=== PATIENT | male | born 1935 | race Caucasian/White ===

== ENCOUNTER 2019-08-05 10:22 | Emergency (ER) | payer MEDICAID, SELFPAY | END 2019-08-05 13:11 | disposition home or self-care (01) | PROVIDERS: Emergency Provider Family Medicine; Family Provider Family Medicine; Visit Provider Family Medicine | DX: D64.89 Other specified anemias (principal); F03.90 Unspecified dementia, unspecified severity, without behavioral disturbance, psychotic disturbance, mood disturbance, and anxiety; Z85.038 Personal history of other malignant neoplasm of large intestine; F17.210 Nicotine dependence, cigarettes, uncomplicated; E78.5 Hyperlipidemia, unspecified; I10 Essential (primary) hypertension; J44.9 Chronic obstructive pulmonary disease, unspecified | CPT/HCPCS: 70450; 71045; 74177; 80053; 81003; 83605; 83690; 83880; 84484 ×2; 85025; 85610; 93005 ×2; 99285; Q9967 ==

== ENCOUNTER 2019-08-11 12:14 | Emergency (ER) | payer MEDICAID, SELFPAY | END 2019-08-11 15:05 | disposition admitted as inpatient to this hospital (09) | LOC: ER 09-21 09:42 | PROVIDERS: Emergency Provider Emergency Medicine; Family Provider Family Medicine; PCP Family Medicine | DX: K92.2 Gastrointestinal hemorrhage, unspecified (principal); F17.210 Nicotine dependence, cigarettes, uncomplicated; Z86.73 Personal history of transient ischemic attack (TIA), and cerebral infarction without residual deficits; Z86.19 Personal history of other infectious and parasitic diseases; I10 Essential (primary) hypertension; E03.9 Hypothyroidism, unspecified; I35.0 Nonrheumatic aortic (valve) stenosis | CPT/HCPCS: 36415; 36600; 51702; 70450; 71045; 74177; 80053; 80074; 80307; 80500; 81001; 82607; 82728; 82803; 82805; 83540; 83550; 83605; 83615; 83690; 83735; 84443; 85025; 85045; 85610; 86592; 86850; 86900; 86902; 87040; 87491; 87591; 96360; 96365; 96374; 96375; 99283; 99285; C9113; J2405; J7030; J7050; Q9967 ==

== ENCOUNTER 2019-08-11 12:14 | Inpatient (IN) | payer MEDICAID, SELFPAY ==
[2019-08-11] VITALS (31 sets, daily range): BP systolic 84–142; BP diastolic 40–81; PULSE 72–99; RESP 12–22; TEMP 35.9–37.1; O2SAT 93–100; BMI 27.1
--- NOTE | 2019-08-11 12:19 | CTR_ITS ---
PROCEDURE INFORMATION: Exam: CT Abdomen And Pelvis With Contrast Exam date and time: 08/11/2019 12:55 PM Age: 83 years old Clinical indication: Abdominal pain; Generalized TECHNIQUE: Imaging protocol: Computed tomography of the abdomen and pelvis with intravenous contrast. Total DLP: 914.3 mGy-cm Radiation optimization: All CT scans at this facility use at least one of these dose optimization techniques: automated exposure control; mA and/or kV adjustment per patient size (includes targeted exams where dose is matched to clinical indication); or iterative reconstruction. Contrast material: OMNI 300; Contrast volume: 95 ml; Contrast route: LT AC; COMPARISON: CT Abdomen/Pelvis w IV* [id number] 08/05/2019 12:10 PM FINDINGS: Lungs: There is probable atelectasis/scar in the lungs. Liver: Normal. No mass. Gallbladder and bile ducts: Normal. No calcified stones. No ductal dilation. Pancreas: Normal. No ductal dilation. Spleen: Normal. No splenomegaly. Adrenals: Normal. No mass. Kidneys and ureters: There is a 5.5 cm cyst in the superior left kidney. No renal calcification or hydronephrosis. Stomach and bowel: Colonic diverticula are present although there are no CT findings to suggest diverticulitis. No bowel obstruction or wall thickening. Appendix: The appendix is visualized and appears normal. Intraperitoneal space: Unremarkable. No free air. No significant fluid collection. Vasculature: Unremarkable. No abdominal aortic aneurysm. Lymph nodes: Unremarkable. No enlarged lymph nodes. Bladder: There is a Duval catheter in a decompressed bladder. Reproductive: Unremarkable as visualized. Bones/joints: Degenerative change is identified in the spine. There is no evidence for acute fracture or malalignment. Soft tissues: Unremarkable. CT/CT abdomen pelvis w con* [id number] IMPRESSION: There are no acute concerning abnormalities. Radiation Dose CTDIVOL = (mGy): DLP = 914.3 (mGy-cm)
--- NOTE | 2019-08-11 12:19 | CTR_ITS ---
PROCEDURE INFORMATION: Exam: CT Head Without Contrast Exam date and time: 08/11/2019 12:21 PM Age: 83 years old Clinical indication: Syncope and collapse; Additional info: AMS TECHNIQUE: Imaging protocol: Computed tomography of the head without contrast. Total DLP: 768.02 mGy-cm Radiation optimization: All CT scans at this facility use at least one of these dose optimization techniques: automated exposure control; mA and/or kV adjustment per patient size (includes targeted exams where dose is matched to clinical indication); or iterative reconstruction. COMPARISON: CT Head wo IV contrast* [id number] 08/05/2019 11:17 AM FINDINGS: Brain: Moderate white matter disease and volume loss are identified. There is no acute infarct or edema. There is prominence of the extra-axial space along the right frontal lobe. Ventricles: Normal. No ventriculomegaly. Bones/joints: Unremarkable. No acute fracture. Sinuses: Visualized sinuses are unremarkable. No fluid levels. Mastoid air cells: Visualized mastoid air cells are well aerated. Soft tissues: Unremarkable. CT/CT head wo con* [id number] IMPRESSION: There are no acute concerning abnormalities. Radiation Dose CTDIVOL = (mGy): DLP = 768.02 (mGy-cm)
--- NOTE | 2019-08-11 12:19 | XRR_ITS ---
PROCEDURE INFORMATION: Exam: XR Chest, 1 View Exam date and time: 08/11/2019 1:12 PM Age: 83 years old Clinical indication: Other: AMS TECHNIQUE: Imaging protocol: XR of the chest Views: 1 view. COMPARISON: CR Chest 1 [place] [id number] 08/05/2019 10:44 AM FINDINGS: Lungs: The lung volumes are low. No acute pneumonia or edema. Pleural space: Unremarkable. No pleural effusion. No pneumothorax. Heart/Mediastinum: Unremarkable. No cardiomegaly. Bones/joints: There is arthritic change in the bilateral glenohumeral joints. XR/XR chest 1V portable [id number] IMPRESSION: There are no acute concerning abnormalities.
--- NOTE | 2019-08-11 12:28 | PC.NURSE ---
Lab at bedside
[2019-08-11] MEDS: sodium chloride 0.9% 1,000 ML 999 ML IV (12:33)
[2019-08-11] MEDS: ondansetron 2 mg/ML SDV 2 mL 4 MG IVP (12:35)
[2019-08-11 12:41] LABS: Basophils % 0.5 %; Eosinophils # 0.3 10^3/uL (0.0-0.8); Eosinophils % 6.8 %; Lymphocytes % 24.6 %; Mean Corpuscular HGB Conc 27.7 g/dL (30.0-36.0); Mean Corpuscular Hemoglobin 20.8 pg (28.0-34.0); Mean Corpuscular Volume 75.1 fL (80-94); Monocytes # 0.4 10^3/uL (0.2-0.9); Monocytes % 10.7 %; Neutrophils # 2.4 10^3/uL (1.8-7.7); Neutrophils % 57.2 %; Nucleated Red Blood Cells % 0 %; Platelet Count 191 10^3/cmm (130-400); Red Blood Count 2.69 10^6/uL (4.1-5.3); Red Cell Distribution Width 17.1 % (12.1-15.1); White Blood Count 4.1 10^3/uL (4.0-10.0)
[2019-08-11 12:48] LABS: Hematocrit 20.2 % (42.0-52.0); Hemoglobin 5.6 g/dL (11.7-16.6)
[2019-08-11 12:50] LABS: INR 1.08 (0.8-1.2)
[2019-08-11 12:52] LABS: Albumin Level 3.4 g/dL (3.5-5.2); Alkaline Phosphatase 66 IU/L (40-130); Aspartate Amino Transferase 13 U/L (0-40); Blood Urea Nitrogen 13 mg/dL (8-23); Calcium 9.1 mg/Dl (8.8-10.2); Carbon Dioxide 22 mmol/L (22-29); Chloride 106 mmol/L (98-107); Globulin 2.6 g/dL (1.3-4.6); Glucose 119 mg/dL (74-106); Lipase 21 U/L (13-60); Magnesium 2.6 mg/dL (1.7-2.3); Sodium 137 mmol/L (136-145); Total Bilirubin 0.4 mg/dL (0.15-1.2)
[2019-08-11 12:53] LABS: Lactic Sepsis W/Reflex 2.4 mmol/L (0.5-2.2)
--- NOTE | 2019-08-11 13:01 | ED_ITS ---
Entered by Layla Grider, acting as scribe for HPI - Altered Mental Status General: Chief Complaint: Altered Mental Status Stated Complaint: HYPOTENSION Time Seen by Provider: 08/11/19 12:18 Source: patient and EMS Mode of arrival: EMS Limitations: altered mental status History of Present Illness: HPI narrative: Carlos is an 83-year-old male who comes from the local hotel with a report of confusion. No further history can be obtained. It is believed the patient stayed here in the hospital recently. MD complaint: altered mental status and confusion Onset (ago): day(s) Severity: moderate Consistency of symptoms: Getting Worse Review of Systems General: Reports: ROS unobtainable due to mental status PFSH ED PFSH: Statuses (acute, chronic, etc) shown below reflect problem list status as previously entered and may not be historically accurate Medical History (Updated 08/11/19 @ 14:49 by Malvin Barraza MD) Blindness (Acute) CVA (cerebral vascular accident) (Acute) Dementia (Acute) Hepatitis C virus infection cured after antiviral drug therapy (Acute) History of arteriovenous malformation (AVM) (Acute) History of Helicobacter pylori infection (Acute) History of hepatitis B (Acute) Hx of colonic polyps (Acute) Hypertension (Acute) Hypotension (Acute) Hypothyroidism (Acute) Severe aortic stenosis (Acute) Surgical History (Updated 08/11/19 @ 14:49 by Malvin Barraza MD) H/O hernia repair (Acute) History of colonoscopy (Acute) History of esophagogastroduodenoscopy (EGD) (Acute) Family History (Updated 08/11/19 @ 14:49 by Malvin Barraza MD) Other CAD (coronary artery disease) Denies family history of Cancer Social History (Updated 08/11/19 @ 14:50 by Malvin Barraza MD) Smoking and tobacco status: current every day smoker Alcohol intake: never Substance/Drug Use: never Caregiver/support person: No Lives independently: Yes Housing: Other Details: Lives in a hotel Marital status: Single Physical Exam Const: COMMON NORMALS: no apparent distress, no limitations, healthy appearing and well nourished EXAM LIMITATIONS: altered mental status GENERAL APPEARANCE: cooperative, well kempt and well developed ORIENTATION/CONSCIOUSNESS: Yes awake HENMT: COMMON NORMALS: normocephalic, head/scalp atraumatic, hearing grossly normal bilaterally, external ears normal, EAC's normal, external nose normal and moist oral mucous membranes HEAD & SCALP: normal to inspection, normocephalic and atraumatic FACE & SINUS: normal facial exam and face symmetric NOSE: external nose normal and nares normal EXTERNAL EAR: Yes external ears normal EXTERNAL AUDITORY CANAL: EAC's normal MOUTH: oral and palatal mucosa normal and tongue normal Eye: COMMON NORMALS: PERRL, EOMs intact bilaterally, conjunctivae normal and no scleral icterus GENERAL EYE: normal appearance of both eyes and normal light reflex CONJUNCTIVA: Yes conjunctivae normal SCLERA: sclerae normal CORNEA: Yes corneas normal PUPIL: Yes PERRL DIRECT OPHTHALMOSCOPY: Yes normal light reflex Neck/C-Spine: COMMON NORMALS: full ROM, no lymphadenopathy, supple, no meningeal signs and no JVD GENERAL: Yes normal visual inspection and Yes trachea midline CERVICAL SPINE: Yes cervical ROM normal Chest: COMMONS NORMALS: inspection of chest normal and palpation of chest normal Resp: COMMON NORMALS: normal respiratory effort, no retractions, no use of accessory muscles and clear to auscultation bilaterally EFFORT & INSPECTION: Yes able to speak in complete sentences AUSCULTATION: clear to auscultation bilaterally Cardio: COMMON NORMALS: no JVD, regular rate, regular rhythm, S1 normal heart sound, S2 normal heart sound, no gallops, no clicks, no murmurs and no rub JUGULAR VENOUS DISTENTION: no JVD RATE: regular rate RHYTHM: regular rhythm HEART SOUNDS: S1 normal and S2 normal GI: COMMON NORMALS: soft to palpation, non-tender, no hepatosplenomegaly and no masses INSPECTION: Yes normal to inspection PALPATION: Yes soft and Yes no hepatosplenomegaly : COMMON NORMALS: Yes no CVA tenderness BLADDER/KIDNEY EXAM: Yes no CVA tenderness Back/Pelvis: COMMON NORMALS: no CVA tenderness, thoracic and lumbar spine normal to inspection, no thoracic nor lumbar tenderness and thoraco-lumbar ROM normal Extremity: COMMON NORMALS: normal to inspection, full ROM, normal capillary refill, no joint enlargement, no clubbing, cyanosis or edema and no calf tenderness Neuro: COMMON NORMALS: CN's II-XII intact bilaterally, moves all extremities, no focal motor deficits and no sensory deficits noted MENINGEAL SIGNS: Yes no meningeal signs Psych: COMMON NORMALS: mental status grossly normal, thought process normal, cooperative, affect normal, speech normal and activity/motor behavior normal APPEARANCE: Yes well kempt SPEECH: Yes normal speech THOUGHT PROCESS: normal thought process Skin: COMMON NORMALS: no rashes or lesions noted, skin turgor normal, no jaundice, no petechiae and no mottling GENERAL SKIN EXAM: no rashes or lesions noted and turgor normal Urinary Catheter Management^: Duval: Cath Placed During This Visit: no Course Vital Signs: Vital signs: Vital Signs Temperature 97.5 F L 08/11/19 16:25 Pulse Rate 90 08/11/19 16:25 Respiratory Rate 18 08/11/19 16:08 Blood Pressure 92/72 08/11/19 16:25 Pulse Oximetry 98 08/11/19 16:31 MDM - Altered Mental Status MDM Narrative: Medical decision making narrative: The case was reviewed with Dr. Barraza, he will admit and consult Dr. Ramírez. Lab Data: Labs: Lab Results 08/11/19 08/11/19 08/11/19 Range/Units 11:55 12:28 12:28 WBC 4.1 (4.0-10.0) 10^3/ uL RBC 2.69 L (4.1-5.3) 10^6/u L Hgb 5.6 L* (11.7-16.6) g/dL Hct 20.2 L* (42.0-52.0) % MCV 75.1 L (80-94) fL MCH 20.8 L (28.0-34.0) pg MCHC 27.7 L (30.0-36.0) g/dL RDW 17.1 H (12.1-15.1) % Plt Count 191 (130-400) 10^3/c mm MPV 12.0 H (7.4-10.4) fL Neut % (Auto) 57.2 % Lymph % (Auto) 24.6 % [place] % (Auto) 10.7 % Eos % (Auto) 6.8 % Baso % (Auto) 0.5 % Reticulocyte % (Au to) % Neut # (Auto) 2.4 (1.8-7.7) 10^3/u L Lymph # (Auto) 1.0 (0.8-4.8) 10^3/u L [place] # (Auto) 0.4 (0.2-0.9) 10^3/u L Eos # (Auto) 0.3 (0.0-0.8) 10^3/u L Baso # (Auto) 0.0 (0.0-0.1) 10^3/u L Nucleated RBC % (a uto) 0 % Nucleated RBCs # 0.0 /100WBC PT 14.40 H (10.5-13.3) SECO NDS INR 1.08 (0.8-1.2) Specimen Type Sample Site ABG pH (7.35-7.45) ABG pCO2 (35-45) mmHg ABG pO2 (80.0-100.0) mmH g ABG HCO3 (22-26) mmol/L ABG Base Excess (-2.0-2.0) mmol/ L Chandana Test Hematocrit (42-52) % Hgb O2 Saturation (95-100) % FiO2 % Hop Grower ID Sodium 137 (136-145) mmol/L Potassium 4.0 (3.5-5.1) mmol/L Chloride 106 (98-107) mmol/L Carbon Dioxide 22 (22-29) mmol/L Anion Gap 13.0 (5-19) BUN 13 (8-23) mg/dL Creatinine 0.9 (0.7-1.2) mg/dL Glucose 119 H (74-106) mg/dL Lactic Acid (0.5-2.2) mmol/L Lactate (0.5-2.2) mmol/L Calcium 9.1 (8.8-10.2) mg/Dl Magnesium 2.6 H (1.7-2.3) mg/dL Total Bilirubin 0.4 (0.15-1.2) mg/dL AST 13 (0-40) U/L ALT 5 (0-41) U/L Alkaline Phosphata se 66 (40-130) IU/L Total Protein 6.0 L (6.6-8.7) g/dL Albumin 3.4 L (3.5-5.2) g/dL Globulin 2.6 (1.3-4.6) g/dL Lipase 21 (13-60) U/L Urine Color (Yellow) Urine Appearance (CLEAR) Urine pH (5-7) Ur Specific Gravit y (1.005-1.030) Urine Protein (Negative) Urine Glucose (UA) (Normal) Urine Ketones (Negative) Urine Occult Blood (Negative) Urine Nitrate (Negative) Urine Bilirubin (NEGATIVE) Urine Urobilinogen (Negative) mg/dL Ur Leukocyte Rosamaria ase (Negative) Urine RBC (0-2) /hpf Urine WBC (0-5) /hpf Ur Squamous Epith Cells (0-5) Urine Bacteria (NONE) Hyaline Casts Urine Mucus Salicylates < 0.3 L (3-10) mg/dL Urine Opiates Scre en (Negative) ng/mL Acetaminophen < 5.0 L (10-30) ug/mL Ur Barbiturates Sc reen (Negative) ng/mL Ur Phencyclidine S crn (Negative) ng/mL Ur Amphetamines Sc reen (Negative) ng/mL U Benzodiazepines Scrn (Negative) ng/mL Urine Cocaine Scre en (Negative) ng/mL U Marijuana (THC) Screen (Negative) ng/mL Ethyl Alcohol < 10 (0-10) mg/dL Blood Type Antibody Screen Antibody Identific ation Crossmatch 08/11/19 08/11/19 08/11/19 Range/Units 12:28 12:28 12:28 WBC (4.0-10.0) 10^3/ uL RBC (4.1-5.3) 10^6/u L Hgb (11.7-16.6) g/dL Hct (42.0-52.0) % MCV (80-94) fL MCH (28.0-34.0) pg MCHC (30.0-36.0) g/dL RDW (12.1-15.1) % Plt Count (130-400) 10^3/c mm MPV (7.4-10.4) fL Neut % (Auto) % Lymph % (Auto) % [place] % (Auto) % Eos % (Auto) % Baso % (Auto) % Reticulocyte % (Au to) 1.0800 % Neut # (Auto) (1.8-7.7) 10^3/u L Lymph # (Auto) (0.8-4.8) 10^3/u L [place] # (Auto) (0.2-0.9) 10^3/u L Eos # (Auto) (0.0-0.8) 10^3/u L Baso # (Auto) (0.0-0.1) 10^3/u L Nucleated RBC % (a uto) % Nucleated RBCs # /100WBC PT (10.5-13.3) SECO NDS INR (0.8-1.2) Specimen Type Sample Site ABG pH (7.35-7.45) ABG pCO2 (35-45) mmHg ABG pO2 (80.0-100.0) mmH g ABG HCO3 (22-26) mmol/L ABG Base Excess (-2.0-2.0) mmol/ L Chandana Test Hematocrit (42-52) % Hgb O2 Saturation (95-100) % FiO2 % Hop Grower ID Sodium (136-145) mmol/L Potassium (3.5-5.1) mmol/L Chloride (98-107) mmol/L Carbon Dioxide (22-29) mmol/L Anion Gap (5-19) BUN (8-23) mg/dL Creatinine (0.7-1.2) mg/dL Glucose (74-106) mg/dL Lactic Acid 2.4 H (0.5-2.2) mmol/L Lactate (0.5-2.2) mmol/L Calcium (8.8-10.2) mg/Dl Magnesium (1.7-2.3) mg/dL Total Bilirubin (0.15-1.2) mg/dL AST (0-40) U/L ALT (0-41) U/L Alkaline Phosphata se (40-130) IU/L Total Protein (6.6-8.7) g/dL Albumin (3.5-5.2) g/dL Globulin (1.3-4.6) g/dL Lipase (13-60) U/L Urine Color (Yellow) Urine Appearance (CLEAR) Urine pH (5-7) Ur Specific Gravit y (1.005-1.030) Urine Protein (Negative) Urine Glucose (UA) (Normal) Urine Ketones (Negative) Urine Occult Blood (Negative) Urine Nitrate (Negative) Urine Bilirubin (NEGATIVE) Urine Urobilinogen (Negative) mg/dL Ur Leukocyte Rosamaria ase (Negative) Urine RBC (0-2) /hpf Urine WBC (0-5) /hpf Ur Squamous Epith Cells (0-5) Urine Bacteria (NONE) Hyaline Casts Urine Mucus Salicylates (3-10) mg/dL Urine Opiates Scre en (Negative) ng/mL Acetaminophen (10-30) ug/mL Ur Barbiturates Sc reen (Negative) ng/mL Ur Phencyclidine S crn (Negative) ng/mL Ur Amphetamines Sc reen (Negative) ng/mL U Benzodiazepines Scrn (Negative) ng/mL Urine Cocaine Scre en (Negative) ng/mL U Marijuana (THC) Screen (Negative) ng/mL Ethyl Alcohol (0-10) mg/dL Blood Type A Positive Antibody Screen Positive Antibody Identific ation Anti-c Crossmatch See Detail 08/11/19 08/11/19 08/11/19 Range/Units 12:40 12:40 13:00 WBC (4.0-10.0) 10^3/ uL RBC (4.1-5.3) 10^6/u L Hgb (11.7-16.6) g/dL Hct (42.0-52.0) % MCV (80-94) fL MCH (28.0-34.0) pg MCHC (30.0-36.0) g/dL RDW (12.1-15.1) % Plt Count (130-400) 10^3/c mm MPV (7.4-10.4) fL Neut % (Auto) % Lymph % (Auto) % [place] % (Auto) % Eos % (Auto) % Baso % (Auto) % Reticulocyte % (Au to) % Neut # (Auto) (1.8-7.7) 10^3/u L Lymph # (Auto) (0.8-4.8) 10^3/u L [place] # (Auto) (0.2-0.9) 10^3/u L Eos # (Auto) (0.0-0.8) 10^3/u L Baso # (Auto) (0.0-0.1) 10^3/u L Nucleated RBC % (a uto) % Nucleated RBCs # /100WBC PT (10.5-13.3) SECO NDS INR (0.8-1.2) Specimen Type Arterial Sample Site Radial, right ABG pH 7.41 (7.35-7.45) ABG pCO2 35.6 (35-45) mmHg ABG pO2 68.6 L (80.0-100.0) mmH g ABG HCO3 22.7 (22-26) mmol/L ABG Base Excess -1.8 (-2.0-2.0) mmol/ L Chandana Test Pos Hematocrit 17.1 L (42-52) % Hgb O2 Saturation 90.5 L (95-100) % FiO2 21.0 % Hop Grower ID amh Sodium (136-145) mmol/L Potassium (3.5-5.1) mmol/L Chloride (98-107) mmol/L Carbon Dioxide (22-29) mmol/L Anion Gap (5-19) BUN (8-23) mg/dL Creatinine (0.7-1.2) mg/dL Glucose (74-106) mg/dL Lactic Acid (0.5-2.2) mmol/L Lactate (0.5-2.2) mmol/L Calcium (8.8-10.2) mg/Dl Magnesium (1.7-2.3) mg/dL Total Bilirubin (0.15-1.2) mg/dL AST (0-40) U/L ALT (0-41) U/L Alkaline Phosphata se (40-130) IU/L Total Protein (6.6-8.7) g/dL Albumin (3.5-5.2) g/dL Globulin (1.3-4.6) g/dL Lipase (13-60) U/L Urine Color Yellow (Yellow) Urine Appearance Clear (CLEAR) Urine pH 7 (5-7) Ur Specific Gravit y 1.010 (1.005-1.030) Urine Protein Neg (Negative) Urine Glucose (UA) Norm (Normal) Urine Ketones Negative (Negative) Urine Occult Blood Neg (Negative) Urine Nitrate Negative (Negative) Urine Bilirubin Neg (NEGATIVE) Urine Urobilinogen 1 H (Negative) mg/dL Ur Leukocyte Rosamaria ase Negative (Negative) Urine RBC 0-4 H (0-2) /hpf Urine WBC 5-10 H (0-5) /hpf Ur Squamous Epith Cells 0-4 H (0-5) Urine Bacteria 1+ H (NONE) Hyaline Casts 5-10 H Urine Mucus Trace Salicylates (3-10) mg/dL Urine Opiates Scre en Negative (Negative) ng/mL Acetaminophen (10-30) ug/mL Ur Barbiturates Sc reen Negative (Negative) ng/mL Ur Phencyclidine S crn Negative (Negative) ng/mL Ur Amphetamines Sc reen Negative (Negative) ng/mL U Benzodiazepines Scrn Negative (Negative) ng/mL Urine Cocaine Scre en Negative (Negative) ng/mL U Marijuana (THC) Screen Negative (Negative) ng/mL Ethyl Alcohol (0-10) mg/dL Blood Type Antibody Screen Antibody Identific ation Crossmatch 08/11/19 Range/Units 13:37 WBC (4.0-10.0) 10^3/ uL RBC (4.1-5.3) 10^6/u L Hgb (11.7-16.6) g/dL Hct (42.0-52.0) % MCV (80-94) fL MCH (28.0-34.0) pg MCHC (30.0-36.0) g/dL RDW (12.1-15.1) % Plt Count (130-400) 10^3/c mm MPV (7.4-10.4) fL Neut % (Auto) % Lymph % (Auto) % [place] % (Auto) % Eos % (Auto) % Baso % (Auto) % Reticulocyte % (Au to) % Neut # (Auto) (1.8-7.7) 10^3/u L Lymph # (Auto) (0.8-4.8) 10^3/u L [place] # (Auto) (0.2-0.9) 10^3/u L Eos # (Auto) (0.0-0.8) 10^3/u L Baso # (Auto) (0.0-0.1) 10^3/u L Nucleated RBC % (a uto) % Nucleated RBCs # /100WBC PT (10.5-13.3) SECO NDS INR (0.8-1.2) Specimen Type Sample Site ABG pH (7.35-7.45) ABG pCO2 (35-45) mmHg ABG pO2 (80.0-100.0) mmH g ABG HCO3 (22-26) mmol/L ABG Base Excess (-2.0-2.0) mmol/ L Chandana Test Hematocrit (42-52) % Hgb O2 Saturation (95-100) % FiO2 % Hop Grower ID Sodium (136-145) mmol/L Potassium (3.5-5.1) mmol/L Chloride (98-107) mmol/L Carbon Dioxide (22-29) mmol/L Anion Gap (5-19) BUN (8-23) mg/dL Creatinine (0.7-1.2) mg/dL Glucose (74-106) mg/dL Lactic Acid (0.5-2.2) mmol/L Lactate 1.4 (0.5-2.2) mmol/L Calcium (8.8-10.2) mg/Dl Magnesium (1.7-2.3) mg/dL Total Bilirubin (0.15-1.2) mg/dL AST (0-40) U/L ALT (0-41) U/L Alkaline Phosphata se (40-130) IU/L Total Protein (6.6-8.7) g/dL Albumin (3.5-5.2) g/dL Globulin (1.3-4.6) g/dL Lipase (13-60) U/L Urine Color (Yellow) Urine Appearance (CLEAR) Urine pH (5-7) Ur Specific Gravit y (1.005-1.030) Urine Protein (Negative) Urine Glucose (UA) (Normal) Urine Ketones (Negative) Urine Occult Blood (Negative) Urine Nitrate (Negative) Urine Bilirubin (NEGATIVE) Urine Urobilinogen (Negative) mg/dL Ur Leukocyte Rosamaria ase (Negative) Urine RBC (0-2) /hpf Urine WBC (0-5) /hpf Ur Squamous Epith Cells (0-5) Urine Bacteria (NONE) Hyaline Casts Urine Mucus Salicylates (3-10) mg/dL Urine Opiates Scre en (Negative) ng/mL Acetaminophen (10-30) ug/mL Ur Barbiturates Sc reen (Negative) ng/mL Ur Phencyclidine S crn (Negative) ng/mL Ur Amphetamines Sc reen (Negative) ng/mL U Benzodiazepines Scrn (Negative) ng/mL Urine Cocaine Scre en (Negative) ng/mL U Marijuana (THC) Screen (Negative) ng/mL Ethyl Alcohol (0-10) mg/dL Blood Type Antibody Screen Antibody Identific ation Crossmatch Imaging Data^: CXR: My impression: No acute cardiopulmonary findings. CT Head: My impression: No acute findings, see formal report. CT Abd/Pel: Radiologist's impression: [facility] [address] [place] [address] CT Scan Report Signed Patient: Carlos Leyva MR#: [id number] : 1935 Acct:[id number] Age/Sex: 83 / M ADM Date: 08/11/19 Loc: ER Attending Dr: Ordering Physician: Shadia Serra DO Date of Service: 08/11/19 Procedure(s): CT abdomen pelvis w con* [id number] Accession Number(s): [id number] cc: Shadia Serra DO PROCEDURE INFORMATION: Exam: CT Abdomen And Pelvis With Contrast Exam date and time: 08/11/2019 12:55 PM Age: 83 years old Clinical indication: Abdominal pain; Generalized TECHNIQUE: Imaging protocol: Computed tomography of the abdomen and pelvis with intravenous contrast. Total DLP: 914.3 mGy-cm Radiation optimization: All CT scans at this facility use at least one of these dose optimization techniques: automated exposure control; mA and/or kV adjustment per patient size (includes targeted exams where dose is matched to clinical indication); or iterative reconstruction. Contrast material: OMNI 300; Contrast volume: 95 ml; Contrast route: LT AC; COMPARISON: CT Abdomen/Pelvis w IV* [id number] 08/05/2019 12:10 PM FINDINGS: Lungs: There is probable atelectasis/scar in the lungs. Liver: Normal. No mass. Gallbladder and bile ducts: Normal. No calcified stones. No ductal dilation. Pancreas: Normal. No ductal dilation. Spleen: Normal. No splenomegaly. Adrenals: Normal. No mass. Kidneys and ureters: There is a 5.5 cm cyst in the superior left kidney. No renal calcification or hydronephrosis. Stomach and bowel: Colonic diverticula are present although there are no CT findings to suggest diverticulitis. No bowel obstruction or wall thickening. Appendix: The appendix is visualized and appears normal. Intraperitoneal space: Unremarkable. No free air. No significant fluid collection. Vasculature: Unremarkable. No abdominal aortic aneurysm. Lymph nodes: Unremarkable. No enlarged lymph nodes. Bladder: There is a Duval catheter in a decompressed bladder. Reproductive: Unremarkable as visualized. Bones/joints: Degenerative change is identified in the spine. There is no evidence for acute fracture or malalignment. Soft tissues: Unremarkable. CT/CT abdomen pelvis w con* [id number] IMPRESSION: There are no acute concerning abnormalities. Radiation Dose CTDIVOL = (mGy): DLP = 914.3 (mGy-cm) Dictated By: Gilberto Shirley MD 08/11/19 1356 Signed By: Gilberto Shirley MD 08/11/19 1358 Discharge Plan Discharge Patient Disposition: Admitted As Inpatient Admit Provider: Malvin Barraza Clinical Impression: Acute GI bleeding Condition: Stable Referrals: Mauricio Hull MD [Family Provider] - Discharge Date/Time: 08/11/19 15:05 Coding Level of Care Code ED Touch Up Edger for Chg Fwd Exam Problem Focused The documentation recorded by the Cheo nolen Bridget Annette, accurately reflects the service I personally performed and the decisions made by Ponce rodriguez Eli N Aug 11, 2019 12:14
[2019-08-11 13:09] LABS: Acetaminophen < 5.0 ug/mL (10-30); Alcohol Level < 10 mg/dL (0-10); Salicylate < 0.3 mg/dL (3-10)
[2019-08-11 13:10] LABS: Alanine Aminotransferase 5 U/L (0-41)
[2019-08-11 13:12] LABS: ABG PCO2 35.6 mmHg (35-45); ABG PH Result 7.41 (7.35-7.45); Arterial Blood Gas Hematocrit 17.1 % (42-52); Base Excess ABG -1.8 mmol/L (-2.0-2.0); Blood Gas Allen Test Pos; Blood Gas Operator Identificat amh; Blood Gas Sample Site Radial, right; Blood Gas Sample Type Arterial; HCO3 ABG 22.7 mmol/L (22-26); HGB O2 Sat 90.5 % (95-100); PO2 ABG 68.6 mmHg (80.0-100.0)
--- NOTE | 2019-08-11 13:12 | PC.NURSE ---
Pt to radiology
--- NOTE | 2019-08-11 13:30 | PC.NURSE ---
Pt back to room
[2019-08-11] MEDS: pantoprazole 40 MG in sodium chloride 0.9% (plus) 100 ML 20 MG IV (13:49)
[2019-08-11] MEDS: pantoprazole 40 mg SDV 80 MG IVP (13:49)
[2019-08-11] MEDS: sodium chloride 0.9% 1,000 ML 150 ML IV (13:50)
[2019-08-11 13:54] LABS: Amphetamines Screen Urine Negative (Negative); Barbiturates Screen Urine Negative (Negative); Benzodiazepines Screen Urine Negative (Negative); Cocaine Screen Urine Negative (Negative); Opiate Screen Urine Negative (Negative); PCP Screen Urine Negative (Negative); THC Screen Urine Negative (Negative)
--- NOTE | 2019-08-11 13:55 | PC.NURSE ---
Dr Barraza at bedside
[2019-08-11 13:56] LABS: Bilirubin Urine Neg (NEGATIVE); Blood Urine Neg (Negative); Glucose Urine UA Norm (Normal); Ketones Urine Negative (Negative); Leukocyte Esterase Urine Negative (Negative); Nitrate Urine Negative (Negative); Protein Urine Neg (Negative); Urine Appearance Clear (CLEAR); Urine Color Yellow (Yellow); Urobilinogen Urine 1 mg/dL (Negative); pH Urine 7 (5-7)
[2019-08-11 14:03] LABS: Mucus Urine TRACE
[2019-08-11 14:04] LABS: RBC Urine 0-4 /hpf (0-2)
[2019-08-11 14:05] LABS: Add Urine Culture? No; Bacteria Urine 1+; Squamous Epithelial Cell Urine 0-4 (0-5)
[2019-08-11 14:23] LABS: Reflex Lactate Order Y
--- NOTE | 2019-08-11 14:35 | PM.HP ---
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 Who presents to the emergency room due to complaints of black stools and syncope. Patient states that all his family have , he only has an cousins in [facility], and he is only really close to his nephew in [place]. He is disabled due to chronic back pain. He lives in a [place] in [facility] [place] [facility] that gets $700 from Social Security, he lives on his own. States that this morning the woman he was with, he is pretty vague in terms of his relationship with this female, denies her being a girlfriend or , stated that she saw him pass out so she called 911. He stated that he also passed out in the EMS. States that he has had a couple weeks history of black stools. Denies bloody stools. Denies lightheadedness. Denies dizziness. Denies history of syncopes in the past. Denies chest pain. Denies palpitations. Denies a history of CAD. Denies history of stent placement. Denies history of CABG. Does have a history of CVA. No reported facial droop, slurring of speech, focal neurologic deficits, paralysis, productive or receptive aphasia. No seizure-like events reported, no urinary or bowel incontinence, no postictal confusion. In the emergency room, heart rates were in the 80s, blood pressure was 84/40, received bolus of IV fluids, receiving blood, blood pressure and is in the 130 over 70s, heart rate 90s, no tachypnea, patient states that he is doing better, denies chest pain, denies palpitations, denies shortness of breath, denies lightheadedness, denies dizziness. During my examination patient had episodes of confusion, did not answer questions appropriately, seems quite forgetful, I did require to repeat my questioning a couple of times for him to understand. Patient denies being on blood thinners, aspirin, Eliquis, warfarin, Plavix, denies taking Aleve or naproxen. Or NSAIDs. Review of Systems Const: Denies: fever, chills, body aches or change in appetite Eyes: Denies: change in vision ENMT: Denies: nasal discharge Card: Reports: syncope; Denies: chest pain, palpitations, irregular heart rhythm or lightheadedness Resp: Denies: shortness of breath or productive cough GI: Reports: excessive passing of gas and black tarry stool; Denies: abdominal pain, nausea, vomiting, vomiting blood, coffee grounds in vomit, diarrhea, constipation, painful bowel movements or blood in stool : Denies: flank pain, difficulty urinating, painful urination, urinary frequency, urinary urgency or urinary hesitancy Musc: Denies: back pain Skin/Breast: Denies: rash Neuro: Reports: dizziness; Denies: headache, numbness in extremities, weakness in extremities or difficulty walking Endo: Denies: excessive urination Ronni/Lymph: Denies: easy bruising Medications/Allergies Home Medications Medication Instructions Recorded Confirmed Last Taken Type Unable to Assess 08/11/19 08/11/19 Unknown History Allergies Allergy/AdvReac Type Severity Reaction Status Date / Time No Known Allergies Allergy Verified 08/11/19 12:41 Additional Medication Information Additional Medication Information: Patient is unable to provide his medication list, his pharmacy is closed On his previous med list: He is on levothyroxine 100 mcg once daily -Pantoprazole 40 mg once daily Atorvastatin 40 mg once daily Docusate 100 mg twice daily Ferrous sulfate 325 mg 3 times daily Losartan 25 mg p.o. daily Terrazosin and 5 mg p.o. daily Flonase PFSH Acute PFSH: Statuses (acute, chronic, etc) shown below reflect problem list status as previously entered and may not be historically accurate Medical History (Updated 08/11/19 @ 14:49 by Malvin Barraza MD) Blindness (Acute) CVA (cerebral vascular accident) (Acute) Dementia (Acute) Hepatitis C virus infection cured after antiviral drug therapy (Acute) History of arteriovenous malformation (AVM) (Acute) History of Helicobacter pylori infection (Acute) History of hepatitis B (Acute) Hx of colonic polyps (Acute) Hypertension (Acute) Hypotension (Acute) Hypothyroidism (Acute) Severe aortic stenosis (Acute) Surgical History (Updated 08/11/19 @ 14:49 by Malvin Barraza MD) H/O hernia repair (Acute) History of colonoscopy (Acute) History of esophagogastroduodenoscopy (EGD) (Acute) Family History (Updated 08/11/19 @ 14:49 by Malvin Barraza MD) Other CAD (coronary artery disease) Denies family history of Cancer Social History (Updated 08/11/19 @ 14:50 by Malvin Barraza MD) Smoking and tobacco status: current every day smoker Alcohol intake: never Substance/Drug Use: never Caregiver/support person: No Lives independently: Yes Housing: Other Details: Lives in a hotel Marital status: Single Vitals/I&O/Wt Last Vital Signs Temp 97.7 F 08/11/19 12:18 Pulse 90 08/11/19 13:54 Resp 19 H 08/11/19 13:54 BP 110/59 08/11/19 13:54 Pulse Ox 99 08/11/19 13:54 08/10/19 08/11/19 08/11/19 22:59 06:59 14:59 Intake Total 1000 / 1000 Balance 1000 / 1000 Weight last 48 hrs Weight 90.718 kg Physical Exam Const: COMMON NORMALS: no apparent distress and oriented x3 GENERAL APPEARANCE: cooperative and comfortable NUTRITIONAL APPEARANCE: obese ORIENTATION/CONSCIOUSNESS: Yes awake, Yes oriented to person, Yes oriented to place and Yes confused HENMT: COMMON NORMALS: normocephalic Eye: COMMON NORMALS: PERRL and EOMs intact bilaterally Neck/C-Spine: COMMON NORMALS: no lymphadenopathy and no JVD Lymph: LYMPHATIC: no lymphadenopathy noted Chest: COMMONS NORMALS: inspection of chest normal Resp: COMMON NORMALS: normal respiratory effort, no retractions, no use of accessory muscles, clear to auscultation bilaterally and percussion normal Cardio: COMMON NORMALS: no JVD, S1 normal heart sound, S2 normal heart sound and no clicks HEART SOUNDS: abnormal sounds (Systolic murmur) PERIPHERAL PULSES: pulses 2+ throughout GI: COMMON NORMALS: normal to inspection, nondistended, normoactive bowel sounds, soft to palpation, non-tender, no hepatosplenomegaly, no masses and no bruits : COMMON NORMALS: Yes no CVA tenderness Extremity: COMMON NORMALS: normal to inspection, full ROM, normal capillary refill, no clubbing, cyanosis or edema and no pedal edema Neuro: COMMON NORMALS: oriented x3, moves all extremities, no focal motor deficits, no sensory deficits noted and deep tendon reflexes 2+ bilaterally Psych: COMMON NORMALS: mental status grossly normal and thought process normal (Thought process delayed, forgetful) ACTIVITY/MOTOR BEHAVIOR: Yes disorganized SPEECH: Yes delayed THOUGHT PROCESS: disorganized and confused MEMORY/COGNITION: Yes memory grossly impaired Skin: COMMON NORMALS: no rashes or lesions noted Urinary Catheter Management^: Duval: Cath Placed During This Visit: no Data Micro: Micro: Microbiology 08/11/19 12:44 Blood Culture - Pr eliminary Blood SPECIMEN [facility]ORE 08/11/19 12:28 Blood Culture - Pr eliminary Blood SPECIMEN [facility] A&P Assessment and plan (1) Acute GI bleeding: Assessment: No significant elevations of BUN, hemoglobin 5.6, was hypotensive on admission but improved with a 3 L bolus IV fluids, could be upper or lower GI source, given history of mild to moderate dysplastic colonic polyps x2, would benefit from an EGD and colonoscopy, EGD 6 months ago did show AV malformation status post cauterization -Patient does have history of iron deficiency anemia, on iron patient d -does have a history of severe aortic stenosis, possible traumatic hemolysis, this might also be playing a role Plan: -Admit to ICU -Maintain map greater than 65, bolused with LR -Maintain [address], no need for central line at this time as patient is normotensive, may need a central line if required -We will received 3 units PRBC, monitor hemoglobin thereafter every 4 hours -Continue Protonix drip -Surgery has been consulted -N.p.o., will have EGD tomorrow -Telemetry, monitor vitals -LDH, peripheral smear, iron studies pending Status: Acute Code(s): K92.2 - Gastrointestinal hemorrhage, unspecified (2) Syncope: Likely secondary to GI bleed, monitor mental status closely, monitor vitals We will do an echocardiogram to evaluate the aortic valve Status: Acute Code(s): R55 - Syncope and collapse (3) Severe aortic stenosis: Has not followed up with cardiology as outpatient Last echocardiogram on 02/03/2018 showed markedly thickened and calcified probably tricuspid aortic valve, low-flow low gradient severe aortic valve stenosis, peak velocity 3.6 ms, peak gradient 52 mmHg, mean gradient 29 mmHg, aortic valve area 0.86 cm?, dimension valves index 0.25, stroke-volume index 29.5 -We will repeat echocardiogram, possibly some component of patient's syncope could be related to aortic stenosis Status: Acute Code(s): I35.0 - Nonrheumatic aortic (valve) stenosis (4) Hypothyroidism: Check TSH, IV levothyroxine Status: Acute Code(s): E03.9 - Hypothyroidism, unspecified (5) Chronic back pain: Status: Acute Code(s): M54.9 - Dorsalgia, unspecified; G89.29 - Other chronic pain (6) Hypertension: Hold home medications Status: Acute Code(s): I10 - Essential (primary) hypertension (7) Dementia: Patient seems very forgetful, has baseline dementia, states that he is taking medication for this, but I cannot see it on his previous medication list Status: Acute Code(s): F03.90 - Unspecified dementia without behavioral disturbance Attestations Medical Necessity Statement*: Patient requires hospitalization, inpatient, greater than 2 midnights for upper GI bleed Coding Level of Care Code Acute 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
--- NOTE | 2019-08-11 15:26 | USCV_ITS ---
Carlos Leyva Age: 83 Gender: M : 1935 Exam Date: 08/11/2019 15:38 Ordering Phys: Malvin Barraza MD Technologist: Mel Doll [place] [facility] [place]: Syncope, severe aortic stenosis BP: 119 / 74 HR: 80 Rhythm: Sinus Technical Quality: Suboptimal MEASUREMENTS (Male / Female) Normal Values 2D ECHO LV Diastolic Diameter PLAX 4.2 cm 4.2 - 5.9 / 3.9 - 5.3 cm LV Systolic Diameter PLAX 3.1 cm LV Chamber Size 3.6 cm IVS Diastolic Thickness 2.0 cm 0.6 - 1.0 / 0.6 - 0.9 cm IVS Systolic Thickness 2.2 cm LVPW Diastolic Thickness 1.1 cm 0.6 - 1.0 / 0.6 - 0.9 cm LVPW Systolic Thickness 1.9 cm RV Chamber Size 2.3 cm LVOT Diameter 2.1 cm LV Ejection Fraction 2D Teich 49.7 % LV Ejection Fraction MOD 2C 62.9 % LV Ejection Fraction 2C AL 62.6 % LA Diameter 4.3 cm LA Width 3.6 cm LA Height 4.6 cm RA Width 2.7 cm RA Height 4.0 cm Aorta at Sinotubular Diameter 2.4 cm M-MODE LV Diastolic Diameter MM 4.8 cm 4.2 - 5.9 / 3.9 - 5.3 cm LV Systolic Diameter MM 3.5 cm LV Ejection Fraction MM Teich 51.3 % IVS Diastolic Thickness MM 1.1 cm 0.6 - 1.0 / 0.6 - 0.9 cm IVS Systolic Thickness MM 1.3 cm LVPW Diastolic Thickness MM 1.1 cm 0.6 - 1.0 / 0.6 - 0.9 cm LVPW Systolic Thickness MM 1.4 cm RV Diastolic Diameter MM 0.9 cm Aortic Annulus Diameter 3.2 cm LA Ao Ratio MM 1.3 MV E Point Septal Separation 0.9 cm DOPPLER AV Peak Velocity 390.0 cm/s LVOT Peak Velocity 89.0 cm/s AV Area Cont Eq vti 0.7 cm squared AV Area Cont Eq pk 0.8 cm squared MV Area PHT 3.2 cm squared Mitral E to A Ratio 0.6 MV E' Velocity 6.0 cm/s Mitral E to MV E' Ratio 11.0 Mitral E to LV E' Lateral Ratio 10.5 Mitral E to LV E' Septal Ratio 11.8 TV Peak E Velocity 60.0 cm/s Right Atrial Pressure 3.0 mmHg FINDINGS Left Ventricle Normal left ventricular cavity size. Increased left ventricular wall thickness. Normal left ventricular systolic function. Left ventricular ejection fraction is estimated at 55 %. No diagnostic regional wall motion abnormalities. Grade 1 diastolic dysfunction. Right Ventricle Normal right ventricular size and systolic function. Right Atrium Normal right atrial size. Right atrial pressure estimated at 3 mmHg. Left Atrium Upper normal left atrial size. Mitral Valve Mildly thickened mitral valve. Trace mitral valve regurgitation. Aortic Valve Aortic valve not well visualized. Markedly thickened and calcified aortic valve. Severe aortic valve stenosis, peak velocity 3.9 m/s, peak gradient 61 mmHg, mean gradient 37.9 mmHg, MANUELITO 0.68 cm squared (LVOT=2.1 cm). Dimensionless valve index of 0.23. Tricuspid Valve Tricuspid valve not well visualized. Trace tricuspid valve regurgitation. Pulmonic Valve Pulmonic valve not well visualized. Pericardium No pericardial effusion. Aorta Aorta not well visualized. CONCLUSIONS 1. Normal left ventricular cavity size. Increased left ventricular wall thickness. Normal left ventricular systolic function. Left ventricular ejection fraction is estimated at 55 %. No diagnostic regional wall motion abnormalities. Grade 1 diastolic dysfunction. 2. Normal right ventricular size and systolic function. 3. Markedly thickened and calcified aortic valve. Severe aortic valve stenosis, peak velocity 3.9 m/s, peak gradient 61 mmHg, mean gradient 37.9 mmHg, MANUELITO 0.68 cm squared (LVOT=2.1 cm). Dimensionless valve index of 0.23. 4. When compared to previous echocardiogram dated 01/06/2019, aortic valve stenosis has worsened and mean gradient across aortic valve has increased to 38 mmHg. Liliana Montalvo MD (Electronically Signed) Final Date: 12 August 2019 13:16 S
--- NOTE | 2019-08-11 15:49 | PC.NURSE ---
blind in right eye
--- NOTE | 2019-08-11 15:56 | PC.NURSE ---
left shoulder hurts. relates it to arthritis.
--- NOTE | 2019-08-11 16:28 | ECG_ITS ---
Measurements Intervals [place] Rate: 93 P: 53 CO: 200 QRS: 23 QRSD: 98 T: -4 QT: 412 QTc: 513 SINUS RHYTHM WITH OCCASIONAL VENTRICULAR PREMATURE COMPLEXES ST DEVIATION AND MODERATE T-WAVE ABNORMALITY, CONSIDER LATERAL ISCHEMIA [-0.1+ mV mV T WAVE IN I/aVL/V5/V6] Compared to ECG 08/05/2019 12:25:58 Ventricular premature complex(es) now present Possible ischemia now present T-wave abnormality still present Electronically Signed On 08-12-2019 11:24:33 REPORT DEVELOPER by Liliana Montalvo M.D. [id number]
[2019-08-11 16:29] LABS: Lactate (Lactic Acid level) 1.4 mmol/L (0.5-2.2)
--- NOTE | 2019-08-11 16:45 | PM.CONSULT ---
Providers/Reason For Consult Consulting Physican/Specialty*: Dr. Barraza Reason for Consult*: Anemia GI bleed Attending Physician: Malvin Barraza MD History of Present Illness History of Present Illness Carlos Leyva is a 83 year old male who presented to the ER today with complaints of syncope and black stools. Patient had some abdominal pain but denies any nausea or vomiting. Patient states that he had some black stools but denies any bleeding per rectum. Patient had a EGD in 2013 which showed AV malformation in the stomach which was cauterized and a colonoscopy where 3 polyps were removed. At present he denies any chest pain. Patient was noted to be hypotensive with a hemoglobin of 5.6. Review of Systems Const: Denies: fever, chills, change in weight or fatigue Eyes: Denies: change in vision ENMT: Denies: painful swallowing Card: Denies: chest pain Resp: Denies: shortness of breath GI: Denies: abdominal pain or blood in stool : Denies: painful urination Neuro: Denies: seizure-like activity Ronni/Lymph: Denies: easy bruising Meds/Allergies Home Medications and Allergies Home Medications Medication Instructions Recorded Confirmed Type atorvastatin 40 mg PO DAILY 08/11/19 History ferrous sulfate 325 mg PO TID 08/11/19 History fluticasone propionate 2 spray INTRANASAL DAILY 08/11/19 History levothyroxine 100 mcg PO DAILY 08/11/19 History losartan 25 mg PO DAILY 08/11/19 History pantoprazole [Protonix] 40 mg PO DAILY 08/11/19 History terazosin 5 mg PO DAILY 08/11/19 History Allergies Allergy/AdvReac Type Severity Reaction Status Date / Time No Known Allergies Allergy Verified 08/11/19 12:41 Current Medications Current Medications Generic Name Dose Route Start Last Admin Trade Name Freq PRN Reason Stop Dose Admin Sodium Chloride 1,000 mls @ 150 mls/hr 08/11/19 13:45 08/11/19 15:04 Sodium Chloride 0.9% IV Infused .Q6H40M KRISTYN Infusion PFSH Acute PFSH: Statuses (acute, chronic, etc) shown below reflect problem list status as previously entered and may not be historically accurate Medical History Blindness (Acute) CVA (cerebral vascular accident) (Acute) Dementia (Acute) Hepatitis C virus infection cured after antiviral drug therapy (Acute) History of arteriovenous malformation (AVM) (Acute) History of Helicobacter pylori infection (Acute) History of hepatitis B (Acute) Hx of colonic polyps (Acute) Hypertension (Acute) Hypotension (Acute) Hypothyroidism (Acute) Severe aortic stenosis (Acute) Surgical History H/O hernia repair (Acute) History of colonoscopy (Acute) History of esophagogastroduodenoscopy (EGD) (Acute) Family History Other CAD (coronary artery disease) Denies family history of Cancer Social History Smoking and tobacco status: current every day smoker Alcohol intake: never Substance/Drug Use: never Caregiver/support person: No Lives independently: Yes Housing: Other Details: Lives in a hotel Marital status: Single Vitals/I&O/Wt Last Vital Signs Temp 97.5 F L 08/11/19 16:25 Pulse 90 08/11/19 16:25 Resp 18 08/11/19 16:08 BP 92/72 08/11/19 16:25 Pulse Ox 98 08/11/19 16:31 08/11/19 08/11/19 08/11/19 06:59 14:59 22:59 Intake Total 1000 / 1185 185 / 1185 Balance 1000 / 1185 185 / 1185 Weight last 48 hrs Weight 200 lb Physical Exam Const: COMMON NORMALS: no apparent distress ORIENTATION/CONSCIOUSNESS: Yes oriented to person, Yes oriented to place and Yes oriented to time HENMT: COMMON NORMALS: normocephalic HEAD & SCALP: normocephalic Eye: GENERAL EYE: normal appearance of both eyes Resp: COMMON NORMALS: clear to auscultation bilaterally AUSCULTATION: clear to auscultation bilaterally Cardio: COMMON NORMALS: S1 normal heart sound and S2 normal heart sound HEART SOUNDS: S1 normal and S2 normal GI: COMMON NORMALS: soft to palpation PALPATION: Yes soft Neuro: SENSORIUM/ORIENTATION: Yes oriented to person, Yes oriented to place and Yes oriented to time Skin: COMMON NORMALS: no rashes or lesions noted GENERAL SKIN EXAM: no rashes or lesions noted Urinary Catheter Management^: Duval: Cath Placed During This Visit: no Data Micro: Micro: Microbiology 08/11/19 12:44 Blood Culture - Pr eliminary Blood SPECIMEN MATTY TORREZ 08/11/19 12:28 Blood Culture - Pr eliminary Blood SPECIMEN [facility] LORE A&P Assessment and plan (1) Acute GI bleedin-year-old gentleman with melena and hemoglobin of 5.6. Patient is currently hemodynamically stable Continue Protonix drip Serial hemoglobin check Plan for EGD and colonoscopy since he is due for one based on his prior colonoscopy findings Bowel prep tonight N.p.o. after midnight Procedure, risks, benefits and alternatives have been discussed with the patient who wishes to proceed with surgery. Status: Acute Code(s): K92.2 - Gastrointestinal hemorrhage, unspecified Consult Attestations Medical Necessity Statement: Anemia acute blood loss with syncope requiring continued inpatient monitoring and ICU stay Coding Level of Care Code Acute Medical Technician for [facility] Diagnoses Acute GI bleeding K92.2
[2019-08-11 17:04] LABS: Thyroid Stimulating Hormone 24.76 uIU/mL (0.27-4.20)
[2019-08-11 17:20] LABS: Hepatitis A Antibody IgM. Non-Reactive (Nonreactive); Hepatitis B Core IgM Non-Reactive (Nonreactive); Hepatitis B Surface Antigen. Non-Reactive (Nonreactive); Hepatitis C Virus Antibody Reactive (Nonreactive)
--- NOTE | 2019-08-11 17:29 | PC.NURSE ---
Pt. states he only takes a blood pressure and dementia pill. pill bottles ambulance brought from home have 08/07/19 on them
--- NOTE | 2019-08-11 17:35 | PC.NURSE ---
blind in right eye but pupils apper to be same size.
[2019-08-11 18:25] LABS: Ferritin 10 ng/mL (30-400); Iron 62 ug/dL (59-158); Lactate Dehydrogenase 195 U/L (135-225); Total Iron Binding Capacity 281 mg/dL; Unsaturated Iron Binding 219 ug/dL (112-347)
[2019-08-11 18:31] LABS: Alcohol Level < 10 mg/dL (0-10)
[2019-08-11 18:39] LABS: Vitamin B12 196 pg/mL (232-1245)
[2019-08-11] MEDS: sodium chloride 0.9% 100 ML 125 ML (19:00)
[2019-08-11 19:48] LABS: LAB Peripheral Smear Sent for Review
[2019-08-11] MEDS: magnesium citrate Btl 296 mL PO ×2 (19:52→22:10)
[2019-08-11 19:54] LABS: Anti-HIV 1 and 2 AB & P24 AG Non-Reactive (Nonreactive)
[2019-08-11] MEDS: sodium chloride 0.9% 100 ML (20:43)
[2019-08-11] MEDS: bisacodyl 5 mg Tablet 40 MG PO (22:10)
[2019-08-11] MEDS: cefTRIAXone 1,000 MG in sodium chloride 0.9% (plus) 50 ML 100 MG IV (22:11)
[2019-08-12] VITALS (17 sets, daily range): BP systolic 77–160; BP diastolic 54–94; PULSE 61–96; RESP 12–19; TEMP 36.4–37.1; O2SAT 92–100
[2019-08-12] MEDS: sodium chloride 0.9% 100 ML (00:39)
[2019-08-12] MEDS: pantoprazole 40 mg SDV IVP ×2 (05:03→16:50)
[2019-08-12] MEDS: dextrose 5%-sod chloride 0.9% 1,000 ML 75 ML IV (05:03)
[2019-08-12 05:26] LABS: Basophils # 0.1 10^3/uL (0.0-0.1); Basophils % 0.9 %; Eosinophils # 0.4 10^3/uL (0.0-0.8); Eosinophils % 7.8 %; Hematocrit 27.8 % (42.0-52.0); Hemoglobin 8.1 g/dL (11.7-16.6); Lymphocytes # 0.8 10^3/uL (0.8-4.8); Lymphocytes % 13.5 %; Mean Corpuscular HGB Conc 29.1 g/dL (30.0-36.0); Mean Corpuscular Hemoglobin 23.1 pg (28.0-34.0); Mean Corpuscular Volume 79.4 fL (80-94); Mean Platelet Volume 11.6 fL (7.4-10.4); Monocytes # 0.5 10^3/uL (0.2-0.9); Monocytes % 9.7 %; Neutrophils # 3.8 10^3/uL (1.8-7.7); Neutrophils % 67.9 %; Nucleated Red Blood Cells % 0 %; Platelet Count 195 10^3/cmm (130-400); Red Cell Distribution Width 17.9 % (12.1-15.1); White Blood Count 5.5 10^3/uL (4.0-10.0)
[2019-08-12 05:28] LABS: INR 1.14 (0.8-1.2)
[2019-08-12] MEDS: Fleet Enema 133 mL Enema 118 ML PR (06:02)
--- NOTE | 2019-08-12 07:29 | PC.NURSE ---
refused enema. notified.
--- NOTE | 2019-08-12 07:44 | PM.PN ---
Subjective Subjective: Interval history: History and physical reviewed Medications: Reviewed: Yes Vitals/I&O/Wt Last Vital Signs Temp 98.5 F 08/12/19 04:00 Pulse 61 08/12/19 04:00 Resp 14 08/12/19 04:00 BP 138/82 08/12/19 04:00 Pulse Ox 96 08/12/19 04:00 08/11/19 08/12/19 08/12/19 22:59 06:59 14:59 Intake Total 775 / 1775 950 / 2725 Output Total 1400 / 1400 Balance 775 / 1775 -450 / 1325 Weight last 48 hrs Weight 90.718 kg Physical Exam Narrative: EXAM NARRATIVE: General exam no apparent distress, but appears forgetful Cardiovascular regular rate and rhythm with a 3/6 systolic murmur heard best in the aortic area Lungs clear Abdomen slight tenderness, epigastric area, positive bowel sounds Extremities no cyanosis clubbing or edema Urinary Catheter Management^: Duval: Cath Placed During This Visit: no Data Micro: Micro: Microbiology 08/11/19 12:44 Blood Culture - Pr eliminary Blood SPECIMEN [facility] LORE 08/11/19 12:28 Blood Culture - Pr eliminary Blood SPECIMEN [facility] A&P Assessment and plan (1) Acute GI bleeding: Consistent with acute severe blood loss. Fluid resuscitated in the emergency department. Has received 3 units of packed red blood cells. Previous AGD demonstrated AV malformation, which can be seen with severe aortic stenosis. EGD and colonoscopy planned today. Hemoglobin greater than 8 following transfusion. Currently on IV Protonix.. Plan on rechecking hemoglobin at 1300 Status: Acute Code(s): K92.2 - Gastrointestinal hemorrhage, unspecified (2) Syncope: Secondary to above Status: Acute Code(s): R55 - Syncope and collapse (3) Severe aortic stenosis: Likely related to severe aortic stenosis in face of acute GI bleeding. Repeat echocardiogram pending. Status: Acute Code(s): I35.0 - Nonrheumatic aortic (valve) stenosis (4) Hypothyroidism: TSH elevated consistent with noncompliance with medication. Levothyroxine started. Status: Acute Code(s): E03.9 - Hypothyroidism, unspecified (5) Chronic back pain: Status: Acute Code(s): M54.9 - Dorsalgia, unspecified; G89.29 - Other chronic pain (6) Hypertension: Hold home medications in the face of GI bleeding Status: Acute Code(s): I10 - Essential (primary) hypertension (7) Dementia: Probable mild to moderate dementia Status: Acute Code(s): F03.90 - Unspecified dementia without behavioral disturbance Additional A&P Information Additional A&P Information: Elevated troponin, no evidence of significant delta Hepatitis C positive. Will need outpatient follow-up. Possible UTI on admission. Placed on Rocephin. 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
--- NOTE | 2019-08-12 07:46 | P.PN_ITS ---
Pre-Anesthetic Assessment Pre-Anesthetic Assessment: Height/Weight: Height 1.83 m Weight 90.718 kg Temp Pulse Resp BP Pulse Ox 98.5 F 61 14 138/82 96 08/12/19 04:00 08/12/19 04:00 08/12/19 04:00 08/12/19 04:00 08/12/19 04:00 Proposed Procedure: Operation Date: 08/12/19 08:05 Proposed Procedures p EGD(Not Applicable) - Piero Ramírez MD s Colonoscopy(Not Applicable) - Piero Ramírez MD Social: Social History: No alcohol and No tobacco Exam: Pre-Anes Outpt Exam: alert, oriented x 3, clear to auscultation bilaterally and regular rate & rhythm Airway: Submandibular: WNL Cervical ROM: WNL MP: 2 History/ROS: No significant history except as noted CV/HEM: CV/HEM: Anemia and HTN Comments: severe aortic stenosis GI: Comments: severe GI bleed, anemia, gastric AVM Metabolic: Metabolic: Thyroid Anesthetic Plan: ASA status: IV Anesthesia: Anesthesia Evaluation and General Risk of > 500 ml blood loss (7ml/kg in children): Yes, adequate IV access and fluids planned Meds/Allergies Current Medications: Current Medications Generic Name Dose Route Start Last Admin Trade Name Freq PRN Reason Stop Dose Admin Sodium Chloride 1,000 mls @ 150 m ls/hr 08/11/19 13:45 08/11/19 15:04 Sodium Chloride 0.9% IV Infused .[id number] KRISTYN Infusion Dextrose/Sodium Ch loride 1,000 mls @ 75 ml s/hr 08/11/19 15:26 08/12/19 05:03 Dextrose 5%-Sod Chloride 0.9% IV 75 mls/hr .[id number] KRISTYN Administration Ceftriaxone Sodium 1,000 mg/ 50 mls @ 100 mls/ hr 08/11/19 22:00 08/11/19 23:03 Sodium Chloride IV Infused Q24H KRISTYN Infusion Protocol Pantoprazole Sodiu m 40 mg 08/11/19 16:30 08/12/19 05:03 Protonix IVP 40 mg Q12H KRISTYN Administration Additional Medication Information: Patient is unable to provide his medication list, his pharmacy is closed On his previous med list: He is on levothyroxine 100 mcg once daily -Pantoprazole 40 mg once daily Atorvastatin 40 mg once daily Docusate 100 mg twice daily Ferrous sulfate 325 mg 3 times daily Losartan 25 mg p.o. daily Terrazosin and 5 mg p.o. daily Flonase PFSH Anesthesia PFSH: Medical History Blindness (Acute) CVA (cerebral vascular accident) (Acute) Dementia (Acute) Hepatitis C virus infection cured after antiviral drug therapy (Acute) History of arteriovenous malformation (AVM) (Acute) History of Helicobacter pylori infection (Acute) History of hepatitis B (Acute) Hx of colonic polyps (Acute) Hypertension (Acute) Hypotension (Acute) Hypothyroidism (Acute) Severe aortic stenosis (Acute) Surgical History H/O hernia repair (Acute) History of colonoscopy (Acute) History of esophagogastroduodenoscopy (EGD) (Acute) Family History Other CAD (coronary artery disease) Denies family history of Cancer Social History Smoking and tobacco status: current every day smoker Alcohol intake: never Substance/Drug Use: never Caregiver/support person: No Lives independently: Yes Housing: Other Details: Lives in a hotel Marital status: Single Data Anesthesia Labs: Other Labs: Laboratory Results - last 48 hr 08/11/19 08/11/19 08/11/19 11:55 12:28 12:28 WBC 4.1 RBC 2.69 L Hgb 5.6 L* Hct 20.2 L* MCV 75.1 L MCH 20.8 L MCHC 27.7 L RDW 17.1 H Plt Count 191 MPV 12.0 H Neut % (Auto) 57.2 Lymph % (Auto) 24.6 Robertson % (Auto) 10.7 Eos % (Auto) 6.8 Baso % (Auto) 0.5 Reticulocyte % (Au to) Neut # (Auto) 2.4 Lymph # (Auto) 1.0 Robertson # (Auto) 0.4 Eos # (Auto) 0.3 Baso # (Auto) 0.0 Nucleated RBC % (a uto) 0 Nucleated RBCs # 0.0 PT 14.40 H INR 1.08 Specimen Type Sample Site ABG pH ABG pCO2 ABG pO2 ABG HCO3 ABG Base Excess Chandana Test Hematocrit Hgb O2 Saturation FiO2 Performance Specialist ID Sodium 137 Potassium 4.0 Chloride 106 Carbon Dioxide 22 Anion Gap 13.0 BUN 13 Creatinine 0.9 Glucose 119 H Lactic Acid Lactate Calcium 9.1 Magnesium 2.6 H Iron TIBC % Saturation Unsat Iron Binding Ferritin Total Bilirubin 0.4 AST 13 ALT 5 Alkaline Phosphata se 66 Lactate Dehydrogen ase Total Protein 6.0 L Albumin 3.4 L Globulin 2.6 Lipase 21 Vitamin B12 TSH Urine Color Urine Appearance Urine pH Ur Specific Gravit y Urine Protein Urine Glucose (UA) Urine Ketones Urine Occult Blood Urine Nitrate Urine Bilirubin Urine Urobilinogen Ur Leukocyte Rosamaria ase Urine RBC Urine WBC Ur Squamous Epith Cells Urine Bacteria Hyaline Casts Urine Mucus Salicylates < 0.3 L Urine Opiates Scre en Acetaminophen < 5.0 L Ur Barbiturates Sc reen Ur Phencyclidine S crn Ur Amphetamines Sc reen U Benzodiazepines Scrn Urine Cocaine Scre en U Marijuana (THC) Screen Ethyl Alcohol < 10 Hepatitis A IgM Ab Hep Bs Antigen Hep B Core IgM Ab Hepatitis C Antibo dy HIV 1&2 Antibody Blood Type Antibody Screen Antibody Identific ation Crossmatch 08/11/19 08/11/19 08/11/19 12:28 12:28 12:28 WBC RBC Hgb Hct MCV MCH MCHC RDW Plt Count MPV Neut % (Auto) Lymph % (Auto) Robertson % (Auto) Eos % (Auto) Baso % (Auto) Reticulocyte % (Au to) 1.0800 Neut # (Auto) Lymph # (Auto) Robertson # (Auto) Eos # (Auto) Baso # (Auto) Nucleated RBC % (a uto) Nucleated RBCs # PT INR Specimen Type Sample Site ABG pH ABG pCO2 ABG pO2 ABG HCO3 ABG Base Excess Chandana Test Hematocrit Hgb O2 Saturation FiO2 Performance Specialist ID Sodium Potassium Chloride Carbon Dioxide Anion Gap BUN Creatinine Glucose Lactic Acid 2.4 H Lactate Calcium Magnesium Iron TIBC % Saturation Unsat Iron Binding Ferritin Total Bilirubin AST ALT Alkaline Phosphata se Lactate Dehydrogen ase Total Protein Albumin Globulin Lipase Vitamin B12 TSH Urine Color Urine Appearance Urine pH Ur Specific Gravit y Urine Protein Urine Glucose (UA) Urine Ketones Urine Occult Blood Urine Nitrate Urine Bilirubin Urine Urobilinogen Ur Leukocyte Rosamaria ase Urine RBC Urine WBC Ur Squamous Epith Cells Urine Bacteria Hyaline Casts Urine Mucus Salicylates Urine Opiates Scre en Acetaminophen Ur Barbiturates Sc reen Ur Phencyclidine S crn Ur Amphetamines Sc reen U Benzodiazepines Scrn Urine Cocaine Scre en U Marijuana (THC) Screen Ethyl Alcohol Hepatitis A IgM Ab Hep Bs Antigen Hep B Core IgM Ab Hepatitis C Antibo dy HIV 1&2 Antibody Blood Type A Positive Antibody Screen Positive Antibody Identific ation Anti-c Crossmatch See Detail 08/11/19 08/11/19 08/11/19 12:40 12:40 13:00 WBC RBC Hgb Hct MCV MCH MCHC RDW Plt Count MPV Neut % (Auto) Lymph % (Auto) Robertson % (Auto) Eos % (Auto) Baso % (Auto) Reticulocyte % (Au to) Neut # (Auto) Lymph # (Auto) Robertson # (Auto) Eos # (Auto) Baso # (Auto) Nucleated RBC % (a uto) Nucleated RBCs # PT INR Specimen Type Arterial Sample Site Radial, right ABG pH 7.41 ABG pCO2 35.6 ABG pO2 68.6 L ABG HCO3 22.7 ABG Base Excess -1.8 Chandana Test Pos Hematocrit 17.1 L Hgb O2 Saturation 90.5 L FiO2 21.0 Performance Specialist ID amh Sodium Potassium Chloride Carbon Dioxide Anion Gap BUN Creatinine Glucose Lactic Acid Lactate Calcium Magnesium Iron TIBC % Saturation Unsat Iron Binding Ferritin Total Bilirubin AST ALT Alkaline Phosphata se Lactate Dehydrogen ase Total Protein Albumin Globulin Lipase Vitamin B12 TSH Urine Color Yellow Urine Appearance Clear Urine pH 7 Ur Specific Gravit y 1.010 Urine Protein Neg Urine Glucose (UA) Norm Urine Ketones Negative Urine Occult Blood Neg Urine Nitrate Negative Urine Bilirubin Neg Urine Urobilinogen 1 H Ur Leukocyte Rosamaria ase Negative Urine RBC 0-4 H Urine WBC 5-10 H Ur Squamous Epith Cells 0-4 H Urine Bacteria 1+ H Hyaline Casts 5-10 H Urine Mucus Trace Salicylates Urine Opiates Scre en Negative Acetaminophen Ur Barbiturates Sc reen Negative Ur Phencyclidine S crn Negative Ur Amphetamines Sc reen Negative U Benzodiazepines Scrn Negative Urine Cocaine Scre en Negative U Marijuana (THC) Screen Negative Ethyl Alcohol Hepatitis A IgM Ab Hep Bs Antigen Hep B Core IgM Ab Hepatitis C Antibo dy HIV 1&2 Antibody Blood Type Antibody Screen Antibody Identific ation Crossmatch 01/04/20 01/04/20 01/04/20 13:37 13:37 13:37 WBC RBC Hgb Hct MCV MCH MCHC RDW Plt Count MPV Neut % (Auto) Lymph % (Auto) Robertson % (Auto) Eos % (Auto) Baso % (Auto) Reticulocyte % (Au to) Neut # (Auto) Lymph # (Auto) Robertson # (Auto) Eos # (Auto) Baso # (Auto) Nucleated RBC % (a uto) Nucleated RBCs # PT INR Specimen Type Sample Site ABG pH ABG pCO2 ABG pO2 ABG HCO3 ABG Base Excess Chandana Test Hematocrit Hgb O2 Saturation FiO2 Performance Specialist ID Sodium Potassium Chloride Carbon Dioxide Anion Gap BUN Creatinine Glucose Lactic Acid Lactate 1.4 Calcium Magnesium Iron 62 TIBC 281 % Saturation 22.0 Unsat Iron Binding 219 Ferritin 10 L Total Bilirubin AST ALT Alkaline Phosphata se Lactate Dehydrogen ase 195 Total Protein Albumin Globulin Lipase Vitamin B12 196 L TSH 24.76 H Urine Color Urine Appearance Urine pH Ur Specific Gravit y Urine Protein Urine Glucose (UA) Urine Ketones Urine Occult Blood Urine Nitrate Urine Bilirubin Urine Urobilinogen Ur Leukocyte Rosamaria ase Urine RBC Urine WBC Ur Squamous Epith Cells Urine Bacteria Hyaline Casts Urine Mucus Salicylates Urine Opiates Scre en Acetaminophen Ur Barbiturates Sc reen Ur Phencyclidine S crn Ur Amphetamines Sc reen U Benzodiazepines Scrn Urine Cocaine Scre en U Marijuana (THC) Screen Ethyl Alcohol < 10 Hepatitis A IgM Ab Hep Bs Antigen Hep B Core IgM Ab Hepatitis C Antibo dy HIV 1&2 Antibody Blood Type Antibody Screen Antibody Identific ation Crossmatch 08/11/19 08/11/19 08/12/19 13:37 13:37 04:30 WBC 5.5 RBC 3.50 L Hgb 8.1 L D Hct 27.8 L D MCV 79.4 L D MCH 23.1 L D MCHC 29.1 L D RDW 17.9 H Plt Count 195 MPV 11.6 H Neut % (Auto) 67.9 Lymph % (Auto) 13.5 Robertson % (Auto) 9.7 Eos % (Auto) 7.8 Baso % (Auto) 0.9 Reticulocyte % (Au to) Neut # (Auto) 3.8 Lymph # (Auto) 0.8 Robertson # (Auto) 0.5 Eos # (Auto) 0.4 Baso # (Auto) 0.1 Nucleated RBC % (a uto) 0 Nucleated RBCs # 0.0 PT INR Specimen Type Sample Site ABG pH ABG pCO2 ABG pO2 ABG HCO3 ABG Base Excess Chandana Test Hematocrit Hgb O2 Saturation FiO2 Performance Specialist ID Sodium Potassium Chloride Carbon Dioxide Anion Gap BUN Creatinine Glucose Lactic Acid Lactate Calcium Magnesium Iron TIBC % Saturation Unsat Iron Binding Ferritin Total Bilirubin AST ALT Alkaline Phosphata se Lactate Dehydrogen ase Total Protein Albumin Globulin Lipase Vitamin B12 TSH Urine Color Urine Appearance Urine pH Ur Specific Gravit y Urine Protein Urine Glucose (UA) Urine Ketones Urine Occult Blood Urine Nitrate Urine Bilirubin Urine Urobilinogen Ur Leukocyte Rosamaria ase Urine RBC Urine WBC Ur Squamous Epith Cells Urine Bacteria Hyaline Casts Urine Mucus Salicylates Urine Opiates Scre en Acetaminophen Ur Barbiturates Sc reen Ur Phencyclidine S crn Ur Amphetamines Sc reen U Benzodiazepines Scrn Urine Cocaine Scre en U Marijuana (THC) Screen Ethyl Alcohol Hepatitis A IgM Ab Non-reactive Hep Bs Antigen Non-reactive Hep B Core IgM Ab Non-reactive Hepatitis C Antibo dy Reactive HIV 1&2 Antibody Non-reactive Blood Type Antibody Screen Antibody Identific ation Crossmatch 08/12/19 04:30 WBC RBC Hgb Hct MCV MCH MCHC RDW Plt Count MPV Neut % (Auto) Lymph % (Auto) Robertson % (Auto) Eos % (Auto) Baso % (Auto) Reticulocyte % (Au to) Neut # (Auto) Lymph # (Auto) Robertson # (Auto) Eos # (Auto) Baso # (Auto) Nucleated RBC % (a uto) Nucleated RBCs # PT 14.90 H INR 1.14 Specimen Type Sample Site ABG pH ABG pCO2 ABG pO2 ABG HCO3 ABG Base Excess Chandana Test Hematocrit Hgb O2 Saturation FiO2 Performance Specialist ID Sodium Potassium Chloride Carbon Dioxide Anion Gap BUN Creatinine Glucose Lactic Acid Lactate Calcium Magnesium Iron TIBC % Saturation Unsat Iron Binding Ferritin Total Bilirubin AST ALT Alkaline Phosphata se Lactate Dehydrogen ase Total Protein Albumin Globulin Lipase Vitamin B12 TSH Urine Color Urine Appearance Urine pH Ur Specific Gravit y Urine Protein Urine Glucose (UA) Urine Ketones Urine Occult Blood Urine Nitrate Urine Bilirubin Urine Urobilinogen Ur Leukocyte Rosamaria ase Urine RBC Urine WBC Ur Squamous Epith Cells Urine Bacteria Hyaline Casts Urine Mucus Salicylates Urine Opiates Scre en Acetaminophen Ur Barbiturates Sc reen Ur Phencyclidine S crn Ur Amphetamines Sc reen U Benzodiazepines Scrn Urine Cocaine Scre en U Marijuana (THC) Screen Ethyl Alcohol Hepatitis A IgM Ab Hep Bs Antigen Hep B Core IgM Ab Hepatitis C Antibo dy HIV 1&2 Antibody Blood Type Antibody Screen Antibody Identific ation Crossmatch Micro: Micro: Microbiology 08/11/19 12:44 Blood Culture - Pr eliminary Blood SPECIMEN [facility] LORE 08/11/19 12:28 Blood Culture - Pr eliminary Blood SPECIMEN [facility] Cardiac Studies: No Data to Display
--- NOTE | 2019-08-12 08:10 | PC.NURSE ---
to gi lab for egd and colonoscopy
--- NOTE | 2019-08-12 08:30 | SUR.OPER ---
CAUTERIZED IN DUODENUM TO CONTROL BLEEDING.
--- NOTE | 2019-08-12 08:56 | PC.NURSE ---
POLYP SPECIMEN NOT OBTAINED.
--- NOTE | 2019-08-12 09:13 | PC.NURSE ---
back to unit
[2019-08-12] MEDS: folic acid 1 mg Tablet PO ×2 (10:44→17:02)
[2019-08-12] MEDS: levothyroxine 50 mcg Tablet PO (10:44)
[2019-08-12] MEDS: cyanocobalamin 1,000 mcg Tablet 1000 MCG PO (10:44)
[2019-08-12 11:15] LABS: Alanine Aminotransferase 6 U/L (0-41); Albumin Level 4.3 g/dL (3.5-5.2); Alkaline Phosphatase 68 IU/L (40-130); Anion Gap 14.3 (5-19); Aspartate Amino Transferase 15 U/L (0-40); Blood Urea Nitrogen 10 mg/dL (8-23); Calcium 9.7 mg/Dl (8.8-10.2); Carbon Dioxide 21 mmol/L (22-29); Chloride 110 mmol/L (98-107); Globulin 1.7 g/dL (1.3-4.6); Glucose 93 mg/dL (74-106); Magnesium 3.2 mg/dL (1.7-2.3); Phosphorus 3.4 mg/dL (2.5-4.5); Potassium 4.3 mmol/L (3.5-5.1); Sodium 141 mmol/L (136-145); Total Bilirubin 0.8 mg/dL (0.15-1.2)
[2019-08-12 13:14] LABS: Hemoglobin 8.8 g/dL (11.7-16.6)
--- NOTE | 2019-08-12 14:29 | PC.CHAP ---
Patient was busy with claudio cooley. Will do follow up.
[2019-08-12] MEDS: morphine 4 mg/mL SDV 1 mL 1 MG IV (19:35)
[2019-08-12] MEDS: cefTRIAXone 1,000 MG in sodium chloride 0.9% (plus) 50 ML 100 MG IV (21:30)
[2019-08-13] VITALS (9 sets, daily range): BP systolic 133–147; BP diastolic 72–92; PULSE 76–99; RESP 15–21; TEMP 36.6–37.2; O2SAT 95–98; BMI 25.2
[2019-08-13] MEDS: pantoprazole 40 mg SDV IVP ×2 (04:26→15:50)
[2019-08-13 05:35] LABS: Basophils % 0.3 %; Eosinophils # 0.1 10^3/uL (0.0-0.8); Eosinophils % 1.1 %; Hemoglobin 8.8 g/dL (11.7-16.6); Lymphocytes # 0.9 10^3/uL (0.8-4.8); Lymphocytes % 9.4 %; Mean Corpuscular HGB Conc 29.3 g/dL (30.0-36.0); Mean Corpuscular Hemoglobin 22.1 pg (28.0-34.0); Mean Corpuscular Volume 75.2 fL (80-94); Mean Platelet Volume 11.9 fL (7.4-10.4); Monocytes # 0.7 10^3/uL (0.2-0.9); Neutrophils # 7.3 10^3/uL (1.8-7.7); Neutrophils % 80.6 %; Nucleated Red Blood Cells % 0.2 %; Platelet Count 221 10^3/cmm (130-400); Red Blood Count 3.99 10^6/uL (4.1-5.3); Red Cell Distribution Width 18.8 % (12.1-15.1)
[2019-08-13 06:01] LABS: Alanine Aminotransferase 7 U/L (0-41); Albumin Level 3.6 g/dL (3.5-5.2); Alkaline Phosphatase 84 IU/L (40-130); Anion Gap 13.3 (5-19); Aspartate Amino Transferase 18 U/L (0-40); Blood Urea Nitrogen 8 mg/dL (8-23); Calcium 9.1 mg/Dl (8.8-10.2); Carbon Dioxide 23 mmol/L (22-29); Chloride 108 mmol/L (98-107); Globulin 3.3 g/dL (1.3-4.6); Glucose 96 mg/dL (74-106); Magnesium 2.9 mg/dL (1.7-2.3); Phosphorus 3.3 mg/dL (2.5-4.5); Potassium 3.3 mmol/L (3.5-5.1); Sodium 141 mmol/L (136-145); Total Bilirubin 0.7 mg/dL (0.15-1.2); Total Protein 6.9 g/dL (6.6-8.7)
[2019-08-13] MEDS: levothyroxine 50 mcg Tablet PO (10:28)
[2019-08-13] MEDS: folic acid 1 mg Tablet PO ×2 (10:28→17:36)
[2019-08-13] MEDS: acetaminophen 325 mg Tablet 650 MG PO (10:28)
[2019-08-13] MEDS: potassium chloride premix 40 MEQ/100 ML PREMIX 25 MEQ IV (10:29)
[2019-08-13] MEDS: cyanocobalamin 1,000 mcg Tablet 1000 MCG PO (10:45)
--- NOTE | 2019-08-13 11:55 | PC.CHAP ---
Pastoral Care Encounter/Spiritual Assessment Type of Contact [] Declined creel operator visit [] Patient/Family/Request visit [] Outpatient visit [x] Follow-up visit [] Physician referral [] Code/Alert [x] Routine visit [] Staff referral [] Actively dying [] Patient sleeping [] Family support [] [] Out of room [] Palliative care [] [] Receiving care in room [] Pre-surgical visit [] Trauma [] Long length of stay [x] ICU visit [] Other: Relational/Emotional Strength [x] Patient feels connected with others/family/visitors/staff [] Distress [] Loneliness/isolation [] Abandonment Spirituality of Patient [x] Person of Zenia [] Attends Jew of their Zenia [x] Believes in Prayer [] Reads Bible or Religion materials [] There are Spiritual issues to be addressed Pulp Making Plant Operator Interventions [x] Prayer [x] Active listening [x] Non-anxious presence [x] Spiritual/emotional support [] Crisis/trauma care [] Spiritual counseling [] Bereavement support [] Provided bereavement packet [] Provided Bible/devotional materials [] Provided toy/stuffed animal, coloring book to patient or family member [] Completed spiritual assessment [] Provided Communion [] Anointing/[place] [] Salvation [] Other: Impact on Illness or Injury [] Angry [] Fearful [x] Anxious [] Often cries [] Exhaustion [] Unable to work [] Unable to attend jain [] Unable to walk/stand [] Unable to read [] Unable to drive [] Unable to eat/drink [] Unable to sleep [] Unable to be with family [] Other: Summary the patient stated that he was hurting, said that he told the nurse and was still waiting for her to bring him somthing for pain. A pleasant gentleman. Time spent with patient 20 min.
--- NOTE | 2019-08-13 11:57 | PC.NURSE ---
RECEIVED CALL FROM CRYSTAL ROJO, LIVES WITH PT AT [facility]. SHE STATES THAT THEIR TIME IS UP & THEY ARE GETTING KICKED OUT TODAY. SHE ASKED WHAT ESTELITA WANTED DONE WITH HIS BELONGINGS. HE ASKED IF SHE COULD BRING IT HERE TO HIM. SHE REPLIED THAT SHE WAS GOING TO BE ON THE STREETS & HAVE TO STAY UP UNDER A BRIDGE WITH HER 2 DOGS. SHE THEN HUNG UP ON ME. SPOKE WITH OWEN, WOOD LAST MAKER AT [place] [phone] SHE STATES THAT SHE WILL KEEP HIS BELONGINGS AT THE OFFICE UNTIL DISCHARGE SHE ALSO STATES THAT A JAYCE BARNES FROM [employer] [facility] [employer], HAS BEEN TRYING TO FIND HIM A GROUP HOME.
[2019-08-13 14:43] LABS: Basophils % 0.4 %; Eosinophils # 0.2 10^3/uL (0.0-0.8); Eosinophils % 1.9 %; Hematocrit 28.9 % (42.0-52.0); Hemoglobin 8.5 g/dL (11.7-16.6); Lymphocytes % 9.8 %; Mean Corpuscular HGB Conc 29.4 g/dL (30.0-36.0); Mean Corpuscular Hemoglobin 23.1 pg (28.0-34.0); Mean Corpuscular Volume 78.5 fL (80-94); Mean Platelet Volume 11.6 fL (7.4-10.4); Monocytes # 0.9 10^3/uL (0.2-0.9); Monocytes % 8.4 %; Neutrophils # 8.2 10^3/uL (1.8-7.7); Nucleated Red Blood Cells % 0 %; Platelet Count 205 10^3/cmm (130-400); Red Blood Count 3.68 10^6/uL (4.1-5.3); Red Cell Distribution Width 19.1 % (12.1-15.1); White Blood Count 10.4 10^3/uL (4.0-10.0)
--- NOTE | 2019-08-13 15:43 | PC.NURSE ---
KAITLYN BARROW, DEPOSITING MACHINE OPERATOR FOR PT CAME TO GIVE HIM HIS NEW COURT DATE SEPTEMBER 10, 2019 @ 1300. BUSINESS CARD LEFT AT PT BEDSIDE.
--- NOTE | 2019-08-13 18:04 | PC.NURSE ---
BLADDER SCAN UOP POST LAI REMOVAL THIS MORNING HAS BEEN 100ML. BLADDER SCAN DONE <100 ML IN BLADDER
--- NOTE | 2019-08-13 19:38 | P.PN_ITS ---
Subjective Subjective: Interval history: This morning patient is sitting in bed, has no significant complaints, denies chest pain, denies shortness of breath, denies lightheadedness, denies dizziness, no nausea, no vomiting I had a long discussion with the patient about his GI bleed, AV malformations, in the setting of aortic severe aortic stenosis, patient is a candidate for aortic valve replacement, patient is agreeable for evaluation for aortic valve replacement. I was notified by telehealth case manager, that patient had a court date today for methamphetamine related charges, he is apparently evicted from his hotel, thus we are working on placement for him. Vitals/I&O/Wt Last Vital Signs Temp 98.8 F 08/13/19 18:00 Pulse 92 08/13/19 18:00 Resp 21 H 08/13/19 18:00 BP 137/92 08/13/19 18:00 Pulse Ox 95 08/13/19 18:00 08/13/19 08/13/19 08/13/19 06:59 14:59 22:59 Intake Total 120 / 1221.25 810 / 810 600 / 1410 Output Total 250 / 900 200 / 200 100 / 300 Balance -130 / 321.25 610 / 610 500 / 1110 Weight last 48 hrs Weight 84.368 kg Physical Exam Const: COMMON NORMALS: no apparent distress and oriented x3 GENERAL APPEARANCE: cooperative and comfortable NUTRITIONAL APPEARANCE: obese ORIENTATION/CONSCIOUSNESS: Yes awake, Yes oriented to person, Yes oriented to place and Yes confused Neck/C-Spine: COMMON NORMALS: no JVD Chest: COMMONS NORMALS: inspection of chest normal Resp: COMMON NORMALS: normal respiratory effort, no retractions, no use of accessory muscles, clear to auscultation bilaterally and percussion normal AUSCULTATION: clear to auscultation bilaterally PERCUSSION: percussion normal Cardio: COMMON NORMALS: no JVD, S1 normal heart sound, S2 normal heart sound, no clicks and peripheral pulses 2+ throughout HEART SOUNDS: S1 normal, S2 normal and abnormal sounds (Systolic murmur) PERIPHERAL PULSES: pulses 2+ throughout GI: COMMON NORMALS: normal to inspection, nondistended, normoactive bowel sounds, soft to palpation, non-tender, no hepatosplenomegaly, no masses and no bruits PALPATION: Yes soft and Yes no hepatosplenomegaly Neuro: COMMON NORMALS: oriented x3, moves all extremities, no focal motor deficits, no sensory deficits noted and deep tendon reflexes 2+ bilaterally SENSORIUM/ORIENTATION: Yes oriented to person and Yes oriented to place Urinary Catheter Management^: Duval: Cath Placed During This Visit: no A&P Assessment and plan (1) Acute GI bleeding: -Hemoglobin stable at 8.5, status post 3 units PRBC -No bloody stools -EGD showed AV malformations, consistent with severe aortic stenosis Status: Acute Code(s): K92.2 - Gastrointestinal hemorrhage, unspecified (2) Syncope: Secondary to AV malformations and GI bleed Status: Acute Code(s): R55 - Syncope and collapse (3) Severe aortic stenosis: -Repeat echocardiogram shows severe aortic stenosis, worsening -We will reach out to cardiology about planning for a aortic valve replacement Status: Acute Code(s): I35.0 - Nonrheumatic aortic (valve) stenosis (4) Hypothyroidism: Levothyroxine Status: Acute Code(s): E03.9 - Hypothyroidism, unspecified (5) Chronic back pain: Status: Acute Code(s): M54.9 - Dorsalgia, unspecified; G89.29 - Other chronic pain (6) Hypertension: Hold home medications in the face of GI bleeding Status: Acute Code(s): I10 - Essential (primary) hypertension (7) Dementia: Probable mild to moderate dementia Continue Rocephin for UTI Status: Acute Code(s): F03.90 - Unspecified dementia without behavioral disturbance Attestations Medical Necessity Statement*: Patient requires continued hospitalization, for GI bleed, severe aortic stenosis, syncope, UTI Coding Level of Care Code Acute Snap Shearer for [facility] Diagnoses Acute GI bleeding K92.2 Syncope R55 Severe aortic stenosis I35.0 Hypothyroidism E03.9 Chronic back pain M54.9; G89.29 Hypertension I10 Dementia F03.90
--- NOTE | 2019-08-13 20:13 | PC.RESP ---
no tx needed at this time
[2019-08-13] MEDS: pantoprazole DR 40 mg Tablet PO (22:17)
[2019-08-13] MEDS: cefTRIAXone 1,000 MG in sodium chloride 0.9% (plus) 50 ML 100 MG IV (22:17)
[2019-08-13] MEDS: atorvastatin 40 mg Tablet 20 MG PO (22:17)
[2019-08-13] MEDS: phenyleph-mineral oil-petrolat Oint 28 gm 1 APPLIC PR (22:18)
[2019-08-14] VITALS (10 sets, daily range): BP systolic 110–142; BP diastolic 56–78; PULSE 66–87; RESP 18–24; TEMP 36.6–37.8; O2SAT 94–97
[2019-08-14 04:44] LABS: Basophils % 0.4 %; Eosinophils # 0.2 10^3/uL (0.0-0.8); Eosinophils % 2.6 %; Hematocrit 26.5 % (42.0-52.0); Hemoglobin 7.9 g/dL (11.7-16.6); Lymphocytes # 0.9 10^3/uL (0.8-4.8); Lymphocytes % 9.9 %; Mean Corpuscular HGB Conc 29.8 g/dL (30.0-36.0); Mean Corpuscular Hemoglobin 22.7 pg (28.0-34.0); Mean Corpuscular Volume 76.1 fL (80-94); Mean Platelet Volume 12.1 fL (7.4-10.4); Monocytes # 0.9 10^3/uL (0.2-0.9); Monocytes % 10.2 %; Neutrophils # 6.9 10^3/uL (1.8-7.7); Neutrophils % 76.5 %; Nucleated Red Blood Cells % 0.3 %; Platelet Count 214 10^3/cmm (130-400); Red Blood Count 3.48 10^6/uL (4.1-5.3); Red Cell Distribution Width 19.6 % (12.1-15.1); White Blood Count 9.1 10^3/uL (4.0-10.0)
[2019-08-14 05:02] LABS: Alanine Aminotransferase < 5 U/L (0-41); Albumin Level 3.3 g/dL (3.5-5.2); Alkaline Phosphatase 69 IU/L (40-130); Anion Gap 12.7 (5-19); Aspartate Amino Transferase 20 U/L (0-40); Blood Urea Nitrogen 9 mg/dL (8-23); Calcium 9.1 mg/Dl (8.8-10.2); Carbon Dioxide 22 mmol/L (22-29); Chloride 108 mmol/L (98-107); Globulin 2.5 g/dL (1.3-4.6); Glucose 100 mg/dL (74-106); Magnesium 2.3 mg/dL (1.7-2.3); Phosphorus 2.5 mg/dL (2.5-4.5); Potassium 3.7 mmol/L (3.5-5.1); Sodium 139 mmol/L (136-145); Total Bilirubin 0.8 mg/dL (0.15-1.2); Total Protein 5.8 g/dL (6.6-8.7)
--- NOTE | 2019-08-14 07:09 | PC.NURSE ---
Patient is in a bed that doesn't have a scale
[2019-08-14] MEDS: losartan 50 mg Tablet 25 MG PO (11:36)
[2019-08-14] MEDS: levothyroxine 50 mcg Tablet PO (11:38)
[2019-08-14] MEDS: cyanocobalamin 1,000 mcg Tablet 1000 MCG PO (11:38)
[2019-08-14] MEDS: folic acid 1 mg Tablet PO ×2 (11:38→18:53)
[2019-08-14] MEDS: pantoprazole DR 40 mg Tablet PO ×2 (11:38→18:53)
[2019-08-14 12:35] LABS: Carboxyhemoglobin 3.8 %THgb (0.4-20.1); Methemoglobin 1.5 % (0.4-1.5); Total Hemoglobin 5.6 g/dL (14-18)
[2019-08-14 14:09] LABS: Hematocrit 27.1 % (42.0-52.0); Hemoglobin 7.7 g/dL (11.7-16.6)
--- NOTE | 2019-08-14 15:18 | PM.PN ---
Subjective Subjective: Interval history: This morning patient is lying in bed, has no significant complaints, no chest pain, no palpitations, no lightheadedness, no dizziness, This morning, I spoke to patient's nephew Quentin up in [facility], I advised him of the GI bleed, his need for aortic valve replacement, need for further cardiac work-up including coronary angiogram. Quentin states that if he needs it then patient should proceed, but he will speak to his uncle and see if he can see his uncle later on the week. I spoke to patient about his need for aortic valve replacement, need for further cardiac work-up including coronary angiogram, cardiac follow-up, patient agrees that he needs aortic valve replacement, is agreeable for cardiac evaluation. Understands risks and benefits, agrees to proceed. As patient does not have stable home environment, is agreeable to longterm placement. Vitals/I&O/Wt Last Vital Signs Temp 98.7 F 08/14/19 14:00 Pulse 87 08/14/19 14:00 Resp 20 H 08/14/19 14:00 BP 135/78 08/14/19 14:00 Pulse Ox 97 08/14/19 14:00 08/14/19 08/14/19 08/14/19 06:59 14:59 22:59 Intake Total 840 / 840 Balance 840 / 840 Weight last 48 hrs Weight 0 g Weight 82.582 kg Weight 84.368 kg Physical Exam Const: COMMON NORMALS: no apparent distress and oriented x3 GENERAL APPEARANCE: cooperative and comfortable NUTRITIONAL APPEARANCE: obese ORIENTATION/CONSCIOUSNESS: Yes awake, Yes oriented to person, Yes oriented to place and Yes confused Neck/C-Spine: COMMON NORMALS: no JVD Resp: COMMON NORMALS: normal respiratory effort, no retractions, no use of accessory muscles, clear to auscultation bilaterally and percussion normal AUSCULTATION: clear to auscultation bilaterally PERCUSSION: percussion normal Cardio: COMMON NORMALS: no JVD, S1 normal heart sound, S2 normal heart sound, no clicks and peripheral pulses 2+ throughout HEART SOUNDS: S1 normal, S2 normal and abnormal sounds (Systolic murmur) PERIPHERAL PULSES: pulses 2+ throughout GI: COMMON NORMALS: normal to inspection, nondistended, normoactive bowel sounds, soft to palpation, non-tender, no hepatosplenomegaly, no masses and no bruits PALPATION: Yes soft and Yes no hepatosplenomegaly Extremity: COMMON NORMALS: normal to inspection, full ROM, normal capillary refill, no clubbing, cyanosis or edema and no pedal edema Neuro: COMMON NORMALS: oriented x3 SENSORIUM/ORIENTATION: Yes oriented to person and Yes oriented to place Urinary Catheter Management^: Duval: Cath Placed During This Visit: no A&P Assessment and plan (1) Acute GI bleeding: -Hemoglobin is slightly dropping, repeat 7.7, no bloody stools, status post 3 units PRBC -EGD showed AV malformations, consistent with severe aortic stenosis -Currently hemodynamically stable, continue to monitor hemoglobin -Continue Protonix Status: Acute Code(s): K92.2 - Gastrointestinal hemorrhage, unspecified (2) Syncope: Secondary to AV malformations and GI bleed Status: Acute Code(s): R55 - Syncope and collapse (3) Severe aortic stenosis: -Repeat echocardiogram shows severe aortic stenosis, worsening -Cardiology is okay with outpatient follow-up for evaluation for a aortic valve replacement Status: Acute Code(s): I35.0 - Nonrheumatic aortic (valve) stenosis (4) Hypothyroidism: Levothyroxine Status: Acute Code(s): E03.9 - Hypothyroidism, unspecified (5) Chronic back pain: Status: Acute Code(s): M54.9 - Dorsalgia, unspecified; G89.29 - Other chronic pain (6) Hypertension: Hold home medications in the face of GI bleeding Status: Acute Code(s): I10 - Essential (primary) hypertension (7) Dementia: Probable mild to moderate dementia Continue Rocephin for UTI Status: Acute Code(s): F03.90 - Unspecified dementia without behavioral disturbance Additional A&P Information Additional A&P Information: Elevated troponin, no evidence of significant delta Hepatitis C positive. Will need outpatient follow-up. Possible UTI on admission. Placed on Rocephin. Urine culture pending Attestations Medical Necessity Statement*: Patient requires continued hospitalization due to GI bleed, awaiting placement Coding Level of Care Code Acute Predatory Hunter for [facility] Diagnoses Acute GI bleeding K92.2 Syncope R55 Severe aortic stenosis I35.0 Hypothyroidism E03.9 Chronic back pain M54.9; G89.29 Hypertension I10 Dementia F03.90
[2019-08-14] MEDS: atorvastatin 40 mg Tablet 20 MG PO (22:03)
[2019-08-14] MEDS: cefTRIAXone 1,000 MG in sodium chloride 0.9% (plus) 50 ML 100 MG IV (22:04)
[2019-08-15] VITALS (18 sets, daily range): BP systolic 115–180; BP diastolic 71–87; PULSE 68–80; RESP 16–20; TEMP 36.4–37.4; O2SAT 95–98
[2019-08-15 01:18] LABS: Basophils % 0.3 %; Eosinophils # 0.3 10^3/uL (0.0-0.8); Hematocrit 25.9 % (42.0-52.0); Hemoglobin 7.6 g/dL (11.7-16.6); Lymphocytes # 0.9 10^3/uL (0.8-4.8); Lymphocytes % 8.3 %; Mean Corpuscular HGB Conc 29.3 g/dL (30.0-36.0); Mean Corpuscular Volume 78.2 fL (80-94); Mean Platelet Volume 11.4 fL (7.4-10.4); Monocytes # 1.2 10^3/uL (0.2-0.9); Monocytes % 11.1 %; Neutrophils # 8.5 10^3/uL (1.8-7.7); Neutrophils % 76.8 %; Nucleated Red Blood Cells % 0 %; Platelet Count 197 10^3/cmm (130-400); Red Blood Count 3.31 10^6/uL (4.1-5.3); Red Cell Distribution Width 20.5 % (12.1-15.1)
[2019-08-15 01:38] LABS: Alanine Aminotransferase 6 U/L (0-41); Albumin Level 3.2 g/dL (3.5-5.2); Alkaline Phosphatase 66 IU/L (40-130); Anion Gap 12.6 (5-19); Aspartate Amino Transferase 15 U/L (0-40); Blood Urea Nitrogen 11 mg/dL (8-23); Calcium 8.9 mg/Dl (8.8-10.2); Carbon Dioxide 24 mmol/L (22-29); Chloride 110 mmol/L (98-107); Globulin 2.5 g/dL (1.3-4.6); Glucose 104 mg/dL (74-106); Potassium 3.6 mmol/L (3.5-5.1); Sodium 143 mmol/L (136-145); Total Bilirubin 0.8 mg/dL (0.15-1.2); Total Protein 5.7 g/dL (6.6-8.7)
--- NOTE | 2019-08-15 05:02 | PC.NURSE ---
BLOOD VITALS COMPLETE: 08/15/19 @[id number]
[2019-08-15 08:36] LABS: Oxygen Device ROOM AIR
[2019-08-15] MEDS: losartan 50 mg Tablet 25 MG PO (09:59)
[2019-08-15] MEDS: folic acid 1 mg Tablet PO ×2 (10:00→19:03)
[2019-08-15] MEDS: levothyroxine 50 mcg Tablet PO (10:00)
[2019-08-15] MEDS: cyanocobalamin 1,000 mcg Tablet 1000 MCG PO (10:00)
[2019-08-15] MEDS: pantoprazole 40 mg SDV IVP (12:56)
--- NOTE | 2019-08-15 13:44 | PM.PN ---
Subjective Subjective: Interval history: This morning, patient has no significant complaints, he is hemoglobin has dropped to 7.6, did have a bloody stool, no lightheadedness, no dizziness, no chest pain, no shortness of breath, no syncopal episodes Vitals/I&O/Wt Last Vital Signs Temp 97.9 F 08/15/19 10:00 Pulse 75 08/15/19 10:00 Resp 16 08/15/19 10:00 BP 144/81 08/15/19 10:00 Pulse Ox 97 08/15/19 10:00 08/14/19 08/15/19 08/15/19 22:59 06:59 14:59 Intake Total 360 / 1200 350 / 1550 Output Total 375 / 375 Balance -15 / 825 350 / 1175 Weight last 48 hrs Weight 82.735 kg Weight 84.005 kg Weight 0 g Weight 82.582 kg Physical Exam Const: COMMON NORMALS: no apparent distress and oriented x3 GENERAL APPEARANCE: cooperative and comfortable NUTRITIONAL APPEARANCE: obese ORIENTATION/CONSCIOUSNESS: Yes awake, Yes oriented to person, Yes oriented to place and Yes confused Eye: COMMON NORMALS: PERRL and EOMs intact bilaterally PUPIL: Yes PERRL Neck/C-Spine: COMMON NORMALS: no JVD Lymph: LYMPHATIC: no lymphadenopathy noted Chest: COMMONS NORMALS: inspection of chest normal Resp: COMMON NORMALS: normal respiratory effort, no retractions, no use of accessory muscles, clear to auscultation bilaterally and percussion normal AUSCULTATION: clear to auscultation bilaterally PERCUSSION: percussion normal Cardio: COMMON NORMALS: no JVD, S1 normal heart sound, S2 normal heart sound, no clicks and peripheral pulses 2+ throughout HEART SOUNDS: S1 normal, S2 normal and abnormal sounds (Systolic murmur) PERIPHERAL PULSES: pulses 2+ throughout GI: COMMON NORMALS: normal to inspection, nondistended, normoactive bowel sounds, soft to palpation, non-tender, no hepatosplenomegaly, no masses and no bruits PALPATION: Yes soft and Yes no hepatosplenomegaly Neuro: COMMON NORMALS: oriented x3, moves all extremities, no focal motor deficits, no sensory deficits noted and deep tendon reflexes 2+ bilaterally SENSORIUM/ORIENTATION: Yes oriented to person and Yes oriented to place Psych: COMMON NORMALS: mental status grossly normal and thought process normal (Thought process delayed, forgetful) THOUGHT PROCESS: normal thought process (Thought process delayed, forgetful), disorganized and confused Urinary Catheter Management^: Duval: Cath Placed During This Visit: no A&P Assessment and plan (1) Acute GI bleeding: -Hemoglobin is slightly dropping, repeat 7.6, bloody stool, status post 3 units PRBC -EGD showed AV malformations, consistent with severe aortic stenosis -Currently hemodynamically stable, will transfuse 1 unit -Continue Protonix Status: Acute Code(s): K92.2 - Gastrointestinal hemorrhage, unspecified (2) Syncope: Secondary to AV malformations and GI bleed Status: Acute Code(s): R55 - Syncope and collapse (3) Severe aortic stenosis: -Repeat echocardiogram shows severe aortic stenosis, worsening -Cardiology is okay with outpatient follow-up for evaluation for a aortic valve replacement Status: Acute Code(s): I35.0 - Nonrheumatic aortic (valve) stenosis (4) Hypothyroidism: Levothyroxine Status: Acute Code(s): E03.9 - Hypothyroidism, unspecified (5) Chronic back pain: Status: Acute Code(s): M54.9 - Dorsalgia, unspecified; G89.29 - Other chronic pain (6) Hypertension: Hold home medications in the face of GI bleeding Status: Acute Code(s): I10 - Essential (primary) hypertension (7) Dementia: Probable mild to moderate dementia Continue Rocephin for UTI Status: Acute Code(s): F03.90 - Unspecified dementia without behavioral disturbance Additional A&P Information Additional A&P Information: Elevated troponin, no evidence of significant delta Hepatitis C positive. Will need outpatient follow-up. Possible UTI on admission. Placed on Rocephin. Urine culture pending -Awaiting usp placement Attestations Medical Necessity Statement*: Continue hospitalization for GI bleed Coding Level of Care Code Acute Vice President Industrial Relations for [facility] Fwd Diagnoses Acute GI bleeding K92.2 Syncope R55 Severe aortic stenosis I35.0 Hypothyroidism E03.9 Chronic back pain M54.9; G89.29 Hypertension I10 Dementia F03.90
[2019-08-15 18:52] LABS: Hematocrit 31.1 % (42.0-52.0); Hemoglobin 9.3 g/dL (11.7-16.6)
[2019-08-15] MEDS: sucralfate 1 gm Tablet PO (19:03)
[2019-08-15] MEDS: atorvastatin 40 mg Tablet 20 MG PO (22:14)
[2019-08-15] MEDS: cefTRIAXone 1,000 MG in sodium chloride 0.9% (plus) 50 ML 100 MG IV (22:15)
[2019-08-16] VITALS (7 sets, daily range): BP systolic 145–196; BP diastolic 78–109; PULSE 66–86; RESP 18–20; TEMP 36.5–36.9; O2SAT 95–98
[2019-08-16] MEDS: pantoprazole 40 mg SDV IVP ×2 (01:25→15:24)
[2019-08-16 01:47] LABS: Hematocrit 30.5 % (42.0-52.0); Hemoglobin 9.3 g/dL (11.7-16.6)
[2019-08-16 04:58] LABS: Basophils % 0.6 %; Eosinophils # 0.4 10^3/uL (0.0-0.8); Eosinophils % 6.5 %; Hematocrit 31.2 % (42.0-52.0); Hemoglobin 9.3 g/dL (11.7-16.6); Lymphocytes # 0.7 10^3/uL (0.8-4.8); Lymphocytes % 10.8 %; Mean Corpuscular HGB Conc 29.8 g/dL (30.0-36.0); Mean Corpuscular Hemoglobin 23.4 pg (28.0-34.0); Mean Corpuscular Volume 78.4 fL (80-94); Mean Platelet Volume 11.8 fL (7.4-10.4); Monocytes # 0.6 10^3/uL (0.2-0.9); Monocytes % 9.3 %; Neutrophils # 4.8 10^3/uL (1.8-7.7); Neutrophils % 72.5 %; Nucleated Red Blood Cells % 0 %; Platelet Count 184 10^3/cmm (130-400); Red Blood Count 3.98 10^6/uL (4.1-5.3); Red Cell Distribution Width 19.9 % (12.1-15.1); White Blood Count 6.6 10^3/uL (4.0-10.0)
[2019-08-16 05:27] LABS: Alanine Aminotransferase 6 U/L (0-41); Albumin Level 3.5 g/dL (3.5-5.2); Alkaline Phosphatase 63 IU/L (40-130); Anion Gap 14.2 (5-19); Aspartate Amino Transferase 14 U/L (0-40); Blood Urea Nitrogen 8 mg/dL (8-23); Calcium 8.7 mg/Dl (8.8-10.2); Carbon Dioxide 21 mmol/L (22-29); Chloride 109 mmol/L (98-107); Globulin 2.2 g/dL (1.3-4.6); Glucose 95 mg/dL (74-106); Potassium 3.2 mmol/L (3.5-5.1); Sodium 141 mmol/L (136-145); Total Bilirubin 0.7 mg/dL (0.15-1.2); Total Protein 5.7 g/dL (6.6-8.7)
[2019-08-16] MEDS: sucralfate 1 gm Tablet PO ×2 (06:02→17:15)
[2019-08-16] MEDS: cyanocobalamin 1,000 mcg Tablet 1000 MCG PO (08:52)
[2019-08-16] MEDS: losartan 50 mg Tablet 25 MG PO (08:52)
[2019-08-16] MEDS: folic acid 1 mg Tablet PO ×2 (08:52→17:15)
[2019-08-16] MEDS: levothyroxine 50 mcg Tablet PO (08:53)
--- NOTE | 2019-08-16 10:48 | P.DS_ITS ---
Discharge Providers Date of Admission: 08/11/19 14:31 Date of Discharge: 08/16/19 Attending Provider at Admission: Malvin Barraza MD Attending Provider at Discharge: Malvin Barraza MD Diagnoses at Discharge Discharge Diagnosis (1) Acute GI bleeding: Status: Acute (2) Syncope: Status: Acute (3) Severe aortic stenosis: Status: Acute (4) Hypothyroidism: Status: Acute (5) Chronic back pain: Status: Acute (6) Hypertension: Status: Acute (7) Dementia: Status: Acute Reason for Visit Reason for Visit: Reason For Visit: HYPOTENSION Brief History: syncope Hospital Course Hospital Course: Carlos Leyva is a 83 year old male with a past medical history of upper GI bleed secondary to AV malformations, hepatitis C status post treatment, history of dysplastic colonic polyp seen on colonoscopy in 2013, hypertension, CVA, hyperlipidemia, hypothyroidism, severe aortic stenosis, iron deficiency anemia, severe peripheral vascular disease, chronic smoker, 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 Who presents to the emergency room due to complaints of black stools and syncope. Discharge Summary: In the emergency room patient was hypotensive with a hemoglobin of 5.6, was admitted for hemorrhagic GI bleed, patient was admitted into the ICU, surgery was consulted, received IV fluids, IV Protonix, bowel rest, received 3 units of PRBC, patient had an EGD which showed multiple AV malformation in the duodenum status post cauterization by Dr. Ramírez. He also had a colonoscopy, a 1.5 cm pedunculated polyp was removed, biopsy showed fecal material and mucin, no colonic mucosa identified. Patient did clinically well, was transferred to ICU, remained normotensive, however his hemoglobin started to gradually decline, received 1 unit PRBC on 08/15/2019, his hemoglobin improved to 9.3, denied bloody or black stools, lightheadedness, dizziness. Patient was discharged to the retirement, with instructions to recheck hemoglobin on a daily basis for the next week, transfusions as needed, with a follow-up with Dr. Ramírez in 1 to 2-week. Patient will also be discharged on Protonix, 1 more day of IV Venofer, folic acid, vitamin B12. Patient syncope was likely MAC multifactorial related to GI bleed and severe aortic stenosis. Patient's repeat echocardiogram showed an ejection fraction of 55%, Severe aortic valve stenosis, peak velocity 3.9 m/s, peak gradient 61mmHg, mean gradient 37.9 mmHg, MANUELITO 0.68 cm squared (LVOT=2.1 cm). Dimensionless valve index of 0.23; and when compared to previous echocardiogram dated 01/06/2019 aortic valve stenosis has worsened and mean gradient across aortic valve has increased to 38 mmHg. Patient was seen back in January, he failed to follow-up with cardiology for consideration of aortic valve replacement. Given patient's syncope, AV malformations, patient is a candidate for aortic valve replacement. I did speak to cardiology briefly about the case, they recommended close outpatient follow-up for work-up for aortic valve replacement. Patient was advised he will need to follow-up with cardiology in 1 to 2 weeks for possibly a coronary angiogram and evaluation for aortic valve replacement, patient is agreeable, I also spoke to patient's nephew Quentin, who is also agreeable to further work-up. It was advised that if he were to have lightheadedness, dizziness, syncope, come back to the emergency room. During patients admission he had episodes of confusion, many times I had to repeat questions and statements for him to understand, he would also see become forgetful, forgetting conversations that we have had a day ago, he displays short-term memory loss, although his long-term memory remains intact, his nephew's Quentin's told me that he has some degree of dementia that has been progressing over the last year. Patient also has a history of hepatitis C, he tells me he has been treated for it, his hepatitis C antibody of course is positive, hepatitis C RNA is pending. Physical Exam Const: COMMON NORMALS: no apparent distress and oriented x3 GENERAL APPEARANCE: cooperative and comfortable NUTRITIONAL APPEARANCE: obese ORIENTATION/CONSCIOUSNESS: Yes awake, Yes oriented to person and Yes oriented to place Neck/C-Spine: COMMON NORMALS: no JVD Resp: COMMON NORMALS: normal respiratory effort, no retractions, no use of accessory muscles, clear to auscultation bilaterally and percussion normal AUSCULTATION: clear to auscultation bilaterally PERCUSSION: percussion normal Cardio: COMMON NORMALS: no JVD, S1 normal heart sound, S2 normal heart sound, no clicks and peripheral pulses 2+ throughout HEART SOUNDS: S1 normal, S2 normal and abnormal sounds (Systolic murmur) PERIPHERAL PULSES: pulses 2+ throughout GI: COMMON NORMALS: normal to inspection, nondistended, normoactive bowel sounds, soft to palpation, non-tender, no hepatosplenomegaly, no masses and no bruits PALPATION: Yes soft and Yes no hepatosplenomegaly Neuro: COMMON NORMALS: oriented x3 SENSORIUM/ORIENTATION: Yes oriented to person and Yes oriented to place Psych: COMMON NORMALS: mental status grossly normal and thought process normal (Thought process delayed, forgetful) THOUGHT PROCESS: normal thought process (Thought process delayed, forgetful) Urinary Catheter Management^: Duval: Cath Placed During This Visit: no Discharge Data Data Completed and Pending: Completed Studies During Hospitalization Category Date Time Status CT abdomen pelvis w con* [id number] Urge nt Cat Scan 08/11/19 12:[address] head wo con* [id number] Urgent Cat Scan 08/11/19 12:19 Completed XR chest 1V danial ble [id number] Urgent Exams 08/11/19 12:19 Completed Pathology: Surgic al [PTH] Routine Pth 08/13/19 12:05 Completed CV echo complete* [id number] Stat Ultrasound 08/11/19 15:26 Completed Pending at discharge Category Date Time Status Alcohol Level Sta t Lab 08/11/19 13:37 Results Blood Culture Sta t Lab 08/11/19 12:44 Results CBC [Complete Blo od Count w/Auto] A M LABS Lab 08/17/19 04:00 Ordered Comprehensive Met abolic Panel AM LA BS Lab 08/17/19 04:00 Ordered Ferritin Stat Lab 08/11/19 13:37 Results Hemoglobin and He matocrit Q6H Lab 08/16/19 12:00 Ordered Hemoglobin and He matocrit Q6H Lab 08/16/19 18:00 Ordered Hepatitis C Genot ype RNA Stat Lab 08/11/19 21:22 Received Iron Binding [place] Stat Lab 08/11/19 13:37 Results Lactate Dehydroge nase Stat Lab 08/11/19 13:37 Results Rapid Plasma Reag in Syphilis Stat Lab 08/11/19 13:37 Results Vitamin B12 Stat Lab 08/11/19 13:37 Results Labs from last 24 hours 08/16/19 08/16/19 08/16/19 04:40 04:40 00:32 WBC 6.6 RBC 3.98 L Hgb 9.3 L 9.3 L Hct 31.2 L 30.5 L MCV 78.4 L MCH 23.4 L MCHC 29.8 L RDW 19.9 H Plt Count 184 MPV 11.8 H Neut % (Auto) 72.5 Lymph % (Auto) 10.8 [place] % (Auto) 9.3 Eos % (Auto) 6.5 Baso % (Auto) 0.6 Neut # (Auto) 4.8 Lymph # (Auto) 0.7 L [place] # (Auto) 0.6 Eos # (Auto) 0.4 Baso # (Auto) 0.0 Nucleated RBC % (a uto) 0 Nucleated RBCs # 0.0 Sodium 141 Potassium 3.2 L Chloride 109 H Carbon Dioxide 21 L Anion Gap 14.2 BUN 8 Creatinine 0.8 Glucose 95 Calcium 8.7 L Total Bilirubin 0.7 AST 14 ALT 6 Alkaline Phosphata se 63 Total Protein 5.7 L Albumin 3.5 Globulin 2.2 Blood Type Antibody Screen Antibody Identific ation Crossmatch 08/15/19 08/14/19 18:05 19:15 WBC RBC Hgb 9.3 L Hct 31.1 L MCV MCH MCHC RDW Plt Count MPV Neut % (Auto) Lymph % (Auto) [place] % (Auto) Eos % (Auto) Baso % (Auto) Neut # (Auto) Lymph # (Auto) [place] # (Auto) Eos # (Auto) Baso # (Auto) Nucleated RBC % (a uto) Nucleated RBCs # Sodium Potassium Chloride Carbon Dioxide Anion Gap BUN Creatinine Glucose Calcium Total Bilirubin AST ALT Alkaline Phosphata se Total Protein Albumin Globulin Blood Type A Positive Antibody Screen Positive Antibody Identific ation Anti-c Crossmatch See Detail Vitals: Last Vital Signs Temp 98.4 F 08/16/19 08:00 Pulse 78 08/16/19 08:00 Resp 20 H 08/16/19 08:00 BP 188/83 08/16/19 08:52 Pulse Ox 96 08/16/19 08:00 Discharge Plan Discharge Patient Disposition: Xfer [facility] Condition: Stable Prescriptions: No Action terazosin 5 mg Capsule 5 mg PO DAILY RF: 0 losartan 25 mg PO DAILY RF: 0 atorvastatin 40 mg Tablet 40 mg PO DAILY RF: 0 levothyroxine 100 mcg Tablet 100 mcg PO DAILY RF: 0 Protonix 40 mg Tablet,Delayed Release (Dr/Ec) 40 mg PO DAILY RF: 0 ferrous sulfate 325 mg (65 mg iron) Tablet,Delayed Release (Dr/Ec) 325 mg PO TID RF: 0 fluticasone propionate 50 mcg/actuation [place],Suspension 2 spray INTRANASAL DAILY RF: 0 docusate sodium 100 mg Capsule 100 mg PO BID RF: 0 Referrals: [facility] [Other] (If you are needing transportation to or from a medical appointment, your Medicaid insurance may cover this cost. To schedule a ride, you will need to call [facility] at the number provided. You will need to give them a FIVE business day notice before the scheduled appointment. You will need the following information to set up a scheduled ride: * Your Medicaid ID number (yours is [id number]). * The date and time of appointment. * The provider you will be seeing. * The address you will be picked up from. * The address and phone number of where you will be going. ) Mauricio Hull MD [Family Provider] - Discharge Attestations Time Spent in Discharge Care*: greater than 30 min Quality Metrics Clinical Quality Measures During this hospital stay, did patient experience: None Coding Level of Care Code Acute Transportation Superintendent for [facility] Fwd Exam Problem Focused Diagnoses Acute GI bleeding K92.2 Syncope R55 Severe aortic stenosis I35.0 Hypothyroidism E03.9 Chronic back pain M54.9; G89.29 Hypertension I10 Dementia F03.90
[2019-08-16 12:49] LABS: Hematocrit 37.4 % (42.0-52.0); Hemoglobin 11.2 g/dL (11.7-16.6)
[2019-08-16] MEDS: amlodipine 10 mg Tablet PO (15:24)
[2019-08-20 12:09] LABS: Rapid Plasma Reagin Syphilis Nonreactive (Nonreactive)
== END 2019-08-16 18:00 | disposition skilled nursing facility (03) | DRG 378 ==
LOC: ER 14:31 → ICU 14:56 → MEDSURG 08-13 19:32
PROVIDERS: Internal Medicine; Surgery; Admitting Provider Family Medicine; Emergency Provider Emergency Medicine; Family Provider Family Medicine; Visit Provider Family Medicine
PROC: 0DJ08ZZ Inspection of Upper Intestinal Tract, Via Natural or Artificial Opening Endoscopic (ICD-10-PCS; CPT 43235; principal; 2019-08-12 08:00)
PROC: 0DJD8ZZ Inspection of Lower Intestinal Tract, Via Natural or Artificial Opening Endoscopic (ICD-10-PCS; CPT 45378; 2019-08-12 08:00)
DX: K92.2 Gastrointestinal hemorrhage, unspecified (principal); D62 Acute posthemorrhagic anemia; I35.0 Nonrheumatic aortic (valve) stenosis; E03.9 Hypothyroidism, unspecified; F03.90 Unspecified dementia, unspecified severity, without behavioral disturbance, psychotic disturbance, mood disturbance, and anxiety; I10 Essential (primary) hypertension; Z86.73 Personal history of transient ischemic attack (TIA), and cerebral infarction without residual deficits; F17.210 Nicotine dependence, cigarettes, uncomplicated; G89.29 Other chronic pain; M54.9 Dorsalgia, unspecified; I95.9 Hypotension, unspecified
CPT/HCPCS: 36415; 36430; 36600; 43250; 45385; 51702; 70450; 71045; 74177; 80048; 80053; 80074; 80307; 80500; 81001; 82607; 82728; 82803; 82805; 83540; 83550; 83605; 83615; 83690; 83735; 84100; 84443; 85014; 85018; 85025; 85045; 85610; 86592; 86850; 86900; 86902; 87040; 87491; 87591; 87902; 88305; 93005; 93306; 94664; 96360; 96365; 96374; 96375; 97110; 97116; 97162; 97530; 99283; C9113; J0696; J1756; J2001; J2270; J2405; J2704; J3480; J7030; J7050; P9016; Q9967

== ENCOUNTER 2019-08-23 11:21 | Outpatient (RCR) | payer MEDICAID, SELFPAY ==
[2019-08-17 09:55] LABS: Hemoglobin 11.3 g/dL (11.7-16.6)
[2019-08-20 15:15] LABS: Hemoglobin 10.7 g/dL (11.7-16.6)
[2019-08-23 11:44] VITALS: BP 158/92; PULSE 64; RESP 20; TEMP 36.6; O2SAT 96; BMI 24.4
== END 2019-09-07 23:59 | disposition home or self-care (01) ==
LOC: LAB 11:21
PROVIDERS: Family Provider Family Medicine; Visit Provider Family Medicine
DX: D64.9 Anemia, unspecified (principal)
CPT/HCPCS: 85018; 96365; J1756

== ENCOUNTER 2019-08-30 14:27 | Outpatient (RCR) | payer MEDICAID, SELFPAY ==
[2019-08-30 15:13] LABS: Basophils # 0.1 10^3/uL (0.0-0.1); Basophils % 0.6 %; Eosinophils # 0.3 10^3/uL (0.0-0.8); Eosinophils % 3.7 %; Hematocrit 42.4 % (42.0-52.0); Hemoglobin 12.6 g/dL (11.7-16.6); Lymphocytes # 1.4 10^3/uL (0.8-4.8); Lymphocytes % 18.2 %; Mean Corpuscular HGB Conc 29.7 g/dL (30.0-36.0); Mean Corpuscular Hemoglobin 24.9 pg (28.0-34.0); Mean Corpuscular Volume 83.8 fL (80-94); Monocytes # 0.5 10^3/uL (0.2-0.9); Monocytes % 6.8 %; Neutrophils # 5.5 10^3/uL (1.8-7.7); Neutrophils % 70.2 %; Nucleated Red Blood Cells % 0 %; Platelet Count 183 10^3/cmm (130-400); Red Blood Count 5.06 10^6/uL (4.1-5.3); Red Cell Distribution Width 22.9 % (12.1-15.1); White Blood Count 7.8 10^3/uL (4.0-10.0)
[2019-08-30 15:18] LABS: Alanine Aminotransferase 10 U/L (0-41); Albumin Level 4.6 g/dL (3.5-5.2); Alkaline Phosphatase 84 IU/L (40-130); Anion Gap 15.7 (5-19); Aspartate Amino Transferase 18 U/L (0-40); Blood Urea Nitrogen 15 mg/dL (8-23); Calcium 9.9 mg/dL (8.5-10.5); Carbon Dioxide 28 mmol/L (22-29); Chloride 102 mmol/L (98-107); Globulin 2.7 g/dL (1.3-4.6); Glucose 104 mg/dL (74-106); Potassium 3.7 mmol/L (3.5-5.1); Sodium 142 mmol/L (136-145); Total Bilirubin 0.5 mg/dL (0.15-1.2); Total Protein 7.3 g/dL (6.6-8.7)
[2019-08-30 15:51] LABS: Mean Platelet Volume 10.2 fL (7.4-10.4)
[2019-08-30 15:52] LABS: Slide Review Slide Review Perform
== END 2019-09-07 23:59 | disposition home or self-care (01) ==
LOC: LAB 14:27
PROVIDERS: Family Provider Family Medicine; PCP Family Medicine; Visit Provider Internal Medicine
DX: D64.9 Anemia, unspecified (principal); I10 Essential (primary) hypertension
CPT/HCPCS: 80053; 85025

== ENCOUNTER 2019-10-13 17:11 | Emergency (ER) | payer MEDICAID, SELFPAY ==
[2019-10-13 17:13] VITALS: BP 178/118; PULSE 93; RESP 16; TEMP 36.6; O2SAT 98; BMI 24.4
--- NOTE | 2019-10-13 17:15 | ED_ITS ---
Entered by Cristin Chris, acting as scribe for Shadia Serra HPI - General Adult General: Chief complaint: General Medical Stated complaint: HYPERTENSION Time Seen by Provider: 10/13/19 17:14 Source: patient, EMS and RN notes reviewed Mode of arrival: EMS Limitations: no limitations History of Present Illness: HPI narrative: 84 yo male presents to ED with complaints of the balls of his feet being numb. He states his knees hurt and have been in pain for some time. The residential reported that the patient became anxious and his L leg began shaking so the patient demanded to come to the ER. He said he has a little headache from his dementia. became anxious and L leg began shaking and feet became numb MD complaint: bilateral feet numbness Onset (ago): minute(s) (30 (1700)) Location: lower extremity (bilateral feet) Radiation: non-radiation Severity: mild Quality: aching and other (numbness) Pain Consistency: intermittent Relieving factors: none Exacerbating factors: none Associated symptoms: Reports other (HTN, L leg shaking); Deny chest pain, confusion, diaphoresis, dyspnea, malaise, nausea, rash, palpitations, syncope or vomiting Treatments prior to arrival: none Review of Systems General: Reports: other (negative unless marked) Const: Denies: fever, chills, body aches, fatigue, malaise or diaphoresis Eyes: Denies: change in vision or blurry vision ENMT: Denies: throat pain, painful swallowing, hoarseness, ear pain, ear discharge, Change in hearing or nasal discharge Card: Denies: chest pain, palpitations, irregular heart rhythm, syncope, pre- syncope, shortness of breath on exertion or shortness of breath when lying down Resp: Denies: shortness of breath, productive cough, non-productive cough, wheezing, coughing up blood or chest congestion GI: Denies: abdominal pain, nausea, vomiting, vomiting blood, coffee grounds in vomit, diarrhea, constipation, cramping, blood in stool or black tarry stool : Denies: flank pain, difficulty urinating, painful urination, urinary frequency, urinary urgency, decreased urine ouput, urinary incontinence or blood in urine Musc: Denies: neck pain, back pain, extremity pain, extremity swelling, joint pain, joint swelling, joint warmth or joint stiffness Skin/Breast: Denies: rash, skin tenderness or yellow skin Neuro: Denies: weakness in extremities, changes in sensation, lack of party coordinator rdination, difficulty walking, dizziness, vertigo or confusion Endo: Denies: excessive thirst, tired all the time, cold intolerance, excessive sweating, flushing or hot flashes Ronni/Lymph: Denies: easy bruising, easy bleeding, petechiae or enlarged lymph nodes All/Imm: Denies: hives, throat swelling, tongue swelling, facial swelling or acute wheezing PFSH ED PFSH: Medical History (Updated 10/13/19 @ 19:44 by Shadia Serra) Blindness CVA (cerebral vascular accident) Dementia Hepatitis C virus infection cured after antiviral drug therapy History of arteriovenous malformation (AVM) History of Helicobacter pylori infection History of hepatitis B Hx of colonic polyps Hypertension Hypotension Hypothyroidism Severe aortic stenosis Surgical History (Updated 08/12/19 @ 09:04 by Piero Ramírez MD) H/O hernia repair History of colonoscopy 08/12/2019 Colonoscopy with removal of lesion by snare Descending colon: 1.5 cm pedunculated polyp removed with a hot snare Sigmoid colon: Moderate diverticulosis Rectum:: Normal ROGER: Grade 4 hemorrhoids History of esophagogastroduodenoscopy (EGD) 08/12/2019: EGD with control of bleeding using hot biopsy forceps Duodenal AVM Social History Smoking and tobacco status: current every day smoker Alcohol intake: never Caregiver/support person: No Lives independently: Yes Housing: Other Details: Lives in a hotel Marital status: Single Course Vital Signs: Vital signs: Vital Signs Temperature 98 F 10/13/19 17:13 Pulse Rate 93 10/13/19 17:13 Respiratory Rate 16 10/13/19 17:13 Blood Pressure 178/118 10/13/19 17:13 Pulse Oximetry 98 10/13/19 17:46 MDM - General Adult MDM Narrative: Medical decision making narrative: The case was reviewed in full with Dr. Hull who knows the patient well as well as his niece Ms. Tavera. They both agree that has his symptoms have resolved and they were odd being tingling to the bottom of his feet they are okay with him being discharged back to the residential. I reviewed this plan with the patient he agrees. He is never complained of headache, chest pain, shortness of breath, abdominal damian n, back pain only tingling to the bottom of his feet. The symptoms have seemed to resolve. He is ready to go back home. Lab Data: Attestation: I reviewed the patient's lab results. Labs: Lab Results 10/13/19 10/13/19 10/13/19 Range/Units 17:46 17:46 17:46 WBC 5.8 (4.0-10.0) 10^3/ uL RBC 4.68 (4.1-5.3) 10^6/u L Hgb 11.9 (11.7-16.6) g/dL Hct 38.3 L (42.0-52.0) % MCV 81.8 (80-94) fL MCH 25.4 L (28.0-34.0) pg MCHC 31.1 (30.0-36.0) g/dL RDW 20.4 H (12.1-15.1) % Plt Count 101 L (130-400) 10^3/c mm MPV 9.5 (7.4-10.4) fL Neut % (Auto) 64.3 % Lymph % (Auto) 21.9 % [place] % (Auto) 8.2 % Eos % (Auto) 4.6 % Baso % (Auto) 0.7 % Neut # (Auto) 3.8 (1.8-7.7) 10^3/u L Lymph # (Auto) 1.3 (0.8-4.8) 10^3/u L [place] # (Auto) 0.5 (0.2-0.9) 10^3/u L Eos # (Auto) 0.3 (0.0-0.8) 10^3/u L Baso # (Auto) 0.0 (0.0-0.1) 10^3/u L Nucleated RBC % (a uto) 0 % Nucleated RBCs # 0.0 /100WBC Sodium 136 (136-145) mmol/L Potassium 3.7 (3.5-5.1) mmol/L Chloride 100 (98-107) mmol/L Carbon Dioxide 25 (22-29) mmol/L Anion Gap 14.7 (5-19) BUN 13 (8-23) mg/dL Creatinine 0.8 (0.7-1.2) mg/dL Glucose 89 (65-115) mg/dL Calcium 10.0 (8.5-10.5) mg/dL Magnesium 2.6 H (1.7-2.3) mg/dL Total Bilirubin 0.4 (0.15-1.2) mg/dL AST 17 (0-40) U/L ALT 8 (0-41) U/L Alkaline Phosphata se 87 (40-130) IU/L Troponin T Baselin e 17 H (0-15) ng/mL Total Protein 8.0 (6.6-8.7) g/dL Albumin 4.3 (3.5-5.2) g/dL Globulin 3.7 (1.3-4.6) g/dL Urine Color (Yellow) Urine Appearance (CLEAR) Urine pH (5-7) Ur Specific Gravit y (1.005-1.030) Urine Protein (Negative) Urine Glucose (UA) (Normal) Urine Ketones (Negative) Urine Blood (Negative) Urine Nitrate (Negative) Urine Bilirubin (NEGATIVE) Urine Urobilinogen (Negative) mg/dL Ur Leukocyte Rosamaria ase (Negative) Urine RBC (0-2) /hpf Urine WBC (0-5) /hpf Ur Squamous Epith Cells (0-5) Urine Bacteria (NONE) 10/13/19 Range/Units 18:27 WBC (4.0-10.0) 10^3/ uL RBC (4.1-5.3) 10^6/u L Hgb (11.7-16.6) g/dL Hct (42.0-52.0) % MCV (80-94) fL MCH (28.0-34.0) pg MCHC (30.0-36.0) g/dL RDW (12.1-15.1) % Plt Count (130-400) 10^3/c mm MPV (7.4-10.4) fL Neut % (Auto) % Lymph % (Auto) % [place] % (Auto) % Eos % (Auto) % Baso % (Auto) % Neut # (Auto) (1.8-7.7) 10^3/u L Lymph # (Auto) (0.8-4.8) 10^3/u L [place] # (Auto) (0.2-0.9) 10^3/u L Eos # (Auto) (0.0-0.8) 10^3/u L Baso # (Auto) (0.0-0.1) 10^3/u L Nucleated RBC % (a uto) % Nucleated RBCs # /100WBC Sodium (136-145) mmol/L Potassium (3.5-5.1) mmol/L Chloride (98-107) mmol/L Carbon Dioxide (22-29) mmol/L Anion Gap (5-19) BUN (8-23) mg/dL Creatinine (0.7-1.2) mg/dL Glucose (65-115) mg/dL Calcium (8.5-10.5) mg/dL Magnesium (1.7-2.3) mg/dL Total Bilirubin (0.15-1.2) mg/dL AST (0-40) U/L ALT (0-41) U/L Alkaline Phosphata se (40-130) IU/L Troponin T Baselin e (0-15) ng/mL Total Protein (6.6-8.7) g/dL Albumin (3.5-5.2) g/dL Globulin (1.3-4.6) g/dL Urine Color Yellow (Yellow) Urine Appearance Clear (CLEAR) Urine pH 7 (5-7) Ur Specific Gravit y 1.010 (1.005-1.030) Urine Protein Neg (Negative) Urine Glucose (UA) Norm (Normal) Urine Ketones Negative (Negative) Urine Blood Neg (Negative) Urine Nitrate Negative (Negative) Urine Bilirubin Neg (NEGATIVE) Urine Urobilinogen Norm (Negative) mg/dL Ur Leukocyte Rosamaria ase Negative (Negative) Urine RBC Rare (0-2) /hpf Urine WBC Rare (0-5) /hpf Ur Squamous Epith Cells Rare (0-5) Urine Bacteria Trace (NONE) Imaging Data^: CXR: My impression: Chest x-ray -no acute findings. Xray Ortho: My impression: Right foot -no acute findings Left foot -no acute findings EKG Data^: EKG 1: Attestation: I personally reviewed and interpreted this EKG as follows: EKG interpretation date: 10/13/19 Interpretation: Normal sinus rhythm without any acute ST or T wave changes. Discharge Plan Discharge Patient Disposition: Home, Self-Care Clinical Impression: Paresthesias Condition: Stable Prescriptions: No Action magnesium hydroxide [Milk of Magnesia] 400 mg/5 mL Suspension 15 ml PO DAILY PRN (Reason: Constipation) RF: 0 bisacodyl 10 mg Suppository 10 mg [place] DAILY PRN (Reason: Constipation) RF: 0 Tylenol 325 mg Tablet 325 mg PO QID RF: 0 levothyroxine 75 mcg Tablet 75 mcg PO DAILY RF: 0 amlodipine 10 mg tablet 10 mg PO DAILY RF: 0 oseltamivir 75 mg Capsule 75 mg PO DAILY RF: 0 folic acid 1 mg Tablet 1 mg PO DAILY RF: 0 vitamin [id number] 0.5-1 mg Tablet 1 tab PO DAILY RF: 0 Discharge Orders: Discharge Order (Routine); Ordered 10/13/19 Ordered By: Shadia Serra Referrals: Mauricio Hull MD [Primary Care Provider] - 4-7 days Discharge Diet: Advance as tolerated Discharge Activity: Increase activity as tolerated Patient Instructions: Peripheral Neuropathy (ED) Activity Restrictions/Additional Instructions: Please return to the ER immediately for any of the signs or symptoms listed on your discharge instruction sheets, worsening/changing of your symptoms, you are not getting better as quickly as expected, or for ANY other cause or concerns. Coding Level of Care Code ED Piano Professor for [facility] Fwd The documentation recorded by the Aries nolen Valerie R, accurately reflects the service I personally performed and the decisions made by Ponce rodriguez Eli N Oct 13, 2019 17:11
--- NOTE | 2019-10-13 17:20 | XR_ITS ---
WS: [id number] XR foot LT min 3V* [id number] REASON FOR EXAM: TINGLING FINDINGS: The phalanges, metatarsals and tarsals are normal. No fractures are seen. The calcaneus shows a small spur. No soft tissue masses. XR/XR foot LT min 3V* [id number] IMPRESSION: Small calcaneal spur.
--- NOTE | 2019-10-13 17:20 | XR_ITS ---
WS: [id number] XR chest 1V portable [id number] REASON FOR EXAM: cough FINDINGS: Scoliotic curve convex to the left. Tortuous descending thoracic aorta. Scattered granulomas are seen in both lung rios. The heart was normal in size there is arteriosclerotic changes. There is no pneumonia, pleural effusion, pulmonary edema, or mass effect. Both shoulders show advanced degenerative arthritis. XR/XR chest 1V portable [id number] IMPRESSION: Arteriosclerotic changes with tortuous descending thoracic aorta. Well calcified granulomas both lung rios.
--- NOTE | 2019-10-13 17:20 | XR_ITS ---
WS: [id number] XR foot RT min 3V* [id number] REASON FOR EXAM: TINGLING FINDINGS: The phalanges, metatarsals, tarsals are normal. No fractures or other dyscrasias. A prominent calcaneal spur is noted. XR/XR foot RT min 3V* [id number] IMPRESSION: Calcaneal spur.
--- NOTE | 2019-10-13 17:22 | ECG_ITS ---
Measurements Intervals [place] Rate: 84 P: 35 [place]: 195 QRS: 25 QRSD: 106 T: 66 QT: 388 QTc: 460 SINUS RHYTHM Compared to ECG 08/11/2019 12:24:13 Ventricular premature complex(es) no longer present T-wave abnormality no longer present Possible ischemia no longer present Electronically Signed On 10-13-2019 19:05:24 LACE SEWER by Jammie Garcia M.D. [id number]
[2019-10-13] MEDS: LORazepam 1 mg Tablet PO (17:35)
[2019-10-13 17:46] VITALS: O2SAT 98
[2019-10-13 17:57] LABS: Basophils % 0.7 %; Eosinophils # 0.3 10^3/uL (0.0-0.8); Eosinophils % 4.6 %; Hematocrit 38.3 % (42.0-52.0); Hemoglobin 11.9 g/dL (11.7-16.6); Lymphocytes # 1.3 10^3/uL (0.8-4.8); Lymphocytes % 21.9 %; Mean Corpuscular HGB Conc 31.1 g/dL (30.0-36.0); Mean Corpuscular Hemoglobin 25.4 pg (28.0-34.0); Mean Corpuscular Volume 81.8 fL (80-94); Monocytes # 0.5 10^3/uL (0.2-0.9); Monocytes % 8.2 %; Neutrophils # 3.8 10^3/uL (1.8-7.7); Neutrophils % 64.3 %; Nucleated Red Blood Cells % 0 %; Platelet Count 101 10^3/cmm (130-400); Red Blood Count 4.68 10^6/uL (4.1-5.3); Red Cell Distribution Width 20.4 % (12.1-15.1); White Blood Count 5.8 10^3/uL (4.0-10.0)
[2019-10-13 18:14] LABS: Alanine Aminotransferase 8 U/L (0-41); Albumin Level 4.3 g/dL (3.5-5.2); Alkaline Phosphatase 87 IU/L (40-130); Anion Gap 14.7 (5-19); Aspartate Amino Transferase 17 U/L (0-40); Blood Urea Nitrogen 13 mg/dL (8-23); Carbon Dioxide 25 mmol/L (22-29); Chloride 100 mmol/L (98-107); Creatinine Clr Calc Pharmacy 79.7689; Globulin 3.7 g/dL (1.3-4.6); Glucose 89 mg/dL (65-115); Magnesium 2.6 mg/dL (1.7-2.3); Potassium 3.7 mmol/L (3.5-5.1); Sodium 136 mmol/L (136-145); Total Bilirubin 0.4 mg/dL (0.15-1.2)
[2019-10-13 18:17] LABS: Mean Platelet Volume 9.5 fL (7.4-10.4)
[2019-10-13 18:30] LABS: Troponin(5th) Baseline 17 ng/mL (0-15)
[2019-10-13 19:02] LABS: Bacteria Urine TRACE; Bilirubin Urine Neg (NEGATIVE); Blood Urine Neg (Negative); Glucose Urine UA Norm (Normal); Ketones Urine Negative (Negative); Leukocyte Esterase Urine Negative (Negative); Nitrate Urine Negative (Negative); Protein Urine Neg (Negative); RBC Urine RARE /hpf (0-2); Squamous Epithelial Cell Urine RARE (0-5); Urine Appearance Clear (CLEAR); Urine Color Yellow (Yellow); Urobilinogen Urine Norm (Negative); WBC Urine RARE /hpf (0-5); pH Urine 7 (5-7)
--- NOTE | 2019-10-13 19:04 | PC.NURSE ---
introduced myself to patient and assumed care, no complaints at this time.
[2019-10-13 20:24] VITALS: BP 137/82; PULSE 76; RESP 16; O2SAT 98
--- NOTE | 2019-10-13 20:25 | PC.NURSE ---
Report called to [facility] at senior [facility], called for medicaid transport back, spoke with [employer]. trip number [phone].
== END 2019-10-13 21:42 | disposition home or self-care (01) ==
PROVIDERS: Emergency Provider Emergency Medicine; Family Provider Family Medicine; PCP Family Medicine
DX: R20.2 Paresthesia of skin (principal); F17.210 Nicotine dependence, cigarettes, uncomplicated; F03.90 Unspecified dementia, unspecified severity, without behavioral disturbance, psychotic disturbance, mood disturbance, and anxiety; I10 Essential (primary) hypertension; E03.9 Hypothyroidism, unspecified; I35.0 Nonrheumatic aortic (valve) stenosis; Z86.010 Personal history of colon polyps; Z86.73 Personal history of transient ischemic attack (TIA), and cerebral infarction without residual deficits; I70.0 Atherosclerosis of aorta; J84.10 Pulmonary fibrosis, unspecified; M77.31 Calcaneal spur, right foot; M77.32 Calcaneal spur, left foot
CPT/HCPCS: 12345; 71045; 73630; 80053; 81001; 83735; 84484; 85025; 93005; 99282; 99284

== ENCOUNTER 2020-02-28 09:27 | Emergency (ER) | payer MEDICAID, SELFPAY ==
[2020-02-28 09:38] VITALS: BP 213/123; PULSE 99; RESP 18; TEMP 36.6; O2SAT 98; BMI 27.1
--- NOTE | 2020-02-28 09:41 | CT_ITS ---
WS: [id number] CT HEAD NONCONTRAST HISTORY: htn / headache TECHNIQUE: Contiguous axial imaging performed through the brain in 2.5 mm imaging. Bone and soft tiss ue windows. Sagittal and coronal reformats reviewed. All CT scans at [facility] use at ast one of these dose optimization techniques: automated exposure control; mA and/or kV adjustment pe r patient size (includes targeted exams where dose is matched to clinical indication); or iterative r econstruction. DLP: 832.22 mGy.cm COMPARISON: 08/11/2019 No acute intracranial hemorrhage, midline shift or mass effect. Moderate atrophy is asymmetric. Slightly greater atrophy involving the RIGHT frontotemporal region as compared to the LEFT. Decreased areas of attenuation bilaterally from chronic microvascular ischemic disease. Small lacunar infarcts in the external capsules bilaterally. Ventricles: Normal size with no hydrocephalus. No inferior displacement of cerebellar tonsils. Paranasal sinuses: As visualized are clear. Mastoid air cells: Well pneumatized. Calvarium and scalp: Skull is intact with no soft tissue edema or swelling. Moderate to severe atherosclerosis distal vertebral arteries and also through the cavernous sinuses o f the intracranial carotid arteries. CT/CT head wo con* [id number] IMPRESSION: 1. No acute intracranial hemorrhage or edema. 2. Asymmetric frontotemporal lobe atrophy, greatest on the RIGHT. 3. Extensive atherosclerosis intracranial carotid arteries and distal vertebra l arteries. 4. Chronic microvascular ischemic changes are stable.
--- NOTE | 2020-02-28 09:41 | XR_ITS ---
WS: [id number] Portable AP upright chest, 02/28/2020 Clinical Data: sob Comparison: Portable chest, 10/13/2019. Findings: No nodules, masses or effusions are seen. The heart is normal. The pulmonary vascularity is not increased. No pneumonia or pneumothorax is seen. The aortic arch and descending aorta are tortuo us. There is osteoarthritic change of both shoulders. There is a levoscoliosis of the lower thoracic spine. XR/XR chest 1V portable [id number] Impression: Atherosclerosis.
--- NOTE | 2020-02-28 09:42 | ECG_ITS ---
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 Measurements Intervals [place] Rate: 93 P: 28 GA: 160 QRS: 13 QRSD: 110 T: 73 QT: 368 QTc: 460 Interpretive Statements SINUS RHYTHM WITH OCCASIONAL VENTRICULAR PREMATURE COMPLEXES Compared to ECG 10/13/2019 17:35:19 Ventricular premature complex(es) now present Electronically Signed On 02-28-2020 17:07:02 CDT by Woo Zhu M.D. [id number] f
[2020-02-28 09:43] VITALS: PULSE 96; RESP 17; O2SAT 99
--- NOTE | 2020-02-28 09:44 | ED_ITS ---
HPI - Headache General: Chief Complaint: Headache Stated Complaint: H/A, DIZZY N/D Time Seen by Provider: 02/28/20 09:28 History of Present Illness: HPI Narrative: Patient presents with complaint of right-sided headache this been going on for approximately 3 days. He states that his blood pressure has been uncontrolled. Also states his blood pressure began to go up and about the same time as his headache. MD elicited complaint: headache Onset (ago): day(s) Onset description: suddenly Location: right Severity: moderate Quality & Timing: aching and throbbing Exacerbating factors: none Relieving factors: nothing Context: occurred at rest Associated symptoms: Reports nausea and vomiting Treatments prior to arrival: none Review of Systems General: Reports: 10 or more systems reviewed and unremarkable except in HPI and below GI: Reports: nausea and vomiting Neuro: Reports: headache(s) PFSH ED PFSH: Medical History Blindness CVA (cerebral vascular accident) Dementia Hepatitis C virus infection cured after antiviral drug therapy History of arteriovenous malformation (AVM) History of Helicobacter pylori infection History of hepatitis B Hx of colonic polyps Hypertension Hypotension Hypothyroidism Severe aortic stenosis Surgical History H/O hernia repair History of colonoscopy 08/12/2019 Colonoscopy with removal of lesion by snare Descending colon: 1.5 cm pedunculated polyp removed with a hot snare Sigmoid colon: Moderate diverticulosis Rectum:: Normal ROGER: Grade 4 hemorrhoids History of esophagogastroduodenoscopy (EGD) 08/12/2019: EGD with control of bleeding using hot biopsy forceps Duodenal AVM Family History Other CAD (coronary artery disease) Denies family history of Cancer Social History Smoking and tobacco status: current every day smoker Alcohol intake: never Caregiver/support person: No Lives independently: Yes Housing: Other Details: Lives in a hotel Marital status: Single Physical Exam Const: COMMON NORMALS: no acute distress, patient oriented x3, no limitations and alert HENMT: COMMON NORMALS: normocephalic, atraumatic, external ears normal and Normal external nose present HEAD & SCALP: normocephalic and atraumatic FACE & SINUS: normal facial exam NOSE: Normal external nose present EXTERNAL EAR: Yes external ears normal MOUTH: Normal oral and palatal mucosa present Neck/C-Spine: COMMON NORMALS: full ROM, no lymphadenopathy, supple, no meningeal signs and no JVD GENERAL: Yes normal visual inspection Resp: COMMON NORMALS: normal respiratory effort, No retractions, No use of accessory muscles and clear to auscultation bilaterally AUSCULTATION: clear to auscultation bilaterally Cardio: COMMON NORMALS: no JVD, regular rate and regular rhythm RATE: regular rate RHYTHM: regular rhythm GI: COMMON NORMALS: Normal to inspection, nondistended, normoactive bowel sounds present, Soft to palpation, non-tender, No hepatosplenomegaly present and no masses INSPECTION: Yes normal to inspection AUSCULTATION: Yes normoactive bowel sounds PALPATION: Yes Soft to palpation and Yes No hepatosplenomegaly present PERCUSSION: normal to percussion : COMMON NORMALS: Yes no CVA tenderness BLADDER/KIDNEY EXAM: Yes no CVA tenderness Back/Pelvis: COMMON NORMALS: no CVA tenderness, thoracic and lumbar spine normal to inspection, no thoracic nor lumbar tenderness, thoraco-lumbar ROM normal and straight leg raise negative bilaterally Extremity: COMMON NORMALS: normal to inspection, full ROM, capillary refill normal, no joint enlargement, no clubbing, cyanosis or edema, no calf tenderness and no pedal edema Neuro: COMMON NORMALS: patient oriented x3, moves all extremities, no focal motor deficits and no sensory deficits noted SENSORIUM/ORIENTATION: Yes alert MENINGEAL SIGNS: Yes no meningeal signs Psych: COMMON NORMALS: mental status grossly normal, Normal thought process present, cooperative, normal affect and speech normal SPEECH: Yes normal speech THOUGHT PROCESS: Normal thought process present Skin: COMMON NORMALS: no rashes or lesions noted, no wounds, turgor normal, no jaundice, no petechiae and no mottling GENERAL SKIN EXAM: no rashes or lesions noted and turgor normal Course Vital Signs: Vital signs: Vital Signs Temperature 97.8 F 02/28/20 09:38 Pulse Rate 20 L 02/28/20 11:12 Respiratory Rate 18 02/28/20 11:12 Blood Pressure 122/80 02/28/20 11:12 Pulse Oximetry 97 02/28/20 11:12 MDM - Headache Lab Data: Labs: Lab Results 02/28/20 02/28/20 02/28/20 Range/Units 09:57 09:57 09:57 WBC 6.7 (4.0-10.0) 10^3/ uL RBC 4.61 (4.1-5.3) 10^6/u L Hgb 12.4 (11.7-16.6) g/dL Hct 40.6 L (42.0-52.0) % MCV 88.1 (80-94) fL MCH 26.9 L (28.0-34.0) pg MCHC 30.5 (30.0-36.0) g/dL RDW 14.0 (12.1-15.1) % Plt Count 120 L (130-400) 10^3/c mm MPV 14.2 H (7.4-10.4) fL Neut % (Auto) 68.8 % Lymph % (Auto) 18.7 % Garrett % (Auto) 5.7 % Eos % (Auto) 5.8 % Baso % (Auto) 0.7 % Neut # (Auto) 4.60 (1.8-7.7) 10^3/u L Lymph # (Auto) 1.3 (0.8-4.8) 10^3/u L Garrett # (Auto) 0.4 (0.2-0.9) 10^3/u L Eos # (Auto) 0.4 (0.0-0.8) 10^3/u L Baso # (Auto) 0.1 (0.0-0.1) 10^3/u L Nucleated RBC % (a uto) 0 % Nucleated RBCs # 0.0 /100WBC Sodium 140 (136-145) mmol/L Potassium 4.4 (3.5-5.1) mmol/L Chloride 105 (98-107) mmol/L Carbon Dioxide 26 (22-29) mmol/L Anion Gap 13.4 (5-19) BUN 17 (8-23) mg/dL Creatinine 0.9 (0.7-1.2) mg/dL GFR Calculation Not Reportable Glucose 131 H (65-115) mg/dL Calculated Osmolal ity 288 (285-295) mOsm/k g Lactate Cancelled Calcium 9.1 (8.5-10.5) mg/dL Total Bilirubin 0.3 (0.15-1.2) mg/dL AST 17 (0-40) U/L ALT 9 (0-41) U/L Alkaline Phosphata se 93 (40-130) IU/L Troponin T Baselin e (0-15) ng/L Troponin T 120 Min [place] (0-15) ng/L NT-Pro-B Natriuret Pep 603 H (0-450) pg/mL Total Protein 8.3 (6.6-8.7) g/dL Albumin 4.3 (3.5-5.2) g/dL Globulin 4.0 (1.3-4.6) g/dL TSH 20.59 H (0.27-4.20) uIU/ mL Urine Opiates Scre en (Negative) ng/mL Ur Barbiturates Sc reen (Negative) ng/mL Ur Phencyclidine S crn (Negative) ng/mL Ur Amphetamines Sc reen (Negative) ng/mL U Benzodiazepines Scrn (Negative) ng/mL Urine Cocaine Scre en (Negative) ng/mL U Marijuana (THC) Screen (Negative) ng/mL 02/28/20 02/28/20 02/28/20 Range/Units 09:57 09:57 11:00 WBC (4.0-10.0) 10^3/ uL RBC (4.1-5.3) 10^6/u L Hgb (11.7-16.6) g/dL Hct (42.0-52.0) % MCV (80-94) fL MCH (28.0-34.0) pg MCHC (30.0-36.0) g/dL RDW (12.1-15.1) % Plt Count (130-400) 10^3/c mm MPV (7.4-10.4) fL Neut % (Auto) % Lymph % (Auto) % Garrett % (Auto) % Eos % (Auto) % Baso % (Auto) % Neut # (Auto) (1.8-7.7) 10^3/u L Lymph # (Auto) (0.8-4.8) 10^3/u L Garrett # (Auto) (0.2-0.9) 10^3/u L Eos # (Auto) (0.0-0.8) 10^3/u L Baso # (Auto) (0.0-0.1) 10^3/u L Nucleated RBC % (a uto) % Nucleated RBCs # /100WBC Sodium (136-145) mmol/L Potassium (3.5-5.1) mmol/L Chloride (98-107) mmol/L Carbon Dioxide (22-29) mmol/L Anion Gap (5-19) BUN (8-23) mg/dL Creatinine (0.7-1.2) mg/dL GFR Calculation Glucose (65-115) mg/dL Calculated Osmolal ity (285-295) mOsm/k g Lactate 1.5 Calcium (8.5-10.5) mg/dL Total Bilirubin (0.15-1.2) mg/dL AST (0-40) U/L ALT (0-41) U/L Alkaline Phosphata se (40-130) IU/L Troponin T Baselin e 16 H (0-15) ng/L Troponin T 120 Min [place] (0-15) ng/L NT-Pro-B Natriuret Pep (0-450) pg/mL Total Protein (6.6-8.7) g/dL Albumin (3.5-5.2) g/dL Globulin (1.3-4.6) g/dL TSH (0.27-4.20) uIU/ mL Urine Opiates Scre en Negative (Negative) ng/mL Ur Barbiturates Sc reen Negative (Negative) ng/mL Ur Phencyclidine S crn Negative (Negative) ng/mL Ur Amphetamines Sc reen Negative (Negative) ng/mL U Benzodiazepines Scrn Negative (Negative) ng/mL Urine Cocaine Scre en Negative (Negative) ng/mL U Marijuana (THC) Screen Negative (Negative) ng/mL 02/28/20 Range/Units 12:12 WBC (4.0-10.0) 10^3/ uL RBC (4.1-5.3) 10^6/u L Hgb (11.7-16.6) g/dL Hct (42.0-52.0) % MCV (80-94) fL MCH (28.0-34.0) pg MCHC (30.0-36.0) g/dL RDW (12.1-15.1) % Plt Count (130-400) 10^3/c mm MPV (7.4-10.4) fL Neut % (Auto) % Lymph % (Auto) % Garrett % (Auto) % Eos % (Auto) % Baso % (Auto) % Neut # (Auto) (1.8-7.7) 10^3/u L Lymph # (Auto) (0.8-4.8) 10^3/u L Garrett # (Auto) (0.2-0.9) 10^3/u L Eos # (Auto) (0.0-0.8) 10^3/u L Baso # (Auto) (0.0-0.1) 10^3/u L Nucleated RBC % (a uto) % Nucleated RBCs # /100WBC Sodium (136-145) mmol/L Potassium (3.5-5.1) mmol/L Chloride (98-107) mmol/L Carbon Dioxide (22-29) mmol/L Anion Gap (5-19) BUN (8-23) mg/dL Creatinine (0.7-1.2) mg/dL GFR Calculation Glucose (65-115) mg/dL Calculated Osmolal ity (285-295) mOsm/k g Lactate Calcium (8.5-10.5) mg/dL Total Bilirubin (0.15-1.2) mg/dL AST (0-40) U/L ALT (0-41) U/L Alkaline Phosphata se (40-130) IU/L Troponin T Baselin e (0-15) ng/L Troponin T 120 Min [place] 16.96 H (0-15) ng/L NT-Pro-B Natriuret Pep (0-450) pg/mL Total Protein (6.6-8.7) g/dL Albumin (3.5-5.2) g/dL Globulin (1.3-4.6) g/dL TSH (0.27-4.20) uIU/ mL Urine Opiates Scre en (Negative) ng/mL Ur Barbiturates Sc reen (Negative) ng/mL Ur Phencyclidine S crn (Negative) ng/mL Ur Amphetamines Sc reen (Negative) ng/mL U Benzodiazepines Scrn (Negative) ng/mL Urine Cocaine Scre en (Negative) ng/mL U Marijuana (THC) Screen (Negative) ng/mL Discharge Plan Discharge Patient Disposition: Left Against Medical Advice Clinical Impression: Headache Qualifiers: Headache type: unspecified Headache chronicity pattern: acute headache Intracta bility: not intractable Qualified Code(s): R51 - Headache Dementia Qualifiers: Dementia type: unspecified type Dementia behavioral disturbance: without behavioral disturbance Qualified Code(s): F03.90 - Unspecified dementia without behavioral disturbance Condition: Stable Prescriptions: No Action acetaminophen [Tylenol] 325 mg Tablet 325 mg PO PRN RF: 0 levothyroxine 75 mcg Tablet 75 mcg PO DAILY RF: 0 amlodipine 10 mg tablet 10 mg PO DAILY RF: 0 folic acid 1 mg Tablet 1 mg PO DAILY RF: 0 Vitamin B-12 1,000 mcg Tablet 1,000 mcg PO DAILY RF: 0 Lexapro 10 mg Tablet 10 mg PO DAILY RF: 0 Referrals: Mauricio Hull MD [Primary Care Provider] - Coding Level of Care Code ED Electrical Tech/Project Manager for Chg Fwd Exam Comprehensive
[2020-02-28] MEDS: ondansetron 2 mg/ML SDV 2 mL 4 MG IVP (10:00)
[2020-02-28] MEDS: enalaprilat 1.25 mg/mL Inj 0.625 MG IVP (10:00)
[2020-02-28 10:27] LABS: Basophils # 0.1 10^3/uL (0.0-0.1); Basophils % 0.7 %; Eosinophils # 0.4 10^3/uL (0.0-0.8); Eosinophils % 5.8 %; Hematocrit 40.6 % (42.0-52.0); Hemoglobin 12.4 g/dL (11.7-16.6); Lymphocytes # 1.3 10^3/uL (0.8-4.8); Lymphocytes % 18.7 %; Mean Corpuscular HGB Conc 30.5 g/dL (30.0-36.0); Mean Corpuscular Hemoglobin 26.9 pg (28.0-34.0); Mean Corpuscular Volume 88.1 fL (80-94); Mean Platelet Volume 14.2 fL (7.4-10.4); Monocytes # 0.4 10^3/uL (0.2-0.9); Monocytes % 5.7 %; Neutrophils % 68.8 %; Nucleated Red Blood Cells % 0 %; Platelet Count 120 10^3/cmm (130-400); Red Blood Count 4.61 10^6/uL (4.1-5.3); White Blood Count 6.7 10^3/uL (4.0-10.0)
[2020-02-28 10:29] LABS: Lactate (Lactic Acid level) 1.5 mmol/L (0.5-2.2)
[2020-02-28 10:44] LABS: Troponin(5th) Baseline 16 ng/L (0-15)
[2020-02-28 10:51] LABS: Alanine Aminotransferase 9 U/L (0-41); Albumin Level 4.3 g/dL (3.5-5.2); Alkaline Phosphatase 93 IU/L (40-130); Anion Gap 13.4 (5-19); Aspartate Amino Transferase 17 U/L (0-40); Blood Urea Nitrogen 17 mg/dL (8-23); Calcium 9.1 mg/dL (8.5-10.5); Carbon Dioxide 26 mmol/L (22-29); Chloride 105 mmol/L (98-107); Creatinine Clr Calc Pharmacy 74.1534; Glucose 131 mg/dL (65-115); NT Pro B Type Natriuretic Pept 603 pg/mL (0-450); Osmolality Calculated 288 mOsm/kg (285-295); Potassium 4.4 mmol/L (3.5-5.1); Sodium 140 mmol/L (136-145); Thyroid Stimulating Hormone 20.59 uIU/mL (0.27-4.20); Total Bilirubin 0.3 mg/dL (0.15-1.2); Total Protein 8.3 g/dL (6.6-8.7)
[2020-02-28 11:12] VITALS: BP 122/80; PULSE 20; RESP 18; O2SAT 97
[2020-02-28 11:36] LABS: Amphetamines Screen Urine Negative (Negative); Barbiturates Screen Urine Negative (Negative); Benzodiazepines Screen Urine Negative (Negative); Cocaine Screen Urine Negative (Negative); Opiate Screen Urine Negative (Negative); PCP Screen Urine Negative (Negative); THC Screen Urine Negative (Negative)
--- NOTE | 2020-02-28 11:42 | ECG_ITS ---
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 Measurements Intervals [place] Rate: 72 P: 43 [place]: 193 QRS: 17 QRSD: 101 T: 57 QT: 445 QTc: 489 Interpretive Statements SINUS RHYTHM PROLONGED QT INTERVAL Compared to ECG 02/28/2020 09:57:47 Prolonged QT interval now present Ventricular premature complex(es) no longer present Electronically Signed On 02-28-2020 17:11:28 CDT by Woo Zhu M.D. [id number] f
[2020-02-28 12:37] LABS: Troponin 5 2HR 16.96 ng/L (0-15); Troponin 5 2HR Delta 0.96 ABS# (0-10)
--- NOTE | 2020-02-28 12:58 | PC.NURSE ---
patient stated he is ready to go he only stopped in here to check out his eye that his dog is running around outside and he need to go get him emd informed and he discussed risks of leaving
[2020-02-28 13:03] VITALS: BP 151/93; PULSE 80; RESP 20; O2SAT 98
[2020-02-29 13:43] LABS: Coronavirus Lab Test PTC Negative
== END 2020-02-28 13:04 | disposition left against medical advice (07) ==
PROVIDERS: Emergency Provider Family Medicine; PCP Family Medicine
DX: R51 Headache (principal); F03.90 Unspecified dementia, unspecified severity, without behavioral disturbance, psychotic disturbance, mood disturbance, and anxiety; Z53.21 Procedure and treatment not carried out due to patient leaving prior to being seen by health care provider; Z86.73 Personal history of transient ischemic attack (TIA), and cerebral infarction without residual deficits; Z86.19 Personal history of other infectious and parasitic diseases; I10 Essential (primary) hypertension; F17.210 Nicotine dependence, cigarettes, uncomplicated
CPT/HCPCS: 12345; 36415; 70450; 71045; 80053; 80306; 83605; 83880; 84443; 84484; 85025; 87040; 87635; 93005; 96374; 96375; 99283; 99284; J2405; J3490

== ENCOUNTER 2020-03-26 08:49 | Inpatient (IN) | payer MEDICAID, SELFPAY ==
[2020-03-26] VITALS (14 sets, daily range): BP systolic 71–139; BP diastolic 41–73; PULSE 66–86; RESP 13–18; TEMP 36.4; O2SAT 94–97; BMI 23.3
[2020-03-26] MEDS: sodium chloride 0.9% 1,000 ML 999 ML IV ×2 (09:10→10:00)
--- NOTE | 2020-03-26 09:13 | CT_ITS ---
WS: [id number] CT HEAD NONCONTRAST HISTORY: AMS TECHNIQUE: Contiguous axial imaging performed through the brain in 2.5 mm imaging. Bone and soft tiss ue windows. Sagittal and coronal reformats reviewed. All CT scans at [facility] use at ast one of these dose optimization techniques: automated exposure control; mA and/or kV adjustment pe r patient size (includes targeted exams where dose is matched to clinical indication); or iterative r econstruction. DLP: 756.2 mGy.cm COMPARISON: 02/28/2020 No acute intracranial hemorrhage, midline shift or mass effect. Moderate atrophy bilaterally. Slightly greater atrophy involving loss involving the RIGHT frontal lob e. No midline shift. Increasing CSF over the RIGHT frontal lobe is probably due to the atrophy and no t a hygroma. No acute blood products. There is additional atrophy of the cerebellum. Ventricles: Normal size with no hydrocephalus. No inferior displacement of the cerebellar tonsils. Paranasal sinuses: As visualized are clear. Mastoid air cells: Well pneumatized. Calvarium and scalp: Skull is intact with no soft tissue edema or swelling. Extensive calcification in the intracranial carotid arteries. CT/CT head wo con* [id number] IMPRESSION: 1. No acute intracranial hemorrhage or edema. 2. Stable atrophy and volume loss with no progression. 3. Moderate chronic microvascular ischemic changes are also stable.
--- NOTE | 2020-03-26 09:19 | XR_ITS ---
WS: [id number] EXAM: AP CHEST: PORTABLE UPRIGHT DATE OF EXAM: 03/26/2020, 0929 hours COMPARISON: Chest x-ray from 02/28/2020. HISTORY: Patient is 84 years old with shortness of breath. Slight chest pain. FINDINGS: The cardiac silhouette is normal in size. The mediastinal contours are similar. Ectasia to the aor ta seen suggesting hypertension as well as calcified plaque. Fairly extensive scoliosis in the spine. . The pulmonary vascularity is normal. The lungs are clear of infiltrate. There is no effusion or pneumothorax. Bone density is decreased. Advanced changes of arthritis in both shoulders. XR/XR chest 1V portable [id number] IMPRESSION: No acute pulmonary disease.
--- NOTE | 2020-03-26 09:20 | ED_ITS ---
HPI - General Adult General: Chief complaint: General Medical Stated complaint: poss cva Time Seen by Provider: 03/26/20 09:19 History of Present Illness: HPI narrative: 84-year-old male presents from the senior care he is not responsive not answering questions on arrival here. Checked himself out of the local senior care and lives in a motel for a while his family came and got him and actually kept him at home for a time and then return him to the senior care yesterday during that time he been off of all of his medicines and had restarted them yesterday he has been having poor oral intake. He has recently been treated with steroids and antibiotics for bronchitis by Dr. Hull.. In the emergency room he is disoriented and initially not answering questions history gotten from family member. After he had been here for some time he became a little bit combative. Onset (ago): day(s) Associated symptoms: Reports confusion, decreased appetite and weakness; Deny chest pain, cough, diaphoresis, dyspnea, fevers/chills, headache(s), malaise, nausea, palpitations, seizures, short of breath, syncope or vomiting Review of Systems Const: Denies: malaise or diaphoresis Card: Denies: chest pain, palpitations or syncope Resp: Denies: dyspnea GI: Denies: nausea or vomiting Neuro: Reports: confusion; Denies: headache(s) PFSH ED PFSH: Medical History Blindness CVA (cerebral vascular accident) Dementia Hepatitis C virus infection cured after antiviral drug therapy History of arteriovenous malformation (AVM) History of Helicobacter pylori infection History of hepatitis B Hx of colonic polyps Hypertension Hypotension Hypothyroidism Severe aortic stenosis Surgical History H/O hernia repair History of colonoscopy 08/12/2019 Colonoscopy with removal of lesion by snare Descending colon: 1.5 cm pedunculated polyp removed with a hot snare Sigmoid colon: Moderate diverticulosis Rectum:: Normal ROGER: Grade 4 hemorrhoids History of esophagogastroduodenoscopy (EGD) 08/12/2019: EGD with control of bleeding using hot biopsy forceps Duodenal AVM Family History Other CAD (coronary artery disease) Denies family history of Cancer Social History Smoking and tobacco status: current every day smoker Alcohol intake: never Caregiver/support person: No Lives independently: Yes Housing: Other Details: Lives in a hotel Marital status: Single Physical Exam Const: COMMON NORMALS: no acute distress GENERAL APPEARANCE: cooperative and comfortable Eye: COMMON NORMALS: Equal, round and reactive pupils present, EOMs intact bilaterally, conjunctivae normal and no scleral icterus CONJUNCTIVA: Yes conjunctivae normal PUPIL: Yes Equal, round and reactive pupils present Neck/C-Spine: COMMON NORMALS: full ROM, no lymphadenopathy, supple and no JVD Lymph: LYMPHATIC: no lymphadenopathy noted and no lymphedema noted Resp: AUSCULTATION: wheezes Cardio: COMMON NORMALS: no JVD, regular rate, regular rhythm and No murmurs present (Cardio) RATE: regular rate RHYTHM: regular rhythm GI: COMMON NORMALS: Soft to palpation and No hepatosplenomegaly present AUSCULTATION: Yes normoactive bowel sounds PALPATION: Yes Soft to palpation, No Tenderness to palpation present (GI), No Guarding due to palpation present (GI) and Yes No hepatosplenomegaly present RECTAL EXAM: Yes visual inspection normal and Yes heme negative stool Extremity: COMMON NORMALS: normal to inspection, capillary refill normal, no clubbing, cyanosis or edema, no calf tenderness and no pedal edema Skin: COMMON NORMALS: no rashes or lesions noted GENERAL SKIN EXAM: no rashes or lesions noted Course Vital Signs: Vital signs: Vital Signs Temperature 98.6 F 03/27/20 15:57 Pulse Rate 83 03/27/20 15:57 Respiratory Rate 18 03/27/20 15:57 Blood Pressure 124/62 03/27/20 15:57 Pulse Oximetry 95 03/27/20 15:57 MDM - General Adult MDM Narrative: Medical decision making narrative: Patient's hemoglobin is dropped significantly from most recent. Rectal exam in the department was negative for blood. Due to his altered mental status and unexplained anemia we will go ahead and admit him discussed with Dr. Kennedy. Lab Data: Labs: Lab Results 03/26/20 03/26/20 03/26/20 Range/Units 09:27 09:27 09:27 WBC 6.3 (4.0-10.0) 10^3/ uL RBC 3.72 L (4.1-5.3) 10^6/u L Hgb 9.9 L (11.7-16.6) g/dL Hct 33.7 L (42.0-52.0) % MCV 90.6 (80-94) fL MCH 26.6 L (28.0-34.0) pg MCHC 29.4 L (30.0-36.0) g/dL RDW 13.8 (12.1-15.1) % Plt Count 130 (130-400) 10^3/c mm MPV 13.3 H (7.4-10.4) fL Neut % (Auto) 59.5 % Lymph % (Auto) 18.0 % [place] % (Auto) 7.0 % Eos % (Auto) 14.3 % Baso % (Auto) 1.0 % Neut # (Auto) 3.75 (1.8-7.7) 10^3/u L Lymph # (Auto) 1.1 (0.8-4.8) 10^3/u L [place] # (Auto) 0.4 (0.2-0.9) 10^3/u L Eos # (Auto) 0.9 H (0.0-0.8) 10^3/u L Baso # (Auto) 0.1 (0.0-0.1) 10^3/u L Nucleated RBC % (a uto) 0 % Nucleated RBCs # 0.0 /100WBC Specimen Type Sample Site ABG pH (7.35-7.45) ABG pCO2 (35-45) mmHg ABG pO2 (80.0-100.0) mmH g ABG HCO3 (22-26) mmol/L ABG O2 Saturation ABG Base Excess (-2.0-2.0) mmol/ L Chandana Test A-a O2 Gradient (5-10) mmHg Hematocrit (42-52) % Hgb O2 Saturation (95-100) % Carboxyhemoglobin (0.4-20.1) %THgb Methemoglobin (0.4-1.5) % Total Hemoglobin (14-18) g/dL Ionized Calcium (1.1-1.4) mmol/L O2 Delivery Device FiO2 % Ui Developer ID Sodium 140 (136-145) mmol/L Potassium 4.4 (3.5-5.1) mmol/L Chloride 109 H (98-107) mmol/L Carbon Dioxide 21 L (22-29) mmol/L Anion Gap 14.4 (5-19) BUN 22 (8-23) mg/dL Creatinine 1.1 (0.7-1.2) mg/dL GFR Calculation Not Reportable Glucose 132 H (65-115) mg/dL Calculated Osmolal ity 289 (285-295) mOsm/k g Lactic Acid 1.1 (0.5-2.2) mmol/L Calcium 8.2 L (8.5-10.5) mg/dL Magnesium 2.3 (1.7-2.3) mg/dL Total Bilirubin 0.4 (0.15-1.2) mg/dL AST 12 (0-40) U/L ALT 8 (0-41) U/L Alkaline Phosphata se 71 (40-130) IU/L Creatine Kinase 37 L (39-308) U/L Troponin T Baselin e (0-15) ng/L Troponin T 120 Min pamunkey (0-15) ng/L Delta Troponin T (0-10) ABS# Total Protein 6.2 L (6.6-8.7) g/dL Albumin 3.7 (3.5-5.2) g/dL Globulin 2.5 (1.3-4.6) g/dL Urine Color (Yellow) Urine Appearance (CLEAR) Urine pH (5-7) Ur Specific Gravit y (1.005-1.030) Urine Protein (Negative) Urine Glucose (UA) (Normal) Urine Ketones (Negative) Urine Blood (Negative) Urine Nitrate (Negative) Urine Bilirubin (NEGATIVE) Urine Urobilinogen (Negative) mg/dL Ur Leukocyte Rosamaria ase (Negative) SARS-CoV-2 Ag (Rap id) (Negative) 03/26/20 03/26/20 03/26/20 Range/Units 09:27 09:41 10:15 WBC (4.0-10.0) 10^3/ uL RBC (4.1-5.3) 10^6/u L Hgb (11.7-16.6) g/dL Hct (42.0-52.0) % MCV (80-94) fL MCH (28.0-34.0) pg MCHC (30.0-36.0) g/dL RDW (12.1-15.1) % Plt Count (130-400) 10^3/c mm MPV (7.4-10.4) fL Neut % (Auto) % Lymph % (Auto) % [place] % (Auto) % Eos % (Auto) % Baso % (Auto) % Neut # (Auto) (1.8-7.7) 10^3/u L Lymph # (Auto) (0.8-4.8) 10^3/u L [place] # (Auto) (0.2-0.9) 10^3/u L Eos # (Auto) (0.0-0.8) 10^3/u L Baso # (Auto) (0.0-0.1) 10^3/u L Nucleated RBC % (a uto) % Nucleated RBCs # /100WBC Specimen Type Arterial Sample Site Radial, left ABG pH 7.39 (7.35-7.45) ABG pCO2 35.9 (35-45) mmHg ABG pO2 61.8 L (80.0-100.0) mmH g ABG HCO3 21.5 L (22-26) mmol/L ABG O2 Saturation 93.5 ABG Base Excess -3.2 L (-2.0-2.0) mmol/ L Chandana Test Pos A-a O2 Gradient 5.7 (5-10) mmHg Hematocrit 30.0 L (42-52) % Hgb O2 Saturation 91.5 L (95-100) % Carboxyhemoglobin 1.2 (0.4-20.1) %THgb Methemoglobin 0.9 (0.4-1.5) % Total Hemoglobin 9.8 L (14-18) g/dL Ionized Calcium 1.2 (1.1-1.4) mmol/L O2 Delivery Device Room air FiO2 21.0 % Ui Developer ID glc Sodium 143.0 (136-145) mmol/L Potassium 4.0 (3.5-5.1) mmol/L Chloride (98-107) mmol/L Carbon Dioxide (22-29) mmol/L Anion Gap (5-19) BUN (8-23) mg/dL Creatinine (0.7-1.2) mg/dL GFR Calculation Glucose 120.0 H (65-115) mg/dL Calculated Osmolal ity (285-295) mOsm/k g Lactic Acid (0.5-2.2) mmol/L Calcium (8.5-10.5) mg/dL Magnesium (1.7-2.3) mg/dL Total Bilirubin (0.15-1.2) mg/dL AST (0-40) U/L ALT (0-41) U/L Alkaline Phosphata se (40-130) IU/L Creatine Kinase (39-308) U/L Troponin T Baselin e 24 H (0-15) ng/L Troponin T 120 Min pam[place]key (0-15) ng/L Delta Troponin T (0-10) ABS# Total Protein (6.6-8.7) g/dL Albumin (3.5-5.2) g/dL Globulin (1.3-4.6) g/dL Urine Color (Yellow) Urine Appearance (CLEAR) Urine pH (5-7) Ur Specific Gravit y (1.005-1.030) Urine Protein (Negative) Urine Glucose (UA) (Normal) Urine Ketones (Negative) Urine Blood (Negative) Urine Nitrate (Negative) Urine Bilirubin (NEGATIVE) Urine Urobilinogen (Negative) mg/dL Ur Leukocyte Rosamaria ase (Negative) SARS-CoV-2 Ag (Rap id) Negative (Negative) 03/26/20 03/26/20 Range/Units 10:15 11:37 WBC (4.0-10.0) 10^3/ uL RBC (4.1-5.3) 10^6/u L Hgb (11.7-16.6) g/dL Hct (42.0-52.0) % MCV (80-94) fL MCH (28.0-34.0) pg MCHC (30.0-36.0) g/dL RDW (12.1-15.1) % Plt Count (130-400) 10^3/c mm MPV (7.4-10.4) fL Neut % (Auto) % Lymph % (Auto) % [place] % (Auto) % Eos % (Auto) % Baso % (Auto) % Neut # (Auto) (1.8-7.7) 10^3/u L Lymph # (Auto) (0.8-4.8) 10^3/u L [place] # (Auto) (0.2-0.9) 10^3/u L Eos # (Auto) (0.0-0.8) 10^3/u L Baso # (Auto) (0.0-0.1) 10^3/u L Nucleated RBC % (a uto) % Nucleated RBCs # /100WBC Specimen Type Sample Site ABG pH (7.35-7.45) ABG pCO2 (35-45) mmHg ABG pO2 (80.0-100.0) mmH g ABG HCO3 (22-26) mmol/L ABG O2 Saturation ABG Base Excess (-2.0-2.0) mmol/ L Chandana Test A-a O2 Gradient (5-10) mmHg Hematocrit (42-52) % Hgb O2 Saturation (95-100) % Carboxyhemoglobin (0.4-20.1) %THgb Methemoglobin (0.4-1.5) % Total Hemoglobin (14-18) g/dL Ionized Calcium (1.1-1.4) mmol/L O2 Delivery Device FiO2 % Ui Developer ID Sodium (136-145) mmol/L Potassium (3.5-5.1) mmol/L Chloride (98-107) mmol/L Carbon Dioxide (22-29) mmol/L Anion Gap (5-19) BUN (8-23) mg/dL Creatinine (0.7-1.2) mg/dL GFR Calculation Glucose (65-115) mg/dL Calculated Osmolal ity (285-295) mOsm/k g Lactic Acid (0.5-2.2) mmol/L Calcium (8.5-10.5) mg/dL Magnesium (1.7-2.3) mg/dL Total Bilirubin (0.15-1.2) mg/dL AST (0-40) U/L ALT (0-41) U/L Alkaline Phosphata se (40-130) IU/L Creatine Kinase (39-308) U/L Troponin T Baselin e (0-15) ng/L Troponin T 120 Min pam[place]key 24.19 H (0-15) ng/L Delta Troponin T 0.19 (0-10) ABS# Total Protein (6.6-8.7) g/dL Albumin (3.5-5.2) g/dL Globulin (1.3-4.6) g/dL Urine Color Yellow (Yellow) Urine Appearance Clear (CLEAR) Urine pH 6 (5-7) Ur Specific Gravit y 1.015 (1.005-1.030) Urine Protein Neg (Negative) Urine Glucose (UA) Norm (Normal) Urine Ketones Negative (Negative) Urine Blood Neg (Negative) Urine Nitrate Negative (Negative) Urine Bilirubin Neg (NEGATIVE) Urine Urobilinogen 1 H (Negative) mg/dL Ur Leukocyte Rosamaria ase Negative (Negative) SARS-CoV-2 Ag (Rap id) (Negative) Discharge Plan Discharge Patient Disposition: Admitted As Inpatient Admit Provider: Arthur Kennedy Clinical Impression: Anemia, Dementia, Hypothyroidism, Hypertension, Severe aortic stenosis Condition: Stable Discharge Diet: GI Soft Discharge Activity: Increase activity as tolerated Interventions: ED Discharge Assessment Last Done: 03/26/20 13:55 ED Charges Last Done: 03/26/20 13:55 Discharge Date/Time: 03/26/20 14:23 Coding Level of Care Code ED Psychosocial Rehabilitation Counselor for Beau Jiang
--- NOTE | 2020-03-26 09:20 | ECG_ITS ---
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 Measurements Intervals [place] Rate: 72 P: -23 IA: 155 QRS: -8 QRSD: 99 T: 72 QT: 436 QTc: 477 Interpretive Statements SINUS RHYTHM WITH OCCASIONAL VENTRICULAR PREMATURE COMPLEXES POSSIBLE LEFT ATRIAL ENLARGEMENT [-0.1mV P WAVE IN V1/V2] Compared to ECG 02/28/2020 12:03:20 Ventricular premature complex(es) now present Prolonged QT interval no longer present Electronically Signed On 03-26-2020 20:19:45 CDT by Jammie Garcia M.D. [id number]
[2020-03-26 09:34] LABS: Basophils # 0.1 10^3/uL (0.0-0.1); Eosinophils # 0.9 10^3/uL (0.0-0.8); Eosinophils % 14.3 %; Hematocrit 33.7 % (42.0-52.0); Hemoglobin 9.9 g/dL (11.7-16.6); Lymphocytes # 1.1 10^3/uL (0.8-4.8); Mean Corpuscular HGB Conc 29.4 g/dL (30.0-36.0); Mean Corpuscular Hemoglobin 26.6 pg (28.0-34.0); Mean Corpuscular Volume 90.6 fL (80-94); Mean Platelet Volume 13.3 fL (7.4-10.4); Monocytes # 0.4 10^3/uL (0.2-0.9); Neutrophils # 3.75 10^3/uL (1.8-7.7); Neutrophils % 59.5 %; Nucleated Red Blood Cells % 0 %; Platelet Count 130 10^3/cmm (130-400); Red Blood Count 3.72 10^6/uL (4.1-5.3); Red Cell Distribution Width 13.8 % (12.1-15.1); White Blood Count 6.3 10^3/uL (4.0-10.0)
[2020-03-26 09:50] LABS: ABG PCO2 35.9 mmHg (35-45); ABG PH Result 7.39 (7.35-7.45); Alveolar-Arterial Oxygen Gradi 5.7 mmHg (5-10); Base Excess ABG -3.2 mmol/L (-2.0-2.0); Blood Gas Allen Test Pos; Blood Gas Operator Identificat glc; Blood Gas Sample Site Radial, left; Blood Gas Sample Type Arterial; Carboxyhemoglobin 1.2 %THgb (0.4-20.1); HCO3 ABG 21.5 mmol/L (22-26); HGB O2 Sat 91.5 % (95-100); Ionized Calcium Level - ABG 1.2 mmol/L (1.1-1.4); Methemoglobin 0.9 % (0.4-1.5); Oxygen Device ROOM AIR; Oxygen Saturation ABG 93.5; PO2 ABG 61.8 mmHg (80.0-100.0); Total Hemoglobin 9.8 g/dL (14-18)
[2020-03-26 09:55] LABS: Lactic Sepsis W/Reflex 1.1 mmol/L (0.5-2.2)
[2020-03-26 09:57] LABS: Troponin(5th) Baseline 24 ng/L (0-15)
[2020-03-26 09:58] LABS: Alanine Aminotransferase 8 U/L (0-41); Albumin Level 3.7 g/dL (3.5-5.2); Alkaline Phosphatase 71 IU/L (40-130); Anion Gap 14.4 (5-19); Aspartate Amino Transferase 12 U/L (0-40); Blood Urea Nitrogen 22 mg/dL (8-23); Calcium 8.2 mg/dL (8.5-10.5); Carbon Dioxide 21 mmol/L (22-29); Chloride 109 mmol/L (98-107); Creatine Phosphokinase 37 U/L (39-308); Creatinine Clr Calc Pharmacy 56.9507; Globulin 2.5 g/dL (1.3-4.6); Glucose 132 mg/dL (65-115); Magnesium 2.3 mg/dL (1.7-2.3); Osmolality Calculated 289 mOsm/kg (285-295); Potassium 4.4 mmol/L (3.5-5.1); Sodium 140 mmol/L (136-145); Total Bilirubin 0.4 mg/dL (0.15-1.2); Total Protein 6.2 g/dL (6.6-8.7)
--- NOTE | 2020-03-26 10:15 | PC.NURSE ---
Patient COVID swabbed at this time. COVID swab sent to lab.
[2020-03-26 10:35] LABS: Add Urine Microscopic? NO
[2020-03-26 10:47] LABS: Bilirubin Urine Neg (NEGATIVE); Blood Urine Neg (Negative); Glucose Urine UA Norm (Normal); Ketones Urine Negative (Negative); Leukocyte Esterase Urine Negative (Negative); Nitrate Urine Negative (Negative); Protein Urine Neg (Negative); Specific Gravity, Urine 1.015 (1.005-1.030); Urine Appearance Clear (CLEAR); Urine Color Yellow (Yellow); Urobilinogen Urine 1 mg/dL (Negative); pH Urine 6 (5-7)
[2020-03-26 10:59] LABS: SARS Covid-2 Antigen Negative (Negative)
--- NOTE | 2020-03-26 11:20 | ECG_ITS ---
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 Measurements Intervals [place] Rate: 66 P: 38 MS: 184 QRS: -1 QRSD: 108 T: 50 QT: 470 QTc: 492 Interpretive Statements SINUS RHYTHM NONSPECIFIC T-WAVE ABNORMALITY PROLONGED QT INTERVAL Compared to ECG 03/26/2020 09:43:02 T-wave abnormality now present Prolonged QT interval now present Ventricular premature complex(es) no longer present Electronically Signed On 03-26-2020 20:26:38 CDT by Jammie Garcia M.D. [id number]
[2020-03-26 12:03] LABS: Troponin 5 2HR 24.19 ng/L (0-15); Troponin 5 2HR Delta 0.19 ABS# (0-10)
--- NOTE | 2020-03-26 12:11 | PC.NURSE ---
EKG done at 1200 and shown to ER doctor
[2020-03-26] MEDS: D5-NS 0.45% + KCL 20 mEq 20 MEQ/1,000 ML BAG 125 MEQ IV ×2 (13:43→14:59)
--- NOTE | 2020-03-26 14:06 | PM.HP ---
Providers/Chief Complaint Admitting Physician: Arthur Kennedy MD Primary Care Provider: Mauricio Hull MD Chief Complaint: poss cva History of Present Illness Carlos Leyva is a 84 year old male transferred from nursing facility after he had what appears syncopal episode. He was not answering all presentation to ER but on my evaluation was oriented to self and place. He knew that he was transferred from nursing facility after he blacked out . He could not provide any details. Overall patient is a poor historian. He denies any chest pain, lightheadedness, heart palpitations or headache. Apparently patient recently checked himself out from nursing facility and appears that he was not taking any medications up until readmitted back to long term facility. Details currently unknown. In ER patient was found to have positive Hemoccult test but otherwise no evidence of bright red blood or melanotic stool on rectal exam performed by Dr. Donis. His hemoglobin dropped down to 9.9 compared to 12.4 last month. Admits occasionally taking ibuprofen for aches and pains. He thinks he took one ibuprofen yesterday for headache. Duval catheter was placed in ER with minimal urine output. Patient had a colonoscopy performed August this year. Showed moderate diverticular disease and grade 4 hemorrhoids. 1.5 cm pedunculated polyp was removed. Review of Systems Const: Denies: fever(s) or chills Eyes: Denies: change in vision ENMT: Denies: throat pain or change in hearing Card: Denies: chest pain, edema or lightheadedness Resp: Denies: dyspnea or productive cough GI: Denies: abdominal pain, nausea, vomiting, dysphagia, diarrhea, constipation, hematochezia or melena Musc: Denies: joint pain or joint swelling Skin/Breast: Denies: rash or erythema Neuro: Denies: headache(s) or weakness in extremities Psych: Denies: depression or suicidal ideation Endo: Denies: excessive sweating Ronni/Lymph: Denies: easy bleeding or tender lymph nodes All/Imm: Denies: throat swelling Medications/Allergies Home Medications Medication Instructions Recorded Confirmed Last Taken Type acetaminophen [Tylenol] 650 mg PO Q6H PRN 10/13/19 03/26/20 10/13/19 History amlodipine 10 mg PO DAILY 10/13/19 03/26/20 03/26/20 History folic acid 1 mg PO DAILY 10/13/19 03/26/20 03/26/20 History cyanocobalamin (vitamin B-12) 1,000 mcg PO DAILY 02/28/20 03/26/20 03/26/20 History [Vitamin B-12] escitalopram oxalate [Lexapro] 10 mg PO DAILY 02/28/20 03/26/20 03/26/20 History albuterol sulfate 2.5 mg INHALATION QID 03/26/20 03/26/20 03/26/20 History alprazolam [Xanax] 0.25 mg PO DAILY PRN 03/26/20 03/26/20 Unknown History amoxicillin-pot clavulanate See Rx Instructions .ROUTE .COMPLEX 03/26/20 03/26/20 03/25/20 History [Augmentin] atorvastatin 40 mg PO BEDTIME 03/26/20 03/26/20 03/25/20 History bisacodyl 10 mg SC DAILY PRN 03/26/20 03/26/20 Unknown History fluticasone propionate [Flonase 2 spray INTRANASAL DAILY 03/26/20 03/26/20 03/26/20 History Allergy Relief] levothyroxine 100 mcg PO DAILY 03/26/20 03/26/20 03/26/20 History losartan 25 mg PO DAILY 03/26/20 03/26/20 03/26/20 History magnesium hydroxide [Milk of 30 ml PO PRN 03/26/20 03/26/20 Unknown History Magnesia] ondansetron HCl [Zofran] 4 mg PO Q6H PRN 03/26/20 03/26/20 Unknown History pantoprazole [Protonix] 40 mg PO DAILY 03/26/20 03/26/20 03/26/20 History phenylephrine-cocoa butter 1 supp SC QID PRN 03/26/20 03/26/20 Unknown History [Preparation H(pe,cb)] sodium phosphates [Enema 118 ml SC DAILY PRN 03/26/20 03/26/20 Unknown History Disposable] terazosin 5 mg PO DAILY 03/26/20 03/26/20 03/26/20 History Allergies Allergy/AdvReac Type Severity Reaction Status Date / Time No Known Allergies Allergy Verified 03/26/20 09:32 PFSH Acute PFSH: Medical History Blindness CVA (cerebral vascular accident) Dementia Hepatitis C virus infection cured after antiviral drug therapy History of arteriovenous malformation (AVM) History of Helicobacter pylori infection History of hepatitis B Hx of colonic polyps Hypertension Hypotension Hypothyroidism Severe aortic stenosis Surgical History H/O hernia repair History of colonoscopy 08/12/2019 Colonoscopy with removal of lesion by snare Descending colon: 1.5 cm pedunculated polyp removed with a hot snare Sigmoid colon: Moderate diverticulosis Rectum:: Normal ROGER: Grade 4 hemorrhoids History of esophagogastroduodenoscopy (EGD) 08/12/2019: EGD with control of bleeding using hot biopsy forceps Duodenal AVM Family History Other CAD (coronary artery disease) Denies family history of Cancer Social History Smoking and tobacco status: current every day smoker Alcohol intake: never Caregiver/support person: No Lives independently: Yes Housing: Other Details: Lives in a hotel Marital status: Single Vitals/I&O/Wt Last Vital Signs Temp 97.5 F L 03/26/20 08:50 Pulse 78 03/26/20 13:55 Resp 17 03/26/20 13:55 BP 118/70 03/26/20 13:55 Pulse Ox 96 03/26/20 13:55 03/25/20 03/26/20 03/26/20 22:59 06:59 14:59 Intake Total 1832.5 / 1832.5 Balance 1832.5 / 1832.5 Weight last 48 hrs Weight 78.018 kg Physical Exam Const: COMMON NORMALS: no acute distress, patient oriented x3 (Able to recall name of POTUS.) and alert HENMT: COMMON NORMALS: normocephalic and atraumatic HEAD & SCALP: normocephalic and atraumatic Eye: COMMON NORMALS: EOMs intact bilaterally, conjunctivae normal and no scleral icterus CONJUNCTIVA: Yes conjunctivae normal Neck/C-Spine: COMMON NORMALS: no lymphadenopathy and no meningeal signs Lymph: LYMPHATIC: no lymphadenopathy noted Chest: COMMONS NORMALS: normal palpation of entire chest wall Resp: COMMON NORMALS: No use of accessory muscles and clear to auscultation bilaterally AUSCULTATION: clear to auscultation bilaterally Cardio: COMMON NORMALS: regular rate and regular rhythm RATE: regular rate RHYTHM: regular rhythm HEART SOUNDS: Murmur heart sound present (2 out of 6 best heard at the right upper sternal border) OTHER: No lower extremity edema GI: COMMON NORMALS: Soft to palpation and non-tender PALPATION: Yes Soft to palpation RECTAL EXAM: Yes deferred : COMMON NORMALS: Yes no CVA tenderness BLADDER/KIDNEY EXAM: Yes no CVA tenderness Back/Pelvis: COMMON NORMALS: no CVA tenderness and thoracic and lumbar spine normal to inspection Extremity: COMMON NORMALS: normal to inspection and capillary refill normal Neuro: COMMON NORMALS: patient oriented x3 and no focal motor deficits SENSORIUM/ORIENTATION: Yes alert MENINGEAL SIGNS: Yes no meningeal signs Psych: COMMON NORMALS: mental status grossly normal, Normal thought process present and cooperative THOUGHT PROCESS: Normal thought process present Skin: COMMON NORMALS: no rashes or lesions noted GENERAL SKIN EXAM: no rashes or lesions noted Urinary Catheter Management^: Duval: Cath Placed During This Visit: yes Reason for Continuing Indwelling Catheter: Accurate Measurement of Urinary Output in Critically Ill Patients Urinary Catheter Date of Insertion: 03/26/20 Urinary Catheter Time of Insertion: 10:10 Data : 03/26/20 09:27 03/26/20 09:27 Micro: Microbiology 03/26/20 09:22 Blood Culture - Preliminary Blood SPECIMEN COLLECTED 03/26/20 09:27 Blood Culture - Preliminary Blood SPECIMEN COLLECTED A&P Assessment and plan (1) Syncope: Status: Acute (2) Severe aortic stenosis: Status: Acute (3) Chronic back pain: Status: Acute (4) Hypertension: Status: Acute (5) Hypothyroidism: Status: Acute (6) Dementia: Status: Acute Qualifiers: Dementia behavioral disturbance: without behavioral disturbance Dementia type: unspecified type Qualified Code(s): F03.90 - Unspecified dementia without behavioral disturbance (7) Acute GI bleeding: Status: Acute Additional A&P Information PLAN: Avoid NSAIDs. Continue high-dose PPI and IV fluids. Monitor vitals. Patient does have chronic blindness and cannot really comment on whether he saw any blood in his stool or black stool. I do not think it at this point any further evaluation with EGD and colonoscopy would be helpful. Patient could definitely have lower GI bleed related to diverticular disease or hemorrhoids. Awaiting MRI of brain. Patient reports that he still smokes 2 cigarettes/day and we have discussed regarding importance of cessation. Patient voiced understanding but does not want any pharmacological help. Repeat TSH. Patient clinically is not in heart failure. Attestations Medical Necessity Statement*: Patient with syncopal episode and dropping hemoglobin with evidence of GI bleed requires close inpatient monitoring, treatment and evaluation. 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
[2020-03-26] MEDS: D5-NS 0.45% + KCL 20 mEq 20 MEQ/1,000 ML BAG 100 MEQ IV (14:59)
--- NOTE | 2020-03-26 15:20 | ECG_ITS ---
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 Measurements Intervals [place] Rate: -1 P: [place]: -1 QRS: 0 QRSD: -1 T: 0 QT: -1 QTc: Interpretive Statements SUPRAVENTRICULAR BRADYCARDIA INDETERMINATE AXIS ABNORMAL RHYTHM ECG WARNING: DATA QUALITY MAY AFFECT INTERPRETATION Compared to ECG 03/26/2020 12:04:22 Indeterminate axis now present Sinus rhythm no longer present T-wave abnormality no longer present Prolonged QT interval no longer present Electronically Signed On 03-26-2020 20:27:42 CDT by Jammie Garcia M.D. [id number]
[2020-03-26 16:25] LABS: Hematocrit 32.9 % (42.0-52.0); Hemoglobin 9.7 g/dL (11.7-16.6)
[2020-03-26 16:37] LABS: Thyroid Stimulating Hormone 12.73 uIU/mL (0.27-4.20)
[2020-03-26] MEDS: pantoprazole 40 mg SDV 80 MG IVP (16:37)
[2020-03-26 20:12] LABS: Hematocrit 32.5 % (42.0-52.0); Hemoglobin 9.4 g/dL (11.7-16.6)
[2020-03-26] MEDS: atorvastatin 40 mg Tablet PO (20:40)
[2020-03-27] VITALS (10 sets, daily range): BP systolic 115–124; BP diastolic 62–69; PULSE 72–86; RESP 17–18; TEMP 36.4–37; O2SAT 94–96
[2020-03-27 02:17] LABS: Basophils % 0.7 %; Eosinophils # 0.5 10^3/uL (0.0-0.8); Eosinophils % 8.5 %; Hematocrit 30.1 % (42.0-52.0); Hemoglobin 9.1 g/dL (11.7-16.6); Lymphocytes % 17.4 %; Mean Corpuscular HGB Conc 30.2 g/dL (30.0-36.0); Mean Corpuscular Hemoglobin 26.5 pg (28.0-34.0); Mean Corpuscular Volume 87.5 fL (80-94); Mean Platelet Volume 13.6 fL (7.4-10.4); Monocytes # 0.5 10^3/uL (0.2-0.9); Monocytes % 8.7 %; Neutrophils # 3.78 10^3/uL (1.8-7.7); Neutrophils % 64.4 %; Nucleated Red Blood Cells % 0 %; Platelet Count 100 10^3/cmm (130-400); Red Blood Count 3.44 10^6/uL (4.1-5.3); Red Cell Distribution Width 13.9 % (12.1-15.1); White Blood Count 5.9 10^3/uL (4.0-10.0)
[2020-03-27 02:40] LABS: Magnesium 2.1 mg/dL (1.7-2.3); Phosphorus 2.8 mg/dL (2.5-4.5)
[2020-03-27 02:41] LABS: Alanine Aminotransferase 7 U/L (0-41); Albumin Level 3.3 g/dL (3.5-5.2); Alkaline Phosphatase 66 IU/L (40-130); Anion Gap 10.1 (5-19); Aspartate Amino Transferase 11 U/L (0-40); Blood Urea Nitrogen 18 mg/dL (8-23); Calcium 7.9 mg/dL (8.5-10.5); Carbon Dioxide 21 mmol/L (22-29); Chloride 111 mmol/L (98-107); Globulin 2.7 g/dL (1.3-4.6); Glucose 114 mg/dL (65-115); Osmolality Calculated 283 mOsm/kg (285-295); Potassium 4.1 mmol/L (3.5-5.1); Sodium 138 mmol/L (136-145); Total Bilirubin 0.5 mg/dL (0.15-1.2)
[2020-03-27] MEDS: D5-NS 0.45% + KCL 20 mEq 20 MEQ/1,000 ML BAG 100 MEQ IV (02:42)
[2020-03-27] MEDS: pantoprazole 40 mg SDV IVP ×2 (03:05→15:39)
[2020-03-27 03:16] LABS: Slide Review Slide Review Perform
[2020-03-27 08:33] LABS: Hematocrit 32.3 % (42.0-52.0); Hemoglobin 9.6 g/dL (11.7-16.6)
[2020-03-27] MEDS: fluticasone nasal spray 16gm Btl 2 SPRAY INTRANASAL (09:20)
[2020-03-27] MEDS: folic acid 1 mg Tablet PO (09:22)
[2020-03-27] MEDS: amlodipine 10 mg Tablet PO (09:22)
[2020-03-27] MEDS: cyanocobalamin 1,000 mcg Tablet 1000 MCG PO (09:22)
[2020-03-27] MEDS: escitalopram 10 mg Tablet PO (09:22)
[2020-03-27] MEDS: losartan 50 mg Tablet 25 MG PO (09:22)
[2020-03-27] MEDS: terazosin 5 mg Capsule PO (09:22)
[2020-03-27] MEDS: levothyroxine 100 mcg Tablet PO (09:22)
--- NOTE | 2020-03-27 11:32 | P.DS_ITS ---
Discharge Providers Date of Admission: 03/26/20 12:49 Date of Discharge: March 27, 2020 Attending Provider at Admission: Arthur Kennedy MD Attending Provider at Discharge: Arthur Kennedy MD Primary Care Provider: Mauricio Hull MD Diagnoses at Discharge Discharge Diagnosis (1) Syncope: Status: Acute (2) Severe aortic stenosis: Status: Acute (3) Chronic back pain: Status: Acute (4) Hypertension: Status: Acute (5) Hypothyroidism: Status: Acute (6) Dementia: Status: Acute Qualifiers: Dementia behavioral disturbance: without behavioral disturbance Dementia type: unspecified type Qualified Code(s): F03.90 - Unspecified dementia without behavioral disturbance (7) Acute GI bleeding: Status: Acute Reason for Visit Reason for Visit: poss cva Hospital Course Discharge Summary: Patient presented with syncopal episode and concern for GI bleed. Patient was admitted and treated with IV fluids and high-dose PPI. This morning patient reports feeling much better and denies being lightheaded or dizzy. Reports that he had no more evidence of bleeding. Reports that he tolerates diet well and feels strong enough to be dismissed back to nursing facility for further rehabilitation. His hemoglobin stabilized. Patient denied any shortness of breath, chest pain or abdominal pain. He is bleeding felt to be related to diverticular disease or hemorrhoids therefore enema was discontinued and patient was started on senna/Colace. Currently awaiting for MRI of the brain and if shows no significant findings we will dismiss patient to halfway facility. Patient's thyroid medication was increased to to 150 mcg daily with plan to re peat TSH in 4 weeks for readjustment if needed. I will request CBC check in 1 week to make sure hemoglobin remains stable. Physical Exam Const: COMMON NORMALS: no acute distress and patient oriented x3 Resp: COMMON NORMALS: normal respiratory effort and clear to auscultation bilaterally AUSCULTATION: clear to auscultation bilaterally Cardio: COMMON NORMALS: regular rate, regular rhythm and S2 normal heart sound present RATE: regular rate RHYTHM: regular rhythm HEART SOUNDS: S2 normal heart sound present and Murmur heart sound present (2 out of 6 systolic best heard at the left sternal border) OTHER: No lower extremity edema GI: COMMON NORMALS: Normal to inspection, nondistended, normoactive bowel sounds present, Soft to palpation and non-tender PALPATION: Yes Soft to palpation Neuro: COMMON NORMALS: patient oriented x3 and no focal motor deficits Urinary Catheter Management^: [place]: Cath Placed During This Visit: yes, but has since been removed by the nurse Reason for Continuing Indwelling Catheter: Acute Urinary Retention or Obstruction Urinary Catheter Date of Insertion: 03/26/20 Urinary Catheter Time of Insertion: 10:10 Date Urinary Catheter Removed: 03/26/20 Time Urinary Catheter Discontinued: 15:58 Discharge Data Data Completed and Pending: Completed Studies During Hospitalization Category Date Time Status CT head wo con* [id number] Urgent Cat Scan 03/26/20 09:13 Completed XR chest 1V danial ble [id number] Stat Exams 03/26/20 09:19 Completed Pending at discharge Category Date Time Status Blood Culture Sta t Lab 03/26/20 09:22 Results Immunochemical Fe megha OCB Routine Lab 03/26/20 12:28 Ordered Magnesium AM LABS Lab 03/28/20 04:00 Ordered Magnesium AM LABS Lab 03/29/20 04:00 Ordered MR head wo/w con [id number] Urgent MRI 03/27/20 13:00 Ordered Labs from last 24 hours 03/27/20 03/27/20 03/27/20 08:27 02:10 02:10 WBC RBC Hgb 9.6 L Hct 32.3 L MCV MCH MCHC RDW Plt Count MPV Neut % (Auto) Lymph % (Auto) [place] % (Auto) Eos % (Auto) Baso % (Auto) Neut # (Auto) Lymph # (Auto) [place] # (Auto) Eos # (Auto) Baso # (Auto) Nucleated RBC % (a uto) Nucleated RBCs # Sodium 138 Potassium 4.1 Chloride 111 H Carbon Dioxide 21 L Anion Gap 10.1 BUN 18 Creatinine 0.8 GFR Calculation Not Reportable Glucose 114 Calculated Osmolal ity 283 L Calcium 7.9 L Phosphorus 2.8 Magnesium 2.1 Total Bilirubin 0.5 AST 11 ALT 7 Alkaline Phosphata se 66 Troponin T 120 Min sharad Delta Troponin T Troponin T Hi Sens 6Hr Troponin T Hi Sens 6Hr Delta Total Protein 6.0 L Albumin 3.3 L Globulin 2.7 TSH 03/27/20 03/26/20 03/26/20 02:10 20:05 15:44 WBC 5.9 RBC 3.44 L Hgb 9.1 L 9.4 L Hct 30.1 L 32.5 L MCV 87.5 MCH 26.5 L MCHC 30.2 RDW 13.9 Plt Count 100 L MPV 13.6 H Neut % (Auto) 64.4 Lymph % (Auto) 17.4 [place] % (Auto) 8.7 Eos % (Auto) 8.5 Baso % (Auto) 0.7 Neut # (Auto) 3.78 Lymph # (Auto) 1.0 [place] # (Auto) 0.5 Eos # (Auto) 0.5 Baso # (Auto) 0.0 Nucleated RBC % (a uto) 0 Nucleated RBCs # 0.0 Sodium Potassium Chloride Carbon Dioxide Anion Gap BUN Creatinine GFR Calculation Glucose Calculated Osmolal ity Calcium Phosphorus Magnesium Total Bilirubin AST ALT Alkaline Phosphata se Troponin T 120 Min sharad Delta Troponin T Troponin T Hi Sens 6Hr Troponin T Hi Sens 6Hr Delta Total Protein Albumin Globulin TSH 12.73 H 03/26/20 03/26/20 03/26/20 15:44 15:44 11:37 WBC RBC Hgb 9.7 L Hct 32.9 L MCV MCH MCHC RDW Plt Count MPV Neut % (Auto) Lymph % (Auto) [place] % (Auto) Eos % (Auto) Baso % (Auto) Neut # (Auto) Lymph # (Auto) [place] # (Auto) Eos # (Auto) Baso # (Auto) Nucleated RBC % (a uto) Nucleated RBCs # Sodium Potassium Chloride Carbon Dioxide Anion Gap BUN Creatinine GFR Calculation Glucose Calculated Osmolal ity Calcium Phosphorus Magnesium Total Bilirubin AST ALT Alkaline Phosphata se Troponin T 120 Min sharad 24.19 H Delta Troponin T 0.19 Troponin T Hi Sens 6Hr 23.40 H Troponin T Hi Sens 6Hr Delta -0.60 L Total Protein Albumin Globulin TSH Vitals: Last Vital Signs Temp 98.6 F 03/27/20 11:13 Pulse 83 03/27/20 11:13 Resp 18 03/27/20 11:13 BP 124/62 03/27/20 11:13 Pulse Ox 95 03/27/20 11:13 Discharge Plan Discharge Patient Disposition: Xfer SNF Condition: Stable Prescriptions: New sennosides-docusate sodium [Senna with Docusate Sodium] 8.6-50 mg tablet 1 tab-cap PO BID Qty: 60 RF: 0 Continued acetaminophen [Tylenol] 325 mg Tablet 650 mg PO Q6H PRN (Reason: Pain) RF: 0 amlodipine 10 mg tablet 10 mg PO DAILY RF: 0 folic acid 1 mg Tablet 1 mg PO DAILY RF: 0 terazosin 5 mg Capsule 5 mg PO DAILY RF: 0 atorvastatin 40 mg Tablet 40 mg PO BEDTIME RF: 0 albuterol sulfate 2.5 mg /3 mL (0.083 %) Solution For Nebulization 2.5 mg INHALATION QID RF: 0 Zofran 4 mg Tablet 4 mg PO Q6H PRN (Reason: Nausea) RF: 0 Xanax 0.25 mg Tablet 0.25 mg PO DAILY PRN (Reason: Anxiety) RF: 0 Milk of Magnesia 400 mg/5 mL Suspension 30 ml PO PRN RF: 0 bisacodyl 10 mg Suppository 10 mg AL DAILY PRN (Reason: Constipation) RF: 0 losartan 25 mg Tablet 25 mg PO DAILY RF: 0 Flonase Allergy Relief 50 mcg/actuation [place],Suspension 2 spray INTRANASAL DAILY RF: 0 Preparation H(pe,cb) 0.25-88.44 % Suppository 1 supp AL QID PRN (Reason: Hemorrhoids) RF: 0 cyanocobalamin (vitamin B-12) [Vitamin B-12] 1,000 mcg Tablet 1,000 mcg PO DAILY RF: 0 escitalopram oxalate [Lexapro] 10 mg Tablet 10 mg PO DAILY RF: 0 Changed levothyroxine 100 mcg Tablet 150 mcg PO DAILY Qty: 30 RF: 0 Protonix 40 mg Tablet,Delayed Release (Dr/Ec) 40 mg PO BID Qty: 0 RF: 0 Discontinued Enema Disposable 19-7 gram/118 mL Enema 118 ml AL DAILY PRN (Reason: Constipation) RF: 0 Augmentin 875-125 mg Tablet See Rx Instructions .ROUTE .COMPLEX RF: 0 Discharge Orders: Discharge Order (Routine); Ordered 03/27/20 Ordered By: Arthur Kennedy Other Ambulatory Orders: Complete Blood Count w/Auto (Routine) Timeframe: 1 Week Location: Determined by Patient Ordered By: Arthur Kennedy Thyroid Stimulating Hormone (Routine) Timeframe: 1 Month Facility: [facility] - Location: Lab - Main Lab Ordered By: Arthur Kennedy Referrals: Mauricio Hull MD [Primary Care Provider] - 4-7 days Discharge Diet: GI Soft Discharge Activity: Increase activity as tolerated Activity Restrictions/Additional Instructions: Please call your doctor or present to emergency department if your condition worsens or you develop diarrhea, lightheadedness, fatigue or see blood in your stool or black stool. Please keep blood pressure and heart rate log 3 times daily to present to primary care physician next visit for medication adjustment. Please avoid NSAIDs or steroids. Please note that TSH is being rechecked in 1 month as you may require further adjustment of your thyroid medications. Discharge Attestations Time Spent in Discharge Care*: greater than 30 min Quality Metrics Clinical Quality Measures During this hospital stay, did patient experience: None Coding Level of Care Code Acute Elevator Constructor Supervisor for g Fwd Diagnoses Syncope R55 Severe aortic stenosis I35.0 Chronic back pain M54.9; G89.29 Hypertension I10 Hypothyroidism E03.9 Dementia F03.90 Dementia behavioral disturbance: without behavioral disturbance Dementia type: unspecified type Acute GI bleeding K92.2
--- NOTE | 2020-03-27 13:00 | MR_ITS ---
WS: [id number] EXAM: MR head wo/w con [id number] DATE OF EXAMINATION: 03/27/2020, 1431 hours COMPARISON: CT of the head from one day prior. HISTORY: 84 years old with a history of colon cancer. Clinical working diagnosis of cerebrovascular accident. TECHNIQUE: Multiplanar multisequence imaging obtained through the brain without utilization of contrast. 15 mL o f ProHance used for the contrast portion examination. FINDINGS: Skull base is normal in appearance. Pituitary gland is normal in size. Pituitary stalk is midline. Br ainstem is normal in appearance. Cerebellum and cerebral hemispheres show normal development. General ized changes of age-related atrophy are demonstrated. Flow void is seen in the major vessels at the l evel of the skull base. No mass lesion is identified. Increased extra-axial fluid is identified. Scat tered periventricular and deep white matter signal changes are demonstrated. Also an area of T2 signa l change within the left side of the midbrain. On diffusion imaging no area of increased signal is se en. No area of dropout of signal ADC mapping is seen. Therefore these areas are considered to be director of content marketing tena areas of white matter insult. No staton artifact on gradient echo sequencing. Postcontrast imaging shows no evidence of abnormal enhancement. MR/MR head wo/w con [id number] IMPRESSION: Changes of atrophy and chronic white matter microangiopathic changes. Increased extra-axial fluid collection is seen. No findings of an acute intracranial ins ult identified. No abnormal enhancement identified.
--- NOTE | 2020-03-27 13:30 | PC.NURSE ---
[facility] here to bead picker Pt. for MRI
--- NOTE | 2020-03-27 15:20 | PC.NURSE ---
Pt back from MRI, Transferred self from EMS cot to side of bed.
--- NOTE | 2020-03-27 15:45 | PC.NURSE ---
Report called to Nila DUBON at [facility].
== END 2020-03-27 15:55 | disposition skilled nursing facility (03) | DRG 379 ==
LOC: ER 13:57 → MEDSURG 14:05
PROVIDERS: Family Medicine; Admitting Provider Internal Medicine; PCP Family Medicine; Visit Provider Internal Medicine
DX: K92.2 Gastrointestinal hemorrhage, unspecified (principal); I10 Essential (primary) hypertension; I35.0 Nonrheumatic aortic (valve) stenosis; G89.29 Other chronic pain; M54.9 Dorsalgia, unspecified; E03.9 Hypothyroidism, unspecified; F03.90 Unspecified dementia, unspecified severity, without behavioral disturbance, psychotic disturbance, mood disturbance, and anxiety; Z86.73 Personal history of transient ischemic attack (TIA), and cerebral infarction without residual deficits; H54.7 Unspecified visual loss; Z86.010 Personal history of colon polyps; Z86.19 Personal history of other infectious and parasitic diseases; F17.210 Nicotine dependence, cigarettes, uncomplicated
CPT/HCPCS: 12345; 36415; 36600; 51702; 70450; 70553; 71045; 80051; 80053; 81003; 82550; 82810; 83605; 83735; 83986; 84100; 84443; 84484; 85014; 85018; 85025; 87040; 87426; 93005; 94640; 96375; 99284; A9579; C9113; J7030; J7611

== ENCOUNTER 2020-04-27 10:12 | Inpatient (IN) | payer MEDICAID, SELFPAY ==
[2020-04-27] VITALS (72 sets, daily range): BP systolic 101–139; BP diastolic 59–85; PULSE 61–88; RESP 1–27; TEMP 36.4–37.1; O2SAT 95–100; BMI 28.5
--- NOTE | 2020-04-27 10:21 | ED_ITS ---
Documented by User: FRANCISCO Yu 04/27/20 12:50 HPI - General Adult General: Chief complaint: GI Bleed Stated complaint: BLOOD IN STOOL Time Seen by Provider: 04/27/20 10:16 History of Present Illness: HPI narrative: Patient is an 84-year-old male comes to the ED with blood in stool. Patient has a history of GI bleeds and was seen here in the ED on March 27 for same complaint. Patient has a past medical history of anemia, dementia, hypertension, hypothyroidism. He says he has had multiple episodes of diarrhea with blood seen in the last 24 hours. He says he has some mild right sided abdominal pain. Associated symptoms: Deny chest pain, dyspnea, headache(s), nausea, rash, palpitations or vomiting Review of Systems Const: Denies: fever(s), chills or fatigue Eyes: Denies: change in vision or eye discomfort ENMT: Denies: throat pain, odynophagia, nasal discharge or nasal congestion Card: Denies: chest pain, palpitations, edema, swelling of feet/ankles, dyspnea on exertion or orthopnea Resp: Denies: dyspnea, productive cough or non-productive cough GI: Reports: abdominal pain, diarrhea and hematochezia; Denies: nausea, vomiting or constipation : Denies: flank pain, difficulty urinating, dysuria or hematuria Musc: Denies: neck pain, back pain or extremity swelling Skin/Breast: Denies: rash or new lesions Neuro: Denies: headache(s), numbness in extremities or weakness in extremities PFS ED PFSH: Medical History Blindness CVA (cerebral vascular accident) Dementia Hepatitis C virus infection cured after antiviral drug therapy History of arteriovenous malformation (AVM) History of Helicobacter pylori infection History of hepatitis B Hx of colonic polyps Hypertension Hypotension Hypothyroidism Severe aortic stenosis Surgical History H/O hernia repair History of colonoscopy 08/12/2019 Colonoscopy with removal of lesion by snare Descending colon: 1.5 cm pedunculated polyp removed with a hot snare Sigmoid colon: Moderate diverticulosis Rectum:: Normal ROGER: Grade 4 hemorrhoids History of esophagogastroduodenoscopy (EGD) 08/12/2019: EGD with control of bleeding using hot biopsy forceps Duodenal AVM Family History Other CAD (coronary artery disease) Denies family history of Cancer Social History Smoking and tobacco status: current every day smoker Alcohol intake: never Caregiver/support person: No Lives independently: Yes Housing: Other Details: Lives in a hotel Marital status: Single Physical Exam Const: COMMON NORMALS: alert EXAM LIMITATIONS: other limitations (Patient has underlying dementia) GENERAL APPEARANCE: cooperative HENMT: COMMON NORMALS: normocephalic HEAD & SCALP: normocephalic MOUTH: Normal oral and palatal mucosa present THROAT: posterior oropharynx normal and uvula midline Eye: COMMON NORMALS: Equal, round and reactive pupils present PUPIL: Yes Equal, round and reactive pupils present Neck/C-Spine: COMMON NORMALS: supple GENERAL: Yes normal visual inspection Resp: COMMON NORMALS: normal respiratory effort, No retractions, No use of accessory muscles and clear to auscultation bilaterally AUSCULTATION: clear to auscultation bilaterally Cardio: COMMON NORMALS: regular rate, regular rhythm, S1 normal heart sound present, S2 normal heart sound present, No gallops present (Cardio), No clicks present (Cardio) and Peripheral pulses 2+ throughout RATE: regular rate RHYTHM: regular rhythm HEART SOUNDS: S1 normal heart sound present, S2 normal heart sound present and Murmur heart sound present systolic Location: apex Intensity: III/ Characteristics: blowing Timing: early PERIPHERAL PULSES: Peripheral pulses 2+ throughout GI: COMMON NORMALS: Normal to inspection, nondistended, normoactive bowel sounds present, Soft to palpation and no masses PALPATION: Yes Soft to palpation and Yes Tenderness to palpation present (GI) Details: other (Mild right sided abdominal tenderness.) : COMMON NORMALS: Yes no CVA tenderness BLADDER/KIDNEY EXAM: Yes no CVA tenderness Back/Pelvis: COMMON NORMALS: no CVA tenderness Extremity: COMMON NORMALS: normal to inspection and no pedal edema Neuro: SENSORIUM/ORIENTATION: Yes alert Skin: COMMON NORMALS: no rashes or lesions noted GENERAL SKIN EXAM: no rashes or lesions noted and dry skin Procedures Stool Hemoccult Procedural Steps Taken: stool placed in appropriate test area, developer placed on stool and control areas and controls appropriately positive and negative Hemoccult result: positive Additional Comments: Digital rectal exam performed to obtain stool Hemoccult test Course Vital Signs: Vital signs: Vital Signs Temperature 97.8 F 04/27/20 14:53 Pulse Rate 69 04/27/20 14:55 Respiratory Rate 12 04/27/20 14:55 Blood Pressure 134/68 04/27/20 14:55 Pulse Oximetry 95 04/27/20 14:55 MDM - General Adult MDM Narrative: Medical decision making narrative: Patient is an 84-year-old male who comes to the ED with blood in the stool. He has a past history of GI bleed and was hospitalized here back on March 27. White blood cell count 10.4 and hemoglobin was 7.6. I performed a stool Hemoccult test and it was positive for blood. I went and talked to Dr. Serra about patient's condition and lab findings. Blood transfusion?[address] of the abdomen was ordered along with EKG and troponins. Dr. Serra will be taking over care of patient and patient will be getting admitted. Lab Data: Attestation: I reviewed the patient's lab results. Labs: Lab Results 04/27/20 04/27/20 04/27/20 Range/Units 10:30 10:30 10:30 WBC 10.4 H (4.0-10.0) 10^3/ uL RBC 3.01 L (4.1-5.3) 10^6/u L Hgb 7.6 L (11.7-16.6) g/dL Hct 25.7 L (42.0-52.0) % MCV 85.4 (80-94) fL MCH 25.2 L (28.0-34.0) pg MCHC 29.6 L (30.0-36.0) g/dL RDW 14.3 (12.1-15.1) % Plt Count 147 (130-400) 10^3/c mm MPV 11.1 H (7.4-10.4) fL Neut % (Auto) 92.0 % Lymph % (Auto) 4.8 % Cecil % (Auto) 2.2 % Eos % (Auto) 0.4 % Baso % (Auto) 0.1 % Neut # (Auto) 9.52 H (1.8-7.7) 10^3/u L Lymph # (Auto) 0.5 L (0.8-4.8) 10^3/u L Cecil # (Auto) 0.2 (0.2-0.9) 10^3/u L Eos # (Auto) 0.0 (0.0-0.8) 10^3/u L Baso # (Auto) 0.0 (0.0-0.1) 10^3/u L Nucleated RBC % (a uto) 0 % Nucleated RBCs # 0.0 /100WBC PT (12.1-14.9) SECO NDS INR (0.8-1.2) APTT (23.9-36.7) SECO NDS Sodium 138 (136-145) mmol/L Potassium 4.5 (3.5-5.1) mmol/L Chloride 105 (98-107) mmol/L Carbon Dioxide 25 (22-29) mmol/L Anion Gap 12.5 (5-19) BUN 22 (8-23) mg/dL Creatinine 1.1 (0.7-1.2) mg/dL GFR Calculation Not Reportable Glucose 118 H (65-115) mg/dL Calculated Osmolal ity 290 (285-295) mOsm/k g Lactic Acid 1.2 (0.5-2.2) mmol/L Calcium 9.0 (8.5-10.5) mg/dL Total Bilirubin 0.4 (0.15-1.2) mg/dL AST 10 (0-40) U/L ALT 13 (0-41) U/L Alkaline Phosphata se 57 (40-130) IU/L Troponin T Baselin e (0-15) ng/L Total Protein 6.3 L (6.6-8.7) g/dL Albumin 3.8 (3.5-5.2) g/dL Globulin 2.5 (1.3-4.6) g/dL Lipase 39 (13-60) U/L Urine Color (Yellow) Urine Appearance (CLEAR) Urine pH (5-7) Ur Specific Gravit y (1.005-1.030) Urine Protein (Negative) Urine Glucose (UA) (Normal) Urine Ketones (Negative) Urine Blood (Negative) Urine Nitrate (Negative) Urine Bilirubin (Negative) Urine Urobilinogen (Negative) mg/dL Ur Leukocyte Rosamaria ase (Negative) Blood Type Rho(D) Type Antibody Screen 04/27/20 04/27/20 04/27/20 Range/Units 10:30 10:30 10:30 WBC (4.0-10.0) 10^3/ uL RBC (4.1-5.3) 10^6/u L Hgb (11.7-16.6) g/dL Hct (42.0-52.0) % MCV (80-94) fL MCH (28.0-34.0) pg MCHC (30.0-36.0) g/dL RDW (12.1-15.1) % Plt Count (130-400) 10^3/c mm MPV (7.4-10.4) fL Neut % (Auto) % Lymph % (Auto) % Cecil % (Auto) % Eos % (Auto) % Baso % (Auto) % Neut # (Auto) (1.8-7.7) 10^3/u L Lymph # (Auto) (0.8-4.8) 10^3/u L Cecil # (Auto) (0.2-0.9) 10^3/u L Eos # (Auto) (0.0-0.8) 10^3/u L Baso # (Auto) (0.0-0.1) 10^3/u L Nucleated RBC % (a uto) % Nucleated RBCs # /100WBC PT 12.90 (12.1-14.9) SECO NDS INR 0.95 (0.8-1.2) APTT 27.9 (23.9-36.7) SECO NDS Sodium (136-145) mmol/L Potassium (3.5-5.1) mmol/L Chloride (98-107) mmol/L Carbon Dioxide (22-29) mmol/L Anion Gap (5-19) BUN (8-23) mg/dL Creatinine (0.7-1.2) mg/dL GFR Calculation Glucose (65-115) mg/dL Calculated Osmolal ity (285-295) mOsm/k g Lactic Acid (0.5-2.2) mmol/L Calcium (8.5-10.5) mg/dL Total Bilirubin (0.15-1.2) mg/dL AST (0-40) U/L ALT (0-41) U/L Alkaline Phosphata se (40-130) IU/L Troponin T Baselin e 16 H (0-15) ng/L Total Protein (6.6-8.7) g/dL Albumin (3.5-5.2) g/dL Globulin (1.3-4.6) g/dL Lipase (13-60) U/L Urine Color (Yellow) Urine Appearance (CLEAR) Urine pH (5-7) Ur Specific Gravit y (1.005-1.030) Urine Protein (Negative) Urine Glucose (UA) (Normal) Urine Ketones (Negative) Urine Blood (Negative) Urine Nitrate (Negative) Urine Bilirubin (Negative) Urine Urobilinogen (Negative) mg/dL Ur Leukocyte Rosamaria ase (Negative) Blood Type A Positive Rho(D) Type Positive Antibody Screen Negative 04/27/20 Range/Units 12:50 WBC (4.0-10.0) 10^3/ uL RBC (4.1-5.3) 10^6/u L Hgb (11.7-16.6) g/dL Hct (42.0-52.0) % MCV (80-94) fL MCH (28.0-34.0) pg MCHC (30.0-36.0) g/dL RDW (12.1-15.1) % Plt Count (130-400) 10^3/c mm MPV (7.4-10.4) fL Neut % (Auto) % Lymph % (Auto) % Cecil % (Auto) % Eos % (Auto) % Baso % (Auto) % Neut # (Auto) (1.8-7.7) 10^3/u L Lymph # (Auto) (0.8-4.8) 10^3/u L Cecil # (Auto) (0.2-0.9) 10^3/u L Eos # (Auto) (0.0-0.8) 10^3/u L Baso # (Auto) (0.0-0.1) 10^3/u L Nucleated RBC % (a uto) % Nucleated RBCs # /100WBC PT (12.1-14.9) SECO NDS INR (0.8-1.2) APTT (23.9-36.7) SECO NDS Sodium (136-145) mmol/L Potassium (3.5-5.1) mmol/L Chloride (98-107) mmol/L Carbon Dioxide (22-29) mmol/L Anion Gap (5-19) BUN (8-23) mg/dL Creatinine (0.7-1.2) mg/dL GFR Calculation Glucose (65-115) mg/dL Calculated Osmolal ity (285-295) mOsm/k g Lactic Acid (0.5-2.2) mmol/L Calcium (8.5-10.5) mg/dL Total Bilirubin (0.15-1.2) mg/dL AST (0-40) U/L ALT (0-41) U/L Alkaline Phosphata se (40-130) IU/L Troponin T Baselin e (0-15) ng/L Total Protein (6.6-8.7) g/dL Albumin (3.5-5.2) g/dL Globulin (1.3-4.6) g/dL Lipase (13-60) U/L Urine Color Yellow (Yellow) Urine Appearance Clear (CLEAR) Urine pH 6.5 (5-7) Ur Specific Gravit y 1.005 (1.005-1.030) Urine Protein Neg (Negative) Urine Glucose (UA) Norm (Normal) Urine Ketones Negative (Negative) Urine Blood Neg (Negative) Urine Nitrate Negative (Negative) Urine Bilirubin Neg (Negative) Urine Urobilinogen Norm (Negative) mg/dL Ur Leukocyte Rosamaria ase Negative (Negative) Blood Type Rho(D) Type Antibody Screen EKG Data^: EKG 1: Attestation: I personally reviewed and interpreted this EKG as follows: EKG interpretation date: 04/27/20 Interpretation: Sinus rhythm with PVCs, 79 bpm, no ST segment elevation or depression seen. Computer generated interpretation: Abdomen/Pelvis CT 04/27/20 11:59 IMPRESSION: 1. Multiple nodular left renal lesions including 8 mm isodense nodular lesion arising from the superolateral left kidney, high attenuation 2.2 cm cyst arising from the upper pole the left kidney, and 2.1 cm simple cyst arising from the superolateral left kidney. 2. Wall thickening in the nondistended stomach. 3. Prominent stool and diverticula,, without pericolonic inflammation. 4. Additional findings as described above. Radiation Dose CTDIVOL = (mGy): DLP = 910.14 (mGy-cm) Chest X-Ray 04/27/20 12:08 IMPRESSION: Emphysematous change and mild interstitial prominence. Discharge Plan Discharge Patient Disposition: Admitted As Inpatient Admit Provider: Luis E Mojica Clinical Impression: Acute GI bleeding Condition: Stable Referrals: Mauricio Hull MD [Primary Care Provider] - Discharge Date/Time: 04/27/20 14:40 Sign Out Sign Out Data: Patient Sign Out occurred on 04/27/20 at 12:49. Patient's care was discussed, and care was transferred from to Shadia Serra. Coding Level of Care Code ED State Fire Marshal for Chg Fwd Exam Comprehensive Documented by User: Shadia Serra 04/27/20 15:07 HPI - General Adult General: Chief complaint: GI Bleed Stated complaint: BLOOD IN STOOL Time Seen by Provider: 04/27/20 10:16 [facility] ED PFSH: Medical History Blindness CVA (cerebral vascular accident) Dementia Hepatitis C virus infection cured after antiviral drug therapy History of arteriovenous malformation (AVM) History of Helicobacter pylori infection History of hepatitis B Hx of colonic polyps Hypertension Hypotension Hypothyroidism Severe aortic stenosis Surgical History H/O hernia repair History of colonoscopy 08/12/2019 Colonoscopy with removal of lesion by snare Descending colon: 1.5 cm pedunculated polyp removed with a hot snare Sigmoid colon: Moderate diverticulosis Rectum:: Normal ROGER: Grade 4 hemorrhoids History of esophagogastroduodenoscopy (EGD) 08/12/2019: EGD with control of bleeding using hot biopsy forceps Duodenal AVM Family History Other CAD (coronary artery disease) Denies family history of Cancer Social History Smoking and tobacco status: current every day smoker Alcohol intake: never Caregiver/support person: No Lives independently: Yes Housing: Other Details: Lives in a hotel Marital status: Single Course Vital Signs: Vital signs: Vital Signs Temperature 97.8 F 04/27/20 14:53 Pulse Rate 69 04/27/20 14:55 Respiratory Rate 12 04/27/20 14:55 Blood Pressure 134/68 04/27/20 14:55 Pulse Oximetry 95 04/27/20 14:55 MDM - General Adult MDM Narrative: Medical decision making narrative: The case was reviewed in full with Dr. Romo. He agrees admit to stepdown for transfusion and for further evaluation and care. He understood the patient's blood was difficult to match and units for having to come from [place]. Patient is currently hemodynamically stable, not tachycardic and is not on any rate limiting medications. We will transfuse him when available and give him a mild IV infusion until that time. Lab Data: Attestation: I reviewed the patient's lab results. Labs: Lab Results 04/27/20 04/27/20 04/27/20 Range/Units 10:30 10:30 10:30 WBC 10.4 H (4.0-10.0) 10^3/ uL RBC 3.01 L (4.1-5.3) 10^6/u L Hgb 7.6 L (11.7-16.6) g/dL Hct 25.7 L (42.0-52.0) % MCV 85.4 (80-94) fL MCH 25.2 L (28.0-34.0) pg MCHC 29.6 L (30.0-36.0) g/dL RDW 14.3 (12.1-15.1) % Plt Count 147 (130-400) 10^3/c mm MPV 11.1 H (7.4-10.4) fL Neut % (Auto) 92.0 % Lymph % (Auto) 4.8 % Cecil % (Auto) 2.2 % Eos % (Auto) 0.4 % Baso % (Auto) 0.1 % Neut # (Auto) 9.52 H (1.8-7.7) 10^3/u L Lymph # (Auto) 0.5 L (0.8-4.8) 10^3/u L Cecil # (Auto) 0.2 (0.2-0.9) 10^3/u L Eos # (Auto) 0.0 (0.0-0.8) 10^3/u L Baso # (Auto) 0.0 (0.0-0.1) 10^3/u L Nucleated RBC % (a uto) 0 % Nucleated RBCs # 0.0 /100WBC PT (12.1-14.9) SECO NDS INR (0.8-1.2) APTT (23.9-36.7) SECO NDS Sodium 138 (136-145) mmol/L Potassium 4.5 (3.5-5.1) mmol/L Chloride 105 (98-107) mmol/L Carbon Dioxide 25 (22-29) mmol/L Anion Gap 12.5 (5-19) BUN 22 (8-23) mg/dL Creatinine 1.1 (0.7-1.2) mg/dL GFR Calculation Not Reportable Glucose 118 H (65-115) mg/dL Calculated Osmolal ity 290 (285-295) mOsm/k g Lactic Acid 1.2 (0.5-2.2) mmol/L Calcium 9.0 (8.5-10.5) mg/dL Total Bilirubin 0.4 (0.15-1.2) mg/dL AST 10 (0-40) U/L ALT 13 (0-41) U/L Alkaline Phosphata se 57 (40-130) IU/L Troponin T Baselin e (0-15) ng/L Total Protein 6.3 L (6.6-8.7) g/dL Albumin 3.8 (3.5-5.2) g/dL Globulin 2.5 (1.3-4.6) g/dL Lipase 39 (13-60) U/L Urine Color (Yellow) Urine Appearance (CLEAR) Urine pH (5-7) Ur Specific Gravit y (1.005-1.030) Urine Protein (Negative) Urine Glucose (UA) (Normal) Urine Ketones (Negative) Urine Blood (Negative) Urine Nitrate (Negative) Urine Bilirubin (Negative) Urine Urobilinogen (Negative) mg/dL Ur Leukocyte Rosamaria ase (Negative) Blood Type Rho(D) Type Antibody Screen 04/27/20 04/27/20 04/27/20 Range/Units 10:30 10:30 10:30 WBC (4.0-10.0) 10^3/ uL RBC (4.1-5.3) 10^6/u L Hgb (11.7-16.6) g/dL Hct (42.0-52.0) % MCV (80-94) fL MCH (28.0-34.0) pg MCHC (30.0-36.0) g/dL RDW (12.1-15.1) % Plt Count (130-400) 10^3/c mm MPV (7.4-10.4) fL Neut % (Auto) % Lymph % (Auto) % Cecil % (Auto) % Eos % (Auto) % Baso % (Auto) % Neut # (Auto) (1.8-7.7) 10^3/u L Lymph # (Auto) (0.8-4.8) 10^3/u L Cecil # (Auto) (0.2-0.9) 10^3/u L Eos # (Auto) (0.0-0.8) 10^3/u L Baso # (Auto) (0.0-0.1) 10^3/u L Nucleated RBC % (a uto) % Nucleated RBCs # /100WBC PT 12.90 (12.1-14.9) SECO NDS INR 0.95 (0.8-1.2) APTT 27.9 (23.9-36.7) SECO NDS Sodium (136-145) mmol/L Potassium (3.5-5.1) mmol/L Chloride (98-107) mmol/L Carbon Dioxide (22-29) mmol/L Anion Gap (5-19) BUN (8-23) mg/dL Creatinine (0.7-1.2) mg/dL GFR Calculation Glucose (65-115) mg/dL Calculated Osmolal ity (285-295) mOsm/k g Lactic Acid (0.5-2.2) mmol/L Calcium (8.5-10.5) mg/dL Total Bilirubin (0.15-1.2) mg/dL AST (0-40) U/L ALT (0-41) U/L Alkaline Phosphata se (40-130) IU/L Troponin T Baselin e 16 H (0-15) ng/L Total Protein (6.6-8.7) g/dL Albumin (3.5-5.2) g/dL Globulin (1.3-4.6) g/dL Lipase (13-60) U/L Urine Color (Yellow) Urine Appearance (CLEAR) Urine pH (5-7) Ur Specific Gravit y (1.005-1.030) Urine Protein (Negative) Urine Glucose (UA) (Normal) Urine Ketones (Negative) Urine Blood (Negative) Urine Nitrate (Negative) Urine Bilirubin (Negative) Urine Urobilinogen (Negative) mg/dL Ur Leukocyte Rosamaria ase (Negative) Blood Type A Positive Rho(D) Type Positive Antibody Screen Negative 04/27/20 Range/Units 12:50 WBC (4.0-10.0) 10^3/ uL RBC (4.1-5.3) 10^6/u L Hgb (11.7-16.6) g/dL Hct (42.0-52.0) % MCV (80-94) fL MCH (28.0-34.0) pg MCHC (30.0-36.0) g/dL RDW (12.1-15.1) % Plt Count (130-400) 10^3/c mm MPV (7.4-10.4) fL Neut % (Auto) % Lymph % (Auto) % Cecil % (Auto) % Eos % (Auto) % Baso % (Auto) % Neut # (Auto) (1.8-7.7) 10^3/u L Lymph # (Auto) (0.8-4.8) 10^3/u L Cecil # (Auto) (0.2-0.9) 10^3/u L Eos # (Auto) (0.0-0.8) 10^3/u L Baso # (Auto) (0.0-0.1) 10^3/u L Nucleated RBC % (a uto) % Nucleated RBCs # /100WBC PT (12.1-14.9) SECO NDS INR (0.8-1.2) APTT (23.9-36.7) SECO NDS Sodium (136-145) mmol/L Potassium (3.5-5.1) mmol/L Chloride (98-107) mmol/L Carbon Dioxide (22-29) mmol/L Anion Gap (5-19) BUN (8-23) mg/dL Creatinine (0.7-1.2) mg/dL GFR Calculation Glucose (65-115) mg/dL Calculated Osmolal ity (285-295) mOsm/k g Lactic Acid (0.5-2.2) mmol/L Calcium (8.5-10.5) mg/dL Total Bilirubin (0.15-1.2) mg/dL AST (0-40) U/L ALT (0-41) U/L Alkaline Phosphata se (40-130) IU/L Troponin T Baselin e (0-15) ng/L Total Protein (6.6-8.7) g/dL Albumin (3.5-5.2) g/dL Globulin (1.3-4.6) g/dL Lipase (13-60) U/L Urine Color Yellow (Yellow) Urine Appearance Clear (CLEAR) Urine pH 6.5 (5-7) Ur Specific Gravit y 1.005 (1.005-1.030) Urine Protein Neg (Negative) Urine Glucose (UA) Norm (Normal) Urine Ketones Negative (Negative) Urine Blood Neg (Negative) Urine Nitrate Negative (Negative) Urine Bilirubin Neg (Negative) Urine Urobilinogen Norm (Negative) mg/dL Ur Leukocyte Rosamaria ase Negative (Negative) Blood Type Rho(D) Type Antibody Screen Imaging Data^: CT Abd/Pel: Radiologist's impression: [address] [address] [address] Scan Report Signed Patient: Carlos Leyva Unit #: [id number] : 1935 Age/Sex: 84 / M ADM Date: 04/27/20 Loc: ER Room/Bed: Attending Dr: Ordering Provider/Ordering MD: Carlos Odom Date of Service: 04/27/20 Procedure(s): CT abdomen pelvis w con* [id number] Accession Number(s): [id number] Report Number: [id number] PROCEDURE INFORMATION: Exam: CT Abdomen And Pelvis With Contrast Exam date and time: 04/27/2020 12:32 PM Age: 84 years old Clinical indication: Other: Blood in stool; Additional info: Right side abdom pain with blood in stool TECHNIQUE: Imaging protocol: Computed tomography of the abdomen and pelvis with intravenous contrast. Radiation optimization: All CT scans at this facility use at least one of these dose optimization techniques: automated exposure control; mA and/or kV adjustment per patient size (includes targeted exams where dose is matched to clinical indication); or iterative reconstruction. Contrast material: OMNI 300; Contrast volume: 95 ml; Contrast route: INTRAVENOUS (IV); COMPARISON: CT abdomen pelvis w con* [id number] 08/11/2019 1:19 PM RADIATION DOSE METRICS: Total DLP (mGy-cm): 910.14 FINDINGS: Detailed evaluation of the abdominal and pelvic viscera is somewhat limited in the absence of intravenous contrast. Lungs: Emphysematous change and interstitial prominence. Liver: Punctate hepatic hypodensities which are too small to accurately characterize. Gallbladder and bile ducts: Questionable cholelithiasis, which can be better evaluated with ultrasound if clinically indicated. No biliary ductal dilatation. Pancreas: No pancreatic mass or ductal dilatation. Spleen: Splenic granuloma. Adrenals: Subtle left adrenal nodularity. Kidneys and ureters: Multiple nodular left renal lesions including 8 mm isodense nodular lesion arising from the superolateral left kidney, high attenuation 2.2 cm cyst arising from the upper pole the left kidney, and 2.1 cm simple cyst arising from the superolateral left kidney. Stomach and bowel: Wall thickening in the nondistended stomach. Combined small bowel and colonic dilatation without a focal transition zone. Prominent stool. Diverticula, without pericolonic inflammation. Mild wall thickening in the nondistended hepatic flexure and proximal transverse colon. Appendix: Appendix not visualized. Intraperitoneal space: No free fluid. Vasculature: Prominent vascular calcification and ectasia of the abdominal aorta. Lymph nodes: No pathologically enlarged lymph nodes. Bladder: Nondistended bladder with wall thickening. Reproductive: Punctate prostate calcification. Bones/joints: Osteopenia. Dextroscoliosis, degenerative change, and vacuum discs. CT/CT abdomen pelvis w con* [id number] IMPRESSION: 1. Multiple nodular left renal lesions including 8 mm isodense nodular lesion arising from the superolateral left kidney, high attenuation 2.2 cm cyst arising from the upper pole the left kidney, and 2.1 cm simple cyst arising from the superolateral left kidney. 2. Wall thickening in the nondistended stomach. 3. Prominent stool and diverticula,, without pericolonic inflammation. 4. Additional findings as described above. Radiation Dose CTDIVOL = (mGy): DLP = 910.14 (mGy-cm) Dictated By: Ye Jason MD Signed By: Ye Jason MD Signed Date/Time: 04/27/201315 DD/ 131 EKG Data^: EKG 1: Computer generated interpretation: Abdomen/Pelvis CT 04/27/20 11:59 IMPRESSION: 1. Multiple nodular left renal lesions including 8 mm isodense nodular lesion arising from the superolateral left kidney, high attenuation 2.2 cm cyst arising from the upper pole the left kidney, and 2.1 cm simple cyst arising from the superolateral left kidney. 2. Wall thickening in the nondistended stomach. 3. Prominent stool and diverticula,, without pericolonic inflammation. 4. Additional findings as described above. Radiation Dose CTDIVOL = (mGy): DLP = 910.14 (mGy-cm) Chest X-Ray 04/27/20 12:08 IMPRESSION: Emphysematous change and mild interstitial prominence. Discharge Plan Discharge Patient Disposition: Admitted As Inpatient Admit Provider: Luis E Mojica Clinical Impression: Acute GI bleeding Condition: Stable Referrals: Mauricio Hull MD [Primary Care Provider] - Discharge Date/Time: 04/27/20 14:40 Sign Out Sign Out Data: Patient Sign Out occurred on 04/27/20 at 12:49. Patient's care was discussed, and care was transferred from to [facility]. Coding Level of Care Code ED State Fire Marshal for Chg Fwd Exam Comprehensive
[2020-04-27 10:54] LABS: Basophils % 0.1 %; Eosinophils % 0.4 %; Hematocrit 25.7 % (42.0-52.0); Hemoglobin 7.6 g/dL (11.7-16.6); Lymphocytes # 0.5 10^3/uL (0.8-4.8); Lymphocytes % 4.8 %; Mean Corpuscular HGB Conc 29.6 g/dL (30.0-36.0); Mean Corpuscular Hemoglobin 25.2 pg (28.0-34.0); Mean Corpuscular Volume 85.4 fL (80-94); Mean Platelet Volume 11.1 fL (7.4-10.4); Monocytes # 0.2 10^3/uL (0.2-0.9); Monocytes % 2.2 %; Neutrophils # 9.52 10^3/uL (1.8-7.7); Nucleated Red Blood Cells % 0 %; Platelet Count 147 10^3/cmm (130-400); Red Blood Count 3.01 10^6/uL (4.1-5.3); Red Cell Distribution Width 14.3 % (12.1-15.1); White Blood Count 10.4 10^3/uL (4.0-10.0)
[2020-04-27 11:02] LABS: Alanine Aminotransferase 13 U/L (0-41); Albumin Level 3.8 g/dL (3.5-5.2); Alkaline Phosphatase 57 IU/L (40-130); Anion Gap 12.5 (5-19); Aspartate Amino Transferase 10 U/L (0-40); Blood Urea Nitrogen 22 mg/dL (8-23); Carbon Dioxide 25 mmol/L (22-29); Chloride 105 mmol/L (98-107); Globulin 2.5 g/dL (1.3-4.6); Glucose 118 mg/dL (65-115); Lipase 39 U/L (13-60); Osmolality Calculated 290 mOsm/kg (285-295); Potassium 4.5 mmol/L (3.5-5.1); Sodium 138 mmol/L (136-145); Total Bilirubin 0.4 mg/dL (0.15-1.2); Total Protein 6.3 g/dL (6.6-8.7)
[2020-04-27 11:03] LABS: Lactic Sepsis W/Reflex 1.2 mmol/L (0.5-2.2)
--- NOTE | 2020-04-27 11:31 | ECG_ITS ---
[facility] Test Date: 2020-04-27 Pat Name: Carlos Leyva Department: Room: Gender: Male [employer]: : 1935 Requested By: Carlos Odom Order Number: [id number] Gonsales MD: Tino Arzola M.D. Measurements Intervals [place] Rate: 79 P: 38 [place]: 186 QRS: 30 QRSD: 100 T: 68 QT: 382 QTc: 439 Interpretive Statements SINUS RHYTHM WITH FREQUENT VENTRICULAR PREMATURE COMPLEXES MINIMAL ST DEPRESSION [0.025+ mV ST DEPRESSION] ABNORMAL RHYTHM ECG Compared to ECG 03/26/2020 15:31:07 Ventricular premature complex(es) now present ST (T wave) deviation now present Indeterminate axis no longer present Electronically Signed On 04-28-2020 19:14:54 CDT by Tino Arzola M.D. [id number]
[2020-04-27 11:50] LABS: INR 0.95 (0.8-1.2)
[2020-04-27 11:51] LABS: Partial Thromboplastin Time 27.9 SECONDS (23.9-36.7)
[2020-04-27 11:56] LABS: Troponin(5th) Baseline 16 ng/L (0-15)
--- NOTE | 2020-04-27 11:59 | CTR_ITS ---
PROCEDURE INFORMATION: Exam: CT Abdomen And Pelvis With Contrast Exam date and time: 04/27/2020 12:32 PM Age: 84 years old Clinical indication: Other: Blood in stool; Additional info: Right side abdom pain with blood in stool TECHNIQUE: Imaging protocol: Computed tomography of the abdomen and pelvis with intravenous contrast. Radiation optimization: All CT scans at this facility use at least one of these dose optimization techniques: automated exposure control; mA and/or kV adjustment per patient size (includes targeted exams where dose is matched to clinical indication); or iterative reconstruction. Contrast material: OMNI 300; Contrast volume: 95 ml; Contrast route: INTRAVENOUS (IV); COMPARISON: CT abdomen pelvis w con* [id number] 08/11/2019 1:19 PM RADIATION DOSE METRICS: Total DLP (mGy-cm): 910.14 FINDINGS: Detailed evaluation of the abdominal and pelvic viscera is somewhat limited in the absence of intravenous contrast. Lungs: Emphysematous change and interstitial prominence. Liver: Punctate hepatic hypodensities which are too small to accurately characterize. Gallbladder and bile ducts: Questionable cholelithiasis, which can be better evaluated with ultrasound if clinically indicated. No biliary ductal dilatation. Pancreas: No pancreatic mass or ductal dilatation. Spleen: Splenic granuloma. Adrenals: Subtle left adrenal nodularity. Kidneys and ureters: Multiple nodular left renal lesions including 8 mm isodense nodular lesion arising from the superolateral left kidney, high attenuation 2.2 cm cyst arising from the upper pole the left kidney, and 2.1 cm simple cyst arising from the superolateral left kidney. Stomach and bowel: Wall thickening in the nondistended stomach. Combined small bowel and colonic dilatation without a focal transition zone. Prominent stool. Diverticula, without pericolonic inflammation. Mild wall thickening in the nondistended hepatic flexure and proximal transverse colon. Appendix: Appendix not visualized. Intraperitoneal space: No free fluid. Vasculature: Prominent vascular calcification and ectasia of the abdominal aorta. Lymph nodes: No pathologically enlarged lymph nodes. Bladder: Nondistended bladder with wall thickening. Reproductive: Punctate prostate calcification. Bones/joints: Osteopenia. Dextroscoliosis, degenerative change, and vacuum discs. CT/CT abdomen pelvis w con* [id number] IMPRESSION: 1. Multiple nodular left renal lesions including 8 mm isodense nodular lesion arising from the superolateral left kidney, high attenuation 2.2 cm cyst arising from the upper pole the left kidney, and 2.1 cm simple cyst arising from the superolateral left kidney. 2. Wall thickening in the nondistended stomach. 3. Prominent stool and diverticula,, without pericolonic inflammation. 4. Additional findings as described above. Radiation Dose CTDIVOL = (mGy): DLP = 910.14 (mGy-cm)
--- NOTE | 2020-04-27 12:08 | XRR_ITS ---
PROCEDURE INFORMATION: Exam: XR Chest, 1 View Exam date and time: 04/27/2020 12:09 PM Age: 84 years old Clinical indication: Shortness of breath; Additional info: Wheezing TECHNIQUE: Imaging protocol: XR of the chest Views: 1 view. COMPARISON: No relevant prior studies available. FINDINGS: Lungs: Emphysematous change and mild interstitial prominence. No acute infiltrate. Pleural space: No pleural effusion. Heart/Mediastinum: No cardiomegaly. Vasculature: Ectasia and calcification of the thoracic aorta. Bones/joints: Osteopenia and degenerative change. XR/XR chest 1V portable [id number] IMPRESSION: Emphysematous change and mild interstitial prominence.
[2020-04-27] MEDS: pantoprazole 40 mg SDV 80 MG IVP (12:30)
[2020-04-27 13:50] LABS: Add Urine Microscopic? NO
[2020-04-27 14:00] LABS: Urine Appearance Clear (CLEAR); Urine Color Yellow (Yellow)
[2020-04-27 14:01] LABS: Bilirubin Urine Neg (Negative); Blood Urine Neg (Negative); Glucose Urine UA Norm (Normal); Ketones Urine Negative (Negative); Leukocyte Esterase Urine Negative (Negative); Nitrate Urine Negative (Negative); Protein Urine Neg (Negative); Specific Gravity, Urine 1.005 (1.005-1.030); Urobilinogen Urine Norm (Negative); pH Urine 6.5 (5-7)
--- NOTE | 2020-04-27 15:00 | PC.NURSE ---
From ER pt is alert, oriented, not in distress. reported of off and on mild pain on right lower quadrant. IV intact and patent on left AC #20. Discuss to pt and informed him regarding the reason for blood transfusion and possible risks to watch out for during blood transfusion. Pt agreed and signed the consent. Call light within reach. oriented pt to staff and place. VS taken.
[2020-04-27 15:18] LABS: Troponin 5 2HR 14.66 ng/L (0-15)
[2020-04-27 15:22] LABS: Troponin 5 2HR Delta -1.34 ABS# (0-10)
--- NOTE | 2020-04-27 16:17 | PM.HP ---
Providers/Chief Complaint Admitting Physician: Luis E Mojica MD Primary Care Provider: Mauricio Hlul MD Chief Complaint: BLOOD IN STOOL History of Present Illness Carlos Leyva is a 84 year old male with a past medical history of upper GI bleed secondary to AV malformations, hepatitis C status post treatment, history of dysplastic colonic polyp seen on colonoscopy in 2013, hypertension, CVA, hyperlipidemia, hypothyroidism, severe aortic stenosis, iron deficiency anemia, severe peripheral vascular disease, chronic smoker, 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 He was transferred from [facility] today because of having an episode of blacking out. Patient does not remember that. Patient states he has been having diarrhea for last 2 to 3 days in which some bowel movements are black as well. He denies of having any active bleed, bright red blood, nausea vomiting or abdominal pain. He denies of having any chest pain, palpitation, dizziness at present. He does complain of dizziness on and off for last 3 to 4 days. He does not take any blood thinners, takes ibuprofen on and off and is on prednisone at present for arthritis which is started on 04/17/2020. This is his 3rd admission this year with GI bleed with one in August when he underwent EGD which showed multiple AV malformation in the duodenum status post cauterization by Dr. Ramírez. He also had a colonoscopy, a 1.5 cm pedunculated polyp was removed, biopsy showed fecal material and mucin, no colonic mucosa identified. His blood work in ER showed white count of 10.4, hemoglobin of 7.6 which from 9.61-month ago, INR of 0.95, sodium 138, potassium 4.5, chloride of 105, carbon dioxide of 25, creatinine of 1.1, baseline troponin of 16 with a delta of -1 in 2 hours. Review of Systems Const: Denies: fever(s), chills, body aches, change in appetite, change in weight, malaise, night sweats, diaphoresis, change in sleep pattern, daytime sleepiness or snoring Eyes: Denies: change in vision, blurry vision, photophobia, eye discomfort or eye discharge ENMT: Denies: throat pain, enlarged tonsils, hoarseness, mouth pain, oral sores, dry mouth, tinnitus, nasal congestion or post nasal drip Card: Denies: chest pain, palpitations, irregular heart rhythm, edema, swelling of feet/ankles, lightheadedness, syncope, pre-syncope, dyspnea on exertion, orthopnea, leg pain with exertion or acrocyanosis Resp: Denies: dyspnea, productive cough, non-productive cough, wheezing, stridor, pain on inspiration, change in phlegm color, hemoptysis or chest congestion GI: Reports: diarrhea and melena; Denies: abdominal pain, nausea, vomiting, hematemesis, coffee ground emesis, dysphagia, heartburn, constipation, bloating, GI cramping, change in bowel habits, pain on defecation or hematochezia : Denies: flank pain, difficulty urinating, dysuria, urinary frequency, urinary urgency, urinary hesitancy, urinary dribbling, difficulty starting urination, change in urine stream, nocturia or hematuria Musc: Denies: neck pain, back pain, extremity pain, joint pain, joint swelling, joint redness, joint stiffness or limited range of motion Neuro: Denies: headache(s), numbness in extremities, weakness in extremities, sensory changes, lack of coordination, difficulty walking, frequent falls, dizziness, vertigo, confusion, Slurred speech present, difficulty communicating thoughts or seizure-like activity Psych: Denies: anxiety, depression, mood swings, panic attacks, hopelessness or irritability Endo: Denies: polyuria, polydipsia, tired all the time, cold intolerance, excessive sweating, flushing or heat intolerance Ronni/Lymph: Denies: easy bruising or easy bleeding All/Imm: Denies: tongue swelling, facial swelling or acute wheezing Medications/Allergies Home Medications Medication Instructions Recorded Confirmed Last Taken Type acetaminophen [Tylenol] 650 mg PO Q6H PRN 10/13/19 04/27/20 04/27/20 07:19 History amlodipine 10 mg PO DAILY 10/13/19 04/27/20 04/27/20 07:19 History folic acid 1 mg PO DAILY 10/13/19 04/27/20 04/27/20 07:19 History cyanocobalamin (vitamin B-12) 1,000 mcg PO DAILY 02/28/20 04/27/20 04/27/20 07:19 History [Vitamin B-12] escitalopram oxalate [Lexapro] 10 mg PO DAILY 02/28/20 04/27/20 04/27/20 07:19 History Preparation H(pe,cb) 1 supp [place] QID PRN 03/26/20 04/27/20 Unknown History albuterol sulfate 2.5 mg INHALATION QID 03/26/20 04/27/20 04/27/20 07:19 History alprazolam [Xanax] 0.25 mg PO DAILY PRN 03/26/20 04/27/20 Unknown History atorvastatin 40 mg PO BEDTIME 03/26/20 04/27/20 03/25/20 History bisacodyl 10 mg [place] DAILY PRN 03/26/20 04/27/20 Unknown History fluticasone propionate [Flonase 2 spray INTRANASAL DAILY 03/26/20 04/27/20 04/27/20 07:19 History Allergy Relief] losartan 25 mg PO DAILY 03/26/20 04/27/20 04/27/20 07:19 History magnesium hydroxide [Milk of 30 ml PO DAILY PRN 03/26/20 04/27/20 Unknown History Magnesia] ondansetron HCl [Zofran] 4 mg PO Q6H PRN 03/26/20 04/27/20 Unknown History terazosin 5 mg PO DAILY 03/26/20 04/27/20 04/27/20 07:19 History levothyroxine 150 mcg PO DAILY #30 tab 03/27/20 04/27/20 04/27/20 05:51 Rx pantoprazole [Protonix] 40 mg PO BID #0 tab 03/27/20 04/27/20 04/27/20 05:51 Rx sennosides-docusate sodium [Senna 1 tab-cap PO BID #60 tab 03/27/20 04/27/20 04/27/20 Rx with Docusate Sodium] ketorolac See Rx Instructions .ROUTE .COMPLEX 04/27/20 04/27/20 Unknown History ofloxacin See Rx Instructions .ROUTE .COMPLEX 04/27/20 04/27/20 Unknown History prednisone 30 mg PO DAILY 04/27/20 04/27/20 04/27/20 07:19 History Allergies Allergy/AdvReac Type Severity Reaction Status Date / Time No Known Allergies Allergy Verified 04/27/20 11:14 PFSH Acute PFSH: Medical History Blindness CVA (cerebral vascular accident) Dementia Hepatitis C virus infection cured after antiviral drug therapy History of arteriovenous malformation (AVM) History of Helicobacter pylori infection History of hepatitis B Hx of colonic polyps Hypertension Hypotension Hypothyroidism Severe aortic stenosis Surgical History H/O hernia repair History of colonoscopy 08/12/2019 Colonoscopy with removal of lesion by snare Descending colon: 1.5 cm pedunculated polyp removed with a hot snare Sigmoid colon: Moderate diverticulosis Rectum:: Normal ROGER: Grade 4 hemorrhoids History of esophagogastroduodenoscopy (EGD) 08/12/2019: EGD with control of bleeding using hot biopsy forceps Duodenal AVM Family History Other CAD (coronary artery disease) Denies family history of Cancer Social History Smoking and tobacco status: current every day smoker Alcohol intake: never Caregiver/support person: No Lives independently: Yes Housing: Other Details: Lives in a hotel Marital status: Single Vitals/I&O/Wt Last Vital Signs Temp 97.8 F 04/27/20 14:53 Pulse 69 04/27/20 14:55 Resp 12 04/27/20 14:55 BP 134/68 04/27/20 14:55 Pulse Ox 95 04/27/20 14:55 Weight last 48 hrs Weight 95.254 kg Physical Exam Narrative: EXAM NARRATIVE: General: No acute distress, AO x1-2, to self and year but not place. Thinks he is at custodial. HEENT: PERRLA, pupils bilaterally equal and reactive Chest: Normal vesicular breath sounds, no added sounds, equal good air entry bilaterally CVS: S1-S2 regular, ejection systolic murmur at the aortic region radiating to carotids, 1/6, no tachycardia, no gallops, no rubs Abdomen: Soft, nontender, no organomegaly, bowel sounds present Neuro: No focal deficits, no facial deformity, AO x3, power 5/5 in all limbs Data : 04/27/20 10:30 09/20/20 10:30 Micro: Microbiology 04/27/20 10:30 Blood Culture - Preliminary Blood SPECIMEN COLLECTED A&P Assessment and plan (1) Acute GI bleeding: Status: Acute (2) History of arteriovenous malformation (AVM): Status: Acute (3) Severe aortic stenosis: Status: Acute (4) Hypertension: Status: Acute (5) Hypothyroidism: Status: Acute (6) Dementia: Status: Acute Additional A&P Information Continue because of acute GI bleed: Patient did have an EGD in August showing bleeding AV malformation in the duodenum. Colonoscopy at that time did not show any sign of active bleeding. CT abdomen pelvis done in the ER showed multiple nodular left renal lesions, wall thickening in the nondistended stomach. Lactate in the ER within normal limits. Given severe aortic stenosis is quite possible that patient has multiple AVMs in duodenum and jejunum. Unfortunately we do not have enteroscopy at [facility] [place] [place]. We will discuss case with Dr. Sue for a possible EGD tomorrow. Transfuse 2 unit PRBC. Will monitor for fluid overload. Check iron panel. We will start on iron supplementation accordingly. Protonix 40 mg IV twice daily. If needed can give Lasix 20 mg IV between the 2 blood transfusions. Clear liquid diet for now. N.p.o. after midnight. Check hemoglobin hematocrit every 12 hours. Severe aortic stenosis: Echocardiogram showed an ejection fraction of 55%, Severe aortic valve stenosis, peak velocity 3.9 m/s, peak gradient 61mmHg, mean gradient 37.9 mmHg, MANUELITO 0.68 cm squared (LVOT=2.1 cm). Dimensionless valve index of 0.23; and when compared to previous echocardiogram dated 01/06/2019 aortic valve stenosis has worsened and mean gradient across aortic valve has increased to 38 mmHg. Patient is a good candidate for TAVR. He was advised the same in the past but has been noncompliant. Continue home dose of metoprolol. HTN: Blood pressure less than 140/90 mmHg. Continue home dose of amlodipine and metoprolol. We will hold off on losartan to avoid SALVADOR. Continue other chronic medications like Xanax as needed, vitamin B12, folic acid, levothyroxine, terazosin. As per the nurse from [place] patient was started on prednisone 30 mg on April 17. We will hold off for now. Clear liquid diet for now, n.p.o. after midnight. Protonix for PUD prophylaxis Rapid COVID 19 antigen to be done. Attestations Medical Necessity Statement*: More than 2 midnights for acute GI bleed Time Spent in Patient Care: Greater than 35 minutes (>than 50% of time spent in counselling and/or direct pt care on unit). Coding Level of Care Code Acute Hvac Controls Technician for Chg Fwd Diagnoses Acute GI bleeding K92.2 History of arteriovenous malformation (AVM) Z87.74 Severe aortic stenosis I35.0 Hypertension I10 Hypothyroidism E03.9 Dementia F03.90
[2020-04-27 16:34] LABS: Troponin 5 6HR 14.11 ng/L (0-15)
[2020-04-27 16:43] LABS: Troponin 5 6HR Delta -1.89 ng/L (0-12)
--- NOTE | 2020-04-27 17:25 | PC.NURSE ---
Blood Transfusion started 1 Unit of PRBC started. Pt verified, unit of blood verified per protocol. VS taken per protocol. Pls see TAR.
[2020-04-27 17:27] LABS: Iron 13 ug/dL (59-158); Percent Saturation 5.1 % (20-50); Total Iron Binding Capacity 251 mcg/dl; Unsaturated Iron Binding 238 ug/dL (112-347)
[2020-04-27 17:36] LABS: Thyroid Stimulating Hormone 0.63 uIU/mL (0.27-4.20)
[2020-04-27 19:13] LABS: SARS Covid-2 Antigen Negative (Negative)
[2020-04-27 21:05] LABS: Hematocrit 24.4 % (42.0-52.0); Hemoglobin 7.2 g/dL (11.7-16.6)
[2020-04-27] MEDS: atorvastatin 40 mg Tablet PO (21:37)
[2020-04-27] MEDS: FUROsemide 10 mg/mL SDV 2mL 20 MG IVP (22:45)
[2020-04-27] MEDS: sodium chloride 0.9% (100 ml) 100 ML 50 ML (22:45)
[2020-04-28] VITALS (29 sets, daily range): BP systolic 91–146; BP diastolic 49–84; PULSE 64–88; RESP 10–92; TEMP 36.1–37.1; O2SAT 92–98; BMI 28.5
[2020-04-28] MEDS: pantoprazole 40 mg SDV IVP (03:56)
[2020-04-28 05:03] LABS: Basophils % 0.1 %; Eosinophils % 0.5 %; Hematocrit 28.3 % (42.0-52.0); Hemoglobin 8.6 g/dL (11.7-16.6); Lymphocytes # 1.4 10^3/uL (0.8-4.8); Lymphocytes % 17.4 %; Mean Corpuscular HGB Conc 30.4 g/dL (30.0-36.0); Mean Corpuscular Hemoglobin 25.4 pg (28.0-34.0); Mean Corpuscular Volume 83.7 fL (80-94); Mean Platelet Volume 11.5 fL (7.4-10.4); Monocytes # 0.6 10^3/uL (0.2-0.9); Monocytes % 6.8 %; Neutrophils % 74.7 %; Nucleated Red Blood Cells % 0 %; Platelet Count 146 10^3/cmm (130-400); Red Blood Count 3.38 10^6/uL (4.1-5.3); Red Cell Distribution Width 14.2 % (12.1-15.1); White Blood Count 8.3 10^3/uL (4.0-10.0)
[2020-04-28 05:23] LABS: Magnesium 2.3 mg/dL (1.7-2.3)
[2020-04-28 05:24] LABS: Alanine Aminotransferase 11 U/L (0-41); Albumin Level 3.7 g/dL (3.5-5.2); Alkaline Phosphatase 52 IU/L (40-130); Anion Gap 10.7 (5-19); Aspartate Amino Transferase 9 U/L (0-40); Blood Urea Nitrogen 16 mg/dL (8-23); Calcium 8.9 mg/dL (8.5-10.5); Carbon Dioxide 27 mmol/L (22-29); Chloride 104 mmol/L (98-107); Globulin 2.4 g/dL (1.3-4.6); Glucose 86 mg/dL (65-115); Osmolality Calculated 286 mOsm/kg (285-295); Potassium 3.7 mmol/L (3.5-5.1); Sodium 138 mmol/L (136-145); Total Protein 6.1 g/dL (6.6-8.7)
[2020-04-28 06:24] LABS: Estmated Average Glucose 103; Hemoglobin A1C 5.2 % (4.0-6.0)
--- NOTE | 2020-04-28 07:53 | PC.NURSE ---
pt declined vaccines he said I don't need that .
[2020-04-28] MEDS: terazosin 5 mg Capsule PO (07:59)
[2020-04-28] MEDS: fluticasone nasal spray 16gm Btl 2 SPRAY INTRANASAL (08:00)
[2020-04-28] MEDS: amlodipine 10 mg Tablet PO (08:00)
[2020-04-28] MEDS: cyanocobalamin 1,000 mcg Tablet 1000 MCG PO (08:00)
[2020-04-28] MEDS: folic acid 1 mg Tablet PO (08:00)
[2020-04-28] MEDS: levothyroxine 150 mcg Tablet PO (08:00)
[2020-04-28] MEDS: escitalopram 10 mg Tablet PO (08:00)
--- NOTE | 2020-04-28 10:07 | PM.CONSULT ---
Providers/Reason For Consult Consulting Physican/Specialty*: Internal Suzi/endoscopy Reason for Consult*: Anemia due to presumed upper GI blood loss. Attending Physician: Luis E Mojica MD Primary Care Provider: Mauricio Hull MD History of Present Illness History of Present Illness Carlos Leyva is a 84 year old male who presented the emergency department via ambulance from his intermediate. He was transferred because of a syncopal episode and noted to have fairly low hemoglobin at 7.6. He is a marginal historian but denies any bright red blood and by history has had some black stools lately. His endoscopic history is extensive. He last had an endoscopy of the stomach and colon in August which revealed AVMs in the duodenum and a large polyp in the colon. He has a history of hepatitis C and is post therapy. Review of Systems General: Reports: 10 or more systems reviewed and unremarkable except in HPI and below Meds/Allergies Home Medications and Allergies Home Medications Medication Instructions Recorded Confirmed Last Taken Type acetaminophen [Tylenol] 650 mg PO Q6H PRN 10/13/19 04/27/20 04/27/20 07:19 History amlodipine 10 mg PO DAILY 10/13/19 04/27/20 04/27/20 07:19 History folic acid 1 mg PO DAILY 10/13/19 04/27/20 04/27/20 07:19 History cyanocobalamin (vitamin B-12) 1,000 mcg PO DAILY 02/28/20 04/27/20 04/27/20 07:19 History [Vitamin B-12] escitalopram oxalate [Lexapro] 10 mg PO DAILY 02/28/20 04/27/20 04/27/20 07:19 History Preparation H(pe,cb) 1 supp [place] QID PRN 03/26/20 04/27/20 Unknown History albuterol sulfate 2.5 mg INHALATION QID 03/26/20 04/27/20 04/27/20 07:19 History alprazolam [Xanax] 0.25 mg PO DAILY PRN 03/26/20 04/27/20 Unknown History atorvastatin 40 mg PO BEDTIME 03/26/20 04/27/20 03/25/20 History bisacodyl 10 mg [place] DAILY PRN 03/26/20 04/27/20 Unknown History fluticasone propionate [Flonase 2 spray INTRANASAL DAILY 03/26/20 04/27/20 04/27/20 07:19 History Allergy Relief] losartan 25 mg PO DAILY 03/26/20 04/27/20 04/27/20 07:19 History magnesium hydroxide [Milk of 30 ml PO DAILY PRN 03/26/20 04/27/20 Unknown History Magnesia] ondansetron HCl [Zofran] 4 mg PO Q6H PRN 03/26/20 04/27/20 Unknown History terazosin 5 mg PO DAILY 03/26/20 04/27/20 04/27/20 07:19 History levothyroxine 150 mcg PO DAILY #30 tab 03/27/20 04/27/20 04/27/20 05:51 Rx pantoprazole [Protonix] 40 mg PO BID #0 tab 03/27/20 04/27/20 04/27/20 05:51 Rx sennosides-docusate sodium [Senna 1 tab-cap PO BID #60 tab 03/27/20 04/27/20 04/27/20 Rx with Docusate Sodium] ketorolac See Rx Instructions .ROUTE .COMPLEX 04/27/20 04/27/20 Unknown History ofloxacin See Rx Instructions .ROUTE .COMPLEX 04/27/20 04/27/20 Unknown History prednisone 30 mg PO DAILY 04/27/20 04/27/20 04/27/20 07:19 History Allergies Allergy/AdvReac Type Severity Reaction Status Date / Time No Known Allergies Allergy Verified 04/27/20 11:14 Current Medications Current Medications Generic Name Dose Route Start Last Admin Trade Name Freq PRN Reason Stop Dose Admin Amlodipine Besylate 10 mg 04/28/20 09:00 04/28/20 08:00 Norvasc PO 10 mg DAILY KRISTYN Administration Atorvastatin Calcium 40 mg 04/27/20 21:00 04/27/20 21:37 Lipitor PO 40 mg BEDTIME KRISTYN Administration Cyanocobalamin 1,000 mcg 04/28/20 09:00 04/28/20 08:00 Vitamin B-12 PO 1,000 mcg DAILY KRISTYN Administration Escitalopram Oxalate 10 mg 04/28/20 09:00 04/28/20 08:00 Lexapro PO 10 mg DAILY KRISTYN Administration Fluticasone Propionate 2 spray 04/28/20 09:00 04/28/20 08:00 Flonase INTRANASAL 2 spray DAILY KRISTYN Administration Folic Acid 1 mg 04/28/20 09:00 04/28/20 08:00 Folic Acid PO 1 mg DAILY KRISTYN Administration Levothyroxine Sodium 150 mcg 04/28/20 09:00 04/28/20 08:00 Synthroid PO 150 mcg DAILY KRISTYN Administration Pantoprazole Sodium 40 mg 04/28/20 02:00 04/28/20 03:56 Protonix IVP 40 mg Q12H KRISTYN Administration Terazosin HCl 5 mg 04/28/20 09:00 04/28/20 07:59 Hytrin PO 5 mg DAILY KRISTYN Administration PFSH Acute PFSH: Medical History (Updated 04/27/20 @ 17:02 by Luis E Mojica MD) Blindness CVA (cerebral vascular accident) Dementia Hepatitis C virus infection cured after antiviral drug therapy History of arteriovenous malformation (AVM) History of Helicobacter pylori infection History of hepatitis B Hx of colonic polyps Hypertension Hypotension Hypothyroidism Severe aortic stenosis Surgical History H/O hernia repair History of colonoscopy 08/12/2019 Colonoscopy with removal of lesion by snare Descending colon: 1.5 cm pedunculated polyp removed with a hot snare Sigmoid colon: Moderate diverticulosis Rectum:: Normal ROGER: Grade 4 hemorrhoids History of esophagogastroduodenoscopy (EGD) 08/12/2019: EGD with control of bleeding using hot biopsy forceps Duodenal AVM Family History Other CAD (coronary artery disease) Denies family history of Cancer Social History Smoking and tobacco status: current every day smoker Alcohol intake: never Caregiver/support person: No Lives independently: Yes Housing: Other Details: Lives in a hotel Marital status: Single Vitals/I&O/Wt Last Vital Signs Temp 98.1 F 04/28/20 07:09 Pulse 67 04/28/20 07:09 Resp 14 04/28/20 07:09 BP 126/74 04/28/20 07:09 Pulse Ox 94 04/28/20 07:09 04/27/20 04/28/20 04/28/20 22:59 06:59 14:59 Intake Total 1268 / 1268 450 / 1718 Output Total 500 / 500 750 / 1250 Balance 768 / 768 -300 / 468 Weight last 48 hrs Weight 210 lb Weight 210 lb Physical Exam GI: COMMON NORMALS: Normal to inspection, nondistended, normoactive bowel sounds present, Soft to palpation, non-tender, No hepatosplenomegaly present, no masses and no bruits AUSCULTATION: Yes normoactive bowel sounds PALPATION: Yes Soft to palpation and Yes No hepatosplenomegaly present OTHER: His abdomen is soft and nontender today. Data Micro: Micro: Microbiology 04/27/20 10:30 Blood Culture - Pr eliminary Blood SPECIMEN [facility] LORE A&P Assessment and plan (1) Acute GI bleeding: Status: Acute Additional A&P Information Given his history of aortic stenosis and his history of AVMs, the diagnosis of AVMs returning is likely. We will proceed with upper endoscopy to evaluate. I am going to forego colonoscopy at this point as he has had a fairly recent exam and has no history of bright red blood recently. Coding Level of Care Code Acute Protection Chief Industrial Plant for g Fwd Exam Problem Focused Diagnoses Acute GI bleeding K92.2 Comment Please allow Marilia Hull to process this consult.
--- NOTE | 2020-04-28 10:12 | PC.CHAP ---
Pastoral Care Encounter/Spiritual Assessment Type of Contact [] Declined shirt turner visit [] Patient/Family/Request visit [] Outpatient visit [] Follow-up visit [] Physician referral [] Code/Alert [] Routine visit [] Staff referral [] Actively dying [] Patient sleeping [] Family support [] [] Out of room [] Palliative care [] [x] Receiving care in room [] Pre-surgical visit [] Trauma [] Long length of stay [] ICU visit [] Other: Relational/Emotional Strength [] Patient feels connected with others/family/visitors/staff [] Distress [] Loneliness/isolation [] Abandonment Spirituality of Patient [] Person of Zenia [] Attends Restoration of their Zenia [] Believes in Prayer [] Reads Bible or Confucianism materials [] There are Spiritual issues to be addressed Boiler Tester Interventions [] Prayer [] Active listening [] Non-anxious presence [] Spiritual/emotional support [] Crisis/trauma care [] Spiritual counseling [] Bereavement support [] Provided bereavement packet [] Provided Bible/devotional materials [] Provided toy/stuffed animal, coloring book to patient or family member [] Provided Communion [] Anointing/[place] [] Salvation [] Completed spiritual assessment [] Other: Impact on Illness or Injury [] Angry [] Fearful [] Anxious [] Often cries [] Exhaustion [] Unable to work [] Unable to attend restorationist [] Unable to walk/stand [] Unable to read [] Unable to drive [] Unable to eat/drink [] Unable to sleep [] Unable to be with family [] Patient intubated [] Other: Summary Nursing staff was in the room at the time of the shirt turner visit. Referred patient for a follow up visit from the on coming shirt turner. Patient visit attempted by Boiler Tester Jack Burger. Time spent with patient 3 minutes
--- NOTE | 2020-04-28 10:59 | PC.NURSE ---
off unit to OR for EGD procedure.
--- NOTE | 2020-04-28 11:00 | ANES.PREANE2 ---
Pre-Anesthetic Assessment Pre-Anesthetic Assessment: Height/Weight: Height 1.83 m Weight 95.254 kg Temp Pulse Resp BP Pulse Ox 98.0 F 82 16 91/57 93 04/28/20 10:48 04/28/20 10:48 04/28/20 10:48 04/28/20 10:48 04/28/20 10:48 Preop Diagnosis: gi bleed Proposed Procedure: Operation Date: 04/28/20 10:30 Proposed Procedures p EGD(Not Applicable) - Denton Sue MD Social: Social History: Tobacco CV/HEM: CV/HEM: HTN and PVD Comments: Critical aortic stenosis seen in August. Patient did have propofol for endoscopy at that time and did well, but required Phenylephrine. Hepatic: Hepatic: Hepatitis (B and C) GI: Comments: hx GI bleed Metabolic: Metabolic: Thyroid Neuropsych: Neuropsych: CVA Anesthetic Plan: ASA status: 4 Anesthesia: MAC Other: Will use minimal amounts of propofol due to patient's critical aortic stenosis, will have phenylephrine. If patient develops refractory Hypotension, procedure may need to be aborted . Risk of > 500 ml blood loss (7ml/kg in children): No Meds/Allergies Current Medications: Current Medications Generic Name Dose Route Start Last Admin Trade Name Freq PRN Reason Stop Dose Admin Amlodipine Besylat e 10 mg 04/28/20 09:00 04/28/20 08:00 Norvasc PO 10 mg DAILY KRISTYN Administration Atorvastatin Calci um 40 mg 04/27/20 21:00 04/27/20 21:37 Lipitor PO 40 mg BEDTIME KRISTYN Administration Cyanocobalamin 1,000 mcg 04/28/20 09:00 04/28/20 08:00 Vitamin B-12 PO 1,000 mcg DAILY KRISTYN Administration Escitalopram Oxala te 10 mg 04/28/20 09:00 04/28/20 08:00 Lexapro PO 10 mg DAILY KRISTYN Administration Fluticasone Propio carrie 2 spray 04/28/20 09:00 04/28/20 08:00 Flonase INTRANASAL 2 spray DAILY KRISTYN Administration Folic Acid 1 mg 04/28/20 09:00 04/28/20 08:00 Folic Acid PO 1 mg DAILY KRISTYN Administration Levothyroxine Sodi um 150 mcg 04/28/20 09:00 04/28/20 08:00 Synthroid PO 150 mcg DAILY KRISTYN Administration Pantoprazole Sodiu m 40 mg 04/28/20 02:00 04/28/20 03:56 Protonix IVP 40 mg Q12H KRISTYN Administration Terazosin HCl 5 mg 04/28/20 09:00 04/28/20 07:59 Hytrin PO 5 mg DAILY KRISTYN Administration PFSH Anesthesia PFSH: Medical History (Updated 04/27/20 @ 17:02 by Luis E Mojica MD) Blindness CVA (cerebral vascular accident) Dementia Hepatitis C virus infection cured after antiviral drug therapy History of arteriovenous malformation (AVM) History of Helicobacter pylori infection History of hepatitis B Hx of colonic polyps Hypertension Hypotension Hypothyroidism Severe aortic stenosis Surgical History H/O hernia repair History of colonoscopy 08/12/2019 Colonoscopy with removal of lesion by snare Descending colon: 1.5 cm pedunculated polyp removed with a hot snare Sigmoid colon: Moderate diverticulosis Rectum:: Normal ROGER: Grade 4 hemorrhoids History of esophagogastroduodenoscopy (EGD) 08/12/2019: EGD with control of bleeding using hot biopsy forceps Duodenal AVM Family History Other CAD (coronary artery disease) Denies family history of Cancer Social History Smoking and tobacco status: current every day smoker Alcohol intake: never Caregiver/support person: No Lives independently: Yes Housing: Other Details: Lives in a hotel Marital status: Single Data Anesthesia CBC & Chem 7: 04/28/20 04:35 04/28/20 04:35 Other Labs: Laboratory Results - last 48 hr 04/27/20 04/27/20 04/27/20 10:30 10:30 10:30 WBC 10.4 H RBC 3.01 L Hgb 7.6 L Hct 25.7 L MCV 85.4 MCH 25.2 L MCHC 29.6 L RDW 14.3 Plt Count 147 MPV 11.1 H Neut % (Auto) 92.0 Lymph % (Auto) 4.8 [place] % (Auto) 2.2 Eos % (Auto) 0.4 Baso % (Auto) 0.1 Neut # (Auto) 9.52 H Lymph # (Auto) 0.5 L [place] # (Auto) 0.2 Eos # (Auto) 0.0 Baso # (Auto) 0.0 Nucleated RBC % (auto) 0 Nucleated RBCs # 0.0 PT INR APTT Sodium 138 Potassium 4.5 Chloride 105 Carbon Dioxide 25 Anion Gap 12.5 BUN 22 Creatinine 1.1 GFR Calculation Not Reportable Glucose 118 H Estimat Average Glucose Hemoglobin A1c Calculated Osmolality 290 Lactic Acid 1.2 Calcium 9.0 Phosphorus Magnesium Iron TIBC % Saturation Unsat Iron Binding Total Bilirubin 0.4 AST 10 ALT 13 Alkaline Phosphatase 57 Troponin T Baseline Troponin T 120 Minute Delta Troponin T Troponin T Hi Sens 6Hr Troponin T Hi Sens 6Hr Delta Total Protein 6.3 L Albumin 3.8 Globulin 2.5 Lipase 39 TSH Urine Color Urine Appearance Urine pH Ur Specific [place] Urine Protein Urine Glucose (UA) Urine Ketones Urine Blood Urine Nitrate Urine Bilirubin Urine Urobilinogen Ur Leukocyte Esterase SARS-CoV-2 Ag (Rapid) Blood Type Rho(D) Type Antibody Screen Crossmatch 04/27/20 04/27/20 04/27/20 10:30 10:30 10:30 WBC RBC Hgb Hct MCV MCH MCHC RDW Plt Count MPV Neut % (Auto) Lymph % (Auto) [place] % (Auto) Eos % (Auto) Baso % (Auto) Neut # (Auto) Lymph # (Auto) [place] # (Auto) Eos # (Auto) Baso # (Auto) Nucleated RBC % (auto) Nucleated RBCs # PT 12.90 INR 0.95 APTT 27.9 Sodium Potassium Chloride Carbon Dioxide Anion Gap BUN Creatinine GFR Calculation Glucose Estimat Average Glucose Hemoglobin A1c Calculated Osmolality Lactic Acid Calcium Phosphorus Magnesium Iron TIBC % Saturation Unsat Iron Binding Total Bilirubin AST ALT Alkaline Phosphatase Troponin T Baseline 16 H Troponin T 120 Minute Delta Troponin T Troponin T Hi Sens 6Hr Troponin T Hi Sens 6Hr Delta Total Protein Albumin Globulin Lipase TSH Urine Color Urine Appearance Urine pH Ur Specific [place] Urine Protein Urine Glucose (UA) Urine Ketones Urine Blood Urine Nitrate Urine Bilirubin Urine Urobilinogen Ur Leukocyte Esterase SARS-CoV-2 Ag (Rapid) Blood Type A Positive Rho(D) Type Positive Antibody Screen Negative Crossmatch See Detail 04/27/20 04/27/20 04/27/20 12:30 12:50 15:58 WBC RBC Hgb Hct MCV MCH MCHC RDW Plt Count MPV Neut % (Auto) Lymph % (Auto) [place] % (Auto) Eos % (Auto) Baso % (Auto) Neut # (Auto) Lymph # (Auto) [place] # (Auto) Eos # (Auto) Baso # (Auto) Nucleated RBC % (auto) Nucleated RBCs # PT INR APTT Sodium Potassium Chloride Carbon Dioxide Anion Gap BUN Creatinine GFR Calculation Glucose Estimat Average Glucose Hemoglobin A1c Calculated Osmolality Lactic Acid Calcium Phosphorus Magnesium Iron TIBC % Saturation Unsat Iron Binding Total Bilirubin AST ALT Alkaline Phosphatase Troponin T Baseline Troponin T 120 Minute 14.66 Delta Troponin T -1.34 L Troponin T Hi Sens 6Hr 14.11 Troponin T Hi Sens 6Hr Delta -1.89 L Total Protein Albumin Globulin Lipase TSH Urine Color Yellow Urine Appearance Clear Urine pH 6.5 Ur Specific [place] 1.005 Urine Protein Neg Urine Glucose (UA) Norm Urine Ketones Negative Urine Blood Neg Urine Nitrate Negative Urine Bilirubin Neg Urine Urobilinogen Norm Ur Leukocyte Esterase Negative SARS-CoV-2 Ag (Rapid) Blood Type Rho(D) Type Antibody Screen Crossmatch 04/27/20 04/27/20 04/27/20 15:58 15:58 17:30 WBC RBC Hgb Hct MCV MCH MCHC RDW Plt Count MPV Neut % (Auto) Lymph % (Auto) [place] % (Auto) Eos % (Auto) Baso % (Auto) Neut # (Auto) Lymph # (Auto) [place] # (Auto) Eos # (Auto) Baso # (Auto) Nucleated RBC % (auto) Nucleated RBCs # PT INR APTT Sodium Potassium Chloride Carbon Dioxide Anion Gap BUN Creatinine GFR Calculation Glucose Estimat Average Glucose Hemoglobin A1c Calculated Osmolality Lactic Acid Calcium Phosphorus Magnesium Iron 13 L TIBC 251 % Saturation 5.1 L Unsat Iron Binding 238 Total Bilirubin AST ALT Alkaline Phosphatase Troponin T Baseline Troponin T 120 Minute [place] Troponin T Troponin T Hi Sens 6Hr Troponin T Hi Sens 6Hr Delta Total Protein Albumin Globulin Lipase TSH 0.63 Urine Color Urine Appearance Urine pH Ur Specific [place] Urine Protein Urine Glucose (UA) Urine Ketones Urine Blood Urine Nitrate Urine Bilirubin Urine Urobilinogen Ur Leukocyte Esterase SARS-CoV-2 Ag (Rapid) Negative Blood Type Rho(D) Type Antibody Screen Crossmatch 04/27/20 04/28/20 04/28/20 20:58 04:35 04:35 WBC 8.3 RBC 3.38 L Hgb 7.2 L 8.6 L Hct 24.4 L 28.3 L MCV 83.7 MCH 25.4 L MCHC 30.4 RDW 14.2 Plt Count 146 MPV 11.5 H Neut % (Auto) 74.7 Lymph % (Auto) 17.4 [place] % (Auto) 6.8 Eos % (Auto) 0.5 Baso % (Auto) 0.1 Neut # (Auto) 6.20 Lymph # (Auto) 1.4 [place] # (Auto) 0.6 Eos # (Auto) 0.0 Baso # (Auto) 0.0 Nucleated RBC % (auto) 0 Nucleated RBCs # 0.0 PT INR APTT Sodium 138 Potassium 3.7 Chloride 104 Carbon Dioxide 27 Anion Gap 10.7 BUN 16 Creatinine 0.9 GFR Calculation Not Reportable Glucose 86 Estimat Average Glucose Hemoglobin A1c Calculated Osmolality 286 Lactic Acid Calcium 8.9 Phosphorus Magnesium Iron TIBC % Saturation Unsat Iron Binding Total Bilirubin 1.0 AST 9 ALT 11 Alkaline Phosphatase 52 Troponin T Baseline Troponin T 120 Minute [place] Troponin T Troponin T Hi Sens 6Hr Troponin T Hi Sens 6Hr Delta Total Protein 6.1 L Albumin 3.7 Globulin 2.4 Lipase TSH Urine Color Urine Appearance Urine pH Ur Specific [place] Urine Protein Urine Glucose (UA) Urine Ketones Urine Blood Urine Nitrate Urine Bilirubin Urine Urobilinogen Ur Leukocyte Esterase SARS-CoV-2 Ag (Rapid) Blood Type Rho(D) Type Antibody Screen Crossmatch 04/28/20 04/28/20 04:35 04:35 WBC RBC Hgb Hct MCV MCH MCHC RDW Plt Count MPV Neut % (Auto) Lymph % (Auto) [place] % (Auto) Eos % (Auto) Baso % (Auto) Neut # (Auto) Lymph # (Auto) [place] # (Auto) Eos # (Auto) Baso # (Auto) Nucleated RBC % (auto) Nucleated RBCs # PT INR APTT Sodium Potassium Chloride Carbon Dioxide Anion Gap BUN Creatinine GFR Calculation Glucose Estimat Average Glucose 103 Hemoglobin A1c 5.2 Calculated Osmolality Lactic Acid Calcium Phosphorus 4.0 Magnesium 2.3 Iron TIBC % Saturation Unsat Iron Binding Total Bilirubin AST ALT Alkaline Phosphatase Troponin T Baseline Troponin T 120 Minute [place] Troponin T Troponin T Hi Sens 6Hr Troponin T Hi Sens 6Hr Delta Total Protein Albumin Globulin Lipase TSH Urine Color Urine Appearance Urine pH Ur Specific [place] Urine Protein Urine Glucose (UA) Urine Ketones Urine Blood Urine Nitrate Urine Bilirubin Urine Urobilinogen Ur Leukocyte Esterase SARS-CoV-2 Ag (Rapid) Blood Type Rho(D) Type Antibody Screen Crossmatch Micro: Microbiology 04/27/20 10:30 Blood Culture - Preliminary Blood NEGATIVE TO DATE Cardiac Studies: No Data to Display
[2020-04-28] MEDS: sodium chloride 0.9% 1,000 ML 30 ML IV (11:05)
--- NOTE | 2020-04-28 11:50 | PM.PACU ---
PACU note Post-Anesthesia Exam: awake and vital signs stable Disposition: back to floor
--- NOTE | 2020-04-28 13:19 | PC.NURSE ---
pt is trying to get out of bed to smoke redirected pt back in bed. easily follow. bed alarm reset. pt offered nicotine patch and he refused. he said, I just want to go back to [facility] home to smoke. notified on this occurrence.
--- NOTE | 2020-04-28 15:01 | PM.DCS ---
Discharge Providers Date of Admission: 04/27/20 17:10 Date of Discharge: April 28, 2020 Attending Provider at Admission: Luis E Mojica MD Attending Provider at Discharge: Marquis Baca MD Primary Care Provider: Mauricio Hull MD Diagnoses at Discharge Discharge Diagnosis (1) History of arteriovenous malformation (AVM): Status: Chronic (2) Anemia: Status: Chronic (3) Severe aortic stenosis: Status: Acute (4) Hypertension: Status: Chronic (5) Hypothyroidism: Status: Chronic (6) Dementia: Status: Chronic (7) Gastritis: Status: Acute Reason for Visit Reason for Visit: BLOOD IN STOOL Hospital Course Hospital Course: 4-year-old man with PMH of HTN ,severe aortic stenosiS, CVA, came in with active G.I Bleed.He was kept NPO and was transfused 2 U PRBC. He also underwent EGD ( Dr. Sue ) which showed Gastitis. 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 Physical Exam Narrative: EXAM NARRATIVE: Narrative EXAM NARRATIVE: General: No acute distress, AO x1-2, to self and year but not place. Thinks he is at retirement. HEENT: PERRLA, pupils bilaterally equal and reactive Chest: Normal vesicular breath sounds, no added sounds, equal good air entry bilaterally CVS: S1-S2 regular, ejection systolic murmur at the aortic region radiating to carotids, 1/6, no tachycardia, no gallops, no rubs Abdomen: Soft, nontender, no organomegaly, bowel sounds present Neuro: No focal deficits, no facial deformity, AO x3, power 5/5 in all limbs Discharge Data Data Completed and Pending: Completed Studies During Hospitalization Category Date Time Status CT abdomen pelvis w con* [id number] Urge nt Cat Scan 04/27/20 11:59 Completed XR chest 1V danial ble [id number] Stat Exams 04/27/20 12:08 Completed Pending at discharge Category Date Time Status Blood Culture Sta t Lab 04/27/20 10:30 Results Leukocyte Reduced RBC Stat Lab 04/27/20 10:30 Results Type and Screen R outine Lab 04/27/20 10:30 Results Labs from last 24 hours 04/28/20 04/28/20 04/28/20 04:35 04:35 04:35 WBC RBC Hgb Hct MCV MCH MCHC RDW Plt Count MPV Neut % (Auto) Lymph % (Auto) [place] % (Auto) Eos % (Auto) Baso % (Auto) Neut # (Auto) Lymph # (Auto) [place] # (Auto) Eos # (Auto) Baso # (Auto) Nucleated RBC % (a uto) Nucleated RBCs # Sodium 138 Potassium 3.7 Chloride 104 Carbon Dioxide 27 Anion Gap 10.7 BUN 16 Creatinine 0.9 GFR Calculation Not Reportable Glucose 86 Estimat Average Gl ucose 103 Hemoglobin A1c 5.2 Calculated Osmolal ity 286 Calcium 8.9 Phosphorus 4.0 Magnesium 2.3 Iron TIBC % Saturation Unsat Iron Binding Total Bilirubin 1.0 AST 9 ALT 11 Alkaline Phosphata se 52 Troponin T 120 Min [place] Troponin T Troponin T Hi Sens 6Hr Troponin T Hi Sens 6Hr Delta Total Protein 6.1 L Albumin 3.7 Globulin 2.4 TSH SARS-CoV-2 Ag (Rap id) Blood Type Rho(D) Type Antibody Screen Crossmatch 04/28/20 04/27/20 04/27/20 04:35 20:58 17:30 WBC 8.3 RBC 3.38 L Hgb 8.6 L 7.2 L Hct 28.3 L 24.4 L MCV 83.7 MCH 25.4 L MCHC 30.4 RDW 14.2 Plt Count 146 MPV 11.5 H Neut % (Auto) 74.7 Lymph % (Auto) 17.4 [place] % (Auto) 6.8 Eos % (Auto) 0.5 Baso % (Auto) 0.1 Neut # (Auto) 6.20 Lymph # (Auto) 1.4 [place] # (Auto) 0.6 Eos # (Auto) 0.0 Baso # (Auto) 0.0 Nucleated RBC % (a uto) 0 Nucleated RBCs # 0.0 Sodium Potassium Chloride Carbon Dioxide Anion Gap BUN Creatinine GFR Calculation Glucose Estimat Average Gl ucose Hemoglobin A1c Calculated Osmolal ity Calcium Phosphorus Magnesium Iron TIBC % Saturation Unsat Iron Binding Total Bilirubin AST ALT Alkaline Phosphata se Troponin T 120 Min [place] Troponin T Troponin T Hi Sens 6Hr Troponin T Hi Sens 6Hr Delta Total Protein Albumin Globulin TSH SARS-CoV-2 Ag (Rap id) Negative Blood Type Rho(D) Type Antibody Screen Crossmatch 04/27/20 04/27/20 04/27/20 15:58 15:58 15:58 WBC RBC Hgb Hct MCV MCH MCHC RDW Plt Count MPV Neut % (Auto) Lymph % (Auto) [place] % (Auto) Eos % (Auto) Baso % (Auto) Neut # (Auto) Lymph # (Auto) [place] # (Auto) Eos # (Auto) Baso # (Auto) Nucleated RBC % (a uto) Nucleated RBCs # Sodium Potassium Chloride Carbon Dioxide Anion Gap BUN Creatinine GFR Calculation Glucose Estimat Average Gl ucose Hemoglobin A1c Calculated Osmolal ity Calcium Phosphorus Magnesium Iron 13 L TIBC 251 % Saturation 5.1 L Unsat Iron Binding 238 Total Bilirubin AST ALT Alkaline Phosphata se Troponin T 120 Min [place] Troponin T Troponin T Hi Sens 6Hr 14.11 Troponin T Hi Sens 6Hr Delta -1.89 L Total Protein Albumin Globulin TSH 0.63 SARS-CoV-2 Ag (Rap id) Blood Type Rho(D) Type Antibody Screen Crossmatch 04/27/20 04/27/20 12:30 10:30 WBC RBC Hgb Hct MCV MCH MCHC RDW Plt Count MPV Neut % (Auto) Lymph % (Auto) [place] % (Auto) Eos % (Auto) Baso % (Auto) Neut # (Auto) Lymph # (Auto) [place] # (Auto) Eos # (Auto) Baso # (Auto) Nucleated RBC % (a uto) Nucleated RBCs # Sodium Potassium Chloride Carbon Dioxide Anion Gap BUN Creatinine GFR Calculation Glucose Estimat Average Gl ucose Hemoglobin A1c Calculated Osmolal ity Calcium Phosphorus Magnesium Iron TIBC % Saturation Unsat Iron Binding Total Bilirubin AST ALT Alkaline Phosphata se Troponin T 120 Min [place] 14.66 Delta Troponin T -1.34 L Troponin T Hi Sens 6Hr Troponin T Hi Sens 6Hr Delta Total Protein Albumin Globulin TSH SARS-CoV-2 Ag (Rap id) Blood Type A Positive Rho(D) Type Positive Antibody Screen Negative Crossmatch See Detail Vitals: Last Vital Signs Temp 97.9 F 04/28/20 14:54 Pulse 67 04/28/20 14:54 Resp 17 04/28/20 14:54 BP 106/57 04/28/20 14:54 Pulse Ox 96 04/28/20 14:54 Discharge Plan Discharge Patient Disposition: Home Condition: Stable Prescriptions: Continued acetaminophen [Tylenol] 325 mg Tablet 650 mg PO Q6H PRN (Reason: Pain) RF: 0 amlodipine 10 mg tablet 10 mg PO DAILY RF: 0 folic acid 1 mg Tablet 1 mg PO DAILY RF: 0 terazosin 5 mg Capsule 5 mg PO DAILY RF: 0 atorvastatin 40 mg Tablet 40 mg PO BEDTIME RF: 0 albuterol sulfate 2.5 mg /3 mL (0.083 %) Solution For Nebulization 2.5 mg INHALATION QID RF: 0 ondansetron HCl [Zofran] 4 mg Tablet 4 mg PO Q6H PRN (Reason: Nausea) RF: 0 alprazolam [Xanax] 0.25 mg Tablet 0.25 mg PO DAILY PRN (Reason: Anxiety) RF: 0 magnesium hydroxide [Milk of Magnesia] 400 mg/5 mL Suspension 30 ml PO DAILY PRN (Reason: Constipation) RF: 0 bisacodyl 10 mg Suppository 10 mg MT DAILY PRN (Reason: Constipation) RF: 0 losartan 25 mg Tablet 25 mg PO DAILY RF: 0 fluticasone propionate [Flonase Allergy Relief] 50 mcg/actuation [place],Suspension 2 spray INTRANASAL DAILY RF: 0 Preparation H(pe,cb) 0.25-88.44 % Suppository 1 supp MT QID PRN (Reason: Hemorrhoids) RF: 0 levothyroxine 100 mcg Tablet 150 mcg PO DAILY Qty: 30 RF: 0 pantoprazole [Protonix] 40 mg Tablet,Delayed Release (Dr/Ec) 40 mg PO BID Qty: 0 RF: 0 sennosides-docusate sodium [Senna with Docusate Sodium] 8.6-50 mg tablet 1 tab-cap PO BID Qty: 60 RF: 0 prednisone 10 mg Tablet 30 mg PO DAILY RF: 0 ofloxacin 0.3 % Drops See Rx Instructions .ROUTE .COMPLEX RF: 0 ketorolac 0.4 % Drops See Rx Instructions .ROUTE .COMPLEX RF: 0 cyanocobalamin (vitamin B-12) [Vitamin B-12] 1,000 mcg Tablet 1,000 mcg PO DAILY RF: 0 escitalopram oxalate [Lexapro] 10 mg Tablet 10 mg PO DAILY RF: 0 Discharge Orders: Discharge Order (Routine); Ordered 04/28/20 Ordered By: Marquis Baca Referrals: Mauricio Hull MD [Primary Care Provider] - Discharge Diet: Low Salt Discharge Activity: Resume usual activity Discharge Attestations Time Spent in Discharge Care*: greater than 30 min Specific Discharge Activities: Specific discharge activities: educating patient, discussing with pcp/other providers, discussing with casework supervisor/social workers/dc planners and documenting/other paperwork Status at Discharge: Cognitive status at discharge: cognitively intact, Behavioral status at discharge: cooperative, Functional status at discharge: independent ambulation Quality Metrics Clinical Quality Measures During this hospital stay, did patient experience: None Coding Level of Care Code Acute Stamping Bench Die Maker for g Fwd Diagnoses History of arteriovenous malformation (AVM) Z87.74 Anemia D64.9 Severe aortic stenosis I35.0 Hypertension I10 Hypothyroidism E03.9 Dementia F03.90 Gastritis K29.70
--- NOTE | 2020-04-28 17:04 | PC.NURSE ---
report given to snf
--- NOTE | 2020-04-28 17:07 | PC.NURSE ---
received call from social service That transportation will be available tomorrow. So his discharge is on hold. environmental services supervisor Woo notified the doctor.
--- NOTE | 2020-04-28 17:26 | PC.NURSE ---
Informed pt that he will be staying tonight due to his transportation is available in the morning. Pt verbalizes understanding.
[2020-04-28] MEDS: ALPRAZolam 0.25 mg Tablet PO (19:35)
[2020-04-28] MEDS: atorvastatin 40 mg Tablet PO (19:35)
--- NOTE | 2020-04-28 21:30 | PC.NURSE ---
Patient is able to answer correctly to person, place, time, and situation, however patient has a history of confusion. Bed alarm is set. Will monitor.
--- NOTE | 2020-04-28 23:20 | PC.NURSE ---
Patient is currently resting with eyes closed. Will monitor.
--- NOTE | 2020-04-28 23:30 | PC.NURSE ---
Dr. Strauss notified of patient not having an IV but having IV Protonix due. Ordered to change to PO Protonix.
[2020-04-28] MEDS: acetaminophen 325 mg Tablet 650 MG PO (23:43)
--- NOTE | 2020-04-29 03:06 | PC.NURSE ---
Patient's bed alarm went off. Patient was confused and did not realize that he was at the hospital. Patient was reoriented and assisted back to bed. Bed alarm reset.
[2020-04-29 03:31] VITALS: BP 125/74; PULSE 77; RESP 14; TEMP 37.2; O2SAT 95
[2020-04-29 07:24] VITALS: BP 140/71; PULSE 83; RESP 18; TEMP 36.6; O2SAT 95
--- NOTE | 2020-04-29 07:33 | PC.NURSE ---
Patient resting in bed at time of assessment. Oriented to person, place, and situation. Patient states his abdomen is tender but that it is no more than usual. No further needs identified at this time. Nurse to continue to monitor.
[2020-04-29] MEDS: terazosin 5 mg Capsule PO (08:25)
[2020-04-29] MEDS: folic acid 1 mg Tablet PO (08:26)
[2020-04-29] MEDS: escitalopram 10 mg Tablet PO (08:26)
[2020-04-29] MEDS: levothyroxine 150 mcg Tablet PO (08:27)
[2020-04-29] MEDS: amlodipine 10 mg Tablet PO (08:27)
[2020-04-29] MEDS: pantoprazole DR 40 mg Tablet PO (08:27)
[2020-04-29] MEDS: fluticasone nasal spray 16gm Btl 2 SPRAY INTRANASAL (08:28)
--- NOTE | 2020-04-29 09:12 | PC.NURSE ---
Report called to GUSTAVO Nelson at [facility]. Nurse verbalized understanding of information and did not have any further questions. Transportation here to take patient to facility. Nurse to continue to monitor.
[2020-04-29 09:13] VITALS: BP 105/58; PULSE 97; RESP 16; TEMP 36.6; O2SAT 95
--- NOTE | 2020-04-29 11:04 | ANE.PACU2 ---
Inpatient post-anesthesia follow up: Airway intact: Yes Vital signs: Temperature 97.9 F Pulse Rate [Monito r] 62 Pulse Rate 97 Respiratory Rate 16 Blood Pressure [Ri ght Arm] 111/59 Blood Pressure 105/58 Pulse Oximetry 95 Oxygen Delivery Me thod Room Air Oxygen Flow Rate Fraction of Inspir ed Oxygen Hydration adequate: Yes Nausea and vomiting: No Pain level: 1 Mental status: Baseline
== END 2020-04-29 09:20 | disposition home or self-care (01) | DRG 377 ==
LOC: ER 14:18 → CSU 14:26
PROVIDERS: Emergency Medicine; Internal Medicine; Physician Assistant; Admitting Provider Student in an Organized Health Care Education/Training Program; PCP Family Medicine; Visit Provider Student in an Organized Health Care Education/Training Program
PROC: 0DJ08ZZ Inspection of Upper Intestinal Tract, Via Natural or Artificial Opening Endoscopic (ICD-10-PCS; CPT 43235; principal; 2020-04-28 10:30)
DX: K92.2 Gastrointestinal hemorrhage, unspecified (principal); K76.7 Hepatorenal syndrome; I10 Essential (primary) hypertension; E03.9 Hypothyroidism, unspecified; I35.0 Nonrheumatic aortic (valve) stenosis; Z87.74 Personal history of (corrected) congenital malformations of heart and circulatory system; F03.90 Unspecified dementia, unspecified severity, without behavioral disturbance, psychotic disturbance, mood disturbance, and anxiety; Z86.19 Personal history of other infectious and parasitic diseases; Z86.73 Personal history of transient ischemic attack (TIA), and cerebral infarction without residual deficits; E78.5 Hyperlipidemia, unspecified; F17.210 Nicotine dependence, cigarettes, uncomplicated; I73.9 Peripheral vascular disease, unspecified; H54.61 Unqualified visual loss, right eye, normal vision left eye; Z20.828 Contact with and (suspected) exposure to other viral communicable diseases
CPT/HCPCS: 12345; 36415; 36430; 43235; 71045; 74177; 80053; 81003; 83036; 83540; 83550; 83605; 83690; 83735; 84100; 84443; 84484; 85014; 85018; 85025; 85610; 85730; 86850; 86900; 86902; 86920; 87040; 87426; 93005; 94664; 96375; 99283; C9113; G0378; J1940; J2250; J2370; J2704; J7030; P9016; Q9967

== ENCOUNTER 2020-05-19 00:59 | Inpatient (IN) | payer MEDICAID, SELFPAY ==
[2020-05-19] VITALS (11 sets, daily range): BP systolic 104–155; BP diastolic 52–82; PULSE 60–117; RESP 16–19; TEMP 36.4–36.6; O2SAT 94–99; BMI 30.5
--- NOTE | 2020-05-19 01:13 | XRR_ITS ---
PROCEDURE INFORMATION: Exam: XR Chest, 1 View Exam date and time: 05/19/2020 1:28 AM Age: 84 years old Clinical indication: Other: Altered mental status TECHNIQUE: Imaging protocol: XR of the chest Views: 1 view. COMPARISON: CR (CHEST) 04/27/2020 12:39 PM FINDINGS: Lungs: The right lung is clear. Mild patchy atelectasis at the left lung base, slightly increased from prior study. Pulmonary vasculature within normal limits. Pleural space: No visible pneumothorax or pleural effusion. Heart/Mediastinum: Heart size within normal limits. Thoracic aorta is tortuous, similar to prior study. 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 XR/XR chest 1V portable [id number] IMPRESSION: 1. No radiographic findings of acute cardiopulmonary disease.
--- NOTE | 2020-05-19 01:13 | CTR_ITS ---
PROCEDURE INFORMATION: Exam: CT Head Without Contrast Exam date and time: 05/19/2020 1:28 AM Age: 84 years old Clinical indication: Altered mental status/memory loss; Patient HX: AMS. Confusion. TECHNIQUE: Imaging protocol: Computed tomography of the head without contrast. Radiation optimization: All CT scans at this facility use at least one of these dose optimization techniques: automated exposure control; mA and/or kV adjustment per patient size (includes targeted exams where dose is matched to clinical indication); or iterative reconstruction. COMPARISON: CT head wo con* [id number] 03/26/2020 10:35 AM RADIATION DOSE METRICS: Total DLP (mGy-cm): 838.48 FINDINGS: Brain: Mild atrophy and mild white matter chronic microvascular changes are noted. No hemorrhage or CT evidence of acute infarction is seen. Cerebral ventricles: No ventriculomegaly. Bones/joints: Unremarkable. No acute fracture. Paranasal sinuses: Right maxillary sinusitis is noted Mastoid air cells: Visualized mastoid air cells are well aerated. Soft tissues: Unremarkable. CT/CT head wo con* [id number] IMPRESSION: No acute intracranial abnormality. Mild sinusitis. Radiation Dose CTDIVOL = (mGy): DLP = 838.48 (mGy-cm)
--- NOTE | 2020-05-19 01:13 | CTR_ITS ---
PROCEDURE INFORMATION: Exam: CT Abdomen And Pelvis With Contrast Exam date and time: 05/19/2020 1:28 AM Age: 84 years old Clinical indication: Abdominal pain; Prior surgery; Surgery type: Hernia repair; Patient HX: C/O epigastric pain and keeps pressing on xiphoid region. TECHNIQUE: Imaging protocol: Computed tomography of the abdomen and pelvis with intravenous contrast. Radiation optimization: All CT scans at this facility use at least one of these dose optimization techniques: automated exposure control; mA and/or kV adjustment per patient size (includes targeted exams where dose is matched to clinical indication); or iterative reconstruction. Contrast material: OMNI 300; Contrast volume: 95 ml; Contrast route: INTRAVENOUS (IV); COMPARISON: CT abdomen pelvis w con* [id number] 04/27/2020 12:35 PM RADIATION DOSE METRICS: Total DLP (mGy-cm): 1018.05 FINDINGS: Lungs: Mild atelectasis at bilateral lung bases. Liver: Unremarkable. Gallbladder and bile ducts: Unremarkable. Pancreas: Unremarkable. Spleen: Unremarkable. Adrenals: Unremarkable. Kidneys and ureters: The right kidney is unremarkable. There is a 2.3 cm cyst in the left kidney upper pole on series 2, image 29. There is a 2.4 cm cyst in the left kidney upper pole on series 2, image 32. There is a 1.4 cm mass exophytic from the left kidney upper pole on series 2, image 29 with density 54 Hounsfield units. Etiology is indeterminate. This is similar to prior study. Stomach and bowel: Diverticulosis of the sigmoid colon without evidence of diverticulitis. Appendix: The appendix is not identified as a separate structure. Intraperitoneal space: No free intraperitoneal air identified. No free intraperitoneal fluid identified. Vasculature: Extensive atherosclerotic aortoiliac calcification. Lymph nodes: Unremarkable. Urinary bladder: Unremarkable as visualized. Reproductive: Unremarkable as visualized. Bones/joints: Mild degenerative changes of the lower thoracic spine. Severe degenerative changes of the lumbar spine. Mild lumbar dextroscoliosis. Soft tissues: There is a 2 cm x 1.7 cm fluid collection in the subcutaneous tissue of the right inguinal region on series 2, image 72, similar to prior study. Differential diagnosis includes abscess, hematoma, and seroma. CT/CT abdomen pelvis w con* [id number] IMPRESSION: 1. Small indeterminate left renal mass. Consider renal mass protocol CT on a nonemergent basis for further evaluation. 2. Small fluid collection in the subcutaneous tissue of the right inguinal region. Differential diagnosis includes abscess, hematoma, and seroma. This is similar to prior study. Radiation Dose CTDIVOL = (mGy): DLP = 1018.05 (mGy-cm)
--- NOTE | 2020-05-19 01:14 | ECG_ITS ---
[facility] Test Date: 2020-05-19 Pat Name: Carlos Leyva Department: Room: Gender: Male Merchandising Lead: : 1935 Requested By: Shadia Hood Order Number: [id number] Dru MD: Liliana Montalvo M.D. Measurements Intervals [place] Rate: 67 P: 50 AL: 198 QRS: 22 QRSD: 103 T: 70 QT: 413 QTc: 437 Interpretive Statements SINUS RHYTHM Compared to ECG 04/27/2020 11:55:57 Ventricular premature complex(es) no longer present ST (T wave) deviation no longer present Electronically Signed On 05-19-2020 19:56:54 CDT by Liliana Montalvo M.D. [email or web address]
--- NOTE | 2020-05-19 01:28 | ED_ITS ---
HPI - Altered Mental Status General: Chief Complaint: Altered Mental Status Stated Complaint: AMS Time Seen by Provider: 05/19/20 01:02 Source: patient and EMS Mode of arrival: EMS Limitations: altered mental status History of Present Illness: HPI narrative: Carlos is a pleasant 84-year-old male who comes in via EMS for confusion. Patient's history through today is difficult to accurately determine but to the best of my ability to get a history it appears as though the patient walked away from [facility] earlier today to a local [employer] gas station. [employer] gas derrick operator was concerned about the gentleman and called EMS. At that time EMS reports the patient was alert and oriented x3 and declined transport to the hospital for evaluation. Apparently the patient had been there for several hours since and someone from [place] came to talk with him and at some point the patient apparently has signed out AGAINST MEDICAL ADVICE from their institution. As it was time for the gas station to close and Carlos was still there the police were called who then called EMS and found the patient to be confused this time. He was oriented to self only and not to date or time or reason for being at the gas station. Here the patient states that he knows Shea is the president but is unaware of month or year or the facility he is currently in. He complains of a headache and appears to be somewhat chilled. The patient has a GCS of 13 taking 1 point off for having to open his eyes to voice and being confused. Patient does follow commands and is cooperative. When asked further about his headache the patient states that his dementia causes his headaches. Review of Systems General: Reports: ROS unobtainable due to mental status PFS ED PFSH: Medical History Acute GI bleeding Blindness CVA (cerebral vascular accident) Dementia Hepatitis C virus infection cured after antiviral drug therapy History of arteriovenous malformation (AVM) History of Helicobacter pylori infection History of hepatitis B Hx of colonic polyps Hypertension Hypotension Hypothyroidism Severe aortic stenosis Surgical History H/O hernia repair History of colonoscopy 08/12/2019 Colonoscopy with removal of lesion by snare Descending colon: 1.5 cm pedunculated polyp removed with a hot snare Sigmoid colon: Moderate diverticulosis Rectum:: Normal ROGER: Grade 4 hemorrhoids History of esophagogastroduodenoscopy (EGD) 08/12/2019: EGD with control of bleeding using hot biopsy forceps Duodenal AVM Family History Other CAD (coronary artery disease) Denies family history of Cancer Social History Smoking and tobacco status: current every day smoker Alcohol intake: never Caregiver/support person: No Lives independently: Yes Housing: Other Details: Lives in a hotel Marital status: Single Physical Exam Const: COMMON NORMALS: no acute distress and alert GENERAL APPEARANCE: cooperative and ill appearing ORIENTATION/CONSCIOUSNESS: Yes oriented to person; not oriented to place and not oriented to time HENMT: COMMON NORMALS: normocephalic, atraumatic, external ears normal, EAC's normal and Normal external nose present HEAD & SCALP: normal to inspection, normocephalic and atraumatic FACE & SINUS: normal facial exam and face symmetric NOSE: Normal external nose present and Normal nares present EXTERNAL EAR: Yes external ears normal EXTERNAL AUDITORY CANAL: EAC's normal MOUTH: Normal oral and palatal mucosa present, lip normal and tongue normal Eye: COMMON NORMALS: Equal, round and reactive pupils present and conjunctivae normal GENERAL EYE: appearance normal, both eyes and all related structures ALIGNMENT: Yes alignment normal PERIORBITAL: periorbital findings normal EYELID: eyelids normal CONJUNCTIVA: Yes conjunctivae normal SCLERA: sclerae normal PUPIL: Yes Equal, round and reactive pupils present Neck/C-Spine: COMMON NORMALS: full ROM, no lymphadenopathy, supple, no meningeal signs and no JVD GENERAL: Yes normal visual inspection and Yes trachea midline Chest: COMMONS NORMALS: normal inspection of the chest and normal palpation of entire chest wall Resp: COMMON NORMALS: normal respiratory effort, No retractions, No use of accessory muscles and clear to auscultation bilaterally EFFORT & INSPECTION: Yes able to speak in complete sentences and Yes symmetric chest movement AUSCULTATION: clear to auscultation bilaterally, no crackles, no rales, no rhonchi and no wheezes Cardio: COMMON NORMALS: no JVD, regular rate, regular rhythm, S1 normal heart sound present and S2 normal heart sound present RATE: regular rate RHYTHM: regular rhythm HEART SOUNDS: S1 normal heart sound present, S2 normal heart sound present, no click, no gallops, no murmurs and no rubs GI: COMMON NORMALS: Soft to palpation and No hepatosplenomegaly present PALPATION: Yes Soft to palpation, Yes Tenderness to palpation present (GI) (Mild tenderness to palpation in the right lower quadrant), No Guarding due to palpation present (GI), No Rigid due to palpation, Yes No hepatosplenomegaly present, No Hernia present, No Palpable mass present and No Pulsatile mass present : COMMON NORMALS: Yes no CVA tenderness BLADDER/KIDNEY EXAM: Yes no CVA tenderness Back/Pelvis: COMMON NORMALS: no CVA tenderness, thoracic and lumbar spine normal to inspection, no thoracic nor lumbar tenderness and thoraco-lumbar ROM normal Extremity: COMMON NORMALS: normal to inspection, full ROM, capillary refill normal, no joint enlargement, no clubbing, cyanosis or edema and no calf tenderness Neuro: COMMON NORMALS: CN's II-XII intact bilaterally, moves all extremities, no focal motor deficits and no sensory deficits noted SENSORIUM/ORIENTATION: Yes alert, Yes oriented to person, No oriented to place, No oriented to time and Yes Orientation impaired MENINGEAL SIGNS: Yes no meningeal signs SPEECH: speech normal Skin: COMMON NORMALS: no rashes or lesions noted, turgor normal, no jaundice, no petechiae and no mottling GENERAL SKIN EXAM: no rashes or lesions noted and turgor normal Course Vital Signs: Vital signs: Vital Signs Temperature 97.6 F 05/19/20 01:07 Pulse Rate 78 05/19/20 02:12 Respiratory Rate 19 H 05/19/20 02:12 Blood Pressure 131/68 05/19/20 02:12 Pulse Oximetry 99 05/19/20 02:12 MDM - Altered Mental Status MDM Narrative: Medical decision making narrative: Mr. Leyva is a nice 84-year-old male who comes in with confusion. His baseline mental status is unclear but at least at some point today he was alert and oriented x3. His exam is not tremendously remarkable except for mild confusion. CT of his head is unremarkable CT pelvis shows no acute appendicitis. He does have a mild UTI and appears dehydrated. This on top of dementia I believe could account for his altered mental status. The case was reviewed with Dr. Delcid who agrees to come evaluate the patient and he will admit. He will decide if he wants to add any further evaluation and care. Medical Records: Attestation: I reviewed the patient's medical records. Medical records narrative: H&P and discharge summary from last hospital admission reviewed. Patient was transfused 2 units of blood and also had an EGD for presumed upper GI bleed. Lab Data: Attestation: I reviewed the patient's lab results. Labs: Lab Results 05/19/20 05/19/20 05/19/20 Range/Units 01:30 01:30 01:30 WBC 12.9 H (4.0-10.0) 10^3/ uL RBC 3.75 L (4.1-5.3) 10^6/u L Hgb 9.2 L (11.7-16.6) g/dL Hct 31.5 L (42.0-52.0) % MCV 84.0 (80-94) fL MCH 24.5 L (28.0-34.0) pg MCHC 29.2 L (30.0-36.0) g/dL RDW 15.9 H (12.1-15.1) % Plt Count 287 (130-400) 10^3/c mm MPV 11.3 H (7.4-10.4) fL Neut % (Auto) 84.6 % Lymph % (Auto) 7.8 % [place] % (Auto) 5.9 % Eos % (Auto) 0.1 % Baso % (Auto) 0.2 % Neut # (Auto) 10.89 H (1.8-7.7) 10^3/u L Lymph # (Auto) 1.0 (0.8-4.8) 10^3/u L [place] # (Auto) 0.8 (0.2-0.9) 10^3/u L Eos # (Auto) 0.0 (0.0-0.8) 10^3/u L Baso # (Auto) 0.0 (0.0-0.1) 10^3/u L Nucleated RBC % (a uto) 0.2 % Nucleated RBCs # 0.0 /100WBC PT 13.80 (12.1-14.9) SECO NDS INR 1.03 (0.8-1.2) Specimen Type Sample Site ABG pH (7.35-7.45) ABG pCO2 (35-45) mmHg ABG pO2 (80.0-100.0) mmH g ABG HCO3 (22-26) mmol/L ABG O2 Saturation ABG Base Excess (-2.0-2.0) mmol/ L Chandana Test A-a O2 Gradient (5-10) mmHg Hematocrit (42-52) % Hgb O2 Saturation (95-100) % Carboxyhemoglobin (0.4-20.1) %THgb Methemoglobin (0.4-1.5) % Total Hemoglobin (14-18) g/dL Ionized Calcium (1.1-1.4) mmol/L Teacher Of The Visually Impaired ID Sodium 141 (136-145) mmol/L Potassium 4.6 (3.5-5.1) mmol/L Chloride 102 (98-107) mmol/L Carbon Dioxide 26 (22-29) mmol/L Anion Gap 17.6 (5-19) BUN 27 H (8-23) mg/dL Creatinine 1.4 H (0.7-1.2) mg/dL GFR Calculation Not Reportable Glucose 156 H (65-115) mg/dL Calculated Osmolal ity 300 H (285-295) mOsm/k g Lactic Acid (0.5-2.2) mmol/L Calcium 9.5 (8.5-10.5) mg/dL Magnesium 2.7 H (1.7-2.3) mg/dL Total Bilirubin 0.5 (0.15-1.2) mg/dL AST 12 (0-40) U/L ALT 17 (0-41) U/L Alkaline Phosphata se 72 (40-130) IU/L Ammonia (16-60) umol/L Creatine Kinase 29 L (39-308) U/L Troponin T Baselin e (0-15) ng/L NT-Pro-B Natriuret Pep 625 H (0-450) pg/mL Total Protein 6.4 L (6.6-8.7) g/dL Albumin 4.1 (3.5-5.2) g/dL Globulin 2.3 (1.3-4.6) g/dL Lipase 52 (13-60) U/L TSH 1.15 (0.27-4.20) uIU/ mL Free T4 1.61 (0.82-1.77) ng/d L Urine Color (Yellow) Urine Appearance (CLEAR) Urine pH (5-7) Ur Specific Gravit y (1.005-1.030) Urine Protein (Negative) Urine Glucose (UA) (Normal) Urine Ketones (Negative) Urine Blood (Negative) Urine Nitrate (Negative) Urine Bilirubin (Negative) Urine Urobilinogen (Negative) mg/dL Ur Leukocyte Rosamaria ase (Negative) Urine RBC (0-2) /hpf Urine WBC (0-5) /hpf Ur Squamous Epith Cells (0-5) /hpf Amorphous Sediment Urine Bacteria (NONE) /hpf Hyaline Casts /lpf Urine Opiates Scre en (Negative) ng/mL Ur Barbiturates Sc reen (Negative) ng/mL Ur Phencyclidine S crn (Negative) ng/mL Ur Amphetamines Sc reen (Negative) ng/mL U Benzodiazepines Scrn (Negative) ng/mL Urine Cocaine Scre en (Negative) ng/mL U Marijuana (THC) Screen (Negative) ng/mL Ethyl Alcohol < 10 (0-10) mg/dL Serum Ketones Negative (Negative) 05/19/20 05/19/20 05/19/20 Range/Units 01:30 01:30 01:30 WBC (4.0-10.0) 10^3/ uL RBC (4.1-5.3) 10^6/u L Hgb (11.7-16.6) g/dL Hct (42.0-52.0) % MCV (80-94) fL MCH (28.0-34.0) pg MCHC (30.0-36.0) g/dL RDW (12.1-15.1) % Plt Count (130-400) 10^3/c mm MPV (7.4-10.4) fL Neut % (Auto) % Lymph % (Auto) % [place] % (Auto) % Eos % (Auto) % Baso % (Auto) % Neut # (Auto) (1.8-7.7) 10^3/u L Lymph # (Auto) (0.8-4.8) 10^3/u L [place] # (Auto) (0.2-0.9) 10^3/u L Eos # (Auto) (0.0-0.8) 10^3/u L Baso # (Auto) (0.0-0.1) 10^3/u L Nucleated RBC % (a uto) % Nucleated RBCs # /100WBC PT (12.1-14.9) SECO NDS INR (0.8-1.2) Specimen Type Sample Site ABG pH (7.35-7.45) ABG pCO2 (35-45) mmHg ABG pO2 (80.0-100.0) mmH g ABG HCO3 (22-26) mmol/L ABG O2 Saturation ABG Base Excess (-2.0-2.0) mmol/ L Chandana Test A-a O2 Gradient (5-10) mmHg Hematocrit (42-52) % Hgb O2 Saturation (95-100) % Carboxyhemoglobin (0.4-20.1) %THgb Methemoglobin (0.4-1.5) % Total Hemoglobin (14-18) g/dL Ionized Calcium (1.1-1.4) mmol/L Teacher Of [employer] Visually Impaired ID Sodium (136-145) mmol/L Potassium (3.5-5.1) mmol/L Chloride (98-107) mmol/L Carbon Dioxide (22-29) mmol/L Anion Gap (5-19) BUN (8-23) mg/dL Creatinine (0.7-1.2) mg/dL GFR Calculation Glucose (65-115) mg/dL Calculated Osmolal ity (285-295) mOsm/k g Lactic Acid 2.2 (0.5-2.2) mmol/L Calcium (8.5-10.5) mg/dL Magnesium (1.7-2.3) mg/dL Total Bilirubin (0.15-1.2) mg/dL AST (0-40) U/L ALT (0-41) U/L Alkaline Phosphata se (40-130) IU/L Ammonia 24 (16-60) umol/L Creatine Kinase (39-308) U/L Troponin T Baselin e 20 H (0-15) ng/L NT-Pro-B Natriuret Pep (0-450) pg/mL Total Protein (6.6-8.7) g/dL Albumin (3.5-5.2) g/dL Globulin (1.3-4.6) g/dL Lipase (13-60) U/L TSH (0.27-4.20) uIU/ mL Free T4 (0.82-1.77) ng/d L Urine Color (Yellow) Urine Appearance (CLEAR) Urine pH (5-7) Ur Specific Gravit y (1.005-1.030) Urine Protein (Negative) Urine Glucose (UA) (Normal) Urine Ketones (Negative) Urine Blood (Negative) Urine Nitrate (Negative) Urine Bilirubin (Negative) Urine Urobilinogen (Negative) mg/dL Ur Leukocyte Rosamaria ase (Negative) Urine RBC (0-2) /hpf Urine WBC (0-5) /hpf Ur Squamous Epith Cells (0-5) /hpf Amorphous Sediment Urine Bacteria (NONE) /hpf Hyaline Casts /lpf Urine Opiates Scre en (Negative) ng/mL Ur Barbiturates Sc reen (Negative) ng/mL Ur Phencyclidine S crn (Negative) ng/mL Ur Amphetamines Sc reen (Negative) ng/mL U Benzodiazepines Scrn (Negative) ng/mL Urine Cocaine Scre en (Negative) ng/mL U Marijuana (THC) Screen (Negative) ng/mL Ethyl Alcohol (0-10) mg/dL Serum Ketones (Negative) 05/19/20 05/19/20 05/19/20 Range/Units 01:45 02:14 02:14 WBC (4.0-10.0) 10^3/ uL RBC (4.1-5.3) 10^6/u L Hgb (11.7-16.6) g/dL Hct (42.0-52.0) % MCV (80-94) fL MCH (28.0-34.0) pg MCHC (30.0-36.0) g/dL RDW (12.1-15.1) % Plt Count (130-400) 10^3/c mm MPV (7.4-10.4) fL Neut % (Auto) % Lymph % (Auto) % [place] % (Auto) % Eos % (Auto) % Baso % (Auto) % Neut # (Auto) (1.8-7.7) 10^3/u L Lymph # (Auto) (0.8-4.8) 10^3/u L [place] # (Auto) (0.2-0.9) 10^3/u L Eos # (Auto) (0.0-0.8) 10^3/u L Baso # (Auto) (0.0-0.1) 10^3/u L Nucleated RBC % (a uto) % Nucleated RBCs # /100WBC PT (12.1-14.9) SECO NDS INR (0.8-1.2) Specimen Type Arterial Sample Site Radial, right ABG pH 7.43 (7.35-7.45) ABG pCO2 39.9 (35-45) mmHg ABG pO2 72.9 L (80.0-100.0) mmH g ABG HCO3 26.7 H (22-26) mmol/L ABG O2 Saturation 96.2 ABG Base Excess 2.2 H (-2.0-2.0) mmol/ L Chandana Test Pos A-a O2 Gradient 3.4 L (5-10) mmHg Hematocrit 26.8 L (42-52) % Hgb O2 Saturation 90.0 L (95-100) % Carboxyhemoglobin 5.3 (0.4-20.1) %THgb Methemoglobin 1.1 (0.4-1.5) % Total Hemoglobin 8.7 L (14-18) g/dL Ionized Calcium 1.2 (1.1-1.4) mmol/L Teacher Of The Visually Impaired ID ellpe Sodium 140.0 (136-145) mmol/L Potassium 3.9 (3.5-5.1) mmol/L Chloride (98-107) mmol/L Carbon Dioxide (22-29) mmol/L Anion Gap (5-19) BUN (8-23) mg/dL Creatinine (0.7-1.2) mg/dL GFR Calculation Glucose 146.0 H (65-115) mg/dL Calculated Osmolal ity (285-295) mOsm/k g Lactic Acid (0.5-2.2) mmol/L Calcium (8.5-10.5) mg/dL Magnesium (1.7-2.3) mg/dL Total Bilirubin (0.15-1.2) mg/dL AST (0-40) U/L ALT (0-41) U/L Alkaline Phosphata se (40-130) IU/L Ammonia (16-60) umol/L Creatine Kinase (39-308) U/L Troponin T Baselin e (0-15) ng/L NT-Pro-B Natriuret Pep (0-450) pg/mL Total Protein (6.6-8.7) g/dL Albumin (3.5-5.2) g/dL Globulin (1.3-4.6) g/dL Lipase (13-60) U/L TSH (0.27-4.20) uIU/ mL Free T4 (0.82-1.77) ng/d L Urine Color Yellow (Yellow) Urine Appearance Clear (CLEAR) Urine pH 5 (5-7) Ur Specific Gravit y 1.020 (1.005-1.030) Urine Protein Neg (Negative) Urine Glucose (UA) Norm (Normal) Urine Ketones 1+ H (Negative) Urine Blood Neg (Negative) Urine Nitrate Negative (Negative) Urine Bilirubin 1+ H (Negative) Urine Urobilinogen 4 H (Negative) mg/dL Ur Leukocyte Rosamaria ase Trace H (Negative) Urine RBC 0-4 H (0-2) /hpf Urine WBC 5-10 H (0-5) /hpf Ur Squamous Epith Cells 0-4 H (0-5) /hpf Amorphous Sediment Not Reportable Urine Bacteria 3+ H (NONE) /hpf Hyaline Casts 25-40 H /lpf Urine Opiates Scre en Negative (Negative) ng/mL Ur Barbiturates Sc reen Negative (Negative) ng/mL Ur Phencyclidine S crn Negative (Negative) ng/mL Ur Amphetamines Sc reen Negative (Negative) ng/mL U Benzodiazepines Scrn Positive H (Negative) ng/mL Urine Cocaine Scre en Negative (Negative) ng/mL U Marijuana (THC) Screen Negative (Negative) ng/mL Ethyl Alcohol (0-10) mg/dL Serum Ketones (Negative) Imaging Data^: CXR: Attestation: I personally reviewed and interpreted this imaging study as follows: My impression: No acute cardiopulmonary findings. CT Abd/Pel: Radiologist's impression: [address] [address] [address] Scan Report Signed Patient: Aileen Yanez #: [id number] : 1941Acct#:[id number] Age/Sex: 79 / FADM Date: 05/18/20 Loc: ERRoom/Bed: Attending Dr: Ordering Provider/Ordering MD: Shadia Serra DO Date of Service: 05/18/20 Procedure(s): CT chest w con* [id number] Accession Number(s): [id number] Report Number: [id number] PROCEDURE INFORMATION: Exam: CT Chest With Contrast Exam date and time: 05/18/2020 11:29 PM Age: 79 years old Clinical indication: Other: Difficulty swallowing; Prior surgery; Surgery date: 6+ months; Surgery type: Port, lumpectomy; Patient HX: HX of breast CA and lymphoma C/O fb sensation w painful/difficult swallowing; Additional info: Pain TECHNIQUE: Imaging protocol: Computed tomography of the chest with intravenous contrast. Radiation optimization: All CT scans at this facility use at least one of these dose optimization techniques: automated exposure control; mA and/or kV adjustment per patient size (includes targeted exams where dose is matched to clinical indication); or iterative reconstruction. Contrast material: OMNI 300; Contrast volume: 75 ml; Contrast route: INTRAVENOUS (IV); COMPARISON: CT angio chest w abd pel w con 2019-08-30 04:27 RADIATION DOSE METRICS: Total DLP (mGy-cm): 764.36 FINDINGS: Tubes, catheters and devices: Port-A-Cath tip in the superior atrial caval junction. Lungs: Unremarkable. No consolidation. No masses. Pleural space: Unremarkable. No pneumothorax. No pleural effusion. Heart: Unremarkable. No cardiomegaly. No pericardial effusion. Mediastinal space: Patulous esophagus with mild distal esophageal thickening. Pulmonary arteries: The pulmonary arteries demonstrate moderate central enlargement, consistent with moderate pulmonary hypertension. Aorta: Unremarkable. No aortic aneurysm. Lymph nodes: Unremarkable. No enlarged lymph nodes. Gallbladder and bile ducts: Cholecystectomy. Bones/joints: No destructive sclerotic or lytic bone lesions. Soft tissues: Several small breast nodular densities with calcification, some appear new since the comparison, recommend follow-up mammogram. CT/CT chest w con* [id number] IMPRESSION: 1. Several small breast nodular densities with calcification, some appear new since the comparison, recommend follow-up mammogram. 2. Patulous esophagus with mild distal esophageal thickening. Radiation Dose CTDIVOL = (mGy): DLP = 764.36 (mGy-cm) Dictated By:hTa Cano MD Signed By:Tha Cano MDSigned Date/Time:05/19/20 0009 EKG Data^: EKG 1: Attestation: I personally reviewed and interpreted this EKG as follows: EKG interpretation date: 05/19/20 EKG interpretation time: 02:18 Interpretation: Normal sinus rhythm at 67 beats a minute, no blocks, normal intervals, no acute ST or T wave changes. Discharge Plan Discharge Patient Disposition: Placed in Observation Clinical Impression: Altered mental status, Acute dehydration, Acute UTI Condition: Stable Prescriptions: No Action acetaminophen [Tylenol] 325 mg Tablet 650 mg PO Q6H PRN (Reason: Pain) RF: 0 amlodipine 10 mg tablet 10 mg PO DAILY RF: 0 folic acid 1 mg Tablet 1 mg PO DAILY RF: 0 terazosin 5 mg Capsule 5 mg PO DAILY RF: 0 atorvastatin 40 mg Tablet 40 mg PO BEDTIME RF: 0 albuterol sulfate 2.5 mg /3 mL (0.083 %) Solution For Nebulization 2.5 mg INHALATION QID RF: 0 ondansetron HCl [Zofran] 4 mg Tablet 4 mg PO Q6H PRN (Reason: Nausea) RF: 0 alprazolam [Xanax] 0.25 mg Tablet 0.25 mg PO DAILY PRN (Reason: Anxiety) RF: 0 magnesium hydroxide [Milk of Magnesia] 400 mg/5 mL Suspension 30 ml PO DAILY PRN (Reason: Constipation) RF: 0 bisacodyl 10 mg Suppository 10 mg ME DAILY PRN (Reason: Constipation) RF: 0 losartan 25 mg Tablet 25 mg PO DAILY RF: 0 fluticasone propionate [Flonase Allergy Relief] 50 mcg/actuation Spra y,Suspension 2 spray INTRANASAL DAILY RF: 0 Preparation H(pe,cb) 0.25-88.44 % Suppository 1 supp ME QID PRN (Reason: Hemorrhoids) RF: 0 levothyroxine 100 mcg Tablet 150 mcg PO DAILY Qty: 30 RF: 0 pantoprazole [Protonix] 40 mg Tablet,Delayed Release (Dr/Ec) 40 mg PO BID Qty: 0 RF: 0 sennosides-docusate sodium [Senna with Docusate Sodium] 8.6-50 mg tablet 1 tab-cap PO BID Qty: 60 RF: 0 prednisone 10 mg Tablet 30 mg PO DAILY RF: 0 ofloxacin 0.3 % Drops See Rx Instructions .ROUTE .COMPLEX RF: 0 ketorolac 0.4 % Drops See Rx Instructions .ROUTE .COMPLEX RF: 0 cyanocobalamin (vitamin B-12) [Vitamin B-12] 1,000 mcg Tablet 1,000 mcg PO DAILY RF: 0 escitalopram oxalate [Lexapro] 10 mg Tablet 10 mg PO DAILY RF: 0 Referrals: Mauricio Hull MD [Primary Care Provider] - Coding Level of Care Code ED Wax Cutter for Chg Fwd Exam Comprehensive
[2020-05-19] MEDS: sodium chloride 0.9% 1,000 ML 100 ML IV (01:30)
[2020-05-19 01:35] LABS: Basophils % 0.2 %; Eosinophils % 0.1 %; Hematocrit 31.5 % (42.0-52.0); Hemoglobin 9.2 g/dL (11.7-16.6); Lymphocytes % 7.8 %; Mean Corpuscular HGB Conc 29.2 g/dL (30.0-36.0); Mean Corpuscular Hemoglobin 24.5 pg (28.0-34.0); Mean Platelet Volume 11.3 fL (7.4-10.4); Monocytes # 0.8 10^3/uL (0.2-0.9); Monocytes % 5.9 %; Neutrophils # 10.89 10^3/uL (1.8-7.7); Neutrophils % 84.6 %; Nucleated Red Blood Cells % 0.2 %; Platelet Count 287 10^3/cmm (130-400); Red Blood Count 3.75 10^6/uL (4.1-5.3); Red Cell Distribution Width 15.9 % (12.1-15.1); White Blood Count 12.9 10^3/uL (4.0-10.0)
[2020-05-19 01:43] LABS: Ketone (Acetest) Serum Negative (Negative)
[2020-05-19 01:47] LABS: INR 1.03 (0.8-1.2)
[2020-05-19 01:52] LABS: ABG PCO2 39.9 mmHg (35-45); ABG PH Result 7.43 (7.35-7.45); Alveolar-Arterial Oxygen Gradi 3.4 mmHg (5-10); Arterial Blood Gas Hematocrit 26.8 % (42-52); Base Excess ABG 2.2 mmol/L (-2.0-2.0); Blood Gas Allen Test Pos; Blood Gas Sample Site Radial, right; Blood Gas Sample Type Arterial; Carboxyhemoglobin 5.3 %THgb (0.4-20.1); HCO3 ABG 26.7 mmol/L (22-26); Ionized Calcium Level - ABG 1.2 mmol/L (1.1-1.4); Methemoglobin 1.1 % (0.4-1.5); Oxygen Saturation ABG 96.2; PO2 ABG 72.9 mmHg (80.0-100.0); Potassium Level - ABG 3.9 mmol/L (3.5-5.0); Total Hemoglobin 8.7 g/dL (14-18)
[2020-05-19 01:57] LABS: Lactic Sepsis W/Reflex 2.2 mmol/L (0.5-2.2)
[2020-05-19 01:59] LABS: Ammonia 24 umol/L (16-60)
[2020-05-19] MEDS: iohexol 300 mg/mL 100 mL Btl IV (01:59)
[2020-05-19 02:01] LABS: Troponin(5th) Baseline 20 ng/L (0-15)
[2020-05-19 02:09] LABS: Alanine Aminotransferase 17 U/L (0-41); Albumin Level 4.1 g/dL (3.5-5.2); Alkaline Phosphatase 72 IU/L (40-130); Anion Gap 17.6 (5-19); Aspartate Amino Transferase 12 U/L (0-40); Blood Urea Nitrogen 27 mg/dL (8-23); Calcium 9.5 mg/dL (8.5-10.5); Carbon Dioxide 26 mmol/L (22-29); Chloride 102 mmol/L (98-107); Creatine Phosphokinase 29 U/L (39-308); Free T4 Free Thyroxine 1.61 ng/dL (0.82-1.77); Globulin 2.3 g/dL (1.3-4.6); Glucose 156 mg/dL (65-115); Lipase 52 U/L (13-60); Magnesium 2.7 mg/dL (1.7-2.3); NT Pro B Type Natriuretic Pept 625 pg/mL (0-450); Osmolality Calculated 300 mOsm/kg (285-295); Potassium 4.6 mmol/L (3.5-5.1); Sodium 141 mmol/L (136-145); Thyroid Stimulating Hormone 1.15 uIU/mL (0.27-4.20); Total Bilirubin 0.5 mg/dL (0.15-1.2); Total Protein 6.4 g/dL (6.6-8.7)
[2020-05-19 02:17] LABS: Alcohol Level < 10 mg/dL (0-10)
[2020-05-19 02:52] LABS: Amphetamines Screen Urine Negative (Negative); Barbiturates Screen Urine Negative (Negative); Benzodiazepines Screen Urine Positive (Negative); Cocaine Screen Urine Negative (Negative); Opiate Screen Urine Negative (Negative); PCP Screen Urine Negative (Negative); THC Screen Urine Negative (Negative)
[2020-05-19 02:53] LABS: Bilirubin Urine 1+ (Negative); Blood Urine Neg (Negative); Glucose Urine UA Norm (Normal); Ketones Urine 1+ (Negative); Leukocyte Esterase Urine Trace (Negative); Nitrate Urine Negative (Negative); Protein Urine Neg (Negative); Urine Appearance Clear (CLEAR); Urine Color Yellow (Yellow); Urobilinogen Urine 4 mg/dL (Negative); pH Urine 5 (5-7)
[2020-05-19 02:55] LABS: Add Urine Culture? Yes; Bacteria Urine 3+ /hpf; Hyaline Casts Urine 25-40 /lpf; RBC Urine 0-4 /hpf (0-2); Squamous Epithelial Cell Urine 0-4 /hpf (0-5)
--- NOTE | 2020-05-19 03:14 | ECG_ITS ---
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 Measurements Intervals [place] Rate: 80 P: 68 MN: 193 QRS: 17 QRSD: 100 T: 69 QT: 413 QTc: 479 Interpretive Statements SINUS RHYTHM WITH FREQUENT VENTRICULAR PREMATURE COMPLEXES WITH OCCASIONAL SUPRAVENTRICULAR PREMATURE COMPLEXES Compared to ECG 05/19/2020 02:18:56 Ventricular premature complex(es) now present Electronically Signed On 05-19-2020 20:31:38 CDT by Liliana Montalvo M.D. [id number]
[2020-05-19 03:19] LABS: Reflex Lactate Order REFLEX LACTIC ORDERD
--- NOTE | 2020-05-19 03:46 | P.HP_ITS ---
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 Patient is a penitentiary resident of [facility], sometime this morning, patient signed out AMA out of [facility], there is some dispute about his meals, he walked across the street to [employer], bought a Pepsi, had spent the entire day there, staff at [employer] called EMS as they were concerned he was confused, EMS evaluated him, he did not find anything out of the ordinary, so they left, [place] was about to close, however patient was not leaving, so they called the police, who called the EMS, at this time patient was confused, so patient was brought to [facility]. Currently patient is alert oriented to person, not place, not time, knows the president [facility]. Patient does not know why he is in the hospital, does not know that this is a hospital, does not have any complaints. Patient has significant short-term memory loss, I have to repeat my questions multiple times, he answers, but then forgets what he answered. He tells me that he lives [facility], he does not have a home, his mother and father , he has children but he does not keep up with him, he does not have medical close confidants, he has no complaints. No chest pain, no shortness of breath, no lightheadedness, no dizziness, no nausea, no vomiting, no fevers, no chills, no cough, no back pain, no dysuria, no hematuria. Review of Systems Const: Denies: fever(s), chills, fatigue or malaise Eyes: Denies: change in vision or blurry vision ENMT: Denies: nasal congestion Resp: Denies: dyspnea, productive cough, non-productive cough or wheezing GI: Denies: abdominal pain, nausea, vomiting, hematemesis, diarrhea, constipation, hematochezia or melena : Denies: flank pain, difficulty urinating, dysuria or urinary frequency Musc: Denies: neck pain or back pain Skin/Breast: Denies: rash Neuro: Denies: headache(s), dizziness or vertigo Endo: Denies: polyuria or polydipsia Medications/Allergies Home Medications Medication Instructions Recorded Confirmed Last Taken Type acetaminophen [Tylenol] 650 mg PO Q6H PRN 10/13/19 04/27/20 04/27/20 07:19 History amlodipine 10 mg PO DAILY 10/13/19 04/27/20 04/27/20 07:19 History folic acid 1 mg PO DAILY 10/13/19 04/27/20 04/27/20 07:19 History cyanocobalamin (vitamin B-12) 1,000 mcg PO DAILY 02/28/20 04/27/20 04/27/20 07:19 History [Vitamin B-12] escitalopram oxalate [Lexapro] 10 mg PO DAILY 02/28/20 04/27/20 04/27/20 07:19 History Preparation H(pe,cb) 1 supp [place] QID PRN 03/26/20 04/27/20 Unknown History albuterol sulfate 2.5 mg INHALATION QID 03/26/20 04/27/20 04/27/20 07:19 History alprazolam [Xanax] 0.25 mg PO DAILY PRN 03/26/20 04/27/20 Unknown History atorvastatin 40 mg PO BEDTIME 03/26/20 04/27/20 03/25/20 History bisacodyl 10 mg [place] DAILY PRN 03/26/20 04/27/20 Unknown History fluticasone propionate [Flonase 2 spray INTRANASAL DAILY 03/26/20 04/27/20 04/27/20 07:19 History Allergy Relief] losartan 25 mg PO DAILY 03/26/20 04/27/20 04/27/20 07:19 History magnesium hydroxide [Milk of 30 ml PO DAILY PRN 03/26/20 04/27/20 Unknown H istory Magnesia] ondansetron HCl [Zofran] 4 mg PO Q6H PRN 03/26/20 04/27/20 Unknown History terazosin 5 mg PO DAILY 03/26/20 04/27/20 04/27/20 07:19 History levothyroxine 150 mcg PO DAILY #30 tab 03/27/20 04/27/20 04/27/20 05:51 Rx pantoprazole [Protonix] 40 mg PO BID #0 tab 03/27/20 04/27/20 04/27/20 05:51 Rx sennosides-docusate sodium [Senna 1 tab-cap PO BID #60 tab 03/27/20 04/27/20 04/27/20 Rx with Docusate Sodium] ketorolac See Rx Instructions .ROUTE .COMPLEX 04/27/20 04/27/20 Unknown History ofloxacin See Rx Instructions .ROUTE .COMPLEX 04/27/20 04/27/20 Unknown History prednisone 30 mg PO DAILY 04/27/20 04/27/20 04/27/20 07:19 History Allergies Allergy/AdvReac Type Severity Reaction Status Date / Time No Known Allergies Allergy Verified 05/19/20 01:12 PFSH Acute PFSH: Medical History Acute GI bleeding Blindness CVA (cerebral vascular accident) Dementia Hepatitis C virus infection cured after antiviral drug therapy History of arteriovenous malformation (AVM) History of Helicobacter pylori infection History of hepatitis B Hx of colonic polyps Hypertension Hypotension Hypothyroidism Severe aortic stenosis Surgical History H/O hernia repair History of colonoscopy 08/12/2019 Colonoscopy with removal of lesion by snare Descending colon: 1.5 cm pedunculated polyp removed with a hot snare Sigmoid colon: Moderate diverticulosis Rectum:: Normal ROGER: Grade 4 hemorrhoids History of esophagogastroduodenoscopy (EGD) 08/12/2019: EGD with control of bleeding using hot biopsy forceps Duodenal AVM Family History Other CAD (coronary artery disease) Denies family history of Cancer Social History Smoking and tobacco status: current every day smoker Alcohol intake: never Caregiver/support person: No Lives independently: Yes Housing: Other Details: Lives in a hotel Marital status: Single Vitals/I&O/Wt Last Vital Signs Temp 97.6 F 05/19/20 01:07 Pulse 78 05/19/20 02:12 Resp 19 H 05/19/20 02:12 BP 131/68 05/19/20 02:12 Pulse Ox 99 05/19/20 02:12 Weight last 48 hrs Weight 102.058 kg Physical Exam Const: COMMON NORMALS: no acute distress GENERAL APPEARANCE: cooperative and comfortable HENMT: COMMON NORMALS: normocephalic HEAD & SCALP: normocephalic Eye: COMMON NORMALS: Equal, round and reactive pupils present and EOMs intact bilaterally GENERAL EYE: appearance normal, both eyes and all related structures PUPIL: Yes Equal, round and reactive pupils present Neck/C-Spine: COMMON NORMALS: full ROM and Thyroid normal Lymph: LYMPHATIC: no lymphadenopathy noted Resp: COMMON NORMALS: normal respiratory effort, No retractions, No use of accessory muscles and clear to auscultation bilaterally AUSCULTATION: clear to auscultation bilaterally Cardio: COMMON NORMALS: no JVD, regular rate, regular rhythm, S1 normal heart sound present, S2 normal heart sound present, No gallops present (Cardio), No clicks present (Cardio) and No murmurs present (Cardio) RATE: regular rate RHYTHM: regular rhythm HEART SOUNDS: S1 normal heart sound present and S2 normal heart sound present GI: COMMON NORMALS: Normal to inspection, nondistended, normoactive bowel sounds present, Soft to palpation, non-tender and No hepatosplenomegaly present PALPATION: Yes Soft to palpation and Yes No hepatosplenomegaly present Extremity: COMMON NORMALS: normal to inspection, full ROM and no pedal edema Neuro: COMMON NORMALS: CN's II-XII intact bilaterally, moves all extremities and no focal motor deficits SENSORIUM/ORIENTATION: Yes oriented to person, No oriented to place, No oriented to time, Yes Orientation impaired and Yes fluctuating sensorium SPEECH: speech normal Psych: ATTITUDE: Yes calm SPEECH: Yes slow THOUGHT PROCESS: disorganized and confused ATTENTION/CONCENTRATION: Yes attention grossly impaired and Yes concentration grossly impaired MEMORY/COGNITION: Yes memory grossly impaired INSIGHT: Poor insight present (Psych) JUDGEMENT: Poor judgement present (Psych) Data : 05/19/20 01:30 05/19/20 01:30 Micro: Microbiology 05/19/20 01:42 Blood Culture - Preliminary Blood SPECIMEN COLLECTED A&P Assessment and plan (1) Altered mental status: -Likely secondary to UTI, dehydration -But I suspect patient has severe underlying dementia that is a significant contributing factor -We will give Rocephin for antibiotic coverage -Monitor vitals closely -Patient has received fluid boluses in the ER, will avoid giving him additional fluids, given his severe aortic stenosis, risk of pulmonary edema -Full code -Anticoagulation with SCDs, anticoagulation contraindicated due to history of GI bleeds Status: Acute Qualifiers: Altered mental status type: unspecified Qualified Code(s): R41.82 - Altered mental status, unspecified (2) Acute UTI: Status: Acute (3) Acute dehydration: Status: Acute (4) Anemia: -Hemoglobin 9.2, secondary to AV malformations and heydes syndrome Status: Chronic (5) Severe aortic stenosis: -Has severe aortic stenosis, at some point patient would will need surgical evaluation Status: Inactive (6) Dementia: -Has severe dementia -Significant short-term memory loss -Long-term memory is also slightly diminished -Has trouble with complex task Status: Acute Attestations Medical Necessity Statement*: She requires hospitalization, option patient with observation, altered mental status, UTI, dehydration Coding Level of Care Code 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
[2020-05-19] MEDS: cefTRIAXone 1,000 MG in sodium chloride 0.9% (plus) 50 ML 100 MG IV (04:12)
[2020-05-19 04:47] LABS: SARS Covid-2 Antigen Negative (Negative)
[2020-05-19 04:50] LABS: Lactic Acid level (Lactate) 1.2 mmol/L (0.5-2.2)
[2020-05-19 07:08] LABS: Procalcitonin 0.06 ng/mL (0-0.5)
[2020-05-19 07:09] LABS: Thyroid Stimulating Hormone 1.11 uIU/mL (0.27-4.20)
[2020-05-19 08:00] LABS: Troponin 5 6HR 18.39 ng/L (0-15)
[2020-05-19 08:20] LABS: Troponin 5 6HR Delta -1.61 ng/L (0-12)
--- NOTE | 2020-05-19 08:26 | P.PN_ITS ---
Subjective Subjective: Interval history: History and physical reviewed. Carlos denies any complaints this morning. He reports he is willing to go back to the nursing facility. Medications: Reviewed: Yes Vitals/I&O/Wt Last Vital Signs Temp 97.5 F L 05/19/20 04:00 Pulse 69 05/19/20 05:06 Resp 16 05/19/20 05:06 BP 137/71 05/19/20 05:06 Pulse Ox 98 05/19/20 05:06 05/18/20 05/19/20 05/19/20 22:59 06:59 14:59 Output Total 0 / 0 Balance 0 / 0 Weight last 48 hrs Weight 102.058 kg Physical Exam Narrative: EXAM NARRATIVE: General: No apparent distress. Conversant. Oriented to year. Not oriented to month. Believes it may be March. Certainly oriented to self. Neck is supple no lymphadenopathy or thyromegaly Cardiovascular regular rate and rhythm with a 3/6 systolic murmur Lungs clear no wheezing or crackles Abdomen is soft with positive bowel sounds Extremities no cyanosis clubbing or edema Data : 05/19/20 01:30 05/19/20 01:30 Micro: Microbiology 05/19/20 03:40 Blood Culture - Preliminary Blood SPECIMEN COLLECTED 05/19/20 01:42 Blood Culture - Preliminary Blood SPECIMEN COLLECTED A&P Assessment and plan (1) Altered mental status: Discussed with nursing facility. His short-term memory is extremely poor. He often leaves AGAINST MEDICAL ADVICE. Family can no longer take care of him. Nursing facility has been prompting guardianship proceedings from family but at this point nobody is acted on this. Currently I believe his mental status is back to baseline. He may have a mild UTI but this does not explain his long-term behaviors. Rapid COVID negative CT head negative Chest x-ray negative Status: Acute Qualifiers: Altered mental status type: unspecified Qualified Code(s): R41.82 - Altered mental status, unspecified (2) Acute UTI: Continue Rocephin for possible UTI Await urine culture Status: Acute (3) Acute dehydration: Resolved Status: Acute (4) Anemia: Hemoglobin stable. Previous history of AVM bleeding/GI bleeding Status: Chronic (5) Severe aortic stenosis: Will need outpatient cardiology follow-up. At this point he is not kept follow-up appointments. Status: Inactive (6) Dementia: Significant dementia with behaviors Consult psychiatry May need placement depending upon their findings. Status: Acute Additional A&P Information Possible renal mass. Consider CT protocol for renal mass as outpatient Full code SCDs for DVT prophylaxis. Avoid anticoagulation secondary to recent history of GI bleeding Attestations Medical Necessity Statement*: Observation currently, pending psychiatric evaluation. 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
--- NOTE | 2020-05-19 10:04 | PC.CHAP ---
Pastoral Care Encounter/Spiritual Assessment Type of Contact [] Declined correction officer city or county jail visit [] Patient/Family/Request visit [] Outpatient visit [] Follow-up visit [] Physician referral [] Code/Alert [x] Routine visit [] Staff referral [] Actively dying [] Patient sleeping [] Family support [] [] Out of room [] Palliative care [] [] Receiving care in room [] Pre-surgical visit [] Trauma [] Long length of stay [] ICU visit [] Other: Relational/Emotional Strength [] Patient feels connected with others/family/visitors/staff [] Distress [] Loneliness/isolation [] Abandonment Spirituality of Patient [] Person of Zenia [] Attends Methodist of their Zenia [] Believes in Prayer [] Reads Bible or Sabianism materials [] There are Spiritual issues to be addressed 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 Interventions [x] Prayer [x] Active listening [x] Non-anxious presence [x] Spiritual/emotional support [] Crisis/trauma care [] Spiritual counseling [] Bereavement support [] Provided bereavement packet [] Provided Bible/devotional materials [] Provided toy/stuffed animal, coloring book to patient or family member [] Provided Communion [] Anointing/[place] [] Salvation [x] Completed spiritual assessment [] Other: Impact on Illness or Injury [] Angry [] Fearful [] Anxious [] Often cries [] Exhaustion [] Unable to work [] Unable to attend pentecostalism [] Unable to walk/stand [] Unable to read [] Unable to drive [] Unable to eat/drink [] Unable to sleep [] Unable to be with family [] Patient intubated [] Other: Summary Patient preparing to go home. Patient questioned what causes dizziness. Patient alert, good conversation, and seems very social Time spent with patient 10 min
[2020-05-19] MEDS: levothyroxine 150 mcg Tablet PO (10:34)
[2020-05-19] MEDS: escitalopram 10 mg Tablet PO (10:34)
[2020-05-19] MEDS: amlodipine 10 mg Tablet PO (10:34)
[2020-05-19] MEDS: cyanocobalamin 1,000 mcg Tablet 1000 MCG PO (10:35)
[2020-05-19] MEDS: terazosin 5 mg Capsule PO (10:35)
[2020-05-19] MEDS: folic acid 1 mg Tablet PO (10:35)
[2020-05-19] MEDS: losartan 50 mg Tablet 25 MG PO (10:35)
[2020-05-19] MEDS: haloperidol inj 5 mg/mL INJ 1 mL IM (10:37)
--- NOTE | 2020-05-19 12:18 | PM.PSYCN ---
Providers/Reason for Consult Consulting Physican/Specialty*: Toni Tavera M.D. psychiatry. Reason for Consult*: Evaluation for safety to return to long term. Attending Physician: Bryson Young MD Primary Care Provider: Mauricio Hull MD Psych Consult HPI History of Present Illness Carlos Leyva is a 84 year old male Carlos presented to the emergency room with the following report: Chief Complaint: Altered Mental Status Stated Complaint: AMS Time Seen by Provider: 05/19/20 01:02 Source: patient and EMS Mode of arrival: EMS Limitations: altered mental status History of Present Illness: HPI narrative: Carlos is a pleasant 84-year-old male who comes in via EMS for confusion. Patient's history through today is difficult to accurately determine but to the best of my ability to get a history it appears as though the patient walked away from [facility] earlier today to a local [employer] gas station. [employer] gasoline truck operator was concerned about the gentleman and called EMS. At that time EMS reports the patient was alert and oriented x3 and declined transport to the hospital for evaluation. Apparently the patient had been there for several hours since and someone from [place] came to talk with him and at some point the patient apparently has signed out AGAINST MEDICAL ADVICE from their institution. As it was time for the gas station to close and Carlos was still there the police were called who then called EMS and found the patient to be confused this time. He was oriented to self only and not to date or time or reason for being at the gas station. Here the patient states that he knows [facility] is the president but is unaware of month or year or the facility he is currently in. He complains of a headache and appears to be somewhat chilled. The patient has a GCS of 13 taking 1 point off for having to open his eyes to voice and being confused. Patient does follow commands and is cooperative. When asked further about his headache the patient states that his dementia causes his headaches. He was admitted to the medical-surgical unit for definitive treatment of those issues. Additionally, a psychiatric consult was requested secondary to concerns of his inability to make informed consent. On the unit, he was very apathetic. There was nothing that he was asked about that he really answered directly or had a clear informed answer in response. Ultimately, he reports that he is having some memory issues and, according to him, ?I probably should not be making my own decisions sometimes.? That being said, he had no explanation for the incidents that have been chronicled by people raising concerns, namely; him being found at [facility], he ultimately said he is allowed to go wherever he wants to go; him wandering on [address] without any clear location in mind or understanding of why he was there, which he also had no explanation for. Ultimately, we discussed his medical condition, which he could not give any clear demonstration of an understanding of his medical or mental health presentation. He could not discuss, in any way, shape or form, the options that are in front of him. At one point, he said he would go back to the long term, but then said he would go with his relatives. When I brought up the fact that his relatives had concerns about him coming with out there being a clear ability for them to manage him given his lack of ability to stick with a decision, he more or less, nonchalantly said ?oh well.? Ultimately, although he could not give any answer as to where he was going or where he would go, he identified that he was going to leave. A 96-hour hold was initiated, and he was advised that he needed to stay. He denies any history of mental health or addiction treatment or history, although we know that the addiction piece is not completely accurate. He only gave historical data of not having children, and having a that after they were about three years. 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 He denies service or any mormonism belief system, and was not interested in talking about a lot of other historical data. Meds Current Medications: Current Medications Generic Name Dose Route Start Last Admin Trade Name Freq PRN Reason Stop Dose Admin Amlodipine Besylat e 10 mg 05/19/20 09:00 05/19/20 10:34 Norvasc PO 10 mg DAILY KRISTYN Administration Cyanocobalamin 1,000 mcg 05/19/20 09:00 05/19/20 10:35 Vitamin B-12 PO 1,000 mcg DAILY KRISTYN Administration Escitalopram Oxala te 10 mg 05/19/20 09:00 05/19/20 10:34 Lexapro PO 10 mg DAILY KRISTYN Administration Fluticasone Propio carrie 2 spray 05/19/20 09:00 05/19/20 10:45 Flonase INTRANASAL Not Given DAILY KRISTYN Folic Acid 1 mg 05/19/20 09:00 05/19/20 10:35 Folic Acid PO 1 mg DAILY KRISTYN Administration Levothyroxine Sodi um 150 mcg 05/19/20 09:00 05/19/20 10:34 Synthroid PO 150 mcg DAILY KRISTYN Administration Losartan Potassium 25 mg 05/19/20 09:00 05/19/20 10:35 Cozaar PO 25 mg DAILY KRISTYN Administration Ofloxacin 1 drop 05/19/20 09:00 05/19/20 10:38 Floxin Ophthalmi c EYE-LEFT Not Given QID KRISTYN Terazosin HCl 5 mg 05/19/20 09:00 05/19/20 10:35 Hytrin PO 5 mg DAILY KRISTYN Administration PFSH NPU PFSH: Medical History (Updated 05/19/20 @ 03:55 by Malvin Barraza MD) Acute GI bleeding Blindness CVA (cerebral vascular accident) Dementia Hepatitis C virus infection cured after antiviral drug therapy History of arteriovenous malformation (AVM) History of Helicobacter pylori infection History of hepatitis B Hx of colonic polyps Hypertension Hypotension Hypothyroidism Severe aortic stenosis Surgical History H/O hernia repair History of colonoscopy 08/12/2019 Colonoscopy with removal of lesion by snare Descending colon: 1.5 cm pedunculated polyp removed with a hot snare Sigmoid colon: Moderate diverticulosis Rectum:: Normal ROGER: Grade 4 hemorrhoids History of esophagogastroduodenoscopy (EGD) 08/12/2019: EGD with control of bleeding using hot biopsy forceps Duodenal AVM Family History Other CAD (coronary artery disease) Denies family history of Cancer Social History Smoking and tobacco status: current every day smoker Alcohol intake: never Caregiver/support person: No Lives independently: Yes Housing: Other Details: Lives in a hotel Marital status: Single Mental Status Exam MSE Comments: This is an obese, elderly, white male, with adequate dress and grooming, and limited eye contact. No abnormal movements, except for psychomotor retardation. Cooperative with exam, at times, other times not cooperative, in mild distress when told he was not leaving. Speech was decreased rate and volume. Mood described as fine; affect irritable at times. Thought process, mostly organized. Thought content: patient denied any suicidal or homicidal ideation, there were no delusions reported or noted, he denied any auditory or visual hallucinations. Attention and concentration were limited, and memory was limited in reliability with significant holes, but none were formally tested. He is alert and oriented times person and place. Insight and judgment are impaired. Impulse control is impaired. Vitals/I&O/Wt Last Vital Signs Temp 97.5 F L 05/19/20 12:00 Pulse 84 05/19/20 12:00 Resp 16 05/19/20 12:00 BP 107/63 05/19/20 12:00 Pulse Ox 98 05/19/20 12:00 05/18/20 05/19/20 05/19/20 22:59 06:59 14:59 Intake Total 100 / 100 Output Total 0 / 0 Balance 0 / 0 100 / 100 Weight last 48 hrs Weight 102.058 kg Data NPU Micro: Micro: Microbiology 05/19/20 03:40 Blood Culture - Pr eliminary Blood SPECIMEN [facility] LORE 05/19/20 01:42 Blood Culture - Pr eliminary Blood SPECIMEN [facility] Microbiology 05/19/20 03:40 Blood Blood Culture - Preliminary SPECIMEN COLLECTED 05/19/20 01:42 Blood Blood Culture - Preliminary SPECIMEN COLLECTED A&P Assessment and plan (1) Dementia: Status: Acute (2) Altered mental status: Status: Acute Qualifiers: Altered mental status type: unspecified Qualified Code(s): R41.82 - Altered mental status, unspecified (3) Acute dehydration: Status: Acute (4) Acute UTI: Status: Acute (5) Gastritis: Status: Acute (6) Anemia: Status: Chronic (7) Chronic back pain: Status: Acute Additional A&P Information This is an 84 year old, white male, with dementia who presents desiring to leave but unable to make informed consent. Continue current medication. Would use Haldol and/or Zyprexa to assist in managing any outbursts. Agree with one to one observation. Patient is unable to even have a functional conversation about the four tenets of capacity. He lacks capacity to make informed consent and has never really been worked up for his dementia, that I am aware of. He would not be safe to return to the long term, given their inability to prevent him from leaving, since he is his own guardian. Would recommend pursuing guardianship. Would agree with a Yin-psychiatric evaluation, in an inpatient setting, for a robust and full evaluation of his needs. Attestations NPU Medical Necessity Statement*: Please refer to the primary team?s note for medical necessity. However, he would benefit from inpatient Yin-psychiatric treatment. Coding Level of Care Code Acute Hospital Admitting Clerk for [facility] Fwd Diagnoses Dementia F03.90 Altered mental status R41.82 Altered mental status type: unspecified Acute dehydration E86.0 Acute UTI N39.0 Gastritis K29.70 Anemia D64.9 Chronic back pain M54.9; G89.29
--- NOTE | 2020-05-19 15:04 | PC.RESP ---
SMOKING CESSATION INFORMATION SENT TO PATIENT.
[2020-05-19] MEDS: atorvastatin 40 mg Tablet PO (20:42)
--- NOTE | 2020-05-19 23:00 | PC.NURSE ---
Patients drain bag weighed estimated 2300 ml.
[2020-05-20] VITALS (10 sets, daily range): BP systolic 97–145; BP diastolic 55–70; PULSE 68–81; RESP 14–18; TEMP 36.5–37.3; O2SAT 93–98
[2020-05-20] MEDS: cefTRIAXone 1,000 MG in sodium chloride 0.9% (plus) 50 ML 100 MG IV (03:05)
[2020-05-20 03:55] LABS: Basophils % 0.3 %; Eosinophils # 0.1 10^3/uL (0.0-0.8); Eosinophils % 1.8 %; Hematocrit 28.5 % (42.0-52.0); Hemoglobin 8.3 g/dL (11.7-16.6); Lymphocytes % 12.7 %; Mean Corpuscular HGB Conc 29.1 g/dL (30.0-36.0); Mean Corpuscular Hemoglobin 24.6 pg (28.0-34.0); Mean Corpuscular Volume 84.3 fL (80-94); Mean Platelet Volume 10.7 fL (7.4-10.4); Monocytes # 0.6 10^3/uL (0.2-0.9); Monocytes % 7.9 %; Neutrophils # 5.77 10^3/uL (1.8-7.7); Neutrophils % 75.9 %; Nucleated Red Blood Cells % 0 %; Platelet Count 219 10^3/cmm (130-400); Red Blood Count 3.38 10^6/uL (4.1-5.3); Red Cell Distribution Width 16.1 % (12.1-15.1); White Blood Count 7.6 10^3/uL (4.0-10.0)
[2020-05-20 04:20] LABS: Alanine Aminotransferase 15 U/L (0-41); Albumin Level 3.3 g/dL (3.5-5.2); Alkaline Phosphatase 66 IU/L (40-130); Anion Gap 11.9 (5-19); Aspartate Amino Transferase 11 U/L (0-40); Blood Urea Nitrogen 21 mg/dL (8-23); Calcium 8.4 mg/dL (8.5-10.5); Carbon Dioxide 26 mmol/L (22-29); Chloride 106 mmol/L (98-107); Globulin 2.4 g/dL (1.3-4.6); Glucose 83 mg/dL (65-115); Magnesium 2.3 mg/dL (1.7-2.3); Osmolality Calculated 292 mOsm/kg (285-295); Phosphorus 3.7 mg/dL (2.5-4.5); Potassium 3.9 mmol/L (3.5-5.1); Sodium 140 mmol/L (136-145); Total Bilirubin 0.6 mg/dL (0.15-1.2); Total Protein 5.7 g/dL (6.6-8.7)
--- NOTE | 2020-05-20 05:42 | PC.NURSE ---
Patient has been cooperative and has mainly slept through the night. The patient woke up around 0300 and has slowly become more agitated. The PSA is able to redirect the patient back towards bed. It is unknown how long the patient's IV will last, due to the patient continually messing with it.
--- NOTE | 2020-05-20 07:51 | P.PN_ITS ---
Subjective Subjective: Interval history: Carlos reports he is doing okay this morning. Yesterday he was quite agitated. Security had to be called. He received an antipsychotic IM with improvement. Short-term memory is extremely affected. I also had discussion with him about his aortic stenosis and he reports he does not recall anything about it. He has been notified of this on several hospital stays. Medications: Reviewed: Yes Vitals/I&O/Wt Last Vital Signs Temp 97.9 F 05/20/20 04:00 Pulse 74 05/20/20 04:00 Resp 18 05/20/20 04:00 BP 125/69 05/20/20 04:00 Pulse Ox 96 05/20/20 04:00 05/19/20 05/20/20 05/20/20 22:59 06:59 14:59 Intake Total 240 / 340 Balance 240 / 340 Weight last 48 hrs Weight 102.058 kg Physical Exam Narrative: EXAM NARRATIVE: General exam no apparent distress Cardiovascular regular rate and rhythm with a 3/6 systolic murmur Lungs clear Abdomen is soft with positive bowel sounds Extremities no cyanosis clubbing or edema Data : 05/20/20 03:43 05/20/20 03:43 Micro: Microbiology 05/19/20 03:40 Blood Culture - Preliminary Blood NEGATIVE TO DATE 05/19/20 01:42 Blood Culture - Preliminary Blood NEGATIVE TO DATE A&P Assessment and plan (1) Altered mental status: Discussed with nursing facility. His short-term memory is extremely poor. He often leaves AGAINST MEDICAL ADVICE. Family can no longer take care of him. Nursing facility has been prompting guardianship proceedings from family but at this point nobody is acted on this. He gets quite agitated at the [facility] at times. Agitation was present yesterday, requiring antipsychotic IM. 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 He may have a mild UTI but this does not explain his long-term behaviors. Rapid COVID negative CT head negative Chest x-ray negative Status: Acute Qualifiers: Altered mental status type: unspecified Qualified Code(s): R41.82 - Altered mental status, unspecified (2) Acute UTI: Change Rocephin to cefdinir Await urine culture Status: Acute (3) Acute dehydration: Resolved Status: Acute (4) Anemia: Hemoglobin stable. Previous history of AVM bleeding/GI bleeding Status: Chronic (5) Severe aortic stenosis: Will need outpatient cardiology follow-up. At this point he is not kept f ollow-up appointments. Status: Inactive (6) Dementia: Significant dementia with behaviors Awaiting psychiatry consultation May need geriatric psychiatry facility placement. Status: Acute Additional A&P Information Possible renal mass. Consider CT protocol for renal mass as outpatient, though at this point with his dementia with behaviors I do not believe he is a candidate for any surgical procedure. Full code SCDs for DVT prophylaxis. Avoid anticoagulation secondary to recent history of GI bleeding Attestations Medical Necessity Statement*: Needs continued hospital stay awaiting placement for dementia with behaviors. Coding Level of Care Code Acute Chief Load Dispatcher for Beau Fwcinthia Diagnoses Altered mental status R41.82 Altered mental status type: unspecified Acute UTI N39.0 Acute dehydration E86.0 Anemia D64.9 Severe aortic stenosis I35.0 Dementia F03.90
[2020-05-20] MEDS: folic acid 1 mg Tablet PO (08:15)
[2020-05-20] MEDS: ferrous sulfate EC 325 mg Tablet PO ×2 (08:15→17:32)
[2020-05-20] MEDS: cyanocobalamin 1,000 mcg Tablet 1000 MCG PO (08:16)
[2020-05-20] MEDS: losartan 50 mg Tablet 25 MG PO (08:16)
[2020-05-20] MEDS: cefdinir 300 MG CAPSULE PO ×2 (08:16→17:32)
[2020-05-20] MEDS: amlodipine 10 mg Tablet PO (08:16)
[2020-05-20] MEDS: escitalopram 10 mg Tablet PO (08:16)
[2020-05-20] MEDS: terazosin 5 mg Capsule PO (08:16)
[2020-05-20] MEDS: levothyroxine 150 mcg Tablet PO (08:16)
[2020-05-20] MEDS: fluticasone nasal spray 16gm Btl 2 SPRAY INTRANASAL (08:16)
[2020-05-20] MEDS: ofloxacin 0.3% Op Soln 5 mL Btl 1 DROP EYE-LEFT ×3 (08:17→17:32)
--- NOTE | 2020-05-20 09:11 | PC.CHAP ---
Pastoral Care Encounter/Spiritual Assessment Type of Contact [] Declined prune washer visit [] Patient/Family/Request visit [] Outpatient visit [] Follow-up visit [] Physician referral [] Code/Alert [] Routine visit [] Staff referral [] Actively dying [] Patient sleeping [] Family support [] [] Out of room [] Palliative care [] [] Receiving care in room [] Pre-surgical visit [] Trauma [] Long length of stay [] ICU visit [] Other: Relational/Emotional Strength [x] Patient feels connected with others/family/visitors/staff [] Distress [] Loneliness/isolation [] Abandonment Spirituality of Patient [x] Person of Zenia [] Attends Hoahaoism of their Zenia [] Believes in Prayer [] Reads Bible or Lutheran materials [] There are Spiritual issues to be addressed [employer] History Teacher Interventions [x] Prayer [] Active listening [] Non-anxious presence [] Spiritual/emotional support [] Crisis/trauma care [] Spiritual counseling [] Bereavement support [] Provided bereavement packet [] Provided Bible/devotional materials [] Provided toy/stuffed animal, coloring book to patient or family member [] Provided Communion [] Anointing/[place] [] Salvation [x] Completed spiritual assessment [] Other: Impact on Illness or Injury [] Angry [] Fearful [] Anxious [] Often cries [] Exhaustion [] Unable to work [] Unable to attend oriental orthodox [] Unable to walk/stand [] Unable to read [] Unable to drive [] Unable to eat/drink [] Unable to sleep [] Unable to be with family [] Patient intubated [] Other: Summary feeling better wants to go home Time spent with patient
--- NOTE | 2020-05-20 18:13 | PM.TDS ---
Transfer Summary Providers Date of Admission: 05/20/20 09:21 Date of Discharge: 05/20/20 Attending Provider at Admission: Malvin Barraza MD Attending Provider at Transfer: Bryson Young MD Primary Care Provider: Mauricio Hull MD Anticipated Date of Transfer: Anticipated date of transfer: 05/20/20 Receiving Facility & Provider: Receiving Provider: [] Receiving facility: [] Diagnoses at Discharge Discharge Diagnosis (1) Dementia: Status: Acute Problem details: Dementia with behaviors needing geriatric psychiatry evaluation. (2) Altered mental status: Status: Acute Qualifiers: Altered mental status type: unspecified Qualified Code(s): R41.82 - Altered mental status, unspecified (3) Acute dehydration: Status: Acute Problem details: Resolved (4) Acute UTI: Status: Acute Problem details: Urine culture contaminants, superficial raciel on preliminary (5) Gastritis: Status: Acute (6) Anemia: Status: Chronic Problem details: Stable, may be related to aortic stenosis (7) Chronic back pain: Status: Acute Reason for Visit Reason for Visit: AMS Hospital Course Hospital Course: Carlos is an 84-year-old white male who presented to the hospital with confusion. He has a longstanding history of dementia, with behaviors and there is been great concern for his safety at the nursing facility with him frequently signing out AMA, crossing the road, and not understanding the dangers that can occur with this. He signed out AGAINST MEDICAL ADVICE day of hospital admission. He was found at [facility], after closing without any plan for safety. He was brought into the emergency department, and admitted. Questionable UTI was present on admission. Initial lab work demonstrated anemia with a hemoglobin of 9.2, a creatinine of 1.4, a negative rapid COVID, and an equivocal urine for infection. CT head and chest x-ray negative. CT abdomen and pelvis indeterminate left renal mass, small. While in the hospital he had significant agitation, significant impairment in his short-term memory. He did not seem to understand any implications of safety. Psychiatry evaluated him and concurred with this. He was placed in on a 96-hour hold while in the hospital secondary to concern of the patient's safety. Psychiatry to believe the geriatric psychiatry evaluation in an inpatient setting would be the best option to improve behaviors, pursue guardianship. From a medical standpoint, his dehydration resolved with hydration with IV fluids and he was able to take solids and liquids well by mouth. TSH was checked and normal. Past medical history of severe aortic stenosis was noted but at this point secondary to dementia he is not a candidate for valve replacement nor would he be a candidate for further evaluation of his renal mass currently. I spoke with Dr. Cruz regarding the patient's psychiatric needs, and he was accepted to [facility] the evening of May 20. Physical Exam Narrative: EXAM NARRATIVE: General exam is no apparent distress Cardiovascular regular rate and rhythm with a 3/6 systolic murmur Lungs clear Abdomen is soft, positive bowel sounds Extremities no cyanosis clubbing or edema TS Data Data Completed and Pending: Completed Studies During Hospitalization Category Date Time Status CT abdomen pelvis w con* [id number] Stat Cat Scan 05/19/20 01:[address] head wo con* [id number] Stat Cat Scan 05/19/20 01:13 Completed XR chest 1V danial ble [id number] Stat Exams 05/19/20 01:13 Completed Pending at discharge Category Date Time Status Blood Culture Sta t Lab 05/19/20 03:40 Results Urine Culture Sta t Lab 05/19/20 02:14 Results Labs from last 24 hours 05/20/20 05/20/20 03:43 03:43 WBC 7.6 RBC 3.38 L Hgb 8.3 L Hct 28.5 L MCV 84.3 MCH 24.6 L MCHC 29.1 L RDW 16.1 H Plt Count 219 MPV 10.7 H Neut % (Auto) 75.9 Lymph % (Auto) 12.7 [place] % (Auto) 7.9 Eos % (Auto) 1.8 Baso % (Auto) 0.3 Neut # (Auto) 5.77 Lymph # (Auto) 1.0 [place] # (Auto) 0.6 Eos # (Auto) 0.1 Baso # (Auto) 0.0 Nucleated RBC % (a uto) 0 Nucleated RBCs # 0.0 Sodium 140 Potassium 3.9 Chloride 106 Carbon Dioxide 26 Anion Gap 11.9 BUN 21 Creatinine 0.8 GFR Calculation Not Reportable Glucose 83 Calculated Osmolal ity 292 Calcium 8.4 L Phosphorus 3.7 Magnesium 2.3 Total Bilirubin 0.6 AST 11 ALT 15 Alkaline Phosphata se 66 Total Protein 5.7 L Albumin 3.3 L Globulin 2.4 Vitals: Last Vital Signs Temp 98.6 F 05/20/20 16:00 Pulse 76 05/20/20 16:00 Resp 18 05/20/20 16:00 BP 104/68 05/20/20 16:00 Pulse Ox 94 05/20/20 16:00 TS Medications Medications Home Medications acetaminophen [Tylenol] 650 mg PO Q6H PRN 10/13/19 [History Confirmed 04/27/20] amlodipine 10 mg PO DAILY 10/13/19 [History Confirmed 04/27/20] folic acid 1 mg PO DAILY 10/13/19 [History Confirmed 04/27/20] cyanocobalamin (vitamin B-12) [Vitamin B-12] 1,000 mcg PO DAILY 02/28/20 [History Confirmed 04/27/20] escitalopram oxalate [Lexapro] 10 mg PO DAILY 02/28/20 [History Confirmed 04/27/20] Preparation H(pe,cb) 1 supp NV QID PRN 03/26/20 [History Confirmed 04/27/20] albuterol sulfate 2.5 mg INHALATION QID 03/26/20 [History Confirmed 04/27/20] alprazolam [Xanax] 0.25 mg PO DAILY PRN 03/26/20 [History Confirmed 04/27/20] atorvastatin 40 mg PO BEDTIME 03/26/20 [History Confirmed 04/27/20] bisacodyl 10 mg NV DAILY PRN 03/26/20 [History Confirmed 04/27/20] fluticasone propionate [Flonase Allergy Relief] 2 spray INTRANASAL DAILY 03/26/20 [History Confirmed 04/27/20] losartan 25 mg PO DAILY 03/26/20 [History Confirmed 04/27/20] magnesium hydroxide [Milk of Magnesia] 30 ml PO DAILY PRN 03/26/20 [History Confirmed 04/27/20] ondansetron HCl [Zofran] 4 mg PO Q6H PRN 03/26/20 [History Confirmed 04/27/20] terazosin 5 mg PO DAILY 03/26/20 [History Confirmed 04/27/20] levothyroxine 150 mcg PO DAILY #30 tab 03/27/20 [Rx Confirmed 04/27/20] pantoprazole [Protonix] 40 mg PO BID #0 tab 03/27/20 [Rx Confirmed 04/27/20] sennosides-docusate sodium [Senna with Docusate Sodium] 1 tab-cap PO BID #60 tab 03/27/20 [Rx Confirmed 04/27/20] ketorolac See Rx Instructions .ROUTE .COMPLEX 04/27/20 [History Confirmed 04/27/20] ofloxacin See Rx Instructions .ROUTE .COMPLEX 04/27/20 [History Confirmed 04/27/20] prednisone 30 mg PO DAILY 04/27/20 [History Confirmed 04/27/20] Active Medications Acetaminophen (Tylenol) 650 mg PO Q6H PRN PRN Reason: Mild/Mod Pain Or Temp >/= 101 Albuterol Sulfate (Albuterol) 2.5 mg INHALATION Q6H.RESPIRATORY PRN PRN Reason: SHORTNESS OF BREATH Amlodipine Besylate (Norvasc) 10 mg PO DAILY [facility] Last Admin: 05/20/20 08:16 Dose: 10 mg Documented by: Atorvastatin Calcium (Lipitor) 40 mg PO BEDTIME [facility] Last Admin: 05/19/20 20:42 Dose: 40 mg Documented by: Cefdinir (Omnicef) 300 mg PO BID [facility]; Protocol Last Admin: 05/20/20 17:32 Dose: 300 mg Documented by: Cyanocobalamin (Vitamin B-12) 1,000 mcg PO DAILY [facility] Last Admin: 05/20/20 08:16 Dose: 1,000 mcg Documented by: Escitalopram Oxalate (Lexapro) 10 mg PO DAILY [facility] Last Admin: 05/20/20 08:16 Dose: 10 mg Documented by: Ferrous Sulfate (Ferrous Sulfate) 325 mg PO BIDWM [facility] Last Admin: 05/20/20 17:32 Dose: 325 mg Documented by: Fluticasone Propionate (Flonase) 2 spray INTRANASAL DAILY [facility] Last Admin: 05/20/20 08:16 Dose: 2 spray Documented by: Folic Acid (Folic Acid) 1 mg PO DAILY [facility] Last Admin: 05/20/20 08:15 Dose: 1 mg Documented by: Levothyroxine Sodium (Synthroid) 150 mcg PO DAILY [facility] Last Admin: 05/20/20 08:16 Dose: 150 mcg Documented by: Losartan Potassium (Cozaar) 25 mg PO DAILY [facility] Last Admin: 05/20/20 08:16 Dose: 25 mg Documented by: Ofloxacin (Floxin Ophthalmic) 1 drop EYE-LEFT QID [facility] Last Admin: 05/20/20 17:32 Dose: 1 drop Documented by: Ondansetron HCl (Zofran) 4 mg IVP Q8H PRN PRN Reason: vomiting, or N/V if npo Terazosin HCl (Hytrin) 5 mg PO DAILY [facility] Last Admin: 05/20/20 08:16 Dose: 5 mg Documented by: Discharge Plan Discharge Patient Disposition: Xfer Psychiatric Hosp Condition: Stable Prescriptions: No Action acetaminophen [Tylenol] 325 mg Tablet 650 mg PO Q6H PRN (Reason: Pain) RF: 0 amlodipine 10 mg tablet 10 mg PO DAILY RF: 0 folic acid 1 mg Tablet 1 mg PO DAILY RF: 0 terazosin 5 mg Capsule 5 mg PO DAILY RF: 0 atorvastatin 40 mg Tablet 40 mg PO BEDTIME RF: 0 albuterol sulfate 2.5 mg /3 mL (0.083 %) Solution For Nebulization 2.5 mg INHALATION QID RF: 0 ondansetron HCl [Zofran] 4 mg Tablet 4 mg PO Q6H PRN (Reason: Nausea) RF: 0 alprazolam [Xanax] 0.25 mg Tablet 0.25 mg PO DAILY PRN (Reason: Anxiety) RF: 0 magnesium hydroxide [Milk of Magnesia] 400 mg/5 mL Suspension 30 ml PO DAILY PRN (Reason: Constipation) RF: 0 bisacodyl 10 mg Suppository 10 mg NV DAILY PRN (Reason: Constipation) RF: 0 losartan 25 mg Tablet 25 mg PO DAILY RF: 0 fluticasone propionate [Flonase Allergy Relief] 50 mcg/actuation [place],Suspension 2 spray INTRANASAL DAILY RF: 0 Preparation H(pe,cb) 0.25-88.44 % Suppository 1 supp NV QID PRN (Reason: Hemorrhoids) RF: 0 levothyroxine 100 mcg Tablet 150 mcg PO DAILY Qty: 30 RF: 0 pantoprazole [Protonix] 40 mg Tablet,Delayed Release (Dr/Ec) 40 mg PO BID Qty: 0 RF: 0 sennosides-docusate sodium [Senna with Docusate Sodium] 8.6-50 mg tablet 1 tab-cap PO BID Qty: 60 RF: 0 prednisone 10 mg Tablet 30 mg PO DAILY RF: 0 ofloxacin 0.3 % Drops See Rx Instructions .ROUTE .COMPLEX RF: 0 ketorolac 0.4 % Drops See Rx Instructions .ROUTE .COMPLEX RF: 0 cyanocobalamin (vitamin B-12) [Vitamin B-12] 1,000 mcg Tablet 1,000 mcg PO DAILY RF: 0 escitalopram oxalate [Lexapro] 10 mg Tablet 10 mg PO DAILY RF: 0 Discharge Orders: Transfer Out of Facility (Order); Ordered 05/20/20 Ordered By: Bryson Young Referrals: Mauricio Hull MD [Primary Care Provider] - Transfer Attestations Time Spent in Transfer Care*: greater than 30 min Status at Transfer: Cognitive status at transfer: cognitively intact, Behavioral status at transfer: cooperative, Quality Metrics Clinical Quality Measures: During this hospital stay, did patient experience: None Coding Level of Care Code Acute Coat Agent for Normang Fwd Diagnoses Dementia F03.90 Altered mental status R41.82 Altered mental status type: unspecified Acute dehydration E86.0 Acute UTI N39.0 Gastritis K29.70 Anemia D64.9 Chronic back pain M54.9; G89.29
--- NOTE | 2020-05-20 21:51 | PC.NURSE ---
Patient being transported by [facility] by stretcher to [facility] in [place], [place]. Patient's IV removed and patient transferred to stretcher. All paper work and patient belongings given to NAOMI.
--- NOTE | 2020-05-21 15:25 | PC.RESP ---
Smoking Cessation information to patient.
== END 2020-05-20 21:45 | DRG 884 ==
LOC: ER 03:32 → MEDSURG 04:15
PROVIDERS: Admitting Provider Family Medicine; Emergency Provider Emergency Medicine; PCP Family Medicine; Visit Provider Internal Medicine
DX: F03.91 Unspecified dementia, unspecified severity, with behavioral disturbance (principal); K76.7 Hepatorenal syndrome; N39.0 Urinary tract infection, site not specified; I35.0 Nonrheumatic aortic (valve) stenosis; Z86.73 Personal history of transient ischemic attack (TIA), and cerebral infarction without residual deficits; E03.9 Hypothyroidism, unspecified; E78.5 Hyperlipidemia, unspecified; H54.7 Unspecified visual loss; Z86.19 Personal history of other infectious and parasitic diseases; I10 Essential (primary) hypertension; K57.30 Diverticulosis of large intestine without perforation or abscess without bleeding; F17.210 Nicotine dependence, cigarettes, uncomplicated; E86.0 Dehydration; D50.0 Iron deficiency anemia secondary to blood loss (chronic); K29.70 Gastritis, unspecified, without bleeding; G89.29 Other chronic pain; M54.9 Dorsalgia, unspecified; N28.89 Other specified disorders of kidney and ureter
CPT/HCPCS: 12345; 36415; 36600; 70450; 71045; 74177; 80051; 80053; 80306; 80307; 81001; 82009; 82140; 82550; 82810; 83605; 83690; 83735; 83880; 83986; 84100; 84145; 84439; 84443; 84484; 85025; 85610; 87040; 87086; 87426; 93005; 94664; 96372; 97116; 97161; 97165; 99283; G0378; J0696; J1630; J7030; Q9967

== ENCOUNTER 2020-06-08 14:24 | Emergency (ER) | payer MEDICAID, SELFPAY ==
[2020-06-08 14:31] VITALS: BP 90/49; PULSE 75; RESP 16; O2SAT 96; BMI 27.1
--- NOTE | 2020-06-08 15:22 | CTR_ITS ---
PROCEDURE INFORMATION: Exam: CT Head Without Contrast Exam date and time: 06/08/2020 3:47 PM Age: 84 years old Clinical indication: Altered mental status/memory loss; Additional info: Headache TECHNIQUE: Imaging protocol: Computed tomography of the head without contrast. Radiation optimization: All CT scans at this facility use at least one of these dose optimization techniques: automated exposure control; mA and/or kV adjustment per patient size (includes targeted exams where dose is matched to clinical indication); or iterative reconstruction. COMPARISON: CT head wo con* [id number] 05/19/2020 1:49 AM RADIATION DOSE METRICS: Total DLP (mGy-cm): 763.98 FINDINGS: Brain: The ventricles and sulci are enlarged, consistent with volume loss / atrophy, with greater enlargement of right more than left frontal subarachnoid spaces. There are small appearing lacunar infarcts in region of bilateral basal ganglia There is no acute intracranial hemorrhage. There is lucency in the cerebral white matter, likely microvascular disease although non-specific. Nelson white differentiation is intact. There are no extra-axial fluid collections. No evidence of mass. There is no mass effect or midline shift. Cerebral ventricles: No hydrocephalus. Bones/joints: No acute fracture. Paranasal sinuses: There is mild mucosal thickening in bilateral ethmoid air cells and left anterior sphenoid sinus. Previously seen fluid in right maxillary sinus is no longer visualized. Mastoid air cells: No significant mastoid effusion. Orbital cavity: There is prior right cataract surgery. Vasculature: There is vascular calcification. Soft tissues: Unremarkable as visualized. CT/CT head wo con* [id number] IMPRESSION: 1. No evidence of acute intracranial abnormality. No evidence of acute infarction, hemorrhage, or mass. 2. Atrophy and microvascular disease. Radiation Dose CTDIVOL = (mGy): DLP = 763.98 (mGy-cm)
--- NOTE | 2020-06-08 15:22 | XRR_ITS ---
PROCEDURE INFORMATION: Exam: XR Chest, 1 View Exam date and time: 06/08/2020 3:36 PM Age: 84 years old Clinical indication: Shortness of breath; Additional info: Confusion TECHNIQUE: Imaging protocol: XR of the chest Views: 1 view. COMPARISON: CR XR chest 1V portable [id number] 05/19/2020 1:11 AM FINDINGS: Lungs: No consolidation. Pleural space: No significant visible pleural effusion. No pneumothorax. Heart/Mediastinum: No significant cardiomegaly. Vasculature: Aorta is calcified and unfolded. Bones/joints: There are prominent degenerative changes in shoulders. There are degenerative changes and scoliosis spine. XR/XR chest 1V portable [id number] IMPRESSION: No acute cardiopulmonary finding.
--- NOTE | 2020-06-08 15:22 | USR_ITS ---
PROCEDURE INFORMATION: Exam: US Duplex Right Lower Extremity Veins, Limited Exam date and time: 06/08/2020 3:49 PM Age: 84 years old Clinical indication: Edema, localized; Lower extremity, right; Additional info: Rle swelling and pain TECHNIQUE: Imaging protocol: Real-time Duplex ultrasound of the Right Lower Extremity with 2-D stewart scale, color Doppler flow and spectral waveform analysis with image documentation. Limited exam was focused on the right lower extremity veins. COMPARISON: No relevant prior studies available. FINDINGS: Right deep veins: Unremarkable. The common femoral, femoral, proximal profunda femoral and popliteal veins are patent without thrombus. Normal Doppler waveforms. Normal compressibility and/or augmentation response. Right superficial veins: Unremarkable. Saphenofemoral junction is patent without thrombus. Soft tissues: There is subcutaneous edema without a fluid collection. US/[place] [id number] IMPRESSION: No evidence of deep vein thrombosis.
--- NOTE | 2020-06-08 15:25 | W.ED.COVID ---
HPI - COVID General: Chief Complaint: COVID symptoms Stated Complaint: HEADACHE; COVID POS Time Seen by Provider: 06/08/20 14:41 Source: patient Mode of arrival: EMS Triage information: Has fever, cough or shortness of breath. Exposure to COVID + person last 14 days History of Present Illness: HPI Narrative: The patient is an 84-year-old gentleman who is a resident of a correction who apparently left the correction AMA today. According to the correction he is competent to make his own decisions so they let him leave AMA. He apparently went to the [facility] across from the correction then try to return back to the correction and then he was sent here for evaluation. 4 days ago he tested positive for COVID-19. The patient appears confused, and has fluctuating sensorium. His only complaint today is left-sided headache. He endorses a slight cough but no shortness of breath. MD complaint: known COVID positive Prior covid testing: yes, results known COVID 19 common symptoms: positive headache(s); negative fever(s), chills, non-productive cough, productive cough, dyspnea, body aches, throat pain, nausea or vomiting COVID Results: SARS-CoV-2 Antigen (Rapid) Negative (Negative) 05/19/20 03:40 05/19/20 Nasal/Oral Coronavirus 2019 PCR Negative 02/28/20 11:09 02/28/20 Review of Systems General: Reports: 10 or more systems reviewed and unremarkable except in HPI and below Const: Denies: fever(s), chills or body aches Eyes: Denies: change in vision or blurry vision ENMT: Denies: throat pain, enlarged tonsils, odynophagia, hoarseness, mouth pain or swelling of lips/tongue Card: Denies: palpitations, irregular heart rhythm, edema or swelling of feet/ankles Resp: Denies: dyspnea, productive cough or non-productive cough GI: Denies: abdominal pain, nausea or vomiting : Denies: flank pain, dysuria, urinary frequency, urinary urgency or urinary hesitancy Musc: Denies: neck pain, back pain or extremity swelling Skin/Breast: Denies: rash, pruritus or erythema Neuro: Reports: headache(s); Denies: numbness in extremities or weakness in extremities Endo: Denies: polyuria, polydipsia or tired all the time PFSH ED PFSH: Medical History (Reviewed 06/08/20 @ 15:30 by Elis Hill MD, [facility] Acute GI bleeding Blindness CVA (cerebral vascular accident) Dementia Gastritis Hepatitis C virus infection cured after antiviral drug therapy History of arteriovenous malformation (AVM) History of Helicobacter pylori infection History of hepatitis B Hx of colonic polyps Hypertension Hypotension Hypothyroidism Severe aortic stenosis Surgical History (Reviewed 06/08/20 @ 15:30 by Elis Hill MD, [facility] H/O hernia repair History of colonoscopy 08/12/2019 Colonoscopy with removal of lesion by snare Descending colon: 1.5 cm pedunculated polyp removed with a hot snare Sigmoid colon: Moderate diverticulosis Rectum:: Normal ROGER: Grade 4 hemorrhoids History of esophagogastroduodenoscopy (EGD) 08/12/2019: EGD with control of bleeding using hot biopsy forceps Duodenal AVM Family History (Reviewed 06/08/20 @ 15:30 by Elis Hill MD, [facility] Other CAD (coronary artery disease) Denies family history of Cancer Social History (Reviewed 06/08/20 @ 15:30 by Elis Hill MD, [facility] Smoking and tobacco status: current every day smoker Alcohol intake: never Caregiver/support person: No Lives independently: Yes Housing: Other Details: Lives in a hotel Marital status: Single Physical Exam Const: COMMON NORMALS: no acute distress, average body habitus, no limitations, healthy appearing, alert and well nourished ORIENTATION/CONSCIOUSNESS: Yes oriented to person and Yes oriented to time HENMT: COMMON NORMALS: normocephalic, atraumatic and moist oral mucous membranes HEAD & SCALP: normocephalic and atraumatic Eye: COMMON NORMALS: Equal, round and reactive pupils present, EOMs intact bilaterally, conjunctivae normal and no scleral icterus CONJUNCTIVA: Yes conjunctivae normal PUPIL: Yes Equal, round and reactive pupils present Neck/C-Spine: COMMON NORMALS: no meningeal signs and no JVD Resp: COMMON NORMALS: normal respiratory effort, No retractions, No use of accessory muscles, clear to auscultation bilaterally and percussion normal AUSCULTATION: clear to auscultation bilaterally PERCUSSION: percussion normal Cardio: COMMON NORMALS: no JVD, regular rate, regular rhythm, S1 normal heart sound present, S2 normal heart sound present, No gallops present (Cardio), No clicks present (Cardio), No murmurs present (Cardio), No rub (Cardio) and Peripheral pulses 2+ throughout RATE: regular rate RHYTHM: regular rhythm HEART SOUNDS: S1 normal heart sound present and S2 normal heart sound present PERIPHERAL PULSES: Peripheral pulses 2+ throughout GI: COMMON NORMALS: Normal to inspection, nondistended, normoactive bowel sounds present, Soft to palpation, non-tender, No hepatosplenomegaly present, no masses and no bruits PALPATION: Yes Soft to palpation and Yes No hepatosplenomegaly present Extremity: COMMON NORMALS: normal to inspection, full ROM, capillary refill normal and no pedal edema GENERAL: Yes calf tenderness (Right) and Yes edema (Right lower extremity edema and tenderness) Neuro: SENSORIUM/ORIENTATION: Yes alert, Yes oriented to person, Yes oriented to time and Yes other (He is confused, does not know where he is at. States that he lives in the correction and does not recall leaving the correction) MENINGEAL SIGNS: Yes no meningeal signs Skin: COMMON NORMALS: no rashes or lesions noted, no wounds, turgor normal, no jaundice, no petechiae and no mottling GENERAL SKIN EXAM: no rashes or lesions noted and turgor normal Course ED course: 84-year-old gentleman with dementia who is a correction resident and presented to the emergency department after he had left the correction AGAINST MEDICAL ADVICE and went to [facility] then went back to the correction. He recently tested positive for COVID-19. The patient is apparently his own decision maker in the correction even though he does not appear competent to make healthcare decisions based on my examination. In the emergency department evaluation was unremarkable other than mildly elevated lactic acid which I believe is probably secondary to dehydration. No signs of infection in this patient. As the day went on the patient appeared to and became belligerent, wanted to leave, was unwilling to wait for the ambulance. We were able to calm him down with a combination of redirection and medication. He is discharged back to the correction with no new orders. Vital Signs: Vital signs: Vital Signs Pulse Rate 75 06/08/20 14:31 Respiratory Rate 16 06/08/20 14:31 Blood Pressure 90/49 06/08/20 14:31 Pulse Oximetry 100 06/08/20 15:39 MDM - COVID MDM Narrative Medical decision making narrative: 85-year-old correction resident who presented to the emergency department with no specific concerns other than a mild headache. Recently tested positive for COVID-19 and left the correction AGAINST MEDICAL ADVICE although he eventually was discharged back to the correction. Evaluation in the emergency department was negative for acute findings. Elevated lactic acid is likely secondary to dehydration. Patient became belligerent later on in his hospital stay which I think may be delirium, sundowning, or just dementia. He is discharged back to the correction with no new orders. Medical Records Attestation: I reviewed the patient's medical records. Lab Data Attestation: I reviewed the patient's lab results. Result diagrams: 06/08/20 15:25 06/08/20 15:25 Labs: Lab Results 06/08/20 06/08/20 06/08/20 Range/Units 15:25 15:25 15:25 WBC 6.2 (4.0-10.0) 10^3/uL RBC 2.97 L (4.1-5.3) 10^6/uL Hgb 7.2 L (11.7-16.6) g/dL Hct 25.0 L (42.0-52.0) % MCV 84.2 (80-94) fL MCH 24.2 L (28.0-34.0) pg MCHC 28.8 L (30.0-36.0) g/dL RDW 18.6 H (12.1-15.1) % Plt Count 229 (130-400) 10^3/cmm MPV 11.2 H (7.4-10.4) fL Neut % (Auto) 77.0 % Lymph % (Auto) 10.2 % [place] % (Auto) 9.5 % Eos % (Auto) 1.5 % Baso % (Auto) 0.2 % Neut # (Auto) 4.78 (1.8-7.7) 10^3/uL Lymph # (Auto) 0.6 L (0.8-4.8) 10^3/uL [place] # (Auto) 0.6 (0.2-0.9) 10^3/uL Eos # (Auto) 0.1 (0.0-0.8) 10^3/uL Baso # (Auto) 0.0 (0.0-0.1) 10^3/uL Nucleated RBC % (auto) 0 % Nucleated RBCs # 0.0 /100WBC Sodium 141 (136-145) mmol/L Potassium 4.4 (3.5-5.1) mmol/L Chloride 106 (98-107) mmol/L Carbon Dioxide 24 (22-29) mmol/L Anion Gap 15.4 (5-19) BUN 21 (8-23) mg/dL Creatinine 0.9 (0.7-1.2) mg/dL GFR Calculation Not Reportable Glucose 112 (65-115) mg/dL Calculated Osmolality 296 H (285-295) mOsm/kg Lactate 2.4 H (0.5-2.2) mmol/L Calcium 8.7 (8.5-10.5) mg/dL Total Bilirubin 0.5 (0.15-1.2) mg/dL AST 21 (0-40) U/L ALT 25 (0-41) U/L Alkaline Phosphatase 64 (40-130) IU/L Creatine Kinase 25 L (39-308) U/L C-Reactive Protein 25.7 H (0.0-4.9) mg/L Total Protein 5.9 L (6.6-8.7) g/dL Albumin 3.2 L (3.5-5.2) g/dL Globulin 2.7 (1.3-4.6) g/dL Urine Color (Yellow) Urine Appearance (CLEAR) Urine pH (5-7) Ur Specific [place] (1.005-1.030) Urine Protein (Negative) Urine Glucose (UA) (Normal) Urine Ketones (Negative) Urine Blood (Negative) Urine Nitrate (Negative) Urine Bilirubin (Negative) Urine Urobilinogen (Negative) mg/dL Ur Leukocyte Esterase (Negative) 06/08/20 06/08/20 Range/Units 16:18 18:12 WBC (4.0-10.0) 10^3/uL RBC (4.1-5.3) 10^6/uL Hgb (11.7-16.6) g/dL Hct (42.0-52.0) % MCV (80-94) fL MCH (28.0-34.0) pg MCHC (30.0-36.0) g/dL RDW (12.1-15.1) % Plt Count (130-400) 10^3/cmm MPV (7.4-10.4) fL Neut % (Auto) % Lymph % (Auto) % [place] % (Auto) % Eos % (Auto) % Baso % (Auto) % Neut # (Auto) (1.8-7.7) 10^3/uL Lymph # (Auto) (0.8-4.8) 10^3/uL [place] # (Auto) (0.2-0.9) 10^3/uL Eos # (Auto) (0.0-0.8) 10^3/uL Baso # (Auto) (0.0-0.1) 10^3/uL Nucleated RBC % (auto) % Nucleated RBCs # /100WBC Sodium (136-145) mmol/L Potassium (3.5-5.1) mmol/L Chloride (98-107) mmol/L Carbon Dioxide (22-29) mmol/L Anion Gap (5-19) BUN (8-23) mg/dL Creatinine (0.7-1.2) mg/dL GFR Calculation Glucose (65-115) mg/dL Calculated Osmolality (285-295) mOsm/kg Lactate 2.8 H (0.5-2.2) mmol/L Calcium (8.5-10.5) mg/dL Total Bilirubin (0.15-1.2) mg/dL AST (0-40) U/L ALT (0-41) U/L Alkaline Phosphatase (40-130) IU/L Creatine Kinase (39-308) U/L C-Reactive Protein (0.0-4.9) mg/L Total Protein (6.6-8.7) g/dL Albumin (3.5-5.2) g/dL Globulin (1.3-4.6) g/dL Urine Color Yellow (Yellow) Urine Appearance Clear (CLEAR) Urine pH 5 (5-7) Ur Specific [place] 1.020 (1.005-1.030) Urine Protein Neg (Negative) Urine Glucose (UA) Norm (Normal) Urine Ketones Negative (Negative) Urine Blood Neg (Negative) Urine Nitrate Negative (Negative) Urine Bilirubin Neg (Negative) Urine Urobilinogen 1 H (Negative) mg/dL Ur Leukocyte Esterase Negative (Negative) COVID Results: SARS-CoV-2 Antigen (Rapid) Negative (Negative) 05/19/20 03:40 05/19/20 Nasal/Oral Coronavirus 2019 PCR Negative 02/28/20 11:09 02/28/20 Imaging Data CXR: Attestation: I personally reviewed and interpreted this imaging study as follows: Radiologist's impression: [address] [address] XRay Report Signed Patient: Carlos Leyva #: [id number] : 8Acct#:[id number] Age/Sex: 84 / MADM Date: 06/08/20 Loc: ERRoom/Bed: Attending Dr: Ordering Provider/Ordering MD: Elis Hill MD, [facility] Date of Service: 06/08/20 Procedure(s): XR chest 1V portable [id number] Accession Number(s): [id number] Report Number: [id number] PROCEDURE INFORMATION: Exam: XR Chest, 1 View Exam date and time: 06/08/2020 3:36 PM Age: 84 years old Clinical indication: Shortness of breath; Additional info: Confusion TECHNIQUE: Imaging protocol: XR of the chest Views: 1 view. COMPARISON: CR XR chest 1V portable [id number] 05/19/2020 1:11 AM FINDINGS: Lungs: No consolidation. Pleural space: No significant visible pleural effusion. No pneumothorax. Heart/Mediastinum: No significant cardiomegaly. Vasculature: Aorta is calcified and unfolded. Bones/joints: There are prominent degenerative changes in shoulders. There are degenerative changes and scoliosis spine. XR/XR chest 1V portable [id number] IMPRESSION: No acute cardiopulmonary finding. Dictated By:Nila Crocker MD Signed By:Nila Crocker MDSigned Date/Time:06/08/201611 DD/ 161 CT Head: Attestation: I personally reviewed and interpreted this imaging study as follows: Radiologist's impression: [address] [address] [address] Scan Report Signed Patient: Carlos Leyva #: [id number] : 8Acct#:[id number] Age/Sex: 84 / MADM Date: 06/08/20 Loc: ERRoom/Bed: Attending Dr: Ordering Provider/Ordering MD: Elis Hill MD, [facility] Date of Service: 06/08/20 Procedure(s): CT head wo con* [id number] Accession Number(s): [id number] Report Number: [id number] PROCEDURE INFORMATION: Exam: CT Head Without Contrast Exam date and time: 06/08/2020 3:47 PM Age: 84 years old Clinical indication: Altered mental status/memory loss; Additional info: Headache TECHNIQUE: Imaging protocol: Computed tomography of the head without contrast. Radiation optimization: All CT scans at this facility use at least one of these dose optimization techniques: automated exposure control; mA and/or kV adjustment per patient size (includes targeted exams where dose is matched to clinical indication); or iterative reconstruction. COMPARISON: CT head wo con* [id number] 05/19/2020 1:49 AM RADIATION DOSE METRICS: Total DLP (mGy-cm): 763.98 FINDINGS: Brain: The ventricles and sulci are enlarged, consistent with volume loss / atrophy, with greater enlargement of right more than left frontal subarachnoid spaces. There are small appearing lacunar infarcts in region of bilateral basal ganglia There is no acute intracranial hemorrhage. There is lucency in the cerebral white matter, likely microvascular disease although non-specific. Nelson white differentiation is intact. There are no extra-axial fluid collections. No evidence of mass. There is no mass effect or midline shift. Cerebral ventricles: No hydrocephalus. Bones/joints: No acute fracture. Paranasal sinuses: There is mild mucosal thickening in bilateral ethmoid air cells and left anterior sphenoid sinus. Previously seen fluid in right maxillary sinus is no longer visualized. Mastoid air cells: No significant mastoid effusion. Orbital cavity: There is prior right cataract surgery. Vasculature: There is vascular calcification. Soft tissues: Unremarkable as visualized. CT/CT head wo con* [id number] IMPRESSION: 1. No evidence of acute intracranial abnormality. No evidence of acute infarction, hemorrhage, or mass. 2. Atrophy and microvascular disease. Radiation Dose CTDIVOL = (mGy): DLP = 763.98 (mGy-cm) Dictated By:Nila Crocker MD Signed By:Nila Crocker MDSigned Date/Time:06/08/20 161 DD/ 161 US: Attestation: I personally reviewed and interpreted this imaging study as follows: Radiologist's impression: [address] [address] Ultrasound Report Signed Patient: Carlos Leyva #: [id number] : 8Acct#:[id number] Age/Sex: 84 / MADM Date: 06/08/20 Loc: ERRoom/Bed: Attending Dr: Ordering Provider/Ordering MD: Elis Hill MD, [facility] Date of Service: 06/08/20 Procedure(s): [place] [id number] Accession Number(s): [id number] Report Number: [id number] PROCEDURE INFORMATION: Exam: US Duplex Right Lower Extremity Veins, Limited Exam date and time: 06/08/2020 3:49 PM Age: 84 years old Clinical indication: Edema, localized; Lower extremity, right; Additional info: Rle swelling and pain TECHNIQUE: Imaging protocol: Real-time Duplex ultrasound of the Right Lower Extremity with 2-D nelson scale, color Doppler flow and spectral waveform analysis with image documentation. Limited exam was focused on the right lower extremity veins. COMPARISON: No relevant prior studies available. FINDINGS: Right deep veins: Unremarkable. The common femoral, femoral, proximal profunda femoral and popliteal veins are patent without thrombus. Normal Doppler waveforms. Normal compressibility and/or augmentation response. Right superficial veins: Unremarkable. Saphenofemoral junction is patent without thrombus. Soft tissues: There is subcutaneous edema without a fluid [place]. US/[place] [id number] IMPRESSION: No evidence of deep vein thrombosis. Dictated By:Oxana Sparks Signed By:Shahana Sparks Date/Time:06/08/20 165 DD/ 1649 Discharge Plan Discharge Patient Disposition: Home Clinical Impression: Delirium, Acute dehydration Condition: Stable Prescriptions: Continued acetaminophen [Tylenol] 325 mg Tablet 650 mg PO Q6H PRN (Reason: Pain) RF: 0 amlodipine 10 mg tablet 10 mg PO DAILY RF: 0 folic acid 1 mg Tablet 1 mg PO DAILY RF: 0 terazosin 5 mg Capsule 5 mg PO DAILY RF: 0 atorvastatin 40 mg Tablet 40 mg PO BEDTIME RF: 0 ondansetron HCl [Zofran] 4 mg Tablet 4 mg PO Q6H PRN (Reason: Nausea) RF: 0 alprazolam [Xanax] 0.25 mg Tablet 0.25 mg PO Q8H PRN (Reason: Anxiety) RF: 0 magnesium hydroxide [Milk of Magnesia] 400 mg/5 mL Suspension 30 ml PO DAILY PRN (Reason: Constipation) RF: 0 losartan 25 mg Tablet 25 mg PO DAILY RF: 0 levothyroxine 100 mcg Tablet 150 mcg PO DAILY Qty: 30 RF: 0 pantoprazole [Protonix] 40 mg Tablet,Delayed Release (Dr/Ec) 40 mg PO BID Qty: 0 RF: 0 prednisone 10 mg Tablet 5 mg PO DAILY RF: 0 ketorolac 0.4 % Drops See Rx Instructions .ROUTE .COMPLEX RF: 0 cyanocobalamin (vitamin B-12) [Vitamin B-12] 1,000 mcg Tablet 1,000 mcg PO DAILY RF: 0 escitalopram oxalate [Lexapro] 10 mg Tablet 10 mg PO DAILY RF: 0 Miralax 17 gram Powder In Packet 17 g PO DAILY PRN (Reason: Constipation) RF: 0 olanzapine 5 mg Tablet 5 mg PO BID RF: 0 guaifenesin 100 mg/5 mL Liquid 100 mg PO Q4H PRN (Reason: UNKNOWN) RF: 0 ferrous sulfate 325 mg (65 mg iron) Tablet 325 mg PO DAILY RF: 0 albuterol sulfate 90 mcg/actuation Hfa Aerosol Inhaler 2 puff INHALATION Q6H PRN (Reason: Shortness Of Breath) RF: 0 Senna with Docusate Sodium 8.6-50 mg tablet 1 tab-cap PO BID PRN (Reason: Constipation) RF: 0 Discharge Orders: Discharge Order (Routine); Ordered 06/08/20 Ordered By: Elis Hill Referrals: Mauricio Hull MD [Primary Care Provider] - 1-3 days Discharge Diet: Usual diet Discharge Activity: Increase activity as tolerated Patient Instructions: Acute Delirium (ED) Activity Restrictions/Additional Instructions: Follow-up with your primary care provider within 3 days. Return for any new or worsening symptoms. Continue home medications. Discharge Date/Time: 06/08/20 22:03 Coding Level of Care Code ED Imaging Technologist for [facility] Fwd Exam Comprehensive
[2020-06-08 15:39] VITALS: O2SAT 100
[2020-06-08 15:43] LABS: Basophils % 0.2 %; Eosinophils # 0.1 10^3/uL (0.0-0.8); Eosinophils % 1.5 %; Hemoglobin 7.2 g/dL (11.7-16.6); Lymphocytes # 0.6 10^3/uL (0.8-4.8); Lymphocytes % 10.2 %; Mean Corpuscular HGB Conc 28.8 g/dL (30.0-36.0); Mean Corpuscular Hemoglobin 24.2 pg (28.0-34.0); Mean Corpuscular Volume 84.2 fL (80-94); Mean Platelet Volume 11.2 fL (7.4-10.4); Monocytes # 0.6 10^3/uL (0.2-0.9); Monocytes % 9.5 %; Neutrophils # 4.78 10^3/uL (1.8-7.7); Nucleated Red Blood Cells % 0 %; Platelet Count 229 10^3/cmm (130-400); Red Blood Count 2.97 10^6/uL (4.1-5.3); Red Cell Distribution Width 18.6 % (12.1-15.1); White Blood Count 6.2 10^3/uL (4.0-10.0)
[2020-06-08 16:07] LABS: Lactate (Lactic Acid level) 2.4 mmol/L (0.5-2.2)
[2020-06-08 16:11] LABS: Alanine Aminotransferase 25 U/L (0-41); Albumin Level 3.2 g/dL (3.5-5.2); Alkaline Phosphatase 64 IU/L (40-130); Anion Gap 15.4 (5-19); Aspartate Amino Transferase 21 U/L (0-40); Blood Urea Nitrogen 21 mg/dL (8-23); C Reactive Protein 25.7 mg/L (0.0-4.9); Calcium 8.7 mg/dL (8.5-10.5); Carbon Dioxide 24 mmol/L (22-29); Chloride 106 mmol/L (98-107); Creatine Phosphokinase 25 U/L (39-308); Creatinine Clr Calc Pharmacy 74.1534; Globulin 2.7 g/dL (1.3-4.6); Glucose 112 mg/dL (65-115); Osmolality Calculated 296 mOsm/kg (285-295); Potassium 4.4 mmol/L (3.5-5.1); Sodium 141 mmol/L (136-145); Total Bilirubin 0.5 mg/dL (0.15-1.2); Total Protein 5.9 g/dL (6.6-8.7)
[2020-06-08 16:37] LABS: Add Urine Microscopic? NO
[2020-06-08 16:39] LABS: Bilirubin Urine Neg (Negative); Blood Urine Neg (Negative); Glucose Urine UA Norm (Normal); Ketones Urine Negative (Negative); Leukocyte Esterase Urine Negative (Negative); Nitrate Urine Negative (Negative); Protein Urine Neg (Negative); Urine Appearance Clear (CLEAR); Urine Color Yellow (Yellow); Urobilinogen Urine 1 mg/dL (Negative); pH Urine 5 (5-7)
[2020-06-08] MEDS: sodium chloride 0.9% 1,000 ML 999 ML IV (17:22)
[2020-06-08] MEDS: haloperidol inj 5 mg/mL INJ 1 mL IVP (18:21)
--- NOTE | 2020-06-08 18:21 | PC.NURSE ---
PT BECAME AGITATED , CURSING, STATES I'M GOING TO GO SHIT RIGHT HERE ON THE FLOOR. PT COMING OUT OF ROOM, EXPOSED HIMSELF, BENT OVER AND DEFECATED ON FLOOR. STAFF INTERVENED, PT CONT TO BE AGITATED. DR EISENBERG PRESENT, SECURITY PRESENT. PT LOOKING FOR A WAY OUT OF ER. MEDICATION GIVEN ORDERED AND PT TAKEN BACK TO HIS ROOM. PT SITTING ON BED, BSC IN ROOM FOR PT'S USE. PT MORE CALM AT THIS TIME.
[2020-06-08 19:01] LABS: Lactate (Lactic Acid level) 2.8 mmol/L (0.5-2.2)
== END 2020-06-08 22:03 | disposition home or self-care (01) ==
PROVIDERS: Emergency Provider Family Medicine; PCP Family Medicine
DX: R41.0 Disorientation, unspecified (principal); E86.0 Dehydration; Z86.73 Personal history of transient ischemic attack (TIA), and cerebral infarction without residual deficits; F03.90 Unspecified dementia, unspecified severity, without behavioral disturbance, psychotic disturbance, mood disturbance, and anxiety; Z86.19 Personal history of other infectious and parasitic diseases; I10 Essential (primary) hypertension; F17.210 Nicotine dependence, cigarettes, uncomplicated
CPT/HCPCS: 12345; 70450; 71045; 80053; 81003; 82550; 83605; 85025; 86140; 93971; 96361; 96374; 96375; 99283; 99284; J1630; J7030

== ENCOUNTER 2020-07-05 17:35 | Outpatient (CLI) | payer MEDICAID, SELFPAY ==
[2020-07-05 17:57] LABS: Basophils % 0.1 %; Hematocrit 28.9 % (42.0-52.0); Hemoglobin 8.3 g/dL (11.7-16.6); Lymphocytes # 0.6 10^3/uL (0.8-4.8); Lymphocytes % 5.8 %; Mean Corpuscular HGB Conc 28.7 g/dL (30.0-36.0); Mean Corpuscular Hemoglobin 23.6 pg (28.0-34.0); Mean Corpuscular Volume 82.3 fL (80-94); Monocytes # 0.4 10^3/uL (0.2-0.9); Monocytes % 4.1 %; Neutrophils # 9.05 10^3/uL (1.8-7.7); Neutrophils % 88.4 %; Nucleated Red Blood Cells % 0.2 %; Platelet Count 193 10^3/cmm (130-400); Red Blood Count 3.51 10^6/uL (4.1-5.3); Red Cell Distribution Width 17.6 % (12.1-15.1); White Blood Count 10.2 10^3/uL (4.0-10.0)
== END 2020-07-05 17:36 | disposition home or self-care (01) ==
LOC: LAB 17:36
PROVIDERS: PCP Family Medicine; Visit Provider Internal Medicine
DX: K92.2 Gastrointestinal hemorrhage, unspecified (principal)
CPT/HCPCS: 85025

== ENCOUNTER 2020-07-05 19:42 | Emergency (ER) | payer MEDICAID, SELFPAY ==
[2020-07-05 19:46] VITALS: BP 132/72; PULSE 81; RESP 17; TEMP 36.6; O2SAT 99; BMI 31.1
--- NOTE | 2020-07-05 19:48 | ED_ITS ---
HPI - Recheck/Abnormal Lab/Rx General: Chief Complaint: General Medical Stated Complaint: ABNORMAL LABS Time Seen by Provider: 07/05/20 19:43 Source: patient and EMS Mode of arrival: EMS Limitations: no limitations History of Present Illness: HPI narrative: 84-year-old male sent here [facility] for abnormal labs. He abbi a CBC today and his hemoglobin is 8.2. Reviewing his previous labs he appears to be chronically anemic and earlier this month hemoglobin is 7.1. Patient states that he feels fine he has some generalized weakness. He denies any pain. He denies any blood in the stools. Denies any worsening or improving factors. Review of Systems Const: Denies: fever(s), chills, body aches or change in appetite Eyes: Denies: blurry vision or eye discomfort ENMT: Denies: throat pain or dental pain Card: Denies: chest pain Resp: Denies: dyspnea GI: Denies: abdominal pain, nausea, vomiting or diarrhea : Denies: dysuria Musc: Denies: neck pain or back pain Skin/Breast: Denies: rash Neuro: Denies: headache(s) Psych: Denies: depression Ronni/Lymph: Denies: easy bruising All/Imm: Denies: urticaria PFSH ED PFSH: Medical History (Updated 07/05/20 @ 21:07 by Harvey Salazar MD) Acute GI bleeding Blindness CVA (cerebral vascular accident) Dementia Gastritis Hepatitis C virus infection cured after antiviral drug therapy History of arteriovenous malformation (AVM) History of Helicobacter pylori infection History of hepatitis B Hx of colonic polyps Hypertension Hypotension Hypothyroidism Severe aortic stenosis Surgical History H/O hernia repair History of colonoscopy 08/12/2019 Colonoscopy with removal of lesion by snare Descending colon: 1.5 cm pedunculated polyp removed with a hot snare Sigmoid colon: Moderate diverticulosis Rectum:: Normal ROGER: Grade 4 hemorrhoids History of esophagogastroduodenoscopy (EGD) 08/12/2019: EGD with control of bleeding using hot biopsy forceps Duodenal AVM Family History Other CAD (coronary artery disease) Denies family history of Cancer Social History Smoking and tobacco status: current every day smoker Alcohol intake: never Caregiver/support person: No Lives independently: Yes Housing: Other Details: Lives in a hotel Marital status: Single Physical Exam Const: COMMON NORMALS: no acute distress, patient oriented x3 and healthy appearing HENMT: COMMON NORMALS: normocephalic and atraumatic HEAD & SCALP: normocephalic and atraumatic Eye: COMMON NORMALS: Equal, round and reactive pupils present and EOMs intact bilaterally PUPIL: Yes Equal, round and reactive pupils present Neck/C-Spine: COMMON NORMALS: full ROM and supple Chest: COMMONS NORMALS: normal inspection of the chest and normal palpation of entire chest wall Resp: COMMON NORMALS: normal respiratory effort, No retractions, No use of accessory muscles and clear to auscultation bilaterally AUSCULTATION: clear to auscultation bilaterally Cardio: COMMON NORMALS: regular rate, regular rhythm and No murmurs present (Cardio) RATE: regular rate RHYTHM: regular rhythm GI: COMMON NORMALS: Normal to inspection, nondistended, normoactive bowel sounds present, Soft to palpation, non-tender and no masses PALPATION: Yes Soft to palpation Extremity: COMMON NORMALS: normal to inspection and full ROM Neuro: COMMON NORMALS: patient oriented x3, moves all extremities and no focal motor deficits Psych: COMMON NORMALS: mental status grossly normal, Normal thought process present and cooperative THOUGHT PROCESS: Normal thought process present Skin: COMMON NORMALS: no rashes or lesions noted and no wounds GENERAL SKIN EXAM: no rashes or lesions noted Course Vital Signs: Vital signs: Vital Signs Temperature 97.9 F 07/05/20 19:46 Pulse Rate 81 07/05/20 21:33 Respiratory Rate 17 07/05/20 21:33 Blood Pressure 127/72 07/05/20 21:33 Pulse Oximetry 97 07/05/20 21:33 MDM - Recheck/Abnormal Lab/Rx MDM Narrative: Medical decision making narrative: Patient presents here with anemia that is chronic in nature. Patient's hemoglobin is improved from previous hemoglobins earlier this month. Patient's blood pressure here stable after IV fluids. I believe he is likely getting little hypotensive due to his blood pressure medicines. I informed [facility] to hold his amlodipine. He is to follow-up his PCP and return if worsening. He has no signs of septic shock. Lab Data: Labs: Lab Results 07/05/20 07/05/20 Range/Units 20:00 20:00 WBC 10.6 H (4.0-10.0) 10^3/ uL RBC 3.95 L (4.1-5.3) 10^6/u L Hgb 9.2 L (11.7-16.6) g/dL Hct 33.2 L (42.0-52.0) % MCV 84.1 (80-94) fL MCH 23.3 L (28.0-34.0) pg MCHC 27.7 L (30.0-36.0) g/dL RDW 17.6 H (12.1-15.1) % Plt Count 215 (130-400) 10^3/c mm MPV 11.3 H (7.4-10.4) fL Neut % (Auto) 89.0 % Lymph % (Auto) 6.1 % [place] % (Auto) 3.4 % Eos % (Auto) 0.0 % Baso % (Auto) 0.1 % Neut # (Auto) 9.40 H (1.8-7.7) 10^3/u L Lymph # (Auto) 0.7 L (0.8-4.8) 10^3/u L [place] # (Auto) 0.4 (0.2-0.9) 10^3/u L Eos # (Auto) 0.0 (0.0-0.8) 10^3/u L Baso # (Auto) 0.0 (0.0-0.1) 10^3/u L Nucleated RBC % (a uto) 0.2 % Nucleated RBCs # 0.0 /100WBC Sodium 141 (136-145) mmol/L Potassium 4.4 (3.5-5.1) mmol/L Chloride 102 (98-107) mmol/L Carbon Dioxide 28 (22-29) mmol/L Anion Gap 15.4 (5-19) BUN 34 H (8-23) mg/dL Creatinine 1.2 (0.7-1.2) mg/dL GFR Calculation Not Reportable Glucose 149 H (65-115) mg/dL Calculated Osmolal ity 302 H (285-295) mOsm/k g Calcium 9.4 (8.5-10.5) mg/dL Total Bilirubin 0.4 (0.15-1.2) mg/dL AST 15 (0-40) U/L ALT 25 (0-41) U/L Alkaline Phosphata se 65 (40-130) IU/L Total Protein 6.7 (6.6-8.7) g/dL Albumin 4.2 (3.5-5.2) g/dL Globulin 2.5 (1.3-4.6) g/dL Discharge Plan Discharge Patient Disposition: Home Clinical Impression: Anemia Qualifiers: Anemia type: unspecified type Qualified Code(s): D64.9 - Anemia, unspecified Condition: Stable Prescriptions: No Action acetaminophen [Tylenol] 325 mg Tablet 650 mg PO Q6H PRN (Reason: Pain) RF: 0 amlodipine 10 mg tablet 10 mg PO DAILY RF: 0 folic acid 1 mg Tablet 1 mg PO DAILY RF: 0 terazosin 5 mg Capsule 5 mg PO DAILY RF: 0 atorvastatin 40 mg Tablet 40 mg PO BEDTIME RF: 0 ondansetron HCl [Zofran] 4 mg Tablet 4 mg PO Q6H PRN (Reason: Nausea) RF: 0 alprazolam [Xanax] 0.25 mg Tablet 0.25 mg PO Q8H PRN (Reason: Anxiety) RF: 0 magnesium hydroxide [Milk of Magnesia] 400 mg/5 mL Suspension 30 ml PO DAILY PRN (Reason: Constipation) RF: 0 losartan 25 mg Tablet 25 mg PO DAILY RF: 0 levothyroxine 100 mcg Tablet 150 mcg PO DAILY Qty: 30 RF: 0 pantoprazole [Protonix] 40 mg Tablet,Delayed Release (Dr/Ec) 40 mg PO BID Qty: 0 RF: 0 prednisone 10 mg Tablet 5 mg PO DAILY RF: 0 ketorolac 0.4 % Drops See Rx Instructions .ROUTE .COMPLEX RF: 0 cyanocobalamin (vitamin B-12) [Vitamin B-12] 1,000 mcg Tablet 1,000 mcg PO DAILY RF: 0 escitalopram oxalate [Lexapro] 10 mg Tablet 10 mg PO DAILY RF: 0 Miralax 17 gram Powder In Packet 17 g PO DAILY PRN (Reason: Constipation) RF: 0 olanzapine 5 mg Tablet 5 mg PO BID RF: 0 guaifenesin 100 mg/5 mL Liquid 100 mg PO Q4H PRN (Reason: UNKNOWN) RF: 0 ferrous sulfate 325 mg (65 mg iron) Tablet 325 mg PO DAILY RF: 0 albuterol sulfate 90 mcg/actuation Hfa Aerosol Inhaler 2 puff INHALATION Q6H PRN (Reason: Shortness Of Breath) RF: 0 Senna with Docusate Sodium 8.6-50 mg tablet 1 tab-cap PO BID PRN (Reason: Constipation) RF: 0 Discharge Orders: Discharge Order (Routine); Ordered 07/05/20 Ordered By: Harvey Salazar Referrals: Mauricio Hull MD [Primary Care Provider] - 1-3 days Discharge Diet: Advance as tolerated Discharge Activity: Resume usual activity Patient Instructions: Anemia (ED) Coding Level of Care Code ED 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
[2020-07-05 19:56] VITALS: BP 132/72; PULSE 75; RESP 16; O2SAT 99
[2020-07-05 20:08] LABS: Basophils % 0.1 %; Hematocrit 33.2 % (42.0-52.0); Hemoglobin 9.2 g/dL (11.7-16.6); Lymphocytes # 0.7 10^3/uL (0.8-4.8); Lymphocytes % 6.1 %; Mean Corpuscular HGB Conc 27.7 g/dL (30.0-36.0); Mean Corpuscular Hemoglobin 23.3 pg (28.0-34.0); Mean Corpuscular Volume 84.1 fL (80-94); Mean Platelet Volume 11.3 fL (7.4-10.4); Monocytes # 0.4 10^3/uL (0.2-0.9); Monocytes % 3.4 %; Nucleated Red Blood Cells % 0.2 %; Platelet Count 215 10^3/cmm (130-400); Red Blood Count 3.95 10^6/uL (4.1-5.3); Red Cell Distribution Width 17.6 % (12.1-15.1); White Blood Count 10.6 10^3/uL (4.0-10.0)
[2020-07-05 20:16] VITALS: BP 106/56; BP 114/65; BP 82/57; PULSE 100; PULSE 72; PULSE 95
[2020-07-05] MEDS: sodium chloride 0.9% 1,000 ML 999 ML IV (20:22)
[2020-07-05 20:24] LABS: Alanine Aminotransferase 25 U/L (0-41); Albumin Level 4.2 g/dL (3.5-5.2); Alkaline Phosphatase 65 IU/L (40-130); Anion Gap 15.4 (5-19); Aspartate Amino Transferase 15 U/L (0-40); Blood Urea Nitrogen 34 mg/dL (8-23); Calcium 9.4 mg/dL (8.5-10.5); Carbon Dioxide 28 mmol/L (22-29); Chloride 102 mmol/L (98-107); Globulin 2.5 g/dL (1.3-4.6); Glucose 149 mg/dL (65-115); Osmolality Calculated 302 mOsm/kg (285-295); Potassium 4.4 mmol/L (3.5-5.1); Sodium 141 mmol/L (136-145); Total Bilirubin 0.4 mg/dL (0.15-1.2); Total Protein 6.7 g/dL (6.6-8.7)
[2020-07-05 20:32] VITALS: BP 91/64; PULSE 72; RESP 18; O2SAT 97
[2020-07-05 21:14] VITALS: BP 125/65; PULSE 66; RESP 18; O2SAT 97
[2020-07-05 21:33] VITALS: BP 127/72; PULSE 81; RESP 17; O2SAT 97
== END 2020-07-05 22:30 | disposition home or self-care (01) ==
PROVIDERS: Emergency Provider Emergency Medicine; PCP Family Medicine
DX: D64.9 Anemia, unspecified (principal); Z86.73 Personal history of transient ischemic attack (TIA), and cerebral infarction without residual deficits; F03.90 Unspecified dementia, unspecified severity, without behavioral disturbance, psychotic disturbance, mood disturbance, and anxiety; Z86.19 Personal history of other infectious and parasitic diseases; I10 Essential (primary) hypertension; F17.210 Nicotine dependence, cigarettes, uncomplicated
CPT/HCPCS: 12345; 80053; 85025; 96360; 99283; J7030

== ENCOUNTER → 2020-08-28 09:53 | Outpatient (BNVA) | payer MEDICAID, SELFPAY | PROVIDERS: PCP Family Medicine; Visit Provider Internal Medicine | DX: M31.6 Other giant cell arteritis (principal); Z11.1 Encounter for screening for respiratory tuberculosis; Z79.52 Long term (current) use of systemic steroids; F17.210 Nicotine dependence, cigarettes, uncomplicated | CPT/HCPCS: 99204 ==

== ENCOUNTER 2020-11-08 14:33 | Emergency (ER) | payer MEDICAID, SELFPAY ==
[2020-11-08 14:37] VITALS: BP 83/56; PULSE 98; RESP 18; TEMP 36.9; O2SAT 93; BMI 32.5
--- NOTE | 2020-11-08 14:53 | XRR_ITS ---
PROCEDURE INFORMATION: Exam: XR Chest Exam date and time: 11/08/2020 3:29 PM Age: 85 years old Clinical indication: Chest pain; Additional info: Cp TECHNIQUE: Imaging protocol: XR of the chest Views: 1 view. Total images: 1 COMPARISON: CR XR chest 1V portable [id number] 06/08/2020 3:27 PM FINDINGS: Lungs: No visible active interstitial or alveolar airspace disease. Mild senile fibrosis. Pleural spaces: Unremarkable. No pleural effusion. No pneumothorax. Heart/Mediastinum: Cardiac structures and configuration with arteriosclerosis. Tortuous thoracic aorta which can be seen in hypertensive cardiovascular disease. Bones/joints: Advanced primary osteoarthritis of the shoulders. XR/XR chest 1V portable [id number] IMPRESSION: Stable nonacute.
--- NOTE | 2020-11-08 14:55 | ECG_ITS ---
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 Measurements Intervals [place] Rate: 82 P: 47 VT: 178 QRS: 3 QRSD: 105 T: 83 QT: 383 QTc: 448 Interpretive Statements SINUS RHYTHM NONSPECIFIC T-WAVE ABNORMALITY Compared to ECG 05/19/2020 03:39:14 T-wave abnormality now present Ventricular premature complex(es) no longer present Electronically Signed On 11-08-2020 20:25:25 CDT by Evy Nino M.D. [id number] f
[2020-11-08 15:42] LABS: Basophils % 0.2 %; Eosinophils % 0.1 %; Hematocrit 37.8 % (42.0-52.0); Hemoglobin 11.4 g/dL (11.7-16.6); Lymphocytes # 0.7 10^3/uL (0.8-4.8); Lymphocytes % 7.7 %; Mean Corpuscular HGB Conc 30.2 g/dL (30.0-36.0); Mean Corpuscular Hemoglobin 28.1 pg (28.0-34.0); Mean Corpuscular Volume 93.3 fL (80-94); Mean Platelet Volume 11.3 fL (7.4-10.4); Monocytes # 0.5 10^3/uL (0.2-0.9); Monocytes % 5.5 %; Neutrophils # 7.29 10^3/uL (1.8-7.7); Neutrophils % 85.3 %; Nucleated Red Blood Cells % 0.2 %; Platelet Count 172 10^3/cmm (130-400); Red Blood Count 4.05 10^6/uL (4.1-5.3); Red Cell Distribution Width 18.6 % (12.1-15.1); White Blood Count 8.6 10^3/uL (4.0-10.0)
[2020-11-08] MEDS: sodium chloride 0.9% 1,000 ML 999 ML IV (15:42)
[2020-11-08 15:43] VITALS: BP 114/84; PULSE 78; RESP 18; O2SAT 91
[2020-11-08 15:43] LABS: Add Urine Microscopic? NO
[2020-11-08 15:48] LABS: Bilirubin Urine 1+ (Negative); Blood Urine Neg (Negative); Glucose Urine UA Norm (Normal); Ketones Urine Negative (Negative); Nitrate Urine Negative (Negative); Protein Urine Neg (Negative); Specific Gravity, Urine 1.015 (1.005-1.030); Urine Appearance Clear (CLEAR); Urine Color Yellow (Yellow); Urobilinogen Urine 1 mg/dL (Negative); pH Urine 5 (5-7)
[2020-11-08 15:49] LABS: Leukocyte Esterase Urine Negative (Negative)
[2020-11-08 15:58] LABS: D Dimer 2.41 ug/mIFEU (0-0.59)
[2020-11-08 16:12] LABS: Lactate (Lactic Acid level) 2.5 mmol/L (0.5-2.2); Troponin(5th) Baseline 29 ng/L (0-15)
[2020-11-08 16:20] LABS: Alanine Aminotransferase 13 U/L (0-41); Albumin Level 3.7 g/dL (3.5-5.2); Alkaline Phosphatase 51 IU/L (40-130); Anion Gap 14.7 (5-19); Aspartate Amino Transferase 13 U/L (0-40); Blood Urea Nitrogen 35 mg/dL (8-23); Calcium 9.2 mg/dL (8.5-10.5); Carbon Dioxide 32 mmol/L (22-29); Chloride 105 mmol/L (98-107); Creatine Phosphokinase 35 U/L (39-308); Globulin 2.1 g/dL (1.3-4.6); Glucose 122 mg/dL (65-115); NT Pro B Type Natriuretic Pept 689 pg/mL (0-450); Osmolality Calculated 313 mOsm/kg (285-295); Potassium 4.7 mmol/L (3.5-5.1); Sodium 147 mmol/L (136-145); Total Bilirubin 0.6 mg/dL (0.15-1.2); Total Protein 5.8 g/dL (6.6-8.7)
--- NOTE | 2020-11-08 16:55 | ECG_ITS ---
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 Measurements Intervals [place] Rate: 82 P: 47 IA: 178 QRS: 3 QRSD: 105 T: 83 QT: 383 QTc: 448 Interpretive Statements SINUS RHYTHM NONSPECIFIC T-WAVE ABNORMALITY Compared to ECG 05/19/2020 03:39:14 T-wave abnormality now present Ventricular premature complex(es) no longer present Electronically Signed On 11-08-2020 20:34:07 CDT by Evy Nino M.D. [email or web address] system [id number] f
[2020-11-08 17:31] LABS: Troponin 5 2HR 27.95 ng/L (0-15)
[2020-11-08 17:36] LABS: Troponin 5 2HR Delta -1.05 ABS# (0-10)
--- NOTE | 2020-11-08 17:54 | CTR_ITS ---
PROCEDURE INFORMATION: Exam: CTA Chest With Contrast Exam date and time: 11/08/2020 6:05 PM Age: 85 years old Clinical indication: Pain and abnormal findings; Abnormal diagnostic tests; Elevated d-dimer; Patient HX: Left sided chest pain with elevated d dimer TECHNIQUE: Imaging protocol: Computed tomographic angiography of the chest with contrast. 3D rendering (Not supervised by radiologist): MIP and/or 3D reconstructed images were created by the technologist. Total images: 854 Radiation optimization: All CT scans at this facility use at least one of these dose optimization techniques: automated exposure control; mA and/or kV adjustment per patient size (includes targeted exams where dose is matched to clinical indication); or iterative reconstruction. Contrast material: VISI 320; Contrast volume: 77 ml; Contrast route: INTRAVENOUS (IV); COMPARISON: CR (CHEST, ) 11/08/2020 3:21 PM RADIATION DOSE METRICS: Total DLP (mGy-cm): 547.14 FINDINGS: Pulmonary arteries: No visible evidence of pulmonary embolism/pulmonary arterial thrombus. 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 No intimal flap or dissection. Moderately advanced arterial sclerotic disease. Tortuous thoracic aorta which can be seen in hypertensive cardiovascular disease. Lungs: No visible active interstitial or alveolar airspace disease. Calcified granulomas of antecedent disease. Pleural spaces: Unremarkable. No pneumothorax. No pleural effusion. Heart: Left ventricular hypertrophy. No visible pericardial effusion. Advanced 3 vessel coronary artery disease. Lymph nodes: No visible active mediastinal or hilar lymphadenopathy. Calcified complexes of antecedent granulomatous disease. Bones/joints: No visible acute osseous pathology. Scoliosis. Age-appropriate degenerative disease and degenerative disc disease of the spine. Soft tissues: Unremarkable. CT/CT angio chest PE protcl [id number] IMPRESSION: No visible evidence of pulmonary embolism/pulmonary arterial thrombus. Radiation Dose CTDIVOL = (mGy): DLP = 547.14 (mGy-cm)
[2020-11-08] MEDS: iodixanol 320 mg/mL 100mL Btl IV (18:22)
[2020-11-08 19:30] VITALS: BP 181/91; PULSE 78; RESP 16
--- NOTE | 2020-11-08 19:43 | W.ED.PSYCH ---
HPI - Psych General: Chief Complaint: Psychiatric Symptoms Stated Complaint: PSYCH Time Seen by Provider: 11/08/20 14:38 History of Present Illness: HPI Narrative: Patient is an 85[facility] who arrives via EMS after he was combative with staff there. He has a history of dementia. In the ER he comes in he is calm and says he has a mild left-sided chest pain. He says it comes and goes frequently for months to years but cannot give any details. On arrival his blood pressure was 83/56 and he also said he felt lightheaded. He admits to not eating or drinking very well the past day. A liter of IV fluids was started. He is not able to give much history and has a history of dementia. Associated symptoms: Deny depression Review of Systems General: Reports: 10 or more systems reviewed and unremarkable except in HPI and below Const: Denies: fatigue Eyes: Denies: change in vision, blurry vision or eye redness ENMT: Denies: throat pain, swelling of lips/tongue, ear or mastoid pain or nasal congestion Card: Reports: chest pain; Denies: palpitations, irregular heart rhythm, edema, dyspnea on exertion or orthopnea Resp: Denies: dyspnea, productive cough or non-productive cough GI: Denies: abdominal pain, diarrhea or GI cramping : Denies: flank pain, urinary frequency or urinary urgency Musc: Denies: neck pain, back pain, extremity pain, joint pain, joint redness, limited range of motion or muscle weakness Skin/Breast: Denies: rash, pruritus, erythema, skin pain or skin tenderness Neuro: Denies: headache(s), numbness in extremities, weakness in extremities, sensory changes, difficulty walking, dizziness, confusion or Slurred speech present Psych: Denies: anxiety or depression Endo: Denies: polyuria All/Imm: Denies: urticaria, throat swelling or tongue swelling PFS ED PFSH: Medical History (Updated 11/08/20 @ 19:55 by Elton Hamilton MD) Acute GI bleeding Blindness CVA (cerebral vascular accident) Dementia Gastritis Hepatitis C virus infection cured after antiviral drug therapy History of arteriovenous malformation (AVM) History of Helicobacter pylori infection History of hepatitis B Hx of colonic polyps Hypertension Hypotension Hypothyroidism Severe aortic stenosis Surgical History H/O hernia repair History of colonoscopy 08/12/2019 Colonoscopy with removal of lesion by snare Descending colon: 1.5 cm pedunculated polyp removed with a hot snare Sigmoid colon: Moderate diverticulosis Rectum:: Normal ROGER: Grade 4 hemorrhoids History of esophagogastroduodenoscopy (EGD) 08/12/2019: EGD with control of bleeding using hot biopsy forceps Duodenal AVM Family History Other CAD (coronary artery disease) Denies family history of Cancer Social History (Updated 08/28/20 @ 11:10 by Zo Dias LPN) Smoking and tobacco status: current every day smoker Alcohol intake: never Caregiver/support person: No Lives independently: No Housing: Assisted Marital status: Single Physical Exam Const: COMMON NORMALS: no acute distress, average body habitus, patient oriented x3, no limitations, healthy appearing, alert and well nourished GENERAL APPEARANCE: cooperative, comfortable, well kempt and well developed ORIENTATION/CONSCIOUSNESS: Yes awake, Yes oriented to person, Yes oriented to place and Yes oriented to time OTHER: Chronic dementia HENMT: COMMON NORMALS: normocephalic, external ears normal and Normal external nose present HEAD & SCALP: normal to inspection and normocephalic NOSE: Normal external nose present EXTERNAL EAR: Yes external ears normal MOUTH: Normal oral and palatal mucosa present THROAT: posterior oropharynx normal Eye: COMMON NORMALS: Equal, round and reactive pupils present and EOMs intact bilaterally GENERAL EYE: appearance normal, both eyes and all related structures PUPIL: Yes Equal, round and reactive pupils present Neck/C-Spine: COMMON NORMALS: full ROM, no lymphadenopathy, no meningeal signs and no JVD GENERAL: Yes normal visual inspection Lymph: LYMPHATIC: no lymphadenopathy noted Chest: COMMONS NORMALS: normal inspection of the chest and normal palpation of entire chest wall Resp: COMMON NORMALS: normal respiratory effort, No retractions, No use of accessory muscles, clear to auscultation bilaterally and percussion normal EFFORT & INSPECTION: Yes able to speak in complete sentences AUSCULTATION: clear to auscultation bilaterally PERCUSSION: percussion normal Cardio: COMMON NORMALS: no JVD, regular rate, regular rhythm, S1 normal heart sound present, S2 normal heart sound present and Peripheral pulses 2+ throughout RATE: regular rate RHYTHM: regular rhythm HEART SOUNDS: S1 normal heart sound present and S2 normal heart sound present PERIPHERAL PULSES: Peripheral pulses 2+ throughout GI: COMMON NORMALS: Normal to inspection, nondistended, normoactive bowel sounds present, Soft to palpation, non-tender and no masses INSPECTION: Yes normal to inspection PALPATION: Yes Soft to palpation : COMMON NORMALS: Yes no CVA tenderness BLADDER/KIDNEY EXAM: Yes no CVA tenderness Back/Pelvis: COMMON NORMALS: no CVA tenderness, thoracic and lumbar spine normal to inspection, no thoracic nor lumbar tenderness and thoraco-lumbar ROM normal Extremity: COMMON NORMALS: normal to inspection, full ROM, capillary refill normal, no joint enlargement and no pedal edema GENERAL: Yes normal exam except as noted Neuro: COMMON NORMALS: patient oriented x3, CN's II-XII intact bilaterally, moves all extremities, no focal motor deficits, no sensory deficits noted and gait normal SENSORIUM/ORIENTATION: Yes alert, Yes oriented to person, Yes oriented to place and Yes oriented to time MENINGEAL SIGNS: Yes no meningeal signs OTHER: Chronic dementia Psych: COMMON NORMALS: mental status grossly normal, Normal thought process present, cooperative, normal affect and speech normal APPEARANCE: Yes well kempt ATTITUDE: Yes calm SPEECH: Yes normal speech THOUGHT PROCESS: Normal thought process present Skin: COMMON NORMALS: no rashes or lesions noted GENERAL SKIN EXAM: no rashes or lesions noted MDM - Psych MDM Narrative: Medical decision making narrative: The patient came to the ER after being aggressive with staff and another [facility]. On arrival to the ER he was hypotensive. He has had urine infections in the past but does not have one today. He was given a liter of IV fluids with improvement of his blood pressure and he has since been normal. He did have a faint complaint of chest pain on arrival but he has chronic dementia and is not making sense. Still I checked out his heart and he had 2 normal troponins and EKGs. D-dimer was elevated and CT angiogram was negative for pulmonary embolism. He is calm and better hydrated. His blood pressure is normalized and he is stable for discharge back [facility]. Likely dehydration Lab Data: Labs: Lab Results 11/08/20 11/08/20 11/08/20 Range/Units 15:29 15:29 15:29 WBC 8.6 (4.0-10.0) 10^3/ uL RBC 4.05 L (4.1-5.3) 10^6/u L Hgb 11.4 L (11.7-16.6) g/dL Hct 37.8 L (42.0-52.0) % MCV 93.3 (80-94) fL MCH 28.1 (28.0-34.0) pg MCHC 30.2 (30.0-36.0) g/dL RDW 18.6 H (12.1-15.1) % Plt Count 172 (130-400) 10^3/c mm MPV 11.3 H (7.4-10.4) fL Neut % (Auto) 85.3 % Lymph % (Auto) 7.7 % Jewell % (Auto) 5.5 % Eos % (Auto) 0.1 % Baso % (Auto) 0.2 % Neut # (Auto) 7.29 (1.8-7.7) 10^3/u L Lymph # (Auto) 0.7 L (0.8-4.8) 10^3/u L Jewell # (Auto) 0.5 (0.2-0.9) 10^3/u L Eos # (Auto) 0.0 (0.0-0.8) 10^3/u L Baso # (Auto) 0.0 (0.0-0.1) 10^3/u L Nucleated RBC % (a uto) 0.2 % Nucleated RBCs # 0.0 /100WBC D-Dimer 2.41 H (0-0.59) ug/mIFE U Sodium 147 H (136-145) mmol/L Potassium 4.7 (3.5-5.1) mmol/L Chloride 105 (98-107) mmol/L Carbon Dioxide 32 H (22-29) mmol/L Anion Gap 14.7 (5-19) BUN 35 H (8-23) mg/dL Creatinine 1.4 H (0.7-1.2) mg/dL GFR Calculation Not Reportable Glucose 122 H (65-115) mg/dL Calculated Osmolal ity 313 H (285-295) mOsm/k g Lactate (0.5-2.2) mmol/L Calcium 9.2 (8.5-10.5) mg/dL Total Bilirubin 0.6 (0.15-1.2) mg/dL AST 13 (0-40) U/L ALT 13 (0-41) U/L Alkaline Phosphata se 51 (40-130) IU/L Creatine Kinase 35 L (39-308) U/L Troponin T Baselin e (0-15) ng/L Troponin T 120 Min [place] (0-15) ng/L Delta Troponin T (0-10) ABS# NT-Pro-B Natriuret Pep 689 H (0-450) pg/mL Total Protein 5.8 L (6.6-8.7) g/dL Albumin 3.7 (3.5-5.2) g/dL Globulin 2.1 (1.3-4.6) g/dL Urine Color (Yellow) Urine Appearance (CLEAR) Urine pH (5-7) Ur Specific Gravit y (1.005-1.030) Urine Protein (Negative) Urine Glucose (UA) (Normal) Urine Ketones (Negative) Urine Blood (Negative) Urine Nitrate (Negative) Urine Bilirubin (Negative) Urine Urobilinogen (Negative) mg/dL Ur Leukocyte Rosamaria ase (Negative) 11/08/20 11/08/20 11/08/20 Range/Units 15:29 15:29 15:29 WBC (4.0-10.0) 10^3/ uL RBC (4.1-5.3) 10^6/u L Hgb (11.7-16.6) g/dL Hct (42.0-52.0) % MCV (80-94) fL MCH (28.0-34.0) pg MCHC (30.0-36.0) g/dL RDW (12.1-15.1) % Plt Count (130-400) 10^3/c mm MPV (7.4-10.4) fL Neut % (Auto) % Lymph % (Auto) % Jewell % (Auto) % Eos % (Auto) % Baso % (Auto) % Neut # (Auto) (1.8-7.7) 10^3/u L Lymph # (Auto) (0.8-4.8) 10^3/u L Jewell # (Auto) (0.2-0.9) 10^3/u L Eos # (Auto) (0.0-0.8) 10^3/u L Baso # (Auto) (0.0-0.1) 10^3/u L Nucleated RBC % (a uto) % Nucleated RBCs # /100WBC D-Dimer (0-0.59) ug/mIFE U Sodium (136-145) mmol/L Potassium (3.5-5.1) mmol/L Chloride (98-107) mmol/L Carbon Dioxide (22-29) mmol/L Anion Gap (5-19) BUN (8-23) mg/dL Creatinine (0.7-1.2) mg/dL GFR Calculation Glucose (65-115) mg/dL Calculated Osmolal ity (285-295) mOsm/k g Lactate 2.5 H (0.5-2.2) mmol/L Calcium (8.5-10.5) mg/dL Total Bilirubin (0.15-1.2) mg/dL AST (0-40) U/L ALT (0-41) U/L Alkaline Phosphata se (40-130) IU/L Creatine Kinase (39-308) U/L Troponin T Baselin e 29 H (0-15) ng/L Troponin T 120 Min [place] (0-15) ng/L Delta Troponin T (0-10) ABS# NT-Pro-B Natriuret Pep (0-450) pg/mL Total Protein (6.6-8.7) g/dL Albumin (3.5-5.2) g/dL Globulin (1.3-4.6) g/dL Urine Color Yellow (Yellow) Urine Appearance Clear (CLEAR) Urine pH 5 (5-7) Ur Specific Gravit y 1.015 (1.005-1.030) Urine Protein Neg (Negative) Urine Glucose (UA) Norm (Normal) Urine Ketones Negative (Negative) Urine Blood Neg (Negative) Urine Nitrate Negative (Negative) Urine Bilirubin 1+ H (Negative) Urine Urobilinogen 1 H (Negative) mg/dL Ur Leukocyte Rosamaria ase Negative (Negative) 11/08/20 Range/Units 17:09 WBC (4.0-10.0) 10^3/ uL RBC (4.1-5.3) 10^6/u L Hgb (11.7-16.6) g/dL Hct (42.0-52.0) % MCV (80-94) fL MCH (28.0-34.0) pg MCHC (30.0-36.0) g/dL RDW (12.1-15.1) % Plt Count (130-400) 10^3/c mm MPV (7.4-10.4) fL Neut % (Auto) % Lymph % (Auto) % Jewell % (Auto) % Eos % (Auto) % Baso % (Auto) % Neut # (Auto) (1.8-7.7) 10^3/u L Lymph # (Auto) (0.8-4.8) 10^3/u L Jewell # (Auto) (0.2-0.9) 10^3/u L Eos # (Auto) (0.0-0.8) 10^3/u L Baso # (Auto) (0.0-0.1) 10^3/u L Nucleated RBC % (a uto) % Nucleated RBCs # /100WBC D-Dimer (0-0.59) ug/mIFE U Sodium (136-145) mmol/L Potassium (3.5-5.1) mmol/L Chloride (98-107) mmol/L Carbon Dioxide (22-29) mmol/L Anion Gap (5-19) BUN (8-23) mg/dL Creatinine (0.7-1.2) mg/dL GFR Calculation Glucose (65-115) mg/dL Calculated Osmolal ity (285-295) mOsm/k g Lactate (0.5-2.2) mmol/L Calcium (8.5-10.5) mg/dL Total Bilirubin (0.15-1.2) mg/dL AST (0-40) U/L ALT (0-41) U/L Alkaline Phosphata se (40-130) IU/L Creatine Kinase (39-308) U/L Troponin T Baselin e (0-15) ng/L Troponin T 120 Min [place] 27.95 H (0-15) ng/L Delta Troponin T -1.05 L (0-10) ABS# NT-Pro-B Natriuret Pep (0-450) pg/mL Total Protein (6.6-8.7) g/dL Albumin (3.5-5.2) g/dL Globulin (1.3-4.6) g/dL Urine Color (Yellow) Urine Appearance (CLEAR) Urine pH (5-7) Ur Specific Gravit y (1.005-1.030) Urine Protein (Negative) Urine Glucose (UA) (Normal) Urine Ketones (Negative) Urine Blood (Negative) Urine Nitrate (Negative) Urine Bilirubin (Negative) Urine Urobilinogen (Negative) mg/dL Ur Leukocyte Rosamaria ase (Negative) Discharge Plan Discharge Patient Disposition: Home Clinical Impression: Dehydration Condition: Stable Prescriptions: No Action lorazepam 0.5 mg tablet 0.5 mg PO Q8H PRN (Reason: Anxiety) RF: 0 acetaminophen [Tylenol] 325 mg Tablet 650 mg PO Q6H PRN (Reason: Pain) RF: 0 folic acid 1 mg Tablet 1 mg PO DAILY@0800 RF: 0 terazosin 5 mg Capsule 5 mg PO DAILY@0800 RF: 0 atorvastatin 40 mg Tablet 40 mg PO BEDTIME@1999 RF: 0 ondansetron HCl [Zofran] 4 mg Tablet 4 mg PO Q6H PRN (Reason: Nausea) RF: 0 losartan 25 mg Tablet 25 mg PO DAILY@0800 RF: 0 hydrocodone-acetaminophen 5-325 mg Tablet 2 tab PO DAILY PRN (Reason: Pain) RF: 0 hydrocodone-acetaminophen 5-325 mg Tablet 2 tab PO Q6H PRN (Reason: Pain) RF: 0 prednisone 5 mg Tablet 15 mg PO DAILY@0800 RF: 0 potassium chloride 10 mEq Tablet Extended Release 10 meq PO DAILY@0800 RF: 0 levothyroxine 150 mcg Tablet 150 mcg PO DAILY@06 RF: 0 furosemide 20 mg Tablet 60 mg PO DAILY@06 RF: 0 fluticasone propionate 50 mcg/actuation [place],Suspension 2 spray INTRANASAL DAILY@1999 RF: 0 Depakote ER 250 mg Tablet Extended Release 24 Hr 250 mg PO BID@, RF: 0 Systane Complete 0.6 % Drops 1 drp OPHTHALMIC (EYE) TID@,, RF: 0 Protonix 40 mg tablet,delayed release (DR/EC) 40 mg PO DAILY@08 RF: 0 cholecalciferol (vitamin D3) 25 mcg (1,000 unit) capsule 25 mcg PO DAILY@08 RF: 0 cyanocobalamin (vitamin B-12) [Vitamin B-12] 1,000 mcg Tablet 1,000 mcg PO DAILY@0800 RF: 0 escitalopram oxalate [Lexapro] 10 mg Tablet 10 mg PO DAILY@0800 RF: 0 olanzapine 5 mg Tablet 5 mg PO BID@, RF: 0 ferrous sulfate 325 mg (65 mg iron) Tablet 325 mg PO DAILY@08 RF: 0 Discharge Orders: Discharge ED (Routine); Ordered 11/08/20 Ordered By: Elton Hamilton Referrals: Mauricio Hull MD [Primary Care Provider] - Discharge Diet: Advance as tolerated Discharge Activity: Resume usual activity Patient Instructions: Dehydration (ED), Opioid Safety Activity Restrictions/Additional Instructions: Please make sure you are drinking lots of fluids when you get home. Return to the ER with worsening symptoms. Follow-up with your primary care physician in a few days to monitor improvement of your symptoms Coding Level of Care Code ED Mirror Installer for Beau Fwcinthia Exam Comprehensive
[2020-11-08 20:41] VITALS: BP 181/76; PULSE 17; RESP 68
--- NOTE | 2020-11-08 20:55 | ECG_ITS ---
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 Measurements Intervals [place] Rate: 80 P: 55 NM: 183 QRS: 20 QRSD: 104 T: 83 QT: 394 QTc: 456 Interpretive Statements SINUS RHYTHM WITH OCCASIONAL SUPRAVENTRICULAR PREMATURE COMPLEXES NONSPECIFIC T-WAVE ABNORMALITY Compared to ECG 11/08/2020 15:21:31 No significant changes Electronically Signed On 11-08-2020 20:35:20 CDT by Evy Nino M.D. [email or web address]
[2020-11-08 22:05] LABS: Troponin 5 6HR 25.74 ng/L (0-15)
[2020-11-08 22:17] LABS: Troponin 5 6HR Delta -3.26 ng/L (0-12)
== END 2020-11-08 21:58 | disposition home or self-care (01) ==
PROVIDERS: Emergency Provider Family Medicine; PCP Family Medicine
DX: E86.0 Dehydration (principal); Z86.73 Personal history of transient ischemic attack (TIA), and cerebral infarction without residual deficits; F03.90 Unspecified dementia, unspecified severity, without behavioral disturbance, psychotic disturbance, mood disturbance, and anxiety; Z86.19 Personal history of other infectious and parasitic diseases; I10 Essential (primary) hypertension; F17.210 Nicotine dependence, cigarettes, uncomplicated
CPT/HCPCS: 36415; 51701; 71045; 71275; 80053; 81003; 82550; 83605; 83880; 84484; 85025; 85378; 93005; 96360; 99284; J7030; Q9967

== ENCOUNTER 2020-11-28 14:13 | Emergency (ER) | payer MEDICAID, SELFPAY ==
[2020-11-28 14:16] VITALS: BP 104/64; PULSE 79; RESP 14; TEMP 36.4; O2SAT 96
--- NOTE | 2020-11-28 14:31 | W.ED.NEUROSD ---
HPI - Neuro Symptoms/Deficit General: Chief Complaint: Altered Mental Status Stated Complaint: AMS/Stroke alert Time Seen by Provider: 11/28/20 14:24 History of Present Illness: HPI Narrative: 85-year-old male brought from [facility] via EMS. 3:00 today he had altered mental status he was last seen normal around noon will himself outside to have a cigarette when I went to round on him they found him poorly responsive. Patient was given Narcan in the field and had a good response. Reported to have a sat of 75% in the field with blood pressure 70/30. His blood pressure sugar was 122. He was given Narcan and all of his vitals improved and he became more awake and alert on the level here his stroke score is 2. Onset (ago): hour(s) Last Observed Normal: 12:00 Timing confirmed by: caregiver Location: speech History of same: Yes Severity: mild Quality: weak Relieving factors: medication (Narcan) Exacerbating factors: none Associated symptoms: Deny chest pain, malaise, nausea or vomiting Review of Systems Const: Denies: fever(s), chills, body aches, change in appetite, fatigue or malaise ENMT: Denies: throat pain, ear or mastoid pain, nasal discharge or nasal congestion Card: Denies: chest pain, edema, dyspnea on exertion or orthopnea Resp: Denies: dyspnea, productive cough or non-productive cough GI: Denies: abdominal pain, nausea, vomiting, hematemesis, coffee ground emesis, diarrhea, constipation, bloating, hematochezia or melena : Denies: flank pain, dysuria, urinary frequency or urinary urgency Skin/Breast: Denies: rash or pruritus PFSH ED PFSH: Medical History Acute GI bleeding Blindness CVA (cerebral vascular accident) Dementia Gastritis Hepatitis C virus infection cured after antiviral drug therapy History of arteriovenous malformation (AVM) History of Helicobacter pylori infection History of hepatitis B Hx of colonic polyps Hypertension Hypotension Hypothyroidism Severe aortic stenosis Surgical History H/O hernia repair History of colonoscopy 08/12/2019 Colonoscopy with removal of lesion by snare Descending colon: 1.5 cm pedunculated polyp removed with a hot snare Sigmoid colon: Moderate diverticulosis Rectum:: Normal ROGER: Grade 4 hemorrhoids History of esophagogastroduodenoscopy (EGD) 08/12/2019: EGD with control of bleeding using hot biopsy forceps Duodenal AVM Family History Other CAD (coronary artery disease) Denies family history of Cancer Social History Smoking and tobacco status: current every day smoker Alcohol intake: never Caregiver/support person: No Lives independently: No Housing: Care Home Marital status: Single NIH stroke score NIHSS: Level Of Consciousness - 1a: 0 Level Of Consciousness Questions - 1b: One Correct Level Of Consciousness Commands - 1c: Both Correct Best Gaze - 2: Normal Visual Montalvo - 3: No Visual Loss Facial Palsy - 4: Normal Motor Arm Right - 5: No Drift Motor Arm Left - 5: No Drift Motor Leg Right - 6: No Drift Motor Leg Left - 6: No Drift Limb Ataxia - 7: Absent Sensory - 8: Normal Best Language - 9: No Aphasia Dysarthia - 10: Normal Extinction And Inattention - 11: 0 Score: Total Score: 1 Physical Exam Const: COMMON NORMALS: no acute distress GENERAL APPEARANCE: cooperative and comfortable ORIENTATION/CONSCIOUSNESS: Yes awake, Yes oriented to person, Yes oriented to place and Yes oriented to time HENMT: COMMON NORMALS: normocephalic, atraumatic and hearing grossly normal bilaterally HEAD & SCALP: normocephalic and atraumatic Neck/C-Spine: COMMON NORMALS: no JVD Resp: COMMON NORMALS: normal respiratory effort, No retractions, No use of accessory muscles and clear to auscultation bilaterally AUSCULTATION: clear to auscultation bilaterally Cardio: COMMON NORMALS: no JVD, regular rate, regular rhythm and No murmurs present (Cardio) RATE: regular rate RHYTHM: regular rhythm GI: COMMON NORMALS: Soft to palpation and No hepatosplenomegaly present AUSCULTATION: Yes normoactive bowel sounds PALPATION: Yes Soft to palpation, No Tenderness to palpation present (GI), No Guarding due to palpation present (GI) and Yes No hepatosplenomegaly present Extremity: COMMON NORMALS: normal to inspection, capillary refill normal, no clubbing, cyanosis or edema, no calf tenderness and no pedal edema Neuro: SENSORIUM/ORIENTATION: Yes oriented to person, Yes oriented to place and Yes oriented to time Skin: COMMON NORMALS: no rashes or lesions noted GENERAL SKIN EXAM: no rashes or lesions noted Course ED course: Resolved completely after the Narcan. We will go ahead and discharge him back to the [facility] he did have a mild cystitis we will treat him for that as well. He was seen by neurology that on consultation with stroke alert there is no role for TPA in this particular patient. Vital Signs: Vital signs: Vital Signs Temperature 97.5 F L 11/28/20 14:16 Pulse Rate 82 11/28/20 18:57 Respiratory Rate 18 11/28/20 18:57 Blood Pressure 95/61 11/28/20 18:57 Pulse Oximetry 96 11/28/20 18:57 MDM - Neuro Symptoms/Deficit Lab Data: Labs: Lab Results 11/28/20 11/28/20 11/28/20 Range/Units 14:33 14:38 14:38 WBC 7.7 (4.0-10.0) 10^3/ uL RBC 4.30 (4.1-5.3) 10^6/u L Hgb 12.4 (11.7-16.6) g/dL Hct 40.7 L (42.0-52.0) % MCV 94.7 H (80-94) fL MCH 28.8 (28.0-34.0) pg MCHC 30.5 (30.0-36.0) g/dL RDW 15.8 H (12.1-15.1) % Plt Count 178 (130-400) 10^3/c mm MPV 11.7 H (7.4-10.4) fL Neut % (Auto) 78.5 % Lymph % (Auto) 11.9 % Cochran % (Auto) 6.7 % Eos % (Auto) 0.7 % Baso % (Auto) 0.5 % Neut # (Auto) 6.02 (1.8-7.7) 10^3/u L Lymph # (Auto) 0.9 (0.8-4.8) 10^3/u L Cochran # (Auto) 0.5 (0.2-0.9) 10^3/u L Eos # (Auto) 0.1 (0.0-0.8) 10^3/u L Baso # (Auto) 0.0 (0.0-0.1) 10^3/u L Nucleated RBC % (a uto) 0 % Nucleated RBCs # 0.0 /100WBC PT 14.30 (12.1-14.9) SECO NDS INR 1.08 (0.8-1.2) APTT 22.4 L (23.9-36.7) SECO NDS Sodium (136-145) mmol/L Potassium (3.5-5.1) mmol/L Chloride (98-107) mmol/L Carbon Dioxide (22-29) mmol/L Anion Gap (5-19) BUN (8-23) mg/dL Creatinine (0.7-1.2) mg/dL GFR Calculation Glucose (65-115) mg/dL POC Glucose 123 H (70-110) mg/dL Calculated Osmolal ity (285-295) mOsm/k g Calcium (8.5-10.5) mg/dL Total Bilirubin (0.15-1.2) mg/dL AST (0-40) U/L ALT (0-41) U/L Alkaline Phosphata se (40-130) IU/L Total Protein (6.6-8.7) g/dL Albumin (3.5-5.2) g/dL Globulin (1.3-4.6) g/dL Urine Color (Yellow) Urine Appearance (CLEAR) Urine pH (5-7) Ur Specific Gravit y (1.005-1.030) Urine Protein (Negative) Urine Glucose (UA) (Normal) Urine Ketones (Negative) Urine Blood (Negative) Urine Nitrate (Negative) Urine Bilirubin (Negative) Urine Urobilinogen (Negative) mg/dL Ur Leukocyte Rosamaria ase (Negative) Urine RBC (0-2) /hpf Urine WBC (0-5) /hpf Ur Squamous Epith Cells (0-5) /hpf Amorphous Sediment /hpf Urine Bacteria (NONE) /hpf Hyaline Casts /lpf Urine Opiates Scre en (Negative) ng/mL Ur Barbiturates Sc reen (Negative) ng/mL Ur Phencyclidine S crn (Negative) ng/mL Ur Amphetamines Sc reen (Negative) ng/mL U Benzodiazepines Scrn (Negative) ng/mL Urine Cocaine Scre en (Negative) ng/mL U Marijuana (THC) Screen (Negative) ng/mL 11/28/20 11/28/20 11/28/20 Range/Units 14:38 14:47 14:47 WBC (4.0-10.0) 10^3/ uL RBC (4.1-5.3) 10^6/u L Hgb (11.7-16.6) g/dL Hct (42.0-52.0) % MCV (80-94) fL MCH (28.0-34.0) pg MCHC (30.0-36.0) g/dL RDW (12.1-15.1) % Plt Count (130-400) 10^3/c mm MPV (7.4-10.4) fL Neut % (Auto) % Lymph % (Auto) % Cochran % (Auto) % Eos % (Auto) % Baso % (Auto) % Neut # (Auto) (1.8-7.7) 10^3/u L Lymph # (Auto) (0.8-4.8) 10^3/u L Cochran # (Auto) (0.2-0.9) 10^3/u L Eos # (Auto) (0.0-0.8) 10^3/u L Baso # (Auto) (0.0-0.1) 10^3/u L Nucleated RBC % (a uto) % Nucleated RBCs # /100WBC PT (12.1-14.9) SECO NDS INR (0.8-1.2) APTT (23.9-36.7) SECO NDS Sodium 145 (136-145) mmol/L Potassium 4.1 (3.5-5.1) mmol/L Chloride 101 (98-107) mmol/L Carbon Dioxide 33 H (22-29) mmol/L Anion Gap 15.1 (5-19) BUN 27 H (8-23) mg/dL Creatinine 1.7 H (0.7-1.2) mg/dL GFR Calculation Not Reportable Glucose 122 H (65-115) mg/dL POC Glucose (70-110) mg/dL Calculated Osmolal ity 306 H (285-295) mOsm/k g Calcium 8.6 (8.5-10.5) mg/dL Total Bilirubin 0.8 (0.15-1.2) mg/dL AST 18 (0-40) U/L ALT 12 (0-41) U/L Alkaline Phosphata se 63 (40-130) IU/L Total Protein 6.5 L (6.6-8.7) g/dL Albumin 3.6 (3.5-5.2) g/dL Globulin 2.9 (1.3-4.6) g/dL Urine Color Yellow (Yellow) Urine Appearance Cloudy (CLEAR) Urine pH 5 (5-7) Ur Specific Gravit y 1.015 (1.005-1.030) Urine Protein Trace (Negative) Urine Glucose (UA) Norm (Normal) Urine Ketones Negative (Negative) Urine Blood 2+ H (Negative) Urine Nitrate Positive H (Negative) Urine Bilirubin Neg (Negative) Urine Urobilinogen 1 H (Negative) mg/dL Ur Leukocyte Rosamaria ase 2+ H (Negative) Urine RBC 5-10 H (0-2) /hpf Urine WBC 25-40 H (0-5) /hpf Ur Squamous Epith Cells 0-4 H (0-5) /hpf Amorphous Sediment 1+ /hpf Urine Bacteria 2+ H (NONE) /hpf Hyaline Casts 5-10 H /lpf Urine Opiates Scre en Positive H (Negative) ng/mL Ur Barbiturates Sc reen Negative (Negative) ng/mL Ur Phencyclidine S crn Negative (Negative) ng/mL Ur Amphetamines Sc reen Negative (Negative) ng/mL U Benzodiazepines Scrn Positive H (Negative) ng/mL Urine Cocaine Scre en Negative (Negative) ng/mL U Marijuana (THC) Screen Negative (Negative) ng/mL Discharge Plan Discharge Patient Disposition: Home Clinical Impression: Medication side effect, Dementia, Cystitis Condition: Stable Prescriptions: New Cipro 500 mg tablet 500 mg PO BID Qty: 10 RF: 0 No Action lorazepam 0.5 mg tablet 0.5 mg PO Q8H PRN (Reason: Anxiety) RF: 0 folic acid 1 mg Tablet 1 mg PO DAILY@0800 RF: 0 terazosin 5 mg Capsule 5 mg PO DAILY@0800 RF: 0 atorvastatin 40 mg Tablet 40 mg PO BEDTIME@2000 RF: 0 ondansetron HCl [Zofran] 4 mg Tablet 4 mg PO Q6H PRN (Reason: Nausea) RF: 0 losartan 25 mg Tablet 25 mg PO DAILY@0800 RF: 0 hydrocodone-acetaminophen 5-325 mg Tablet 1 tab PO Q6H PRN (Reason: Pain) RF: 0 hydrocodone-acetaminophen 5-325 mg Tablet 2 tab PO Q6H PRN (Reason: Pain) RF: 0 prednisone 5 mg Tablet 15 mg PO DAILY@0800 RF: 0 potassium chloride 10 mEq Tablet Extended Release 10 meq PO DAILY@0800 RF: 0 levothyroxine 150 mcg Tablet 150 mcg PO DAILY@06 RF: 0 furosemide 20 mg Tablet 60 mg PO DAILY@06 RF: 0 fluticasone propionate 50 mcg/actuation [place],Suspension 2 spray INTRANASAL DAILY@1999 RF: 0 Systane Complete 0.6 % Drops 1 drp OPHTHALMIC (EYE) TID@08,,16 RF: 0 pantoprazole [Protonix] 40 mg tablet,delayed release (DR/EC) 40 mg PO DAILY@08 RF: 0 cholecalciferol (vitamin D3) 25 mcg (1,000 unit) capsule 25 mcg PO DAILY@08 RF: 0 potassium chloride 10 mEq Capsule, Extended Release 20 meq PO DAILY@08 RF: 0 Tylenol 325 mg Tablet 650 mg PO Q6H PRN (Reason: Pain) RF: 0 Senna-S 8.6-50 mg Tablet 1 tab-cap PO DAILY PRN (Reason: Constipation) RF: 0 Milk of Magnesia 400 mg/5 mL Suspension 30 ml PO DAILY PRN (Reason: Constipation) RF: 0 Dulcolax (bisacodyl) 10 mg Suppository 10 mg VA DAILY PRN (Reason: Constipation) RF: 0 divalproex 500 mg Tablet Extended Release 24 Hr 500 mg PO BID@08,20 RF: 0 Enema Disposable 19-7 gram/118 mL Enema 118 ml VA DAILY PRN (Reason: Constipation) RF: 0 Miralax 17 gram/dose Powder 17 g PO DAILY PRN (Reason: Constipation) RF: 0 albuterol sulfate 90 mcg/actuation Hfa Aerosol Inhaler 2 puff INHALATION Q6H PRN (Reason: Shortness Of Breath) RF: 0 guaifenesin 100 mg/5 mL Syrup 100 mg PO Q4H PRN (Reason: Cough) RF: 0 ketorolac 0.4 % Drops 1 drp OPHTHALMIC (EYE) Q6H PRN (Reason: Dry Eyes) RF: 0 cyanocobalamin (vitamin B-12) [Vitamin B-12] 1,000 mcg Tablet 1,000 mcg PO DAILY@0800 RF: 0 escitalopram oxalate [Lexapro] 10 mg Tablet 10 mg PO DAILY@0800 RF: 0 olanzapine 5 mg Tablet 5 mg PO BID@08,20 RF: 0 ferrous sulfate 325 mg (65 mg iron) Tablet 325 mg PO DAILY@08 RF: 0 Discharge Orders: Discharge ED (Routine); Ordered 11/28/20 Ordered By: Samson Donis Referrals: Mark Flores DO [Primary Care Provider] - Patient Instructions: Opioid Safety Coding Level of Care Code ED Organic Search Lead for Beau Jiang
--- NOTE | 2020-11-28 14:32 | ECG_ITS ---
[facility] Test Date: 2020-11-28 Pat Name: Carlos Leyva Department: Room: Gender: Male [employer]: : 1935 Requested By: Samson Salas Order Number: [id number] Dru MD: Liliana Montalvo M.D. Measurements Intervals Pala Rate: 79 P: 16 WY: 178 QRS: -11 QRSD: 98 T: 101 QT: 409 QTc: 470 Interpretive Statements SINUS RHYTHM WITH OCCASIONAL VENTRICULAR PREMATURE COMPLEXES WITH OCCASIONAL SUPRAVENTRICULAR PREMATURE COMPLEXES MODERATE T-WAVE ABNORMALITY, CONSIDER LATERAL ISCHEMIA [-0.1+ mV T WAVE IN I/aVL/V5/V6] Compared to ECG 11/08/2020 16:56:20 Ventricular premature complex(es) now present Possible ischemia now present T-wave abnormality still present Electronically Signed On 11-29-2020 5:17:04 CDT by Liliana Montalvo M.D. [id number]
--- NOTE | 2020-11-28 14:32 | CT_ITS ---
WS: [id number] CT HEAD TECHNIQUE: Noncontrast CT of the head obtained from the skullbase to the vertex. CLINICAL INFORMATION: Symptoms of Acute Stroke COMPARISON: CT June 08, 2020 DLP: [address] scans at [facility] use at least one of these dose optimization techniques: automat ed exposure control; mA and/or kV adjustment per patient size (includes targeted exams where dose is matched to clinical indication); or iterative reconstruction. FINDINGS: No evidence of intracranial hemorrhage or mass effect. Ventricular system and basal cisterns are mercado nt. Moderate small vessel changes with moderate parenchymal volume loss. Prominent subarachnoid space overlying the right frontal lobe stable over multiple prior examinations. No extra-axial fluid colle ctions. No evidence of mass or mass effect. Paranasal sinuses and mastoid air cells are well aerated. .Normal visualized soft tissues. CT/CT head wo con* [id number] IMPRESSION: 1. No evidence of intracranial hemorrhage or mass effect. 2. Prominent subarachnoid space overlying the right frontal lobe is stable ove r multiple prior examinations. 3. Dense intracranial vascular calcification. 4. No acute intracranial findings. Attempted Samson Donis DO at 11/28/2020 2:41 PM.
[2020-11-28 14:39] LABS: Glucose Point of Care 123 mg/dL (70-110)
[2020-11-28 15:02] LABS: Basophils % 0.5 %; Eosinophils # 0.1 10^3/uL (0.0-0.8); Eosinophils % 0.7 %; Hematocrit 40.7 % (42.0-52.0); Hemoglobin 12.4 g/dL (11.7-16.6); Lymphocytes # 0.9 10^3/uL (0.8-4.8); Lymphocytes % 11.9 %; Mean Corpuscular HGB Conc 30.5 g/dL (30.0-36.0); Mean Corpuscular Hemoglobin 28.8 pg (28.0-34.0); Mean Corpuscular Volume 94.7 fL (80-94); Mean Platelet Volume 11.7 fL (7.4-10.4); Monocytes # 0.5 10^3/uL (0.2-0.9); Monocytes % 6.7 %; Neutrophils # 6.02 10^3/uL (1.8-7.7); Neutrophils % 78.5 %; Nucleated Red Blood Cells % 0 %; Platelet Count 178 10^3/cmm (130-400); Red Cell Distribution Width 15.8 % (12.1-15.1); White Blood Count 7.7 10^3/uL (4.0-10.0)
[2020-11-28 15:04] LABS: INR 1.08 (0.8-1.2)
[2020-11-28 15:05] LABS: Partial Thromboplastin Time 22.4 SECONDS (23.9-36.7)
[2020-11-28 15:13] LABS: Alanine Aminotransferase 12 U/L (0-41); Albumin Level 3.6 g/dL (3.5-5.2); Alkaline Phosphatase 63 IU/L (40-130); Aspartate Amino Transferase 18 U/L (0-40); Blood Urea Nitrogen 27 mg/dL (8-23); Calcium 8.6 mg/dL (8.5-10.5); Carbon Dioxide 33 mmol/L (22-29); Chloride 101 mmol/L (98-107); Globulin 2.9 g/dL (1.3-4.6); Glucose 122 mg/dL (65-115); Osmolality Calculated 306 mOsm/kg (285-295); Sodium 145 mmol/L (136-145); Total Bilirubin 0.8 mg/dL (0.15-1.2); Total Protein 6.5 g/dL (6.6-8.7)
[2020-11-28 15:13] LABS: Protein Urine Trace (Negative); Specific Gravity, Urine 1.015 (1.005-1.030); Urine Appearance Cloudy (CLEAR); Urine Color Yellow (Yellow); pH Urine 5 (5-7)
[2020-11-28 15:14] LABS: Add Urine Microscopic? YES; Bacteria Urine 2+ /hpf; Bilirubin Urine Neg (Negative); Blood Urine 2+ (Negative); Glucose Urine UA Norm (Normal); Ketones Urine Negative (Negative); Leukocyte Esterase Urine 2+ (Negative); Nitrate Urine Positive (Negative); Squamous Epithelial Cell Urine 0-4 /hpf (0-5); Urobilinogen Urine 1 mg/dL (Negative); WBC Urine 25-40 /hpf (0-5)
[2020-11-28 15:15] LABS: Add Urine Culture? Yes; Amorphous Sediment Urine 1+ /hpf
[2020-11-28 15:16] LABS: Amphetamines Screen Urine Negative (Negative); Barbiturates Screen Urine Negative (Negative); Benzodiazepines Screen Urine Positive (Negative); Cocaine Screen Urine Negative (Negative); Opiate Screen Urine Positive (Negative); PCP Screen Urine Negative (Negative); THC Screen Urine Negative (Negative)
[2020-11-28 15:18] LABS: Anion Gap 15.1 (5-19); Potassium 4.1 mmol/L (3.5-5.1)
[2020-11-28 16:20] VITALS: BP 90/62; PULSE 84; RESP 18; O2SAT 95
--- NOTE | 2020-11-28 17:03 | P.PNCC_ITS ---
Stroke Alert Activation ED Arrival Date: 11/28/20 ED Arrival Time: 14:13 ED Physican at Bedside: 14:35 Last Known Normal/at Baseline: 2-3 hours ago Other Last Known Well Infomation: Stroke alert was preactivated by Luana. This patient was known to be normal at noon when he wheeled his wheelchair outside to smoke. He was found down at 1:00 and was unresponsive with versive head movement. When EMS arrived he was responding a little bit pain. He was not moving any of his 4 extremities and he would not answer questions. Stroke team was preactivated. The creative coordinator was in close attendance and I was available through telemetry stroke and followed the patient to CAT scan. I reviewed the CAT scan images and there was no sign of hemorrhage. 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 He was alert. At baseline he has advanced dementia according to the EMS and the correction notes. He is on Depakote for behavioral issues not seizures and has no history of seizures. None were observed. On examination he had dysarthria and no focal findings. His NIH stroke scale score was 2. I performed the NIH stroke scale by telemetry neurology with the assistance of the attending nurse and the creative coordinator. Stroke Alert Activated by: [facility] Stroke Alert Activation Time: 14:08 Stroke MD @ Bedside Time: 14:09 NIH Stroke Scale Time: 14:15 NIH Stroke Scale Score: NIH Stroke Scale Score: 2 NIH stroke score NIHSS: Level Of Consciousness - 1a: 1 Level Of Consciousness Questions - 1b: Both Correct Level Of Consciousness Commands - 1c: Both Correct Best Gaze - 2: Normal Visual Montalvo - 3: No Visual Loss Facial Palsy - 4: Normal Motor Arm Right - 5: No Drift Motor Arm Left - 5: No Drift Motor Leg Right - 6: No Drift Motor Leg Left - 6: No Drift Limb Ataxia - 7: Absent Sensory - 8: Normal Best Language - 9: No Aphasia Dysarthia - 10: Mild/Moderate Dysarthia Extinction And Inattention - 11: 0 Score: Total Score: 2 Stroke Alert Data/Treatment Time to CT of Head: 14:13 CT Results Time: 14:15 CT Impression: 1. No evidence of intracranial hemorrhage or mass effect. 2. Prominent subarachnoid space overlying the right frontal lobe is stable over multiple prior examinations. 3. Dense intracranial vascular calcification. 4. No acute intracranial findings. Attempted Samson Donis DO at 11/28/2020 2:41 PM. Dictated By:Gunnar Newsome MD Signed By:Gunnar Newsome MDSigned Date/Time:11/28/20 1445 Stroke Risk Factors: hypertension tPA Contraindication: tPA Contraindication: Treatment not indcated Other Information: This is most likely an unobserved seizure or TIA, with neurologic symptoms having cleared at this time and no indication for TPA. Critical Care Time Critical Care Time: less than 30 mins A&P Assessment and plan (1) TIA (transient ischemic attack): Transiently he had complete unresponsiveness accompanied by a gaze preference which would suggest hemispheric involvement. He has cleared at this time. His NIH stroke scale score is 2 and there is no role for TPA in his treatment. This consult was accomplished by telemetry stroke. Status: Acute Coding Level of Care Code Acute Customer Facilities Supervisor for Beau Jiang Diagnoses TIA (transient ischemic attack) G45.9
[2020-11-28 18:57] VITALS: BP 95/61; PULSE 82; RESP 18; O2SAT 96
== END 2020-11-29 02:11 | disposition home or self-care (01) ==
PROVIDERS: Emergency Provider Family Medicine; PCP Internal Medicine
DX: F03.90 Unspecified dementia, unspecified severity, without behavioral disturbance, psychotic disturbance, mood disturbance, and anxiety (principal); T50.905A Adverse effect of unspecified drugs, medicaments and biological substances, initial encounter; N30.90 Cystitis, unspecified without hematuria; Z86.73 Personal history of transient ischemic attack (TIA), and cerebral infarction without residual deficits; Z86.19 Personal history of other infectious and parasitic diseases; I10 Essential (primary) hypertension; F17.210 Nicotine dependence, cigarettes, uncomplicated
CPT/HCPCS: 36416; 70450; 80053; 80306; 81001; 82962; 85025; 85610; 85730; 87077; 87086; 87186; 93005; 99284